=== PATIENT | female | born 1940 | race Caucasian/White ===

== ENCOUNTER 2020-01-08 11:26 | Inpatient (IN) ==
[2020-01-08] MEDS ORDERED: 0.9 % SODIUM CHLORIDE 1,000 ML IV ONE (11:45)
--- NOTE | 2020-01-08 11:49 | Emergency Department Note ---
Weakness HPI - General Chief complaint: Weakness Stated complaint: Run over by horse yesterday, weak and lethargic Time Seen by Provider: 01/08/20 11:30 Source: patient, family Mode of arrival: wheelchair Limitations: no limitations - History of Present Illness HPI Narrative: 79-year-old female was trampled by a horse yesterday. She did not hit her head or lose consciousness. Yesterday she was evaluated here in the ER by Dr. ramon and x-rays of bilateral knees left femur and CT scan of the cervical spine were all negative. No labs were done. Anyways today she comes back for some memory issues and confusion. Altered mental state. No fever she is on Coumadin for atrial fibrillation. I am having trouble getting history from her and review of systems-she is not reporting any new pain except for the pain in her legs. No fever. Her oxygen level was 87% here but she is not dyspneic nor does she have a history of oxygen usage I got additional history from her daughter. Apparently she has baseline cognitive impairment but today is worse. Today she cannot even write her name. Concern for ongoing sleep apnea and the need for oxygen at home but she is not on oxygen and refuses to wear. - Related Data Home Medications Medication Instructions Recorded Confirmed Aspirin [Adult Low Dose Aspirin EC] 81 mg PO DAILY 03/12/17 01/08/20 Previous Rx's Medication Instructions Recorded metoprolol suc 100 100 tab PO BID #180 tab 05/27/19 mg-hydrochlorothiazide 12.5 mg tablet,ext.rel 24 hr valsartan 160 mg tablet 160 mg PO QDAY #90 tab 08/04/19 carvedilol 12.5 mg tablet 12.5 mg PO BID #180 tab 08/05/19 rivaroxaban 20 mg tablet 20 mg PO DAILY #90 tab 08/11/19 ezetimibe 10 mg tablet 10 mg PO QDAY #90 tab 08/27/19 furosemide 40 mg tablet 40 mg PO QDAY #90 tab 09/17/19 Allergies Allergy/AdvReac Type Severity Reaction Status Date / Time bacitracin AdvReac Severe Rash Verified 01/08/20 11:27 [From Neosporin ([id number])] Neomycin AdvReac Severe Rash Verified 01/08/20 11:27 [From Neosporin ([id number])] polymyxin B AdvReac Severe Rash Verified 01/08/20 11:27 [From Neosporin ([id number])] codeine AdvReac Intermediate Vomiting Verified 01/08/20 11:27 Review of Systems All systems ED: reviewed and negative except as stated. Past Medical History - Past Medical History Attestation: Yes: The following information was validated with the patient. [facility] Narrative: Family History (Last Reviewed 04/29/19 @ 09:20 by Max Johnson DO) Sister Cancer Family/Other Cancer Stroke Father Diabetes Mother Hypertension, essential Medical History (Last Reviewed 04/29/19 @ 09:20 by Max Johnson DO) Mild chronic anemia (Chronic) CHF (congestive heart failure) (Chronic) CAD (coronary artery disease) (Chronic) Lumbar radicular pain (Chronic) Rheumatic fever (Chronic ~1947) Hypertension, essential (Chronic ~1999) Hyperlipidemia (Chronic ~1999) Heart murmur (Chronic) Congestive heart failure (Resolved) Past Surgical History (Last Reviewed 04/29/19 @ 09:20 by Max Johnson DO) H/O colonoscopy (Chronic ~1999) H/O eye surgery (Chronic ~1947) H/O reduction mammoplasty (Chronic ~1999) H/O: hysterectomy (Chronic ~1982) Medical history: Reports: atrial fibrillation, CAD (coronary artery disease), CHF, hypertension. Denies: CVA, DVT, myocardial infarction, pulmonary embolus, renal disease [employer] history: Reports: non-contributory Surgical history ED: Reports: hysterectomy, tonsillectomy, other (Eye surgery) - Social History smoking status: Never smoker Alcohol use: Reports: None Drug use: Reports: none. Denies: marijuana Physical Exam No acute distress resting. Normocephalic atraumatic except for she small bruised area underneath the nose pad on her eyeglasses on the left side-this is quite small-I do not see any other evidence of trauma. I palpated her entire head and neck and I did not evidence any tenderness. Conjunctive are clear sclerae white nonicteric. Pupils are equal and reactive. Extraocular movements are intact. [place] is intact bilaterally as well. No nasal discharge or congestion. Oropharynx is pink and moist. Face is symmetrical tongue is midline. There is no dysarthria. Anterior neck appears normal without lymphadenopathy or thyromegaly. Heart is regular rate and rhythm no murmur appreciated. Lungs are clear to auscultation bilaterally without wheezes rales rhonchi or respiratory distress. Abdomen is soft nontender nondistended. Looking at her legs see that she is got multiple bruises around the calf area on the right, is quite mottled. On the left bruising and swelling are noted at the femur, again quite mottled and dark purple. Small quarter sized ulcer at left lateral thigh. Appears to be healing well. Bilateral supervisor engraving are normal. She is alert and able answer some questions but her short-term memory is noted-at first he does not remember what happened yesterday. She does not remember what medicine she is on or why she is on them. However at other times she is remembering just fine-it will come to her after little while. She is certainly confused but does not appear delirious Limitations: no limitations Course Vital Signs Temperature 97.0 F 01/08/20 11:28 Pulse Rate 93 H 01/08/20 11:28 Respiratory Rate 18 01/08/20 11:28 Blood Pressure 113/82 01/08/20 11:28 Pulse Oximetry (%) 86 L 01/08/20 11:28 Temperature 97.0 F 01/08/20 11:28 Pulse Rate 111 H 01/08/20 17:07 Respiratory Rate 18 01/08/20 17:07 Blood Pressure 115/65 01/08/20 17:07 Pulse Oximetry (%) 100 01/08/20 17:07 Weakness - Lab Data Lab results reviewed: Yes I reviewed the patient's lab results. Result diagrams: 01/08/20 11:50 01/08/20 11:50 Lab Results 01/08/20 01/08/20 01/08/20 Range/Units 11:50 11:50 11:50 WBC 18.5 H (4.50-11.00) K/mcL RBC 3.50 L (3.59-5.38) M/mcL Hgb 9.9 L (11.2-15.7) g/dL Hct 30.4 L (34.1-44.9) % POC Hct 29.0 L (36.0-48.0) % MCV 86.9 (80.0-100.0) fL MCH 28.3 (26.0-34.0) pg MCHC 32.6 (31.0-36.0) g/dL RDW 14.8 H (11.5-14.5) % Plt Count 288 (140-440) K/mcL MPV 10.2 (7.4-10.4) fL Gran % 81.6 H (38.0-78.0) % Lymph % (Auto) 8.7 L (15.5-49.0) % [place] % (Auto) 9.1 (1.0-12.0) % Eos % (Auto) 0.2 (0.0-7.0) % Baso % (Auto) 0.4 (0.0-2.0) % Gran # 15.08 H (1.80-8.00) K/mcL Lymph # (Auto) 1.60 (1.50-4.80) K/mcL [place] # (Auto) 1.69 H (0.10-0.90) K/mcL Eos # (Auto) 0.04 (0.00-0.70) K/mcL Baso # (Auto) 0.07 (0.00-0.30) K/mcL PT 34.0 H (11.9-14.5) sec INR 3.3 H (0.9-1.1) VBG Lactic Acid (0.5-2.0) mmol/L POC Sodium 136 (133-145) mmol/L Sodium 136 (133-145) mmol/L POC Potassium 4.4 (3.3-5.1) mmol/L Potassium 4.7 (3.3-5.1) mmol/L POC Chloride 104 (96-108) mmol/L Chloride 98 (96-108) mmol/L Carbon Dioxide 17 L (22-30) mmol/L POC Total CO2 22 (22-30) mmol/L Anion Gap 21.0 H (8-16) POC BUN 44 H (8-23) mg/dl BUN 47 H (8-23) mg/dl Creatinine 2.2 H (0.6-1.1) mg/dl POC Creatinine 2.6 H (0.6-1.1) mg/dl GFR Calculation 20 Glucose 168 H (70-105) mg/dL POC Glucose 166 H (70-105) mg/dL Calcium 9.2 (8.6-10.4) mg/dl POC WB Ioniz Calcium 1.14 L (1.16-1.32) mmol/L Magnesium 2.1 (1.6-2.5) mg/dL Total Bilirubin 0.8 (0.0-1.0) mg/dL AST 24 (0-37) U/l ALT 18 (0-40) U/l Alkaline Phosphatase 92 (39-117) U/L Total Creatine Kinase (24-170) IU/L Troponin T (0-0.03) ng/ml NT-Pro-B Natriuret Pep 4485.0 H (0-450) pg/ml Total Protein 7.0 (5.9-8.4) gm/dL Albumin 3.7 (3.2-5.2) gm/dL Globulin 3.3 (2.2-3.7) gm/dL Albumin/Globulin Ratio 1.1 (1.0-2.3) Urine Color Urine Appearance Urine pH (5.0-9.0) Ur Specific [place] (1.000-1.035) Urine Protein (NEG) mg/dL Urine Glucose (UA) (NEG) mg/dL Urine Ketones (NEG) mg/dL Urine Occult Blood (<0.03) mg/dL Urine Nitrate (NEG) Urine Bilirubin (NEG) mg/dL Urine Urobilinogen (NEG) mg/dL Ur Leukocyte Esterase (NEG) /uL Urine RBC (0-1) /hpf Urine WBC (0-4) /hpf Ur Squamous Epith Cells (0-4) /hpf Urine Bacteria (0) /hpf Hyaline Casts (0-2) /lpf Urine Mucus (0) /hpf Ur Culture Indicated? 01/08/20 01/08/20 01/08/20 Range/Units 11:50 11:50 12:24 WBC (4.50-11.00) K/mcL RBC (3.59-5.38) M/mcL Hgb (11.2-15.7) g/dL Hct (34.1-44.9) % POC Hct (36.0-48.0) % MCV (80.0-100.0) fL MCH (26.0-34.0) pg MCHC (31.0-36.0) g/dL RDW (11.5-14.5) % Plt Count (140-440) K/mcL MPV (7.4-10.4) fL Gran % (38.0-78.0) % Lymph % (Auto) (15.5-49.0) % [place] % (Auto) (1.0-12.0) % Eos % (Auto) (0.0-7.0) % Baso % (Auto) (0.0-2.0) % Gran # (1.80-8.00) K/mcL Lymph # (Auto) (1.50-4.80) K/mcL [place] # (Auto) (0.10-0.90) K/mcL Eos # (Auto) (0.00-0.70) K/mcL Baso # (Auto) (0.00-0.30) K/mcL PT (11.9-14.5) sec INR (0.9-1.1) VBG Lactic Acid 2.7 H (0.5-2.0) mmol/L POC Sodium (133-145) mmol/L Sodium (133-145) mmol/L POC Potassium (3.3-5.1) mmol/L Potassium (3.3-5.1) mmol/L POC Chloride (96-108) mmol/L Chloride (96-108) mmol/L Carbon Dioxide (22-30) mmol/L POC Total CO2 (22-30) mmol/L Anion Gap (8-16) POC BUN (8-23) mg/dl BUN (8-23) mg/dl Creatinine (0.6-1.1) mg/dl POC Creatinine (0.6-1.1) mg/dl GFR Calculation Glucose (70-105) mg/dL POC Glucose (70-105) mg/dL Calcium (8.6-10.4) mg/dl POC WB Ioniz Calcium (1.16-1.32) mmol/L Magnesium (1.6-2.5) mg/dL Total Bilirubin (0.0-1.0) mg/dL AST (0-37) U/l ALT (0-40) U/l Alkaline Phosphatase (39-117) U/L Total Creatine Kinase 208 H (24-170) IU/L Troponin T < 0.01 (0-0.03) ng/ml NT-Pro-B Natriuret Pep (0-450) pg/ml Total Protein (5.9-8.4) gm/dL Albumin (3.2-5.2) gm/dL Globulin (2.2-3.7) gm/dL Albumin/Globulin Ratio (1.0-2.3) Urine Color Urine Appearance Urine pH (5.0-9.0) Ur Specific [place] (1.000-1.035) Urine Protein (NEG) mg/dL Urine Glucose (UA) (NEG) mg/dL Urine Ketones (NEG) mg/dL Urine Occult Blood (<0.03) mg/dL Urine Nitrate (NEG) Urine Bilirubin (NEG) mg/dL Urine Urobilinogen (NEG) mg/dL Ur Leukocyte Esterase (NEG) /uL Urine RBC (0-1) /hpf Urine WBC (0-4) /hpf Ur Squamous Epith Cells (0-4) /hpf Urine Bacteria (0) /hpf Hyaline Casts (0-2) /lpf Urine Mucus (0) /hpf Ur Culture Indicated? 01/08/20 Range/Units 15:15 WBC (4.50-11.00) K/mcL RBC (3.59-5.38) M/mcL Hgb (11.2-15.7) g/dL Hct (34.1-44.9) % POC Hct (36.0-48.0) % MCV (80.0-100.0) fL MCH (26.0-34.0) pg MCHC (31.0-36.0) g/dL RDW (11.5-14.5) % Plt Count (140-440) K/mcL MPV (7.4-10.4) fL Gran % (38.0-78.0) % Lymph % (Auto) (15.5-49.0) % [place] % (Auto) (1.0-12.0) % Eos % (Auto) (0.0-7.0) % Baso % (Auto) (0.0-2.0) % Gran # (1.80-8.00) K/mcL Lymph # (Auto) (1.50-4.80) K/mcL [place] # (Auto) (0.10-0.90) K/mcL Eos # (Auto) (0.00-0.70) K/mcL Baso # (Auto) (0.00-0.30) K/mcL PT (11.9-14.5) sec INR (0.9-1.1) VBG Lactic Acid (0.5-2.0) mmol/L POC Sodium (133-145) mmol/L Sodium (133-145) mmol/L POC Potassium (3.3-5.1) mmol/L Potassium (3.3-5.1) mmol/L POC Chloride (96-108) mmol/L Chloride (96-108) mmol/L Carbon Dioxide (22-30) mmol/L POC Total CO2 (22-30) mmol/L Anion Gap (8-16) POC BUN (8-23) mg/dl BUN (8-23) mg/dl Creatinine (0.6-1.1) mg/dl POC Creatinine (0.6-1.1) mg/dl GFR Calculation Glucose (70-105) mg/dL POC Glucose (70-105) mg/dL Calcium (8.6-10.4) mg/dl POC WB Ioniz Calcium (1.16-1.32) mmol/L Magnesium (1.6-2.5) mg/dL Total Bilirubin (0.0-1.0) mg/dL AST (0-37) U/l ALT (0-40) U/l Alkaline Phosphatase (39-117) U/L Total Creatine Kinase (24-170) IU/L Troponin T (0-0.03) ng/ml NT-Pro-B Natriuret Pep (0-450) pg/ml Total Protein (5.9-8.4) gm/dL Albumin (3.2-5.2) gm/dL Globulin (2.2-3.7) gm/dL Albumin/Globulin Ratio (1.0-2.3) Urine Color Yellow Urine Appearance Turbid Urine pH 5.0 (5.0-9.0) Ur Specific [place] 1.015 (1.000-1.035) Urine Protein 30 A (NEG) mg/dL Urine Glucose (UA) Negative (NEG) mg/dL Urine Ketones Neg (NEG) mg/dL Urine Occult Blood 0.2 A (<0.03) mg/dL Urine Nitrate Neg (NEG) Urine Bilirubin Neg (NEG) mg/dL Urine Urobilinogen Neg (NEG) mg/dL Ur Leukocyte Esterase 250 A (NEG) /uL Urine RBC 93 H (0-1) /hpf Urine WBC > 182 H (0-4) /hpf Ur Squamous Epith Cells 0 (0-4) /hpf Urine Bacteria Many A (0) /hpf Hyaline Casts 47 H (0-2) /lpf Urine Mucus Many A (0) /hpf Ur Culture Indicated? Yes - Radiology Data Radiology results reviewed: Yes I reviewed the patient's radiology results. CT scan of the head without contrast shows no acute finding Chest x-ray shows some mild incisional inflammation but nothing acute CT scan of the abdomen pelvis without contrast shows bilateral nonobstructing kidney stones. Small inguinal hernia noted. Right subcapital femoral fracture - EKG Data EKG attestation: Yes I reviewed and interpreted this EKG., Yes There are no EKG findings of acute coronary syndrome EKG results narrative: EKG was compared to previous and there are no new findings. She continues to have atrial fibrillation with mild rapid ventricular response and a rate of 102 Disposition Pt seen by PROCESS HELPER/PA only: No Clinical Impression: Hematoma, Mild cognitive impairment, Hypoxia Rhabdomyolysis Qualifiers: Rhabdomyolysis type: traumatic Encounter type: initial encounter Qualified Code(s): T79.6XXA - Traumatic ischemia of muscle, initial encounter Acute renal failure Qualifiers: Acute renal failure type: unspecified Qualified Code(s): N17.9 - Acute kidney failure, unspecified Struck by horse Qualifiers: Encounter type: subsequent encounter Qualified Code(s): W55.12XD - Struck by horse, subsequent encounter Altered mental status Qualifiers: Altered mental status type: disorientation Qualified Code(s): R41.0 - Disorientation, unspecified Sepsis Qualifiers: Sepsis type: sepsis due to unspecified organism Sepsis acute organ dysfunction status: with acute organ dysfunction Severe sepsis acute organ dysfunction type: acute renal failure Acute renal failure type: unspecified Severe sepsis shock status: unspecified Qualified Code(s): A41.9 - Sepsis, unspecified organism Subcapital fracture of right femur Qualifiers: Encounter type: initial encounter Fracture type: closed Qualified Code(s): S72.011A - Unspecified intracapsular fracture of right femur, initial encounter for closed fracture UTI (urinary tract infection) Qualifiers: Urinary tract infection type: acute cystitis Hematuria presence: with hematuria Qualified Code(s): N30.01 - Acute cystitis with hematuria Summary: Yesterday it sounds like she was trampled by a young horse. She has some bruising to both the right and left legs and a tiny small bruise underneath her eyeglass area but is otherwise good in regards to that. However overnight she has developed new confusion and altered mental status. It is documented she did not hit her head or lose consciousness but other things remain in the differential including CVA versus acute infection such as UTI or pneumonia versus metabolic. Ordered laboratory as well as chest x-ray CT scan of the head and EKG. she is requiring oxygen but it is not clear if this is new from a lung issue or if this is ongoing-she does not wear oxygen at home She asked for a glass of water-however the nurse was helping her drink and she choked both time she tried to drink. We did not allow her to have any further water EKG was unrevealing and did not show any changes compared to previous. She continues to have atrial fibrillation with moderate ventricular response Laboratory shows leukocytosis with acute renal failure-this combined with her altered mental status argue for septic picture. Will start blood cultures and antibiotics with Zosyn and vancomycin. Discussed with hospitalist Dr. Peoples, he would like us to order CT scan of the belly make sure were not missing anything as well as make sure that we get urine on her. Urinalysis was ordered earlier but she has not urinated for us so we will get a bladder scan to see if we need to put in a Jerome. We will be careful with hydration given her heart failure history Bladder scan showed over 300 mL of Jerome was inserted. Urinary tract infection identified-this is likely the cause of her sepsis. CT scan of the abdomen pelvis shows a right subcapital femoral fracture. Unfortunately this was not seen yesterday because her left femur was the one that was imaged because it had large hematoma. Briefly discussed the case with orthopedist Dr. Hughes who saw the patient and discussed things with her. It is noted that she is chronically anticoagulated as well as septic at this time which preclude immediate repair. See his note for full details Dr. Peoples is admitting the patient Disposition: Xfer As Inpt ([facility]) Condition: Fair Referrals: Max Johnson DO [Primary Care Provider] -
[2020-01-08 12:06] LABS: POC Blood Urea Nitrogen 44 mg/dl (8-23); POC CO2 22 mmol/L (22-30); POC Calcium, Ionized 1.14 mmol/L (1.16-1.32); POC Chloride 104 mmol/L (96-108); POC Creatinine 2.6 mg/dl (0.6-1.1); POC Glucose, Random 166 mg/dL (70-105); POC Potassium 4.4 mmol/L (3.3-5.1); POC Sodium 136 mmol/L (133-145)
[2020-01-08 12:27] LABS: Basophils # (Auto) 0.07 K/mcL (0.00-0.30); Basophils % (Auto) 0.4 % (0.0-2.0); Eosinophils # (Auto) 0.04 K/mcL (0.00-0.70); Eosinophils % (Auto) 0.2 % (0.0-7.0); Granulocytes % (Auto) 81.6 % (38.0-78.0); Hematocrit 30.4 % (34.1-44.9); Hemoglobin 9.9 g/dL (11.2-15.7); Lymphocytes % (Auto) 8.7 % (15.5-49.0); Mean Cell Volume 86.9 fL (80.0-100.0); Mean Corpuscular HGB Conc 32.6 g/dL (31.0-36.0); Mean Platelet Volume 10.2 fL (7.4-10.4); Monocytes # (Auto) 1.69 K/mcL (0.10-0.90); Monocytes % (Auto) 9.1 % (1.0-12.0); Platelet Count 288 K/mcL (140-440); Red Cell Distribution Width 14.8 % (11.5-14.5); WBC 18.5 K/mcL (4.50-11.00)
[2020-01-08 12:45] LABS: INR 3.3 (0.9-1.1)
[2020-01-08 12:53] LABS: ALT/SGPT 18 U/l (0-40); AST/SGOT 24 U/l (0-37); Albumin 3.7 gm/dL (3.2-5.2); Albumin/Globulin Ratio 1.1 (1.0-2.3); Alkaline Phosphatase 92 U/L (39-117); Bilirubin,Total 0.8 mg/dL (0.0-1.0); Blood Urea Nitrogen 47 mg/dl (8-23); Calcium 9.2 mg/dl (8.6-10.4); Carbon Dioxide 17 mmol/L (22-30); Chloride 98 mmol/L (96-108); Globulin 3.3 gm/dL (2.2-3.7); Glomerular Filtration Rate 20; Glucose 168 mg/dL (70-105)
--- NOTE | 2020-01-08 13:15 | Cat Scan Report ---
History: Run over by horse yesterday with increased confusion and lethargy and weakness, patient is anticoagulated TECHNIQUE: The brain was imaged without contrast at 2.5 mm intervals. The radiation exposure was limited using dose reduction technology. FINDINGS: No intracranial hemorrhage is present. There is no skull fracture or cerebral edema. There is a stable 1.1 cm densely calcified meningioma along the inferior surface of the right tentorium. This indents the top of the cerebellum but there is no edema and very little mass effect associated with it. There has been no growth since prior CT done on 04/02/14. Patient has mild generalized atrophy. There are extensive white matter changes with confluent areas of decreased attenuation in the centrum semiovale throughout the frontal and parietal lobes bilaterally as well as the external capsules. There is a small old lacunar infarct with encephalomalacia in the head of the right caudate nucleus. Frontal horns of both lateral ventricles are dilated due to loss of brain parenchyma. These findings have all remain stable since 2014. There is no abnormal extra-axial fluid collection. Densely calcified plaques are present in the cavernous portions of both internal carotids and the vertebral arteries. IMPRESSION: No evidence of acute head injury Severe white matter ischemia or degeneration predominantly involving the frontal and parietal lobes Stable 11 mm meningioma located along the undersurface of the right side of the tentorium Dr. Brewer was called with the results Interpreted and Authenticated by: Nacho Bassett 01/08/20
--- NOTE | 2020-01-08 14:05 | XRay Report ---
HISTORY: Hypoxia, cough and run over by a horse yesterday FINDINGS: Mild interstitial lung disease is present bilaterally, most apparent in the right upper lobe. There is a thin linear band of scar tissue lateral to the left upper heart border. The interstitial lung disease has improved since 05/09/19. There is no pulmonary contusion, pneumonia, pneumothorax or pleural effusion. There is no widening of the mediastinum. Heart is borderline enlarged but is smaller today than it was previously. 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 No fracture is identified. IMPRESSION: Mild interstitial fibrosis/inflammation and no acute abnormality Interpreted and Authenticated by: Nacho Bassett 01/08/20
[2020-01-08] MEDS ORDERED: PIPERACILLIN SODIUM/TAZOBACTAM 2.25 GM in DEXTROSE 5% IN WATER 50 ML IV ONE (14:13)
[2020-01-08] MEDS ORDERED: VANCOMYCIN 1,000 MG in 0.9 % SODIUM CHLORIDE 250 ML IV ONE (14:13)
[2020-01-08 15:59] LABS: Appearance,Urine TURBID; Bacteria,Urine MANY /hpf (0); Bilirubin,Urine NEG (NEG); Color,Urine YELLOW; Culture Indicated,Urine YES; Glucose,Urine (UA) NEGATIVE (NEG); Ketones,Urine NEG (NEG); Leukocyte Esterase,Urine 250 /uL (NEG); Mucus,Urine MANY /hpf (0); Nitrate,Urine NEG (NEG); Protein,Urine 30 mg/dL (NEG); Specific Gravity,Urine 1.015 (1.000-1.035); Urine Blood 0.2 mg/dL (<0.03); Urine Hyaline Cast 47 /lpf (0-2); Urine RBC 93 /hpf (0-1); Urine Squamous Epithelial Cell 0 /hpf (0-4); Urine WBC > 182 /hpf (0-4); Urobilinogen,Urine NEG (NEG)
--- NOTE | 2020-01-08 16:10 | Cat Scan Report ---
History: Trampled by a horse yesterday TECHNIQUE: The patient was imaged without contrast scanning from the diaphragm through the pubic bones. Sagittal and coronal reformats are created. The radiation exposure was limited using dose reduction technology. FINDINGS: The heart is mildly enlarged. There are a few bands of scar or discoid atelectasis in the lingula and posterior basal segment left lower lobe. No pleural effusion or pericardial effusion are present. Evaluation the abdominal organs without contrast is somewhat limited. The liver and spleen are normal in size and homogeneous. Gallbladder and bile ducts are normal. There is mild atrophy of the pancreas. The adrenals are normal. In an upper pole calyx of the right kidney there is a 2 x 4 mm nonobstructing calculus. In an upper pole calyx of left kidney there is a 2 x 3 mm nonobstructing stone. The kidneys are otherwise normal with no laceration or surrounding hematoma. The aorta is normal in caliber. There is a moderate amount calcified plaque throughout the aorta, iliac arteries and visceral arteries throughout the abdomen and pelvis. No intra-abdominal hemorrhage or free air present. There are several noninflamed diverticula in the descending colon. The uterus and ovaries have been removed. Urinary bladder is decompressed by Jerome catheter. There is air in the bladder, probably related to the catheter insertion. Patient has a subcapital fracture of the right femoral neck. There is impaction along the lateral side. Left hip is normal. No other fracture is present. There is a moderate levoscoliotic curvature in the lumbar spine with associated disc degeneration and arthritis throughout the lumbar spine as well as lower thoracic spine. The greatest degeneration is at L5-S1. A small fat-containing left inguinal hernia is seen. IMPRESSION: Acute subcapital fracture of the right femoral neck. No lacerated abdominal organ or intra-abdominal hemorrhage. Tiny bilateral nonobstructing kidney stones Cardiomegaly Dr. Brewer was called with the results Interpreted and Authenticated by: Nacho Bassett 01/08/20
--- NOTE | 2020-01-08 16:27 | Internal Med History&Physical ---
Medical - H&P: [facility] Patient information: Note initiated : 01/08/20 at 4:21 pm Service Date, if different from initiated Date: [] Patient: Izzy Everett a 79 y/o F admitted on for Run Over By Horse Yesterday, Weak And Lethargic. Chief Complaint: [] Chief complaint: Mental status change/pain History of present illness: Ms. Everett is a 79 year old F fairly independently living alone and carries history of HTN/CHF and CAD who presents to the ER following injury sustained while she was attempting to braid her horse standing on a stool. She got thrown off the stool and landed on her hip and subsequently was trampled by the horse multiple times sustaining injuries across face chest and lower extremity. She was evaluated in the ER and after initial work-up was discharged in stable s contreras. Following discharge within a few hours she became progressively weak confused and was unable to function. Sustained injuries after getting trampled by horse. She was evaluated and was discharged in stable state the day prior to admission. She however continued to deteriorate with increasing mental status change and worsening weakness fatigue and dizziness. During the second visit at [facility] ER work-up was consistent with severe sepsis with a white count 18.5 secondary to complicated UTI and right femoral neck fracture was discovered on imaging. Hospitalist/orthopedics service was consulte in light of above Blood cultures were drawn and antibiotics initiated. At the time of evaluation patient is alert but in significant pain. She is able to endorse history as above. Extensive bruising throughout the body noted. She is accompanied with her daughter. She denies chest pain, vision changes, unilateral weakness, incontinence Review of systems 10 point review system was performed and is negative except was cussed above Medical - H&P: PMH Medical history: Mild chronic anemia (Chronic) CHF (congestive heart failure) (Chronic) CAD (coronary artery disease) (Chronic) s/p 2 vessel stenting in [place], [place] by Dr. Burnham Lumbar radicular pain (Chronic) Rheumatic fever (Chronic ~1947) Hypertension, essential (Chronic ~1999) Hyperlipidemia (Chronic ~1999) Heart murmur (Chronic) Congestive heart failure (Resolved) Surgical History H/O colonoscopy (Chronic ~1999) [facility] in [place], [place] H/O eye surgery (Chronic ~1947) at 8 years old H/O reduction mammoplasty (Chronic ~1999) H/O: hysterectomy (Chronic ~1982) Family History Sister Cancer Family/Other Cancer Aunt Stroke Aunt Father Diabetes Mother Hypertension, essential Social History marital status: other: Children-4 smoking status: Never smoker alcohol intake frequency: does not drink substance use type: does not use Medical - H&P: Meds Home Medications Medication Instructions Recorded Confirmed Type Aspirin [Adult Low Dose Aspirin EC] 81 mg PO DAILY 03/12/17 01/08/20 History metoprolol suc 100 100 tab PO BID #180 tab 05/27/19 01/08/20 Rx mg-hydrochlorothiazide 12.5 mg tablet,ext.rel 24 hr valsartan 160 mg tablet 160 mg PO QDAY #90 tab 08/04/19 01/08/20 Rx carvedilol 12.5 mg tablet 12.5 mg PO BID #180 tab 08/05/19 01/08/20 Rx rivaroxaban 20 mg tablet 20 mg PO DAILY #90 tab 08/11/19 01/08/20 Rx ezetimibe 10 mg tablet 10 mg PO QDAY #90 tab 08/27/19 01/08/20 Rx furosemide 40 mg tablet 40 mg PO QDAY #90 tab 09/17/19 01/08/20 Rx Allergies Allergy/AdvReac Type Severity Reaction Status Date / Time bacitracin AdvReac Severe Rash Verified 01/08/20 11:27 [From Neosporin ([id number])] Neomycin AdvReac Severe Rash Verified 01/08/20 11:27 [From Neosporin ([id number])] polymyxin B AdvReac Severe Rash Verified 01/08/20 11:27 [From Neosporin ([id number])] codeine AdvReac Intermediate Vomiting Verified 01/08/20 11:27 Medical - H&P: Exam - Constitutional Vitals: Temp Pulse Resp BP Pulse Ox 97.0 F 108 H 17 118/72 98 01/08/20 11:28 01/08/20 15:06 01/08/20 15:06 01/08/20 15:06 01/08/20 15:06 General appearance: moderate distress (Generalized pain/fracture site) Exam: Head normocephalic, bruising around forehead Neck lymphadenopathy oral cavity dry no ear nose discharg Eye movement symmetrical S1-S2 regular rhythm and monitor Nonlabored breathing abdomen soft Diminished range of motion at right hip joint secondary to pain Skin generalized bruising lower extremity/torso Psych alert cooperative but anxious Neuro nonfocal Medical - H&P: Reslt - Labs CBC & Chem 7: 01/09/20 04:54 01/08/20 11:50 Labs: Short CBC 01/08/20 Range/Units 11:50 WBC 18.5 H (4.50-11.00) K/mcL Hgb 9.9 L (11.2-15.7) g/dL Hct 30.4 L (34.1-44.9) % Plt Count 288 (140-440) K/mcL BMP 01/08/20 11:50 Sodium 136 Potassium 4.7 Chloride 98 Carbon Dioxide 17 L BUN 47 H Creatinine 2.2 H Glucose 168 H Calcium 9.2 Cardiac Enzymes 01/08/20 01/08/20 Range/Units 11:50 11:50 Total Creatine Kinase 208 H (24-170) IU/L Troponin T < 0.01 (0-0.03) ng/ml Liver Function 01/08/20 Range/Units 11:50 Total Bilirubin 0.8 (0.0-1.0) mg/dL AST 24 (0-37) U/l ALT 18 (0-40) U/l Alkaline Phosphatase 92 (39-117) U/L Albumin 3.7 (3.2-5.2) gm/dL Urine 01/08/20 Range/Units 15:15 Urine Color Yellow Urine Appearance Turbid Urine pH 5.0 (5.0-9.0) Ur Specific [place] 1.015 (1.000-1.035) Urine Protein 30 A (NEG) mg/dL Urine Glucose (UA) Negative (NEG) mg/dL Medical - H&P: A/P (1) Displaced fracture of right femoral neck Current visit: Yes Status: Acute * Right femoral neck fracture-orthopedic consulted. Inpatient admission * Preop risk evaluation-based on RCRI [place] [employer] restarted again patient would fall under high risk category for intraoperative and immediate postoperative. Risk of ACS/CVA. I would recommend maintaining intraoperative mean artery pressure over 65. However at this time due to active sepsis I would recommend delaying surgery until sepsis resolves and patient more stable to undergo anesthesia. Additionally surgery and anesthesia specific risks will be addressed by individual care providers. * Complicated UTI-continue antibiotic coverage and de-escalate based on sensitivities * Severe sepsis second above with endorgan dysfunction including AMS/ARF. White count 18.5. Lactate 2.7. Trend venous lactate/blood antibiotic coverage. * Acute kidney injury secondary to severe sepsis with endorgan dysfunction. Baseline 0.9. Continue crystalloids and sepsis management per guidelines. * Acute change mental status secondary to sepsis endorgan dysfunction. Continue close monitoring * Extensive contusion secondary injury. Continue pain management * Atrial fibrillation currently rate controlled. Anticoagulation rivaroxaban for CVA prophylaxis * History of CAD continue aspirin/beta-ginny * History of hypertension hold antihypertensives until systolics improve and over 140 Plan * Inpatient PCU admit light of hip fracture/severe sepsis/AMS * Orthopedic consult for hip fracture * Broad antibiotic coverage * Sepsis management per guidelines * Nephrology consultation for RACHEL * Pre-existing medical condition management home meds except for antihypertensives will be held until sepsis resolves
[2020-01-08] MEDS ORDERED: hydrALAZINE 20 MG/ML VIAL IV PRN (18:27)
[2020-01-08] MEDS ORDERED: BISACODYL 10 MG SUPP.RECT PR PRN (18:27)
[2020-01-08] MEDS ORDERED: METOPROLOL TARTRATE 5 MG/5 ML VIAL IV PRN (18:27)
[2020-01-08] MEDS ORDERED: POLYETHYLENE GLYCOL 3350 17 GM PACKET PO PRN (18:27)
[2020-01-08] MEDS ORDERED: ONDANSETRON 4 MG ODT TABLET SL PRN (18:27)
[2020-01-08] MEDS ORDERED: ACETAMINOPHEN 325 MG TABLET PO PRN (18:27)
[2020-01-08] MEDS ORDERED: ONDANSETRON 4 MG/2 ML VIAL IV PRN (18:27)
[2020-01-08] MEDS ORDERED: MAGNESIUM SULFATE 2 GM/50 ML BAG IV PRN (18:27)
[2020-01-08] MEDS ORDERED: POTASSIUM CHLORIDE 20 MEQ PACKET PO PRN (18:27)
[2020-01-08] MEDS ORDERED: POTASSIUM CHLORIDE 40 MEQ in DEXTROSE 5% IN WATER 500 ML IV PRN (18:27)
[2020-01-08] MEDS ORDERED: ACETAMINOPHEN IV PRN (18:47)
[2020-01-08] MEDS: HYDROcodone/APAP 5/325MG TABLET PO PRN (19:02)
[2020-01-08] MEDS ORDERED: cefTRIAXone 2 GM VIAL ONE (19:06)
[2020-01-08] MEDS: cefTRIAXone 2 GM in DEXTROSE 5% IN WATER 50 ML IV SCH (19:08)
--- NOTE | 2020-01-08 19:59 | Consultation ---
DATE OF CONSULTATION: 01/08/2020 REASON FOR CONSULTATION: Right femoral neck fracture. CONSULTING PROVIDER: Dr. Álvaro Brewer, ER provider, [facility]. HISTORY OF PRESENT ILLNESS: The patient is an 79-year-old female who is independent normally, who was trampled by her horse, a yearling, yesterday. She was apparently braiding her horse's frederick standing on a stool when this occurred. She was brought to the emergency department at that time with imaging of bilateral knees as well as left femur and hip, which did not demonstrate any fractures. She was subsequently discharged with a diagnosis of a blunt trauma with hematomas throughout the lower extremities as well as her right arm and face. She then followed up with her primary care today and she was found to have altered mental status, hypotensive and was concerned with referral her back to the emergency department. In the emergency department, she was found to be septic with UTI as well as acute renal failure, elevated white count and lactic acid, and a right displaced femoral neck fracture. For this latter, orthopedics was consulted. The hospitalist also consulted for the septic picture of the patient. On presentation, she does complain about the pain in multiple areas with bruising and right hip pain. She did ambulate with a walker for the first time yesterday after the injury; however, only very short distances. Some of this information brought to light by her daughter who accompanies her today. PAST MEDICAL HISTORY: Significant for chronic anemia, history of chronic congestive heart failure, coronary artery disease, status post 2-vessel stenting, lumbar radicular pain, hypertension, hyperlipidemia, heart murmur, as well as peripheral vascular disease. PAST SURGICAL HISTORY: Significant for a colonoscopy, eye surgery, breast reduction, and hysterectomy. ALLERGIES: BACITRACIN, NEOMYCIN, POLYMYXIN B, AND CODEINE. MEDICATIONS: Aspirin 81 mg, metoprolol, losartan, carvedilol, furosemide, rivaroxaban, and ezetimibe. REVIEW OF SYSTEMS: As mentioned in HPI, altered mental status, fevers, chills in addition to the pain that she is currently having. Otherwise, prior to this 10-point review of systems was negative per her daughter. SOCIAL HISTORY: She resides by herself in [place] with her daughter living just on the [address] approximately half mile. She is a nontobacco user, smoker. FAMILY HISTORY: Significant for stroke as well as malignancy, hypertension, and diabetes. PHYSICAL EXAMINATION: VITAL SIGNS: Heart rate is 122, respiratory rate is 18, blood pressure 115/65. She is on supplemental oxygen, satting up to 100%. GENERAL: She does converse; however, slightly altered mental status, as she states things that, according to daughter, are not true; however, no slurred speech and does communicate in a logical manner. HEAD: She has several abrasions; however, no active bleeding and overall appears intact. EXTREMITIES: Her bilateral shoulders are atraumatic in nature. On her left upper extremity, she has skin intact. She can fully flex and extend the elbow as well as the wrist, make composite fist with flat hand. She can supinate and pronate the forearm. Sensation intact. Her hand is warm and well perfused. The right upper extremity, she has a dressing on her right elbow; appears dry. She can flex and extend the elbow fully without difficulty or pain. She has full supination and pronation as well as ability of making a composite fist with flat hand. Her hand is warm and well perfused and sensation is intact. Her pelvis is stable to compression. Examination of the left lower extremity, her skin is intact; however, she has significant bruising and ecchymosis through her thigh and swelling. She does not have a knee joint effusion that is appreciated. Her leg is atraumatic. No tenderness to palpation about the knee, the leg, the foot, or at the ankle. She can bend her knee without difficulty as well as move all her digits. No pain with log roll of her hip. Her sensation is intact in her foot as well as the foot is warm and well perfused. Right lower extremity, it is slightly shortened. Range of motion deferred about the hip given known fracture. She does have significant ecchymosis and bruising. There is swelling over the medial aspect of her knee, however, no tenderness about laterally. No tenderness to palpation about the leg itself, ankle or foot. Her sensation is intact throughout her leg as well as her foot is warm and well perfused. LABORATORY DATA: She has a CBC with a white count of 18.5, hemoglobin 9.9, hematocrit is 30.4, platelets 288. Her coags, she has an INR of 3.3 and a PT of 34. She has a CMP with a creatinine of 2.2 and a BUN of 47. Her lactic acid was 2.7. Her urine is positive for UTI and cultures are pending. IMAGING DATA: She has plain films of her bilateral knees as well as her left thigh from yesterday, which did not demonstrate any fractures or any joint effusions of the knee. She has a CT of the chest, abdomen, and pelvis, which demonstrated a complete displaced femoral neck fracture on the right side, also has some irregularity along the anterior acetabular rim; however, it is nondisplaced. No intraabdominal pathology. ASSESSMENT AND PLAN: This 79-year-old female with a displaced right femoral neck fracture who is septic with end-organ failure to include acute kidney failure. I discussed this diagnosis with the patient as well as her daughter. I do not think the correct way to move forward would be a pinning type of surgery and I think this will displace and she will develop AVN given the displaced nature of the fracture. I would recommend hip hemiarthroplasty. However, in light of her septis, I think this has to be delayed until medically stable with normalization of her white count and hemodynamically stable. This may be in a couple of days. Also, her coagulopathy has to be corrected as her INR is 3.3. I reviewed all this with them at length along with the risks and benefits of other surgery and postop expectations to include the morbidity and mortality associated with hip fractures in this age group. They do understand and they are okay to proceed in this fashion. The patient will be admitted by hospitalist for ongoing treatment of her medical issues including sepsis. We will also correct her coagulopathy as sepsis resolves. We will continue to monitor and potentially proceed with surgery in the next several days. Until then, she is nonweightbearing on the right lower extremity. DLW:adolfo Job ID: [id number] Doc ID: [id number] Raghav RUSSELL
[2020-01-08] MEDS ORDERED: MELATONIN 3 MG TABLET PO PRN (21:00)
[2020-01-08] MEDS: DOCUSATE SODIUM 100 MG CAPSULE PO SCH (22:07)
[2020-01-08] MEDS: SENNOSIDES/DOCUSATE SODIUM 1 TAB TABLET PO SCH (22:07)
[2020-01-08] MEDS: 0.9 % SODIUM CHLORIDE 10 ML SYRINGE IV SCH (22:08)
[2020-01-08] MEDS: CYANOCOBALAMIN (VITAMIN B-12) 500 MCG TABLET PO SCH (22:08)
[2020-01-09] MEDS: HYDROmorphone 2 MG/ML VIAL IV PRN ×4 (00:46→21:59)
[2020-01-09 06:35] LABS: Hematocrit 21.7 % (34.1-44.9); Hemoglobin 6.8 g/dL (11.2-15.7); Mean Cell Volume 88.9 fL (80.0-100.0); Mean Corpuscular HGB Conc 31.3 g/dL (31.0-36.0); Mean Platelet Volume 10.3 fL (7.4-10.4); Platelet Count 202 K/mcL (140-440); RBC 2.44 M/mcL (3.59-5.38); Red Cell Distribution Width 14.8 % (11.5-14.5); WBC 13.4 K/mcL (4.50-11.00)
[2020-01-09] MEDS ORDERED: 0.9 % SODIUM CHLORIDE 250 ML IV SCH (06:45)
[2020-01-09 06:46] LABS: ALT/SGPT 14 U/l (0-40); AST/SGOT 23 U/l (0-37); Albumin/Globulin Ratio 1.1 (1.0-2.3); Alkaline Phosphatase 68 U/L (39-117); Bilirubin,Direct < 0.2 mg/dL (0.0-0.3); Bilirubin,Total 0.4 mg/dL (0.0-1.0); Blood Urea Nitrogen 44 mg/dl (8-23); Calcium 8.2 mg/dl (8.6-10.4); Carbon Dioxide 21 mmol/L (22-30); Chloride 106 mmol/L (96-108); Globulin 2.7 gm/dL (2.2-3.7); Glomerular Filtration Rate 28; Glucose 113 mg/dL (70-105); Lactate Dehydrogenase 240 U/L (94-250); Phosphorous 4.4 mg/dL (2.7-4.5); Triglycerides 197 mg/dl (<150); Uric Acid 9.3 mg/dL (2.5-8.0)
--- NOTE | 2020-01-09 07:14 | Internal Med Progress Note ---
Medical - PN: Subj Patient information: Note initiated : 01/09/20 at 6:42 am Service Date, if different from initiated Date: [] Patient: Izzy Everett a 79 y/o F admitted on 01/08/20 for Run Over By Horse Yesterday, Weak And Lethargic. Chief Complaint: [] Interval history: Ms. Everett is a 79 year old F fairly independently living alone and carries history of HTN/CHF and CAD who presents to the ER following injury sustained while she was attempting to braid her horse standing on a stool. She got thrown off the stool and landed on her hip and subsequently was trampled by the horse multiple times sustaining injuries across face chest and lower extremity. She was evaluated in the ER and after initial work-up was discharged in stable state. Following discharge within a few hours she became progressively weak confused and was unable to function. Sustained injuries after getting trampled by horse. She was evaluated and was discharged in stable state the day prior to admission. She however continued to deteriorate with increasing mental status change and worsening weakness fatigue and dizziness. During the second visit at [facility] ER work-up was consistent with severe sepsis with a white count 18.5 secondary to complicated UTI and right femoral neck fracture was discovered on imaging. Hospitalist/orthopedics service was consulte in light of above Blood cultures were drawn and antibiotics initiated. At the time of evaluation patient is alert but in significant pain. She is able to endorse history as above. Extensive bruising throughout the body noted. She is accompanied with her daughter. She denies chest pain, vision changes, unilateral weakness, incontinence 01/08-hemoglobin dropped from 9.9-6.8. Off anticoagulation. Increasing hematoma thighs around the fracture site. Likely extravasation. Surgery on board. However orthopedics of the opinion that they would want to wait for additional 24 hours until INR normalized. Patient off apixaban. White count down from 18. 5-13.4. On Rocephin. Creatinine improved to 1.7 from 2.6. Continue pain management. Generalized bruising - Constitutional Vitals: Vital Signs Temp Pulse Resp BP Pulse Ox 98.5 F 99 H 18 126/63 99 01/09/20 06:00 01/09/20 06:00 01/09/20 06:00 01/09/20 06:00 01/09/20 06:00 Period Temp Pulse Resp BP Sys/Flood Pulse Ox Last 24 Hr 97.0 F-99.5 F 57-127 14-33 96-147/43-89 85-100 Intake and Output 01/08/20 01/09/20 01/09/20 21:59 05:59 13:59 Intake Total 300 240 Output Total 800 Balance 300 -560 Weight 140 lb Intake & Output: Intake & Output 01/08/20 01/09/20 01/09/20 21:59 05:59 13:59 Intake Total 300 240 Output Total 800 Balance 300 -560 Weight 140 lb Intake: IV 300 Zosyn 2.25 gm In Dextrose 5% in 50 Water 50 ml @ 100 mls/hr IV ONCE ONE Rx#:[id number] Vancomycin 1,000 mg In Sodium 250 Chloride 0.9% 250 ml @ 250 mls/ hr IV ONCE ONE Rx#:[id number] Oral 240 Output: Urine Catheter Amount 800 Other: Urine Appearance Cloudy Cloudy Sediment Uretheral (Jerome) Clear Urine Color Bright Yellow Dark Yellow Uretheral (Jerome) Bright Yellow Urine Odor Normal General appearance: moderate distress Exam: Generalized bruising involving extremities Fatigue Pallor noted Jerome draining clear urine Medical - PN: Obj Da - Labs CBC & Chem 7: 01/09/20 04:54 01/09/20 04:54 Labs: Abnormal Lab Results 01/09/20 01/08/20 01/08/20 04:54 15:15 12:24 WBC 13.4 H RBC 2.44 L Hgb 6.8 L* Hct 21.7 L POC Hct RDW 14.8 H Gran % Lymph % (Auto) Gran # Harnett # (Auto) PT INR VBG Lactic Acid 2.7 H Carbon Dioxide Anion Gap POC BUN BUN Creatinine POC Creatinine Glucose POC Glucose POC WB Ioniz Calcium Total Creatine Kinase NT-Pro-B Natriuret Pep Urine Protein 30 A Urine Occult Blood 0.2 A Ur Leukocyte Esterase 250 A Urine RBC 93 H Urine WBC > 182 H Urine Bacteria Many A Hyaline Casts 47 H Urine Mucus Many A 01/08/20 01/08/20 01/08/20 11:50 11:50 11:50 WBC RBC Hgb Hct POC Hct 29.0 L RDW Gran % Lymph % (Auto) Gran # Harnett # (Auto) PT 34.0 H INR 3.3 H VBG Lactic Acid Carbon Dioxide 17 L Anion Gap 21.0 H POC BUN 44 H BUN 47 H Creatinine 2.2 H POC Creatinine 2.6 H Glucose 168 H POC Glucose 166 H POC WB Ioniz Calcium 1.14 L Total Creatine Kinase 208 H NT-Pro-B Natriuret Pep 4485.0 H Urine Protein Urine Occult Blood Ur Leukocyte Esterase Urine RBC Urine WBC Urine Bacteria Hyaline Casts Urine Mucus 01/08/20 11:50 WBC 18.5 H RBC 3.50 L Hgb 9.9 L Hct 30.4 L POC Hct RDW 14.8 H Gran % 81.6 H Lymph % (Auto) 8.7 L Gran # 15.08 H Harnett # (Auto) 1.69 H PT INR VBG Lactic Acid Carbon Dioxide Anion Gap POC BUN BUN Creatinine POC Creatinine Glucose POC Glucose POC WB Ioniz Calcium Total Creatine Kinase NT-Pro-B Natriuret Pep Urine Protein Urine Occult Blood Ur Leukocyte Esterase Urine RBC Urine WBC Urine Bacteria Hyaline Casts Urine Mucus Meds: Medications Acetaminophen (Tylenol) 650 mg PO Q4-6HP PRN; Protocol PRN Reason: Per Pain Protocol/Fever > 101 Hydrocodone Bitart/Acetaminophen ([place]athrop 5/325mg) 1 tab PO Q4HP PRN; Protocol PRN Reason: Per Pain Protocol Last Admin: 01/08/20 19:02 Dose: 1 tab Documented by: Bisacodyl (Dulcolax) 10 mg AR Q2-3DAYS PRN PRN Reason: Constipation Cyanocobalamin (Vitamin B-12) 1,000 mcg PO BID [facility] Stop: 01/13/20 09:01 Last Admin: 01/08/20 22:08 Dose: 1,000 mcg Documented by: Docusate Sodium (Colace) 100 mg PO BID [facility] Last Admin: 01/08/20 22:07 Dose: 100 mg Documented by: Folic Acid (Folic Acid) 1 mg PO DAILY [facility] Hydralazine HCl (Apresoline) 10 mg IV Q4-6HP PRN PRN Reason: Hypertension Hydromorphone HCl (Dilaudid) 0.5 mg IV Q4HP PRN; Protocol PRN Reason: Per Pain Protocol Last Admin: 01/09/20 04:54 Dose: 0.5 mg Documented by: Potassium Chloride 40 meq/ (Dextrose) 520 mls @ 130 mls/hr IV UD PRN PRN Reason: K+ = or < 3.5 Magnesium Sulfate (Magnesium Sulfate) 2 gm in 50 mls @ 50 mls/hr IV UD PRN PRN Reason: MG = or < 1.7 Ceftriaxone Sodium 2 gm/ (Dextrose) 50 mls @ 100 mls/hr IV DAILY [facility]; Protocol Last Admin: 01/08/20 19:08 Dose: Not Given Documented by: Acetaminophen (Ofirmev) 950 mg in 95 mls @ 190 mls/hr IV Q6HP PRN; Protocol PRN Reason: PAIN/FEVER > 101 Sodium Chloride (Sodium Chloride 0.9%) 250 mls @ 20 mls/hr IV .[id number] [facility] Stop: 01/09/20 19:14 Iron Carb/Multivit/Incident Response Engineer/Folic Acid (Multivitamin W/Minerals) 1 tab PO DAILY [facility] Melatonin (Melatonin 3mg Tablet) 3 mg PO HSP PRN PRN Reason: Insomnia Metoprolol Tartrate (Lopressor) 5 mg IV Q5M PRN PRN Reason: Heart Rate > 140 bpm Ondansetron HCl (Zofran Odt) 4 mg SL Q4-6HP PRN; Protocol PRN Reason: Nausea And Vomiting Ondansetron HCl (Zofran) 4 mg IV Q4-6HP PRN; Protocol PRN Reason: Nausea And Vomiting Polyethylene Glycol (Miralax) 17 gm PO DAILYP PRN PRN Reason: Constipation Potassium Chloride (Klor-Con) 40 meq PO DAILYP PRN PRN Reason: K+ < 3.5 Senna/Docusate Sodium (Senna Plus Tablet) 1 tab PO HS [facility] Last Admin: 01/08/20 22:07 Dose: 1 tab Documented by: Sodium Chloride (Saline Flush) 10 ml IV Q8 [facility] Last Admin: 01/08/20 22:08 Dose: 10 ml Documented by: Thiamine HCl (Vitamin B1) 100 mg PO DAILY [facility] Medical - PN: A/P - Time Spent With Patient Total time spent is greater than 50% in coordination of care (as documented) at patient's floor/unit and/or counseling patient: 25 - 35 minutes (1) Displaced fracture of right femoral neck Status: Acute Assessment and plan: * Right femoral neck fracture-orthopedic on board. Will undergo surgery in 24 hours. On pain management * Preop risk evaluation-based on RCRI [place] [employer] restarted again patient would fall under high risk category for intraoperative and immediate postoperative. Risk of ACS/CVA. I would recommend maintaining intraoperative mean artery pressure over 65. However at this time due to active sepsis I would recommend delaying surgery until sepsis resolves and patient more stable to undergo anesthesia. Additionally surgery and anesthesia specific risks will be addressed by individual care providers. * Acute blood loss anemia secondary extravasation at fracture site. Off anticoagulation. Doing his blood transfusion today. Serial hemoglobin check. * Complicated UTI-continue antibiotics * Severe sepsis second above with endorgan dysfunction including AMS/ARF. Clinically improving. White count downtrending to 13.5 from 18 * RACHEL -clinically improving. Creatinine down from 2.6-1.6 * Acute change mental status secondary to sepsis endorgan dysfunction. Continue close monitoring * Extensive contusion secondary injury. Continue pain management * Atrial fibrillation currently rate controlled. Anticoagulation rivaroxaban for CVA prophylaxis * History of CAD continue aspirin/beta-ginny * History of hypertension hold antihypertensives until systolics improve and over 140 Plan * Serial hemoglobin * 2 units ts PRBC transfusion * N.p.o. after midnight * De-escalate antibiotics based on sensitivities * Pre-existing medical condition management home meds except for antihypertensives will be held until sepsis resolves Current Visit: Yes Medical - PN: Qual - VTE Deep Vein Thrombosis/Pulmonary Embolism Present on Admission: No
[2020-01-09 08:17] LABS: Anisocytosis 1+ (NONE SEEN); Band Neutrophils % 4 % (0-10); Eosinophils % (Manual) 3 % (0-7); Lymphocytes % 9 % (15-49); Monocytes % (Manual) 9 % (1-12); Platelet Estimate NORMAL (NORMAL); Polychromasia FEW (NONE SEEN); RBC Morphology ABNORM (NORMAL); Segmented Neutrophils % 75 % (38-78)
[2020-01-09] MEDS: DOCUSATE SODIUM 100 MG CAPSULE PO SCH ×2 (08:20→20:36)
[2020-01-09] MEDS: 0.9 % SODIUM CHLORIDE 10 ML SYRINGE IV SCH ×3 (08:20→20:36)
[2020-01-09] MEDS: FOLIC ACID 1 MG TABLET PO SCH ×2 (08:20→08:24)
[2020-01-09] MEDS: MULTIVIT,THER IRON,CA,FA & MIN 1 TABLET PO SCH ×2 (08:21→08:24)
[2020-01-09] MEDS: THIAMINE 100 MG TABLET PO SCH ×2 (08:21→08:28)
[2020-01-09] MEDS: CYANOCOBALAMIN (VITAMIN B-12) 500 MCG TABLET PO SCH ×3 (08:21→20:36)
--- NOTE | 2020-01-09 08:22 | Orthopedic Progress Note ---
Subjective Patient information: Note initiated : 01/09/20 at 8:20 am Service Date, if different from initiated Date: [] Patient: Izzy Everett 79 y/o F admitted on 01/08/20 for Run Over By Horse Yesterday, Weak And Lethargic. Chief Complaint: [] Objective Vital signs: Vital Signs Temp Pulse Pulse Resp BP BP Pulse Ox 01/09/20 07:04 98.8 F 20 127/61 99 01/09/20 06:00 98.5 F 99 H 18 126/63 99 01/09/20 04:00 97.9 F 104 H 16 126/61 98 01/09/20 02:00 98.3 F 113 H 14 118/61 98 01/08/20 23:25 97.4 F 110 H 16 121/59 88 L 01/08/20 19:41 99 F 110 H 16 120/67 92 01/08/20 18:00 99.5 F H 120 H 14 143/61 93 01/08/20 17:07 111 H 18 115/65 100 01/08/20 15:31 123 H 20 115/65 97 01/08/20 15:16 102 H 21 135/89 98 01/08/20 15:06 108 H 17 118/72 98 01/08/20 15:01 89 23 H 118/72 98 01/08/20 14:46 104 H 20 125/76 98 01/08/20 14:31 127 H 33 H 96/78 88 L 01/08/20 14:16 99 H 25 H 97/43 97 01/08/20 14:09 102 H 20 120/68 97 01/08/20 14:01 120 H 25 H 120/68 96 01/08/20 13:46 114 H 25 H 127/75 97 01/08/20 13:31 125 H 24 H 124/74 100 01/08/20 13:18 102 H 16 96/69 95 01/08/20 13:10 113 H 21 147/72 98 01/08/20 13:09 119 H 26 H 111/73 94 01/08/20 12:01 111 H 29 H 111/73 100 01/08/20 11:46 20 113/62 01/08/20 11:36 57 L 15 113/82 86 L 01/08/20 11:34 106 H 113/82 85 L 01/08/20 11:28 97.0 F 93 H 18 113/82 86 L Intake and Output 01/08/20 01/09/20 01/09/20 21:59 05:59 13:59 Intake Total 300 240 Output Total 800 175 Balance 300 -560 -175 Intake: IV 300 Zosyn 2.25 gm In Dextrose 5% in 50 Water 50 ml @ 100 mls/hr IV ONCE ONE Rx#:[id number] Vancomycin 1,000 mg In Sodium 250 Chloride 0.9% 250 ml @ 250 mls/ hr IV ONCE ONE Rx#:[id number] Oral 240 Output: Urine Catheter Amount 800 175 Other: Urine Appearance Cloudy Cloudy Cloudy Sediment Uretheral (Jerome) Clear Urine Color Bright Yellow Dark Yellow Bright Yellow Uretheral (Jerome) Bright Yellow Urine Odor Normal Strong Weight 140 lb Intake & Output: Intake & Output 01/08/20 01/09/20 01/09/20 21:59 05:59 13:59 Intake Total 300 240 Output Total 800 175 Balance 300 -560 -175 Weight 140 lb Intake: IV 300 Zosyn 2.25 gm In Dextrose 5% in 50 Water 50 ml @ 100 mls/hr IV ONCE ONE Rx#:[id number] Vancomycin 1,000 mg In Sodium 250 Chloride 0.9% 250 ml @ 250 mls/ hr IV ONCE ONE Rx#:[id number] Oral 240 Output: Urine Catheter Amount 800 175 Other: Urine Appearance Cloudy Cloudy Cloudy Sediment Uretheral (Jerome) Clear Urine Color Bright Yellow Dark Yellow Bright Yellow Uretheral (Jerome) Bright Yellow Urine Odor Normal Strong - Labs CBC & BMP: 01/09/20 04:54 01/09/20 04:54 Labs: Orthopedic Labs 01/08/20 11:50 PT 34.0 H INR 3.3 H 01/09/20 01/08/20 04:54 11:50 Hgb 6.8 L* 9.9 L Hct 21.7 L 30.4 L Assessment and Plan (1) Displaced fracture of right femoral neck Status: Acute - Narrative A/P Narrative: HD 2 with sepsis and displaced right femoral neck fracture --- reviewed chart today. h/h is significantly low with white count improving. will likely need transfused pre operatively and will discuss with hospitalist as well --- repeat coags as well with goal of 1.7 or lower prior to surgery --- potential surgery tomorrow vs Sunday.
[2020-01-09 11:26] LABS: INR 1.7 (0.9-1.1); Prothrombin Time 20.6 sec (11.9-14.5)
[2020-01-09] MEDS: cefTRIAXone 2 GM in DEXTROSE 5% IN WATER 50 ML IV SCH (12:43)
[2020-01-09] MEDS: HYDROcodone/APAP 5/325MG TABLET PO PRN ×2 (17:37→23:10)
[2020-01-09] MEDS: SENNOSIDES/DOCUSATE SODIUM 1 TAB TABLET PO SCH (20:36)
[2020-01-10] MEDS: HYDROmorphone 2 MG/ML VIAL IV PRN (03:40)
[2020-01-10] MEDS: 0.9 % SODIUM CHLORIDE 10 ML SYRINGE IV SCH ×3 (06:11→20:57)
[2020-01-10 06:47] LABS: Hematocrit 25.8 % (34.1-44.9); Hemoglobin 8.4 g/dL (11.2-15.7); Mean Cell Volume 87.8 fL (80.0-100.0); Mean Corpuscular HGB Conc 32.6 g/dL (31.0-36.0); Mean Platelet Volume 10.3 fL (7.4-10.4); Platelet Count 174 K/mcL (140-440); RBC 2.94 M/mcL (3.59-5.38); Red Cell Distribution Width 14.6 % (11.5-14.5); WBC 13.6 K/mcL (4.50-11.00)
[2020-01-10 07:00] LABS: INR 1.4 (0.9-1.1); Prothrombin Time 17.5 sec (11.9-14.5)
[2020-01-10 07:18] LABS: ALT/SGPT 13 U/l (0-40); AST/SGOT 23 U/l (0-37); Albumin 3.1 gm/dL (3.2-5.2); Albumin/Globulin Ratio 1.1 (1.0-2.3); Alkaline Phosphatase 68 U/L (39-117); Bilirubin,Direct < 0.2 mg/dL (0.0-0.3); Bilirubin,Total 0.8 mg/dL (0.0-1.0); Blood Urea Nitrogen 30 mg/dl (8-23); Calcium 8.5 mg/dl (8.6-10.4); Carbon Dioxide 21 mmol/L (22-30); Chloride 106 mmol/L (96-108); Globulin 2.8 gm/dL (2.2-3.7); Glomerular Filtration Rate 47; Glucose 110 mg/dL (70-105); Lactate Dehydrogenase 252 U/L (94-250); Phosphorous 2.6 mg/dL (2.7-4.5); Triglycerides 175 mg/dl (<150); Uric Acid 8.8 mg/dL (2.5-8.0)
[2020-01-10] MEDS: HYDROcodone/APAP 5/325MG TABLET PO PRN ×3 (07:46→21:32)
[2020-01-10 07:48] LABS: Lymphocytes % 4 % (15-49); Platelet Estimate NORMAL (NORMAL); Polychromasia FEW (NONE SEEN); RBC Morphology ABNORM (NORMAL)
--- NOTE | 2020-01-10 08:19 | Orthopedic Progress Note ---
Subjective Patient information: Note initiated : 01/10/20 at 8:12 am Service Date, if different from initiated Date: [] Patient: Izzy Everett 79 y/o F admitted on 01/08/20 for Run Over By Horse Yesterday, Weak And Lethargic. Chief Complaint: [] Principal diagnosis: right displaced femoral neck fracture, sepsis Interval history: nurses noted rash today over torso this AM, no acute events Objective Vital signs: Vital Signs Temp Pulse Resp BP Pulse Ox 01/10/20 05:49 98.8 F 108 H 20 147/79 95 01/10/20 02:00 98.5 F 105 H 16 135/71 94 01/09/20 23:24 98.1 F 113 H 20 136/58 91 01/09/20 22:00 98.6 F 102 H 20 136/56 93 01/09/20 17:00 98.6 F 24 H 156/67 99 01/09/20 15:54 99.3 F H 99 H 127/70 99 01/09/20 14:00 24 H 107/55 99 01/09/20 11:43 99.5 F H 20 130/64 97 01/09/20 10:00 99.4 F H 20 138/52 99 Intake and Output 01/09/20 01/10/20 01/10/20 21:59 05:59 13:59 Intake Total 400 Output Total 125 600 Balance 275 -600 Intake: Oral 400 Output: Urine Catheter Amount 125 600 Other: Urine Appearance Sediment Clear Uretheral (Jerome) Sediment Urine Color Bright Yellow Bright Yellow Uretheral (Jerome) Bright Yellow Urine Odor Normal Strong Weight 141 lb 141 lb Intake & Output: Intake & Output 01/09/20 01/10/20 01/10/20 21:59 05:59 13:59 Intake Total 400 Output Total 125 600 Balance 275 -600 Weight 141 lb 141 lb Intake: Oral 400 Output: Urine Catheter Amount 125 600 Other: Urine Appearance Sediment Clear Uretheral (Jerome) Sediment Urine Color Bright Yellow Bright Yellow Uretheral ([place]ome) Bright Yellow Urine Odor Normal Strong Weight bearing status: non Additional Comments: pt sleeping this AM. Did not wake. bruising/swelling throughout bilateral thigh/knee with legs less affected. feet warm well perfused. - Labs CBC & BMP: 01/10/20 05:06 03/28/20 05:06 Labs: Orthopedic Labs 01/10/20 01/09/20 01/08/20 05:06 09:00 11:50 PT 17.5 H 20.6 H 34.0 H INR 1.4 H 1.7 H 3.3 H 01/10/20 01/10/20 01/09/20 05:06 00:34 18:13 Hgb 8.4 L 8.5 L 9.3 L Hct 25.8 L 01/09/20 01/08/20 04:54 11:50 Hgb 6.8 L* 9.9 L Hct 21.7 L 30.4 L Assessment and Plan (1) Displaced fracture of right femoral neck Status: Acute - Narrative A/P Narrative: HD 3 for complicated UTI with sepsis, resolving acute renal failure with displaced right femoral neck fracture -- transfused 2 units PRBC's but h/h is down trending with normalizing INR -- Continued elevated WBC with no significant difference from yesterday -- continue tachycardia with afib --- currently off of anticoagulant -- Mentation is not at baseline per daughter and nurses -- Do not plan for operative fixation of right hip fracture which will be a hip alesha arthroplasty as I do not think she is medically optimized/stable. Discussed this with her daughter this AM. Will further discuss with Hospitalist as well. Feel the risk for intra operative complications along with ongoing infection is a too high of a risk to proceed. Did discuss with daughter also that the longer we wait to proceed with surgery there is increase morbidity/mor tality. However, I do not think it is best to proceed with surgery this AM. She agrees completely as well. Will futher discuss
[2020-01-10 08:30] LABS: Anisocytosis 1+ (NONE SEEN); Eosinophils % (Manual) 1 % (0-7); Monocytes % (Manual) 6 % (1-12); Segmented Neutrophils % 89 % (38-78)
--- NOTE | 2020-01-10 09:11 | XRay Report ---
HISTORY: Right hip fracture FINDINGS: There is a subcapital fracture in the right femoral neck. There is impaction along the lateral border. The hip joint space is normal in width and alignment. Spurs are present along the top of both greater trochanters. There is minor arthritis at the symphysis pubis. Moderate atherosclerotic disease is present in the pelvis and both thighs. There has been no significant change from the prior CT done on 01/08/20. IMPRESSION: Subcapital fracture of the right femoral neck Interpreted and Authenticated by: Nacho Bassett 01/10/20
[2020-01-10] MEDS: DOCUSATE SODIUM 100 MG CAPSULE PO SCH ×2 (09:23→20:57)
[2020-01-10] MEDS: MULTIVIT,THER IRON,CA,FA & MIN 1 TABLET PO SCH (09:23)
[2020-01-10] MEDS: CYANOCOBALAMIN (VITAMIN B-12) 500 MCG TABLET PO SCH ×2 (09:24→20:57)
[2020-01-10] MEDS: FOLIC ACID 1 MG TABLET PO SCH (09:24)
[2020-01-10] MEDS: cefTRIAXone 2 GM in DEXTROSE 5% IN WATER 50 ML IV SCH (09:24)
[2020-01-10] MEDS: THIAMINE 100 MG TABLET PO SCH (09:24)
[2020-01-10] MEDS ORDERED: 0.9 % SODIUM CHLORIDE 250 ML IV SCH ×2 (10:15→11:00)
[2020-01-10] MEDS: PIPERACILLIN SODIUM/TAZOBACTAM 3.375 GM in DEXTROSE 5% IN WATER 50 ML IV SCH ×4 (11:58→23:36)
--- NOTE | 2020-01-10 12:56 | Internal Med Progress Note ---
Medical - PN: Subj Patient information: Note initiated : 01/10/20 at 12:46 pm Service Date, if different from initiated Date: [] Patient: Izzy Everett a 79 y/o F admitted on 01/08/20 for Run Over By Horse Yesterday, Weak And Lethargic. Chief Complaint: [] Interval history: Ms. Everett is a 79 year old F fairly independently living alone and carries history of HTN/CHF and CAD who presents to the ER following injury sustained while she was attempting to braid her horse standing on a stool. She got thrown off the stool and landed on her hip and subsequently was trampled by the horse multiple times sustaining injuries across face chest and lower extremity. She was evaluated in the ER and after initial work-up was discharged in stable state. Following discharge within a few hours she became progressively weak confused and was unable to function. Sustained injuries after getting trampled by horse. She was evaluated and was discharged in stable state the day prior to admission. She however continued to deteriorate with increasing mental status change and worsening weakness fatigue and dizziness. During the second visit at [facility] ER work-up was consistent with severe sepsis with a white count 18.5 secondary to complicated UTI and right femoral neck fracture was discovered on imaging. Hospitalist/orthopedics service was consulte in light of above Blood cultures were drawn and antibiotics initiated. At the time of evaluation patient is alert but in significant pain. She is able to endorse history as above. Extensive bruising throughout the body noted. She is accompanied with her daughter. She denies chest pain, vision changes, unilateral weakness, incontinence 01/08-hemoglobin dropped from 9.9-6.8. Off anticoagulation. Increasing hematoma thighs around the fracture site. Likely extravasation. Surgery on board. However orthopedics of the opinion that they would want to wait for additional 24 hours until INR normalized. Patient off apixaban. White count down from 18 .5-13.4. On Rocephin. Creatinine improved to 1.7 from 2.6. Continue pain management. Generalized bruising 12/20 Pt does not have new complaints. She is mildly confused. WBC 13.6 today and 13.4 yesterday. Orth hold off surgery today due to leukocytosis. Urine culture showed positive for citrobacter, pending sensitivity Discussed with ID Dr. Whitmore, discontinued rocephin and started zosyn. not a candidate for levaquin due to QTC > 500 Repeat WBC in am ROS: Pertinent positives as noted in HPI. All other systems were reviewed and are negative. - Constitutional Vitals: Vital Signs Temp Pulse Resp BP Pulse Ox 97.7 F 100 H 22 143/77 92 01/10/20 12:00 01/10/20 12:00 01/10/20 10:00 01/10/20 12:00 01/10/20 12:00 Period Temp Pulse Resp BP Sys/Flood Pulse Ox Last 24 Hr 97.7 F-99.3 F 93-113 16-99 107-158/55-79 90-99 Intake and Output 01/09/20 01/10/20 01/10/20 21:59 05:59 13:59 Intake Total 400 Output Total 125 600 Balance 275 -600 Weight 63.957 kg 63.957 kg Intake & Output: Intake & Output 01/09/20 01/10/20 01/10/20 21:59 05:59 13:59 Intake Total 400 Output Total 125 600 Balance 275 -600 Weight 63.957 kg 63.957 kg Intake: Oral 400 Output: Urine Catheter Amount 125 600 Other: Urine Appearance Sediment Clear Uretheral (Jerome) Sediment Urine Color Bright Yellow Bright Yellow Uretheral (Jerome) Bright Yellow Urine Odor Normal Strong - Additional findings Additional findings: General - sleepy, mild confusion, NAD, lying in bed, well groomed Eyes - PERRLA, EOM intact ENT no rhinorrhea, no noticeable or palpable swelling, no redness or rash around throat or on face Neck supple, no JVD, no thyromegaly Respiratory: Lungs - no use of accessory muscles, clear to auscultation, no crackles or wheezes. Cardiovascular - RRR no r/g, GI - Normal bowel sounds, no distended, soft and no tenderness Extremeties - tenderness over the injured site. hematoma Hemo/lymphatic/immune no lymphadenopathy Neurological sleepy, confusion. Psychiatry flat affect Medical - PN: Obj Da - Labs CBC & Chem 7: 01/10/20 05:06 01/10/20 05:06 Labs: Abnormal Lab Results 01/10/20 01/10/20 01/10/20 05:06 05:06 05:06 WBC 13.6 H RBC 2.94 L Hgb 8.4 L Hct 25.8 L POC Hct RDW 14.6 H Gran % Lymph % (Auto) Gran # [place] # (Auto) Seg Neutrophils % 89 H Lymphocytes % 4 L RBC Morphology Abnorm A Polychromasia Few A Anisocytosis 1+ A PT 17.5 H INR 1.4 H VBG Lactic Acid Carbon Dioxide 21 L Anion Gap POC BUN BUN 30 H Creatinine POC Creatinine Glucose 110 H POC Glucose Uric Acid 8.8 H Calcium 8.5 L POC WB Ioniz Calcium Phosphorus 2.6 L Lactate Dehydrogenase 252 H Total Creatine Kinase NT-Pro-B Natriuret Pep Total Protein Albumin 3.1 L Triglycerides 175 H Urine Protein Urine Occult Blood Ur Leukocyte Esterase Urine RBC Urine WBC Urine Bacteria Hyaline Casts Urine Mucus 01/10/20 01/09/20 01/09/20 00:34 18:13 09:00 WBC RBC Hgb 8.5 L 9.3 L Hct POC Hct RDW Gran % Lymph % (Auto) Gran # [place] # (Auto) Seg Neutrophils % Lymphocytes % RBC Morphology Polychromasia Anisocytosis PT 20.6 H INR 1.7 H VBG Lactic Acid Carbon Dioxide Anion Gap POC BUN BUN Creatinine POC Creatinine Glucose POC Glucose Uric Acid Calcium POC WB Ioniz Calcium Phosphorus Lactate Dehydrogenase Total Creatine Kinase NT-Pro-B Natriuret Pep Total Protein Albumin Triglycerides Urine Protein Urine Occult Blood Ur Leukocyte Esterase Urine RBC Urine WBC Urine Bacteria Hyaline Casts Urine Mucus 01/09/20 01/09/20 01/08/20 04:54 04:54 15:15 WBC 13.4 H RBC 2.44 L Hgb 6.8 L* Hct 21.7 L POC Hct RDW 14.8 H Gran % Lymph % (Auto) Gran # [place] # (Auto) Seg Neutrophils % Lymphocytes % 9 L RBC Morphology Abnorm A Polychromasia Few A Anisocytosis 1+ A PT INR VBG Lactic Acid Carbon Dioxide 21 L Anion Gap POC BUN BUN 44 H Creatinine 1.7 H POC Creatinine Glucose 113 H POC Glucose Uric Acid 9.3 H Calcium 8.2 L POC WB Ioniz Calcium Phosphorus Lactate Dehydrogenase Total Creatine Kinase NT-Pro-B Natriuret Pep Total Protein 5.7 L Albumin 3.0 L Triglycerides 197 H Urine Protein 30 A Urine Occult Blood 0.2 A Ur Leukocyte Esterase 250 A Urine RBC 93 H Urine WBC > 182 H Urine Bacteria Many A Hyaline Casts 47 H Urine Mucus Many A 01/08/20 01/08/20 01/08/20 12:24 11:50 11:50 WBC RBC Hgb Hct POC Hct 29.0 L RDW Gran % Lymph % (Auto) Gran # [place] # (Auto) Seg Neutrophils % Lymphocytes % RBC Morphology Polychromasia Anisocytosis PT INR VBG Lactic Acid 2.7 H Carbon Dioxide 17 L Anion Gap 21.0 H POC BUN 44 H BUN 47 H Creatinine 2.2 H POC Creatinine 2.6 H Glucose 168 H POC Glucose 166 H Uric Acid Calcium POC WB Ioniz Calcium 1.14 L Phosphorus Lactate Dehydrogenase Total Creatine Kinase 208 H NT-Pro-B Natriuret Pep 4485.0 H Total Protein Albumin Triglycerides Urine Protein Urine Occult Blood Ur Leukocyte Esterase Urine RBC Urine WBC Urine Bacteria Hyaline Casts Urine Mucus 01/08/20 01/08/20 11:50 11:50 WBC 18.5 H RBC 3.50 L Hgb 9.9 L Hct 30.4 L POC Hct RDW 14.8 H Gran % 81.6 H Lymph % (Auto) 8.7 L Gran # 15.08 H [place] # (Auto) 1.69 H Seg Neutrophils % Lymphocytes % RBC Morphology Polychromasia Anisocytosis PT 34.0 H INR 3.3 H VBG Lactic Acid Carbon Dioxide Anion Gap POC BUN BUN Creatinine POC Creatinine Glucose POC Glucose Uric Acid Calcium POC WB Ioniz Calcium Phosphorus Lactate Dehydrogenase Total Creatine Kinase NT-Pro-B Natriuret Pep Total Protein Albumin Triglycerides Urine Protein Urine Occult Blood Ur Leukocyte Esterase Urine RBC Urine WBC Urine Bacteria Hyaline Casts Urine Mucus Meds: Medications Acetaminophen (Tylenol) 650 mg PO Q4-6HP PRN; Protocol PRN Reason: Per Pain Protocol/Fever > 101 Hydrocodone Bitart/Acetaminophen ([place] 5/325mg) 1 tab PO Q4HP PRN; Protocol PRN Reason: Per Pain Protocol Last Admin: 01/10/20 07:46 Dose: 1 tab Documented by: Bisacodyl (Dulcolax) 10 mg UT Q2-3DAYS PRN PRN Reason: Constipation Cyanocobalamin (Vitamin B-12) 1,000 mcg PO BID [facility] Stop: 01/13/20 09:01 Last Admin: 01/10/20 09:24 Dose: Not Given Documented by: Docusate Sodium (Colace) 100 mg PO BID [facility] Last Admin: 01/10/20 09:23 Dose: 100 mg Documented by: Folic Acid (Folic Acid) 1 mg PO DAILY [facility] Last Admin: 01/10/20 09:24 Dose: Not Given Documented by: Hydralazine HCl (Apresoline) 10 mg IV Q4-6HP PRN PRN Reason: Hypertension Hydromorphone HCl (Dilaudid) 0.5 mg IV Q4HP PRN; Protocol PRN Reason: Per Pain Protocol Last Admin: 01/10/20 03:40 Dose: 0.5 mg Documented by: Potassium Chloride 40 meq/ (Dextrose) 520 mls @ 130 mls/hr IV UD PRN PRN Reason: K+ = or < 3.5 Magnesium Sulfate (Magnesium Sulfate) 2 gm in 50 mls @ 50 mls/hr IV UD PRN PRN Reason: MG = or < 1.7 Acetaminophen (Ofirmev) 950 mg in 95 mls @ 190 mls/hr IV Q6HP PRN; Protocol PRN Reason: PAIN/FEVER > 101 Piperacillin Sod/Tazobactam (Sod 3.375 gm/ Dextrose) 50 mls @ 100 mls/hr IV Q6H [facility]; Protocol Last Admin: 01/10/20 11:58 Dose: 100 mls/hr Documented by: Sodium Chloride (Sodium Chloride 0.9%) 250 mls @ 20 mls/hr IV .[id number] [facility] Stop: 01/10/20 22:44 Last Admin: 01/10/20 11:58 Dose: 20 mls/hr Documented by: Sodium Chloride (Sodium Chloride 0.9%) 250 mls @ 20 mls/hr IV .[id number] [facility] Stop: 01/10/20 23:29 Last Admin: 01/10/20 11:58 Dose: Not Given Documented by: Iron Carb/Multivit/[place]/Folic Acid (Multivitamin W/Minerals) 1 tab PO DAILY [facility] Last Admin: 01/10/20 09:23 Dose: 1 tab Documented by: Melatonin (Melatonin 3mg Tablet) 3 mg PO HSP PRN PRN Reason: Insomnia Last Admin: 01/10/20 01:28 Dose: 3 mg Documented by: Metoprolol Tartrate (Lopressor) 5 mg IV Q5M PRN PRN Reason: Heart Rate > 140 bpm Metoprolol Tartrate (Lopressor) 12.5 mg PO BID [facility] Ondansetron HCl (Zofran Odt) 4 mg SL Q4-6HP PRN; Protocol PRN Reason: Nausea And Vomiting Ondansetron HCl (Zofran) 4 mg IV Q4-6HP PRN; Protocol PRN Reason: Nausea And Vomiting Polyethylene Glycol (Miralax) 17 gm PO DAILYP PRN PRN Reason: Constipation Potassium Chloride (Klor-Con) 40 meq PO DAILYP PRN PRN Reason: K+ < 3.5 Senna/Docusate Sodium (Senna Plus Tablet) 1 tab PO HS [facility] Last Admin: 01/09/20 20:36 Dose: 1 tab Documented by: Sodium Chloride (Saline Flush) 10 ml IV Q8 [facility] Last Admin: 01/10/20 06:11 Dose: 10 ml Documented by: Thiamine HCl (Vitamin B1) 100 mg PO DAILY [facility] Last Admin: 01/10/20 09:24 Dose: Not Given Documented by: Medical - PN: A/P - Time Spent With Patient Total time spent is greater than 50% in coordination of care (as documented) at patient's floor/unit and/or counseling patient: - Narrative A/P Narrative: Assessment and plan: * Right femoral neck fracture-orthopedic on board. * Preop risk evaluation-based on RCRI [place] [employer] restarted again patient would fall under high risk category for intraoperative and immediate postoperative. Risk of ACS/CVA. I would recommend maintaining intraoperative mean artery pressure over 65. However at this time due to active sepsis I would recommend delaying surgery until sepsis resolves and patient more stable to undergo anesthesia. Additionally surgery and anesthesia specific risks will be addressed by individual care providers. * Acute blood loss anemia secondary extravasation at fracture site. Off anticoagulation. s/p 2 units of pRBCs. Serial hemoglobin check. * Complicated UTI-Citrobacter positive. * Severe sepsis second above with endorgan dysfunction including AMS/ARF. Clinically improving. * RACHEL -clinically improving. Creatinine down to WNL * Acute change mental status secondary to sepsis endorgan dysfunction. Continue close monitoring * Extensive contusion secondary injury. Continue pain management * Atrial fibrillation currently rate controlled. Anticoagulation rivaroxaban for CVA prophylaxis is on hold due to imminent surg * History of CAD continue aspirin/beta-ginny * History of hypertension hold antihypertensives until systolics improve and over 140 Plan * Serial hemoglobin. Pain management including iv dilaudid * WBC 13.6 today and 13.4 yesterday. Orth hold off surgery today due to leukocytosis. * Urine culture showed positive for citrobacter, pending sensitivity Discussed with ID Dr. Whitmore, discontinued rocephin and started zosyn. not a candidate for levaquin due to QTC > 500 Repeat WBC in am * N.p.o. after midnight * De-escalate antibiotics based on sensitivities * Pre-existing medical condition management home meds except for antihypertensives will be held until sepsis resolves Medical - PN: Qual - VTE Deep Vein Thrombosis/Pulmonary Embolism Present on Admission: No
--- NOTE | 2020-01-10 15:02 | Event Note ---
Parties in Attendance: Daughter Rut (POA) Decisional Capacity: no POLST form completed: not RN and I explained the process regarding CPR, defibrillation, shock, and intubation and medication treatment to the Rut by phone. After Rut discussed with brother, Rut called back and told RN and I that she does not want CRP/resuscition and intubation.
--- NOTE | 2020-01-10 16:54 | Event Note ---
She was found to have dark red blood on tissue. The source of bleeding can not be definitely determined. But most likely it came from GI. Discussed with GS Dr. Marrero who suggested pantoprazole 40mg iv bid, sucrafate 1g q6hrs, and H/H Q8hrs. Right now her hemadynamically stable. Dr. Marrero will see pt If she has another episode of bleeding.
[2020-01-10] MEDS: PANTOPRAZOLE 40 MG VIAL IV SCH (19:24)
[2020-01-10] MEDS: SUCRALFATE 1 GM/10 ML ORAL.SUSP PO SCH ×2 (19:24→23:39)
[2020-01-10] MEDS: SENNOSIDES/DOCUSATE SODIUM 1 TAB TABLET PO SCH (20:57)
[2020-01-10] MEDS: PHOSPHORUS 250 MG TABLET PO SCH (20:57)
[2020-01-10] MEDS ORDERED: METOPROLOL TARTRATE 25 MG TABLET PO SCH (21:00)
[2020-01-11] MEDS: HYDROcodone/APAP 5/325MG TABLET PO PRN (02:50)
[2020-01-11] MEDS: 0.9 % SODIUM CHLORIDE 10 ML SYRINGE IV SCH ×3 (05:08→21:17)
[2020-01-11] MEDS: PIPERACILLIN SODIUM/TAZOBACTAM 3.375 GM in DEXTROSE 5% IN WATER 50 ML IV SCH ×3 (05:08→19:40)
[2020-01-11] MEDS: SUCRALFATE 1 GM/10 ML ORAL.SUSP PO SCH ×3 (05:08→18:37)
[2020-01-11 06:32] LABS: Hematocrit 27.5 % (34.1-44.9); Hemoglobin 9.4 g/dL (11.2-15.7); Mean Cell Volume 87.9 fL (80.0-100.0); Mean Corpuscular HGB Conc 34.2 g/dL (31.0-36.0); Mean Platelet Volume 10.3 fL (7.4-10.4); Platelet Count 172 K/mcL (140-440); RBC 3.13 M/mcL (3.59-5.38); Red Cell Distribution Width 14.2 % (11.5-14.5)
[2020-01-11 07:02] LABS: ALT/SGPT 13 U/l (0-40); AST/SGOT 22 U/l (0-37); Albumin/Globulin Ratio 1.1 (1.0-2.3); Alkaline Phosphatase 66 U/L (39-117); Bilirubin,Direct 0.5 mg/dL (0.0-0.3); Bilirubin,Total 1.5 mg/dL (0.0-1.0); Blood Urea Nitrogen 22 mg/dl (8-23); Calcium 8.6 mg/dl (8.6-10.4); Carbon Dioxide 22 mmol/L (22-30); Chloride 106 mmol/L (96-108); Globulin 2.8 gm/dL (2.2-3.7); Glomerular Filtration Rate 52; Glucose 108 mg/dL (70-105); Lactate Dehydrogenase 255 U/L (94-250); Phosphorous 2.1 mg/dL (2.7-4.5); Triglycerides 152 mg/dl (<150); Uric Acid 5.3 mg/dL (2.5-8.0)
[2020-01-11 07:40] LABS: Anisocytosis 1+ (NONE SEEN); Band Neutrophils % 2 % (0-10); Eosinophils % (Manual) 5 % (0-7); Lymphocytes % 10 % (15-49); Monocytes % (Manual) 6 % (1-12); Platelet Estimate NORMAL (NORMAL); RBC Morphology ABNORM (NORMAL); Segmented Neutrophils % 77 % (38-78)
--- NOTE | 2020-01-11 07:59 | Orthopedic Progress Note ---
Subjective Patient information: Note initiated : 01/11/20 at 7:50 am Service Date, if different from initiated Date: [] Patient: Izzy Everett 80 y/o F admitted on 01/08/20 for Run Over By Horse Yesterday, Weak And Lethargic. Chief Complaint: [] Principal diagnosis: right displaced femoral neck fracture, sepsis Interval history: No acute interval changes noted. Objective Vital signs: Vital Signs Temp Pulse Pulse Resp BP BP Pulse Ox 01/11/20 07:04 98.6 F 98 H 18 153/79 92 01/11/20 05:15 98.1 F 98 H 16 161/97 96 01/11/20 04:00 16 01/11/20 02:34 97.4 F 101 H 20 157/76 90 01/10/20 23:20 99.3 F H 100 H 18 136/64 94 01/10/20 21:36 99.2 F H 91 H 20 162/68 92 01/10/20 20:00 98.9 F 102 H 18 148/66 97 01/10/20 18:00 99.3 F H 97 H 16 123/66 91 01/10/20 16:00 98 F 102 H 22 155/72 92 01/10/20 14:00 98.2 F 100 H 20 153/66 96 01/10/20 12:00 97.7 F 100 H 143/77 92 01/10/20 10:00 98.3 F 93 H 22 145/59 94 01/10/20 08:00 97.8 F 113 H 100 H 22 158/73 92 Intake and Output 01/10/20 01/11/20 01/11/20 21:59 05:59 13:59 Intake Total 650 50 50 Output Total 300 600 Balance 350 -550 50 Intake: IV 50 50 50 Zosyn 3.375 gm In Dextrose 5% 50 50 50 in Water 50 ml @ 100 mls/hr IV Q6H [facility] Rx#:[id number] Oral 600 0 Output: Urine Catheter Amount 300 600 Other: Meal Dinner Percent of Meal Consumed 25% Feeding Ability Assist with Tray Set Up Urine Appearance Clear Clear Sediment Uretheral ([place]) Clear Clear Sediment Sediment Urine Color Bright Yellow Dark Yellow Uretheral ([place]) Bright Yellow Dark Yellow Urine Odor Strong Weight 142 lb 8 oz Intake & Output: Intake & Output 01/10/20 01/11/20 01/11/20 21:59 05:59 13:59 Intake Total 650 50 50 Output Total 300 600 Balance 350 -550 50 Weight 142 lb 8 oz Intake: IV 50 50 50 Zosyn 3.375 gm In Dextrose 5% 50 50 50 in Water 50 ml @ 100 mls/hr IV Q6H [facility] Rx#:[id number] Oral 600 0 Output: Urine Catheter Amount 300 600 Other: Meal Dinner Percent of Meal Consumed 25% Feeding Ability Assist with Tray Set Up Urine Appearance Clear Clear Sediment Uretheral ([place]) Clear Clear Sediment Sediment Urine Color Bright Yellow Dark Yellow Uretheral ([place]) Bright Yellow Dark Yellow Urine Odor Strong Additional Comments: skin intact throughout with stable echymosis throughout bilateral lower extremities. Does have small serous blister medial right knee from swelling. compartments remain soft throughout. b/l feet are warm well perfused. - Labs CBC & BMP: 01/11/20 05:11 01/11/20 05:11 Labs: Orthopedic Labs 01/10/20 01/09/20 01/08/20 05:06 09:00 11:50 PT 17.5 H 20.6 H 34.0 H INR 1.4 H 1.7 H 3.3 H 01/11/20 01/10/20 01/10/20 05:11 05:06 00:34 Hgb 9.4 L 8.4 L 8.5 L Hct 27.5 L 25.8 L 01/09/20 01/09/20 01/08/20 18:13 04:54 11:50 Hgb 9.3 L 6.8 L* 9.9 L Hct 21.7 L 30.4 L Assessment and Plan (1) Displaced fracture of right femoral neck Status: Acute - Narrative A/P Narrative: HD 34 for complicated UTI with sepsis, resolvedacute renal failure with displaced right femoral neck fracture -- transfused 1 units PRBC's with improved H/H 0.7 -- Urine cx and sensitivities completed with change to abx -- restarted beta ginny yesterday with some improvement in tachycardia- this AM in 90's -- Mentation slightly better this AM in discussion with daughter but not at baseline- better in the evening. -- Today is day 5 after the index injury and HD 4. She is afebrile with improved H/H after transfusions. She is not on supplemental O2 with good saturations and slight improvement of her HR. Lengthy discussion with her daughter this AM, concern is for to continue to decompensate as she is unable to mobilize given the fracture. I am not sure that there is going to be any more significant improvement in her health status if she is not able to mobilize which would mean proceeding with surgery. It would be at a higher risk for intra op and post op complications. However, there would be a benefit of mobilization, improved pain control post operatively and regaining her function. Her daughter agrees and is ok with proceeding. Will discuss with Dr. Elder as well, if there is nothing else to improve her condition will plan for right hip alesha arthroplasty today.
[2020-01-11] MEDS: PANTOPRAZOLE 40 MG VIAL IV SCH ×2 (08:03→19:18)
--- NOTE | 2020-01-11 08:59 | Cat Scan Report ---
History: Altered level of consciousness TECHNIQUE: The brain was imaged without contrast at 2.5 mm intervals. Radiation exposure was limited using dose reduction technology. FINDINGS: There is severe white matter disease with confluent areas of decreased attenuation throughout the frontal and parietal lobes as well as the external capsules. There is a small old lacunar infarct in the head of the right caudate nucleus. No new infarct is detected. There is no hemorrhage, new mass or cerebral edema. No abnormal extra-axial fluid collection is present. There is a stable densely calcified meningioma arising from the right tentorium. Comparison with the prior study done on 01/08/20 shows no change. IMPRESSION: Stable chronic degenerative changes throughout the brain, without evidence of a new infarct or hemorrhage Stable small meningioma in the right posterior fossa Interpreted and Authenticated by: Nacho Bassett 01/11/20
[2020-01-11] MEDS ORDERED: METOPROLOL TARTRATE 25 MG TABLET PO SCH (09:00)
--- NOTE | 2020-01-11 09:01 | XRay Report ---
HISTORY: Recent trauma, blood in sputum, weakness and lethargy FINDINGS: Heart is borderline enlarged. There is stable mild diffuse interstitial lung disease which may be fibrosis. No consolidating infiltrate has developed and there is no congestive heart failure or pleural effusion. The band of discoid atelectasis above the left heart border has diminished in size since 01/08/20. There has been no other change. Severe chronic deformity is again seen in the left shoulder IMPRESSION: Stable mild interstitial lung disease and no acute abnormality Interpreted and Authenticated by: Nacho Bassett 01/11/20
[2020-01-11] MEDS: METOPROLOL SUCCINATE 50 MG TAB.XL.24H PO SCH ×2 (09:11→21:21)
[2020-01-11] MEDS: LOSARTAN 50 MG TABLET PO SCH (09:12)
[2020-01-11] MEDS: DOCUSATE SODIUM 100 MG CAPSULE PO SCH ×2 (09:13→21:07)
[2020-01-11] MEDS: THIAMINE 100 MG TABLET PO SCH (09:14)
[2020-01-11] MEDS: FOLIC ACID 1 MG TABLET PO SCH (09:14)
[2020-01-11] MEDS: CYANOCOBALAMIN (VITAMIN B-12) 500 MCG TABLET PO SCH ×2 (09:14→21:07)
[2020-01-11] MEDS: MULTIVIT,THER IRON,CA,FA & MIN 1 TABLET PO SCH (09:14)
[2020-01-11] MEDS ORDERED: ceFAZolin 2 GM in DEXTROSE 5% IN WATER 50 ML IV SCH ×2 (10:15→12:30)
[2020-01-11] MEDS ORDERED: EPINEPHrine 1 MG/10 ML (1:10,000) SYRINGE IV ONE (10:18)
[2020-01-11] MEDS ORDERED: HETASTARCH 6% 500 ML BAG IV ONE (10:18)
[2020-01-11] MEDS ORDERED: PROPOFOL 200 MG/20 ML VIAL IV ONE (10:18)
[2020-01-11] MEDS ORDERED: ONDANSETRON 4 MG/2 ML VIAL IV ONE (10:18)
[2020-01-11] MEDS ORDERED: KETAMINE 100 MG/ML ML IV ONE (10:18)
[2020-01-11] MEDS ORDERED: LIDOCAINE HCL/PF 100 MG/5 ML SYRINGE IV ONE (10:18)
[2020-01-11] MEDS ORDERED: fentaNYL 100 MCG/2 ML VIAL IV ONE (10:18)
[2020-01-11] MEDS ORDERED: PHENYLEPHRINE 10 MG/ML VIAL IV ONE (10:18)
[2020-01-11] MEDS ORDERED: DEXAMETHASONE 10 MG/ML VIAL IV ONE (10:18)
[2020-01-11] MEDS ORDERED: GLYCOPYRROLATE 0.2 MG/ML VIAL IV ONE (10:18)
[2020-01-11] MEDS ORDERED: FUROSEMIDE 100 MG/10 ML VIAL IV ONE (10:18)
[2020-01-11] MEDS ORDERED: MIDAZOLAM 2 MG/2 ML VIAL IV ONE (10:18)
--- NOTE | 2020-01-11 12:03 | Brief Operative Note ---
Date of procedure: 01/11/20 Pre-op diagnosis: right displaced femoral neck fracture Post-op diagnosis: same Procedure: right hip hemiarthroplasty Grafts/Implants: Yes (size 2 stem cemented summit basic, 42mm head -3) Anesthesia: GETA Findings: displaced femoral neck fracture Complications: none Surgeon: Raghav Hughes Pyrotechnic Assembler: Xander Jain Estimated blood loss (cc): 200 Tourniquet Time (Minutes): 0 Specimens Removed/Pathology: none sent Condition: stable Disposition: PACU
[2020-01-11] MEDS ORDERED: METHOCARBAMOL 750 MG TABLET PO PRN (12:18)
[2020-01-11] MEDS ORDERED: oxyCODONE HCL 5 MG TABLET PO PRN (12:18)
[2020-01-11] MEDS ORDERED: BENZOCAINE/MENTHOL 1 LOZENGE PO PRN (12:18)
--- NOTE | 2020-01-11 12:30 | Internal Med Progress Note ---
Medical - PN: Subj Patient information: Note initiated : 01/11/20 at 12:18 pm Service Date, if different from initiated Date: [] Patient: Izzy Everett a 80 y/o F admitted on 01/08/20 for Run Over By Horse Yesterday, Weak And Lethargic. Chief Complaint: [] Interval history: Ms. Everett is a 79 year old F fairly independently living alone and carries history of HTN/CHF and CAD who presents to the ER following injury sustained while she was attempting to braid her horse standing on a stool. She got thrown off the stool and landed on her hip and subsequently was trampled by the horse multiple times sustaining injuries across face chest and lower extremity. She was evaluated in the ER and after initial work-up was discharged in stable state. Following discharge within a few hours she became progressively weak confused and was unable to function. Sustained injuries after getting trampled by horse. She was evaluated and was discharged in stable state the day prior to admission. She however continued to deteriorate with increasing mental status change and worsening weakness fatigue and dizziness. During the second visit at [facility] ER work-up was consistent with severe sepsis with a white count 18.5 secondary to complicated UTI and right femoral neck fracture was discovered on imaging. Hospitalist/orthopedics service was consulte in light of above Blood cultures were drawn and antibiotics initiated. At the time of evaluation patient is alert but in significant pain. She is able to endorse history as above. Extensive bruising throughout the body noted. She is accompanied with her daughter. She denies chest pain, vision changes, unilateral weakness, incontinence 01/08-hemoglobin dropped from 9.9-6.8. Off anticoagulation. Increasing hematoma thighs around the fracture site. Likely extravasation. Surgery on board. However orthopedics of the opinion that they would want to wait for additional 24 hours until INR normalized. Patient off apixaban. White count down from 18 .5-13.4. On Rocephin. Creatinine improved to 1.7 from 2.6. Continue pain management. Generalized bruising 12/20 Pt does not have new complaints. She is mildly confused. WBC 13.6 today and 13.4 yesterday. Orth hold off surgery today due to leukocytosis. Urine culture showed positive for citrobacter, pending sensitivity Discussed with ID Dr. Whitmore, discontinued rocephin and started zosyn. not a candidate for levaquin due to QTC > 500 Repeat WBC in am 12/21 Pt does not have new complaints. She is more alert and awake. But she is still disorientated. Not more hematemesis. Hb 9.4 today. She received one unit of pRBC Urine culture sensitivity available. Discussed with ID Dr. Whitmore, continue zosyn today. We may change to oral nitrofurantoin in 2-3 days. WBC 14 today. Do not know why she still has leukocytosis. According to sensitivity, anabiotics is good for her citrobacter. Instructed RN to change coburn today. Repeat CT of head today - negative for acute change Orth Dr. Hughes will probably do a procedure for her today. Aspirin and anticoagulant are on hold. ROS: Pertinent positives as noted in HPI. All other systems were reviewed and are negative. - Constitutional Vitals: Vital Signs Temp Pulse Resp BP Pulse Ox 98.6 F 98 H 18 153/79 92 01/11/20 07:04 01/11/20 07:04 01/11/20 07:04 01/11/20 07:04 01/11/20 07:04 Period Temp Pulse Resp BP Sys/Flood Pulse Ox Last 24 Hr 97.4 F-99.3 F 91-102 16-22 123-162/64-97 90-97 Intake and Output 01/10/20 01/11/20 01/11/20 21:59 05:59 13:59 Intake Total 650 50 50 Output Total 300 600 Balance 350 -550 50 Weight 64.637 kg Intake & Output: Intake & Output 01/10/20 01/11/20 01/11/20 21:59 05:59 13:59 Intake Total 650 50 50 Output Total 300 600 Balance 350 -550 50 Weight 64.637 kg Intake: IV 50 50 50 Zosyn 3.375 gm In Dextrose 5% 50 50 50 in Water 50 ml @ 100 mls/hr IV Q6H [facility] Rx#:[id number] Oral 600 0 Output: Urine Catheter Amount 300 600 Other: Meal Dinner Percent of Meal Consumed 25% Feeding Ability Assist with Tray Set Up Urine Appearance Clear Clear Sediment Uretheral ([place]) Clear Clear Sediment Sediment Urine Color Bright Yellow Dark Yellow Uretheral ([place]) Bright Yellow Dark Yellow Urine Odor Strong - Additional findings Additional findings: General - more alert but still disorientated, NAD, lying in bed, well groomed Eyes - PERRLA, EOM intact ENT no rhinorrhea, no noticeable or palpable swelling, no redness or rash around throat or on face Neck supple, no JVD, no thyromegaly Respiratory: Lungs - no use of accessory muscles, clear to auscultation, no crackles or wheezes. Cardiovascular - RRR no r/g, GI - Normal bowel sounds, no distended, soft and no tenderness Extremeties - tenderness over the injured site. hematoma : coburn in place Hemo/lymphatic/immune no lymphadenopathy Neurological more alert but still disorientated Psychiatry flat affect Medical - PN: Obj Da - Labs CBC & Chem 7: 01/11/20 05:11 01/11/20 05:11 Labs: Abnormal Lab Results 01/11/20 01/11/20 01/10/20 05:11 05:11 05:06 WBC 14.0 H RBC 3.13 L Hgb 9.4 L Hct 27.5 L RDW Gran % Lymph % (Auto) Gran # [place] # (Auto) Seg Neutrophils % Lymphocytes % 10 L RBC Morphology Abnorm A Polychromasia Anisocytosis 1+ A PT 17.5 H INR 1.4 H VBG Lactic Acid Carbon Dioxide Anion Gap BUN Creatinine Glucose 108 H Uric Acid Calcium Phosphorus 2.1 L Total Bilirubin 1.5 H Direct Bilirubin 0.5 H Lactate Dehydrogenase 255 H Total Creatine Kinase NT-Pro-B Natriuret Pep Total Protein 5.8 L Albumin 3.0 L Triglycerides 152 H Urine Protein Urine Occult Blood Ur Leukocyte Esterase Urine RBC Urine WBC Urine Bacteria Hyaline Casts Urine Mucus 01/10/20 01/10/20 01/10/20 05:06 05:06 00:34 WBC 13.6 H RBC 2.94 L Hgb 8.4 L 8.5 L Hct 25.8 L RDW 14.6 H Gran % Lymph % (Auto) Gran # [place] # (Auto) Seg Neutrophils % 89 H Lymphocytes % 4 L RBC Morphology Abnorm A Polychromasia Few A Anisocytosis 1+ A PT INR VBG Lactic Acid Carbon Dioxide 21 L Anion Gap BUN 30 H Creatinine Glucose 110 H Uric Acid 8.8 H Calcium 8.5 L Phosphorus 2.6 L Total Bilirubin Direct Bilirubin Lactate Dehydrogenase 252 H Total Creatine Kinase NT-Pro-B Natriuret Pep Total Protein Albumin 3.1 L Triglycerides 175 H Urine Protein Urine Occult Blood Ur Leukocyte Esterase Urine RBC Urine WBC Urine Bacteria Hyaline Casts Urine Mucus 01/09/20 01/09/20 01/09/20 18:13 09:00 04:54 WBC RBC Hgb 9.3 L Hct RDW Gran % Lymph % (Auto) Gran # [place] # (Auto) Seg Neutrophils % Lymphocytes % RBC Morphology Polychromasia Anisocytosis PT 20.6 H INR 1.7 H VBG Lactic Acid Carbon Dioxide 21 L Anion Gap BUN 44 H Creatinine 1.7 H Glucose 113 H Uric Acid 9.3 H Calcium 8.2 L Phosphorus Total Bilirubin Direct Bilirubin Lactate Dehydrogenase Total Creatine Kinase NT-Pro-B Natriuret Pep Total Protein 5.7 L Albumin 3.0 L Triglycerides 197 H Urine Protein Urine Occult Blood Ur Leukocyte Esterase Urine RBC Urine WBC Urine Bacteria Hyaline Casts Urine Mucus 01/09/20 01/08/20 01/08/20 04:54 15:15 12:24 WBC 13.4 H RBC 2.44 L Hgb 6.8 L* Hct 21.7 L RDW 14.8 H Gran % Lymph % (Auto) Gran # [place] # (Auto) Seg Neutrophils % Lymphocytes % 9 L RBC Morphology Abnorm A Polychromasia Few A Anisocytosis 1+ A PT INR VBG Lactic Acid 2.7 H Carbon Dioxide Anion Gap BUN Creatinine Glucose Uric Acid Calcium Phosphorus Total Bilirubin Direct Bilirubin Lactate Dehydrogenase Total Creatine Kinase NT-Pro-B Natriuret Pep Total Protein Albumin Triglycerides Urine Protein 30 A Urine Occult Blood 0.2 A Ur Leukocyte Esterase 250 A Urine RBC 93 H Urine WBC > 182 H Urine Bacteria Many A Hyaline Casts 47 H Urine Mucus Many A 01/08/20 01/08/20 01/08/20 11:50 11:50 11:50 WBC RBC Hgb Hct RDW Gran % Lymph % (Auto) Gran # [place] # (Auto) Seg Neutrophils % Lymphocytes % RBC Morphology Polychromasia Anisocytosis PT 34.0 H INR 3.3 H VBG Lactic Acid Carbon Dioxide 17 L Anion Gap 21.0 H BUN 47 H Creatinine 2.2 H Glucose 168 H Uric Acid Calcium Phosphorus Total Bilirubin Direct Bilirubin Lactate Dehydrogenase Total Creatine Kinase 208 H NT-Pro-B Natriuret Pep 4485.0 H Total Protein Albumin Triglycerides Urine Protein Urine Occult Blood Ur Leukocyte Esterase Urine RBC Urine WBC Urine Bacteria Hyaline Casts Urine Mucus 01/08/20 11:50 WBC 18.5 H RBC 3.50 L Hgb 9.9 L Hct 30.4 L RDW 14.8 H Gran % 81.6 H Lymph % (Auto) 8.7 L Gran # 15.08 H [place] # (Auto) 1.69 H Seg Neutrophils % Lymphocytes % RBC Morphology Polychromasia Anisocytosis PT INR VBG Lactic Acid Carbon Dioxide Anion Gap BUN Creatinine Glucose Uric Acid Calcium Phosphorus Total Bilirubin Direct Bilirubin Lactate Dehydrogenase Total Creatine Kinase NT-Pro-B Natriuret Pep Total Protein Albumin Triglycerides Urine Protein Urine Occult Blood Ur Leukocyte Esterase Urine RBC Urine WBC Urine Bacteria Hyaline Casts Urine Mucus Meds: Medications Acetaminophen (Tylenol) 650 mg PO Q4-6HP PRN; Protocol PRN Reason: Per Pain Protocol/Fever > 101 Hydrocodone Bitart/Acetaminophen ([place] 5/325mg) 1 tab PO Q4HP PRN; Protocol PRN Reason: Per Pain Protocol Last Admin: 01/11/20 02:50 Dose: 1 tab Documented by: Bisacodyl (Dulcolax) 10 mg AK Q2-3DAYS PRN PRN Reason: Constipation Cyanocobalamin (Vitamin B-12) 1,000 mcg PO BID [facility] Stop: 01/13/20 09:01 Last Admin: 01/11/20 09:14 Dose: Not Given Documented by: Docusate Sodium (Colace) 100 mg PO BID [facility] Last Admin: 01/11/20 09:13 Dose: Not Given Documented by: Ezetimibe (Zetia) 10 mg PO QDAY [facility] Folic Acid (Folic Acid) 1 mg PO DAILY [facility] Last Admin: 01/11/20 09:14 Dose: Not Given Documented by: Hydralazine HCl (Apresoline) 10 mg IV Q4-6HP PRN PRN Reason: Hypertension Last Admin: 01/11/20 08:03 Dose: 10 mg Documented by: Hydromorphone HCl (Dilaudid) 0.5 mg IV Q4HP PRN; Protocol PRN Reason: Per Pain Protocol Last Admin: 01/10/20 03:40 Dose: 0.5 mg Documented by: Potassium Chloride 40 meq/ (Dextrose) 520 mls @ 130 mls/hr IV UD PRN PRN Reason: K+ = or < 3.5 Magnesium Sulfate (Magnesium Sulfate) 2 gm in 50 mls @ 50 mls/hr IV UD PRN PRN Reason: MG = or < 1.7 Acetaminophen (Ofirmev) 950 mg in 95 mls @ 190 mls/hr IV Q6HP PRN; Protocol PRN Reason: PAIN/FEVER > 101 Piperacillin Sod/Tazobactam (Sod 3.375 gm/ Dextrose) 50 mls @ 100 mls/hr IV Q6H [facility]; Protocol Last Infusion: 01/11/20 07:14 Dose: Infused Documented by: Iron Carb/Multivit/Bindery Machine Operator/Folic Acid (Multivitamin W/Minerals) 1 tab PO DAILY [facility] Last Admin: 01/11/20 09:14 Dose: Not Given Documented by: Losartan Potassium (Cozaar) 100 mg PO QDAY [facility] Last Admin: 01/11/20 09:12 Dose: 100 mg Documented by: Melatonin (Melatonin 3mg Tablet) 3 mg PO HSP PRN PRN Reason: Insomnia Last Admin: 01/10/20 01:28 Dose: 3 mg Documented by: Metoprolol Succinate (Toprol Xl) 100 mg PO BID [facility] Last Admin: 01/11/20 09:11 Dose: 100 mg Documented by: Ondansetron HCl (Zofran Odt) 4 mg SL Q4-6HP PRN; Protocol PRN Reason: Nausea And Vomiting Pantoprazole Sodium (Protonix) 40 mg IV BIDAC [facility] Last Admin: 01/11/20 08:03 Dose: 40 mg Documented by: Polyethylene Glycol (Miralax) 17 gm PO DAILYP PRN PRN Reason: Constipation Potassium Chloride (Klor-Con) 40 meq PO DAILYP PRN PRN Reason: K+ < 3.5 Senna/Docusate Sodium (Senna Plus Tablet) 1 tab PO HS [facility] Last Admin: 01/10/20 20:57 Dose: 1 tab Documented by: Sodium Chloride (Saline Flush) 10 ml IV Q8 [facility] Last Admin: 01/11/20 05:08 Dose: 10 ml Documented by: Sucralfate (Carafate) 1 gm PO Q6 [facility] Last Admin: 01/11/20 05:08 Dose: Not Given Documented by: Thiamine HCl (Vitamin B1) 100 mg PO DAILY [facility] Last Admin: 01/11/20 09:14 Dose: Not Given Documented by: Medical - PN: A/P - Time Spent With Patient Total time spent is greater than 50% in coordination of care (as documented) at patient's floor/unit and/or counseling patient: - Narrative A/P Narrative: Assessment and plan: * Right femoral neck fracture-orthopedic on board. * Preop risk evaluation-based on RCRI [employer] restarted again patient would fall under high risk category for intraoperative and immediate postoperative. Risk of ACS/CVA. I would recommend maintaining intraoperative mean artery pressure over 65. However at this time due to active sepsis I would recommend delaying surgery until sepsis resolves and patient more stable to undergo anesthesia. Additionally surgery and anesthesia specific risks will be addressed by individual care providers. * Acute blood loss anemia secondary extravasation at fracture site. Off anticoagulation. s/p 3 units of pRBCs. Serial hemoglobin check. * Complicated UTI-Citrobacter positive. Sensitive to rocephin, zosyn and nitrofurantoin * Severe sepsis second above with endorgan dysfunction including AMS/ARF. Clinically improving. * RACHEL -clinically improving. Creatinine down to WNL * Acute change mental status secondary to sepsis endorgan dysfunction. Continue close monitoring * Extensive contusion secondary injury. Continue pain management * Atrial fibrillation currently rate controlled. Anticoagulation rivaroxaban for CVA prophylaxis is on hold due to imminent surg * History of CAD continue aspirin/beta-ginny * History of hypertension hold antihypertensives until systolics improve and over 140 Plan * Serial hemoglobin. Pain management including iv dilaudid * Not more hematemesis. Hb 9.4 today. She received one unit of pRBC * Urine culture sensitivity available. Discussed with ID Dr. Whitmore, continue zosyn today. We may change to oral nitrofurantoin in 2-3 days. * WBC 14 today. Do not know why she still has leukocytosis. According to sensitivity, anabiotics is good for her citrobacter. Instructed RN to change coburn today. * Repeat CT of head today - negative for acute change * Orth Dr. Hughes will probably do a procedure for her today. Aspirin and anticoagulant are on hold. * Pre-existing medical condition management home meds except for antihypertensives will be held until sepsis resolves Medical - PN: Qual - VTE Deep Vein Thrombosis/Pulmonary Embolism Present on Admission: No
[2020-01-11] MEDS ORDERED: MEPERIDINE 25 MG/ML SYRINGE IV PRN (12:34)
[2020-01-11] MEDS ORDERED: METHOCARBAMOL 1,000 MG/10 ML VIAL IV PRN (12:34)
[2020-01-11] MEDS ORDERED: ACETAMINOPHEN 1,000 MG/100 ML BOTTLE IV ONE (12:34)
[2020-01-11] MEDS ORDERED: IPRATROPIUM/ALBUTEROL 3 ML AMPUL.NEB NEB PRN (12:34)
[2020-01-11] MEDS ORDERED: fentaNYL 100 MCG/2 ML VIAL IV PRN (12:34)
[2020-01-11] MEDS ORDERED: ONDANSETRON 4 MG/2 ML VIAL IV PRN (12:34)
[2020-01-11] MEDS ORDERED: LACTATED RINGERS 1,000 ML IV SCH (12:45)
--- NOTE | 2020-01-11 13:09 | General Surgery Progress Note ---
<Kvng Norris - Last Filed: 01/11/20 12:55> Surgical - Auxillary Note - Subjective Patient Information: Note initiated : 01/11/20 at 12:55 pm Service Date, if different from initiated Date: [] Patient: Izzy Everett 80 y/o F admitted on 01/08/20 for Run Over By Horse Yesterday, Weak And Lethargic. Chief Complaint: [Intraoperative course Gentle induction, move to L lat immediately followed by profound hypotension and persistent hypoxia. Mult doses of phenylephrine, poorly responsive/inadequate response, change to epi 25 mcg doses to which pt responded and slowly improved sats (70% brain). Overall, pt required pressors throughout case with a couple more episodes of hypotension/hypoxic trending. no/min UO. IVFs 1700 PACU pt arousable and follows simple commands vitals normalized once pt back into supine positioning. Rec: follow renal function consider cardiac workup for persistent postop hypotension or failure keep NC O2 for underlying pulmonary disease expect post operative cognitive impairment due to underlying dementia and surgical/anesthetic stressors. This may persist for days to months, possible that patient may never return to baseline cognition. expect post op frailty and failure to thrive due to mult trauma, multisystem involvement, sepsis, deconditioning, dementia and advanced age and well as critical system comorbidities. ADRIANA] <Claire Richey - Last Filed: 01/13/20 12:08> Surgical - Auxillary Note - Subjective Patient Information: Note initiated : 01/13/20 at 12:07 pm Service Date, if different from initiated Date: [] Patient: Izzy Everett 80 y/o F admitted on 01/08/20 for Run Over By Horse Yesterday, Weak And Lethargic. Chief Complaint: [] To completion of documentation, I signed the note.
[2020-01-11] MEDS: LACTATED RINGERS 1,000 ML IV SCH (13:57)
--- NOTE | 2020-01-11 14:26 | XRay Report ---
HISTORY: Postop right hip replacement for fracture FINDINGS: Patient has a well positioned unipolar right hip prosthesis. There is no fracture or abnormal soft tissue calcification. Bones are osteopenic. IMPRESSION: Well-positioned right hip prosthesis Interpreted and Authenticated by: Nacho Bassett 01/11/20
[2020-01-11 14:34] LABS: Hematocrit 24.6 % (34.1-44.9); Hemoglobin 8.1 g/dL (11.2-15.7)
[2020-01-11] MEDS: EZETIMIBE 10 MG TABLET PO SCH (16:27)
[2020-01-11] MEDS: PHOSPHORUS 250 MG TABLET PO SCH (16:27)
[2020-01-11] MEDS: ceFAZolin 1 GM VIAL IV SCH (19:18)
[2020-01-11] MEDS: HYDROmorphone 2 MG/ML VIAL IV PRN (20:12)
[2020-01-11] MEDS ORDERED: GABAPENTIN 300 MG CAPSULE PO SCH (21:00)
[2020-01-11] MEDS: SENNOSIDES/DOCUSATE SODIUM 1 TAB TABLET PO SCH (21:07)
[2020-01-11] MEDS: SENNOSIDES 1 TABLET PO SCH ×2 (21:07→21:14)
[2020-01-11 21:27] LABS: Hematocrit 21.1 % (34.1-44.9)
[2020-01-11] MEDS ORDERED: 0.9 % SODIUM CHLORIDE 250 ML IV SCH (22:15)
[2020-01-12] MEDS: SUCRALFATE 1 GM/10 ML ORAL.SUSP PO SCH ×4 (00:41→17:35)
[2020-01-12] MEDS: ACETAMINOPHEN IV SCH ×4 (00:41→21:20)
[2020-01-12] MEDS: PIPERACILLIN SODIUM/TAZOBACTAM 3.375 GM in DEXTROSE 5% IN WATER 50 ML IV SCH ×3 (00:46→12:31)
[2020-01-12] MEDS: LACTATED RINGERS 1,000 ML IV SCH (01:20)
[2020-01-12] MEDS: ceFAZolin 1 GM VIAL IV SCH (03:45)
[2020-01-12 05:47] LABS: Hematocrit 25.3 % (34.1-44.9); Hemoglobin 8.3 g/dL (11.2-15.7); Mean Cell Volume 88.5 fL (80.0-100.0); Mean Corpuscular HGB Conc 32.8 g/dL (31.0-36.0); Mean Platelet Volume 10.3 fL (7.4-10.4); Platelet Count 155 K/mcL (140-440); RBC 2.86 M/mcL (3.59-5.38); Red Cell Distribution Width 14.9 % (11.5-14.5); WBC 9.2 K/mcL (4.50-11.00)
[2020-01-12] MEDS: 0.9 % SODIUM CHLORIDE 10 ML SYRINGE IV SCH ×3 (06:03→21:22)
[2020-01-12 06:14] LABS: ALT/SGPT 27 U/l (0-40); AST/SGOT 47 U/l (0-37); Albumin 2.2 gm/dL (3.2-5.2); Alkaline Phosphatase 49 U/L (39-117); Bilirubin,Total 2.6 mg/dL (0.0-1.0); Blood Urea Nitrogen 25 mg/dl (8-23); Calcium 7.5 mg/dl (8.6-10.4); Carbon Dioxide 20 mmol/L (22-30); Chloride 104 mmol/L (96-108); Glucose 142 mg/dL (70-105); Lactate Dehydrogenase 240 U/L (94-250); Triglycerides 106 mg/dl (<150); Uric Acid 4.5 mg/dL (2.5-8.0)
[2020-01-12 06:16] LABS: Bilirubin,Direct 2.1 mg/dL (0.0-0.3); Globulin 2.2 gm/dL (2.2-3.7); Glomerular Filtration Rate 35; Phosphorous 3.8 mg/dL (2.7-4.5)
--- NOTE | 2020-01-12 07:41 | Orthopedic Progress Note ---
Subjective Patient information: Note initiated : 01/12/20 at 7:37 am Service Date, if different from initiated Date: [] Patient: Izzy Everett 80 y/o F admitted on 01/08/20 for Run Over By Horse Yesterday, Weak And Lethargic. Chief Complaint: [] Principal diagnosis: right displaced femoral neck fracture, sepsis Interval history: received 1 unit PRBC's overnight given decreased H/H. Otherwise no events. Objective Vital signs: Vital Signs Temp Pulse Pulse Resp BP BP BP 01/12/20 06:00 98.8 F 82 18 146/75 01/12/20 04:09 98.1 F 90 20 150/73 01/12/20 02:01 98.9 F 84 20 114/59 01/12/20 01:06 01/12/20 00:30 98.8 F 93 H 20 145/80 01/12/20 00:00 98.2 F 92 H 16 129/71 01/11/20 23:33 97.6 F 82 20 114/56 01/11/20 23:05 98.0 F 79 18 99/62 01/11/20 22:45 98.5 F 86 20 104/64 01/11/20 22:35 98.6 F 98 H 20 112/52 01/11/20 22:00 98.6 F 88 20 106/59 01/11/20 20:00 91 H 16 126/90 01/11/20 19:25 01/11/20 18:00 92 H 20 116/77 01/11/20 16:28 98.0 F 88 16 126/91 01/11/20 15:55 108 H 01/11/20 15:46 78 126/58 01/11/20 15:31 99 H 124/84 01/11/20 15:20 101 H 116/64 01/11/20 15:16 26 L 116/64 01/11/20 15:01 88 116/59 01/11/20 14:52 100 H 95/56 01/11/20 14:46 98 H 95/56 01/11/20 14:41 113 H 100/59 01/11/20 14:38 101 H 152/128 01/11/20 14:10 99 H 98/60 01/11/20 13:50 112 H 95/62 01/11/20 13:20 123 H 102/57 01/11/20 13:02 97.1 F 106 H 20 103/60 01/11/20 12:52 108 H 22 100/56 01/11/20 12:42 117 H 22 102/62 01/11/20 12:34 115 H 97/63 01/11/20 12:32 112 H 23 H 93/65 01/11/20 12:27 114 H 22 96/57 01/11/20 12:22 117 H 22 99/63 01/11/20 12:17 97.1 F 107 H 26 H 96/56 Pulse Ox 01/12/20 06:00 99 01/12/20 04:09 97 01/12/20 02:01 97 01/12/20 01:06 97 01/12/20 00:30 95 01/12/20 00:00 97 01/11/20 23:33 95 01/11/20 23:05 95 01/11/20 22:45 95 01/11/20 22:35 95 01/11/20 22:00 96 01/11/20 20:00 95 01/11/20 19:25 95 01/11/20 18:00 95 01/11/20 16:28 99 01/11/20 15:55 99 01/11/20 15:46 99 01/11/20 15:31 99 01/11/20 15:20 98 01/11/20 15:16 97 01/11/20 15:01 98 01/11/20 14:52 96 01/11/20 14:46 97 01/11/20 14:41 98 01/11/20 14:38 95 01/11/20 14:10 96 01/11/20 13:50 94 01/11/20 13:20 01/11/20 13:02 96 01/11/20 12:52 95 01/11/20 12:42 96 01/11/20 12:34 93 01/11/20 12:32 96 01/11/20 12:27 95 01/11/20 12:22 95 01/11/20 12:17 97 Intake and Output 01/11/20 01/12/20 01/12/20 21:59 05:59 13:59 Intake Total 700 1659 Output Total 150 350 Balance 550 1309 Intake: IV 100 1034 Sodium Chloride 0.9% 250 ml @ 38 20 mls/hr IV .[id number] DEVORAH Rx#: [id number] Lactated Ringers 1,000 ml @ 75 851 mls/hr IV .[id number] DEVORAH Rx#: [id number] Zosyn 3.375 gm In Dextrose 5% 100 50 in Water 50 ml @ 100 mls/hr IV Q6H DEVORAH Rx#:[id number] Oral 600 300 Blood Product 325 Output: Urine Catheter Amount 150 350 Uretheral (Jerome) 150 Other: Meal Dinner Percent of Meal Consumed 75% Feeding Ability Independent Urine Appearance Sediment Sediment Uretheral (Jerome) Sediment Urine Color Dark Yellow Dark Yellow Uretheral (Jerome) Dark Yellow Urine Odor Strong Stool Size Large Stool Color Brown Stool Consistency Liquid Loose Weight 152 lb Intake & Output: Intake & Output 01/11/20 01/12/20 01/12/20 21:59 05:59 13:59 Intake Total 700 1659 Output Total 150 350 Balance 550 1309 Weight 152 lb Intake: IV 100 1034 Sodium Chloride 0.9% 250 ml @ 38 20 mls/hr IV .[id number] DEVORAH Rx#: [id number] Lactated Ringers 1,000 ml @ 75 851 mls/hr IV .[id number] DEVORAH Rx#: [id number] Zosyn 3.375 gm In Dextrose 5% 100 50 in Water 50 ml @ 100 mls/hr IV Q6H DEVORAH Rx#:[id number] Oral 600 300 Blood Product 325 Output: Urine Catheter Amount 150 350 Uretheral (Jerome) 150 Other: Meal Dinner Percent of Meal Consumed 75% Feeding Ability Independent Urine Appearance Sediment Sediment Uretheral (Jerome) Sediment Urine Color Dark Yellow Dark Yellow Uretheral (Jerome) Dark Yellow Urine Odor Strong Stool Size Large Stool Color Brown Stool Consistency Liquid Loose Dressing: Yes clean, Yes dry, Yes intact Weight bearing status: as tolerated Additional Comments: foot is warm well perfused. - Labs CBC & BMP: 01/12/20 04:20 01/12/20 04:20 Labs: Orthopedic Labs 01/10/20 01/09/20 01/08/20 05:06 09:00 11:50 PT 17.5 H 20.6 H 34.0 H INR 1.4 H 1.7 H 3.3 H 03/01/11/20 01/11/20 04:20 20:44 13:56 Hgb 8.3 L 7.0 L* 8.1 L Hct 25.3 L 21.1 L 24.6 L 01/11/20 01/10/20 01/10/20 05:11 05:06 00:34 Hgb 9.4 L 8.4 L 8.5 L Hct 27.5 L 25.8 L 01/09/20 01/09/20 01/08/20 18:13 04:54 11:50 Hgb 9.3 L 6.8 L* 9.9 L Hct 21.7 L 30.4 L Assessment and Plan (1) Displaced fracture of right femoral neck Status: Acute - Narrative A/P Narrative: POD 1 s/p right hip alesha arthroplasty for femoral neck fracture --PT/OT today, weight bearing as tolerated with posterior hip precautions. --H/H is ok this AM now total of 4 units transfused. dressing is dry --hemodynamically better this AM as well with improved tachycardia --Hospitalist managing ongoing medical comorbidities --IS: will restart dvt prophylaxis today, IS, foot pumps, mobilization --Dispo: will need rehab when stable to discharge.
[2020-01-12] MEDS: PANTOPRAZOLE 40 MG VIAL IV SCH ×2 (07:55→17:35)
[2020-01-12 08:08] LABS: Anisocytosis 1+ (NONE SEEN); Band Neutrophils % 1 % (0-10); Lymphocytes % 4 % (15-49); Monocytes % (Manual) 8 % (1-12); Platelet Estimate NORMAL (NORMAL); Polychromasia 1+ (NONE SEEN); RBC Morphology ABNORM (NORMAL); Segmented Neutrophils % 87 % (38-78)
[2020-01-12] MEDS ORDERED: RIVAROXABAN 15 MG TABLET PO SCH (09:00)
[2020-01-12] MEDS ORDERED: amLODIPine 5 MG TABLET PO SCH (09:00)
--- NOTE | 2020-01-12 09:09 | Operative Note ---
DATE OF OPERATION: 01/11/2020 PREOPERATIVE DIAGNOSES: 1. Right displaced femoral neck fracture. 2. Right complicated UTI with sepsis and end organ failure. POSTOPERATIVE DIAGNOSES: 1. Right displaced femoral neck fracture. 2. Right complicated UTI with sepsis and end organ failure. PROCEDURE PERFORMED: Right hip hemiarthroplasty. SURGEON: Raghav Hughes M.D. SENIOR QUANTITY SURVEYOR: Xander Jain PA-C. This provider's expertise and technical skill were required throughout the case. The PA assisted with preoperative coordination, intraoperative retraction, wound closure, dressing and splint application, as well as postoperative documentation and care coordination. ANESTHESIA: General endotracheal anesthesia. IV FLUIDS: 1700 mL lactated ringer. ESTIMATED BLOOD LOSS: 200 mL. ANTIBIOTICS: 2 grams Ancef. IMPLANTS: Chuckey basic cemented femoral stem size 2, 42 mm head ball with -3 spacer. PATHOLOGY: None. The femoral head was without any pathology as noted. INDICATIONS: The patient is an 80-year-old female who was trampled by a horse on Sunday, which now is 5 days ago. She was initially seen in the emergency department and found to have multiple blunt trauma to her bilateral lower extremities; however, was discharged home with followup with her primary care the following day and with concern regarding her hemodynamic stability and altered mental status, was referred back to the emergency department. She was found to have sepsis from a presumed complicated UTI as well as a displaced femoral neck fracture. She subsequently was admitted to the Hospitalist Service, and she was transfused a total of 3 units along with correcting her sepsis picture and stabilized for operative treatment of her right hip fracture. I had a lengthy discussion with her daughter with regards to treatment options and timing, as there is increased morbidity and mortality with delaying surgery; however, also wanted to optimize the patient to lower the risk associated with surgery. She does understand and wished to proceed with that this morning as she had no further ways to medically optimize her per the hospitalist. DESCRIPTION OF PROCEDURE: The patient was met in the preoperative holding area where site was verified and marked with daughter's input prior to leaving. She was subsequently taken back to the operating room where she underwent successful endotracheal anesthesia. She was placed in the lateral decubitus position with the right side up with a cutout for her arm negating the need for an axillary roll. The extremity was cleaned with soap and water as well as chlorhexidine wipes, prepped and draped in the usual sterile fashion with ChloraPrep. A surgical timeout was performed to verify patient identity, correct procedure being performed and correct extremity being operated on. Of note, when we finished draping she did have a period of hypotension requiring Epi. She was stabilized and Anesthesia considered it okay to proceed with surgery. At this point, I created a curvilinear incision approximately 10 cm above the middle of the greater trochanter extending posteriorly in line with the femur distally. Skin was sharply incised. Hemostasis was obtained with electrocautery device down to the tensor fascia estrella as well as IT band. This was sharply incised with a clean #15 blade creating anterior and posterior flaps in line with the muscle itself. A self-retaining retractor was placed. The trochanteric bursa was excised. Then, the posterior border of the femoral neck was exposed by elevating off the external rotators to the piriformis which was then tagged. This exposed the fracture easily. I did dissect down to the level of the lesser trochanter. The femoral neck cut was made approximately at 15 mm, which was at the inferior portion of the fracture itself. The bony fragment was then removed and the femoral head was removed after creating capsulotomy and tagging and the anterior and posterior flaps of the capsulotomy. All bony fragments were then removed. I did use IrriSept throughout the case to irrigate as well as normal irrigation with pulse lavage. At this point, the femoral head was sized to be 42 mm on the back table. The femoral neck was exposed with a femoral neck elevator. Utilizing a hot box operator, a canal finder and lateralizer we gained access into the canal. The initial broaches were broached up to a size 2, which was a very tight fit and thought that this was adequate in size, matching the version of the posterior cortex. Once this was placed, I placed a standard neck and trialed a 0 offset. However, this was not able to reduce, so I placed -3, which was reducible and restored the length and she was stable with this implant construct with hip flexion of 90 degrees and internal rotation approximately 60 degrees. She was stable in sideline 30/30 position as well as full extension. She did have a bit of increased tension with offset. Once this was complete, I removed all trial components, placed a cement restrictor in the canal approximately 14 cm. The canal was then brushed, pulse lavaged and a sponge sucker tip was placed in the canal for prepping. I did place IrriSept within the acetabulum as well and let it soak while cement was being mixed on the back table. The sponge was then placed in the acetabulum and the canal was cemented and the stem was fixated. Once the cement had hardened, the construct was then placed into place with the 42 mm head impacted and reduced, and again trialed as noted above to be stable. The wound was again irrigated with IrriSept and pulse lavage and the posterior capsule closed with #2 Ethibond for a total of 4 sutures. The tensor fascia estrella and IT band were then closed with interrupted #1 Vicryl and run up over the muscle itself to close down the fascia over the muscle proximally. Distally I utilized Stratafix to close this in a running fashion as well. The deep layer was closed with 2-0 Vicryl, subcutaneous with 3-0 Vicryl and skin with prabha. Xeroform along with fluffs and Webril were placed, an abduction pillow was placed. The patient awoke from anesthesia and transferred PACU in stable condition. PLAN: The patient will admitted back to the floor for postoperative recovery. DLW:julito Job ID: [id number] Doc ID: [id number] Raghav RUSSELL
[2020-01-12] MEDS: LOSARTAN 50 MG TABLET PO SCH (09:17)
[2020-01-12] MEDS: DOCUSATE SODIUM 100 MG CAPSULE PO SCH ×2 (09:17→21:21)
[2020-01-12] MEDS: EZETIMIBE 10 MG TABLET PO SCH (09:18)
[2020-01-12] MEDS: METOPROLOL SUCCINATE 50 MG TAB.XL.24H PO SCH ×2 (09:18→21:21)
[2020-01-12] MEDS: FOLIC ACID 1 MG TABLET PO SCH (09:20)
[2020-01-12] MEDS: CYANOCOBALAMIN (VITAMIN B-12) 500 MCG TABLET PO SCH ×2 (09:20→21:21)
[2020-01-12] MEDS: THIAMINE 100 MG TABLET PO SCH (09:20)
[2020-01-12] MEDS: MULTIVIT,THER IRON,CA,FA & MIN 1 TABLET PO SCH (09:20)
--- NOTE | 2020-01-12 12:49 | Internal Med Progress Note ---
Medical - PN: Subj Patient information: Note initiated : 01/12/20 at 12:39 pm Service Date, if different from initiated Date: [] Patient: Izzy Everett a 80 y/o F admitted on 01/08/20 for Run Over By Horse Yesterday, Weak And Lethargic. Chief Complaint: [] Interval history: Ms. Everett is a 79 year old F fairly independently living alone and carries history of HTN/CHF and CAD who presents to the ER following injury sustained while she was attempting to braid her horse standing on a stool. She got thrown off the stool and landed on her hip and subsequently was trampled by the horse multiple times sustaining injuries across face chest and lower extremity. She was evaluated in the ER and after initial work-up was discharged in stable state. Following discharge within a few hours she became progressively weak confused and was unable to function. Sustained injuries after getting trampled by horse. She was evaluated and was discharged in stable state the day prior to admission. She however continued to deteriorate with increasing mental status change and worsening weakness fatigue and dizziness. During the second visit at [facility] ER work-up was consistent with severe sepsis with a white count 18.5 secondary to complicated UTI and right femoral neck fracture was discovered on imaging. Hospitalist/orthopedics service was consulte in light of above Blood cultures were drawn and antibiotics initiated. At the time of evaluation patient is alert but in significant pain. She is able to endorse history as above. Extensive bruising throughout the body noted. She is accompanied with her daughter. She denies chest pain, vision changes, unilateral weakness, incontinence 01/08-hemoglobin dropped from 9.9-6.8. Off anticoagulation. Increasing hematoma thighs around the fracture site. Likely extravasation. Surgery on board. However orthopedics of the opinion that they would want to wait for additional 24 hours until INR normalized. Patient off apixaban. White count down from 18 .5-13.4. On Rocephin. Creatinine improved to 1.7 from 2.6. Continue pain management. Generalized bruising 01/09 Pt does not have new complaints. She is mildly confused. WBC 13.6 today and 13.4 yesterday. Orth hold off surgery today due to leukocytosis. Urine culture showed positive for citrobacter, pending sensitivity Discussed with ID Dr. Whitmore, discontinued rocephin and started zosyn. not a candidate for levaquin due to QTC > 500 Repeat WBC in am 01/10 Pt does not have new complaints. She is more alert and awake. But she is still disorientated. Not more hematemesis. Hb 9.4 today. She received one unit of pRBC Urine culture sensitivity available. Discussed with ID Dr. Whitmore, continue zosyn today. We may change to oral nitrofurantoin in 2-3 days. WBC 14 today. Do not know why she still has leukocytosis. According to sensitivity, anabiotics is good for her citrobacter. Instructed RN to change coburn today. Repeat CT of head today - negative for acute change Orth Dr. Hughes will probably do a procedure for her today. Aspirin and anticoagulant are on hold. 01/11 The patient feels better. When I saw this patient, she was sitting on a chair. She underwent right hip hemiarthroplasty on 01/11/[address] Hughes. Pain is controlled. Hb 8.3 today. She received one unit of pRBC before surgery. So far she has received 4 units of pRBCs. WBC went down to 9.2. Creatinine 1.4. Repeat renal function in the morning ROS: Pertinent positives as noted in HPI. All other systems were reviewed and are negative. - Constitutional Vitals: Vital Signs Temp Pulse Resp BP Pulse Ox 99.1 F H 77 18 117/51 97 01/12/20 12:00 01/12/20 12:00 01/12/20 12:00 01/12/20 12:00 01/12/20 12:00 Period Temp Pulse Resp BP Sys/Flood Pulse Ox Last 24 Hr 97.1 F-99.1 F 26-123 16-22 95-152/51-128 94-99 Intake and Output 01/11/20 01/12/20 01/12/20 21:59 05:59 13:59 Intake Total 700 1659 290 Output Total 150 350 Balance 550 1309 290 Weight 68.946 kg Intake & Output: Intake & Output 01/11/20 01/12/20 01/12/20 21:59 05:59 13:59 Intake Total 700 1659 290 Output Total 150 350 Balance 550 1309 290 Weight 68.946 kg Intake: IV 100 1034 50 Sodium Chloride 0.9% 250 ml @ 38 20 mls/hr IV .[id number] [facility] Rx#: [id number] Lactated Ringers 1,000 ml @ 75 851 mls/hr IV .[id number] [facility] Rx#: [id number] Zosyn 3.375 gm In Dextrose 5% 100 50 50 in Water 50 ml @ 100 mls/hr IV Q6H [facility] Rx#:[id number] Oral 600 300 240 Blood Product 325 Output: Urine Catheter Amount 150 350 Uretheral (Coburn) 150 Other: Meal Dinner Breakfast Percent of Meal Consumed 75% 100% Feeding Ability Independent Assist with Tray Set Up Urine Appearance Sediment Sediment Sediment Uretheral ([place]) Sediment Sediment Urine Color Dark Yellow Dark Yellow Dark Yellow Uretheral ([place]) Dark Yellow Dark Yellow Urine Odor Strong Stool Size Large Stool Color Brown Stool Consistency Liquid Loose - Additional findings Additional findings: General - more alert, NAD, sitting on a chair Eyes - PERRLA, EOM intact ENT no rhinorrhea, no noticeable or palpable swelling, no redness or rash around throat or on face Neck supple, no JVD, no thyromegaly Respiratory: Lungs - no use of accessory muscles, clear to auscultation, no crackles or wheezes. Cardiovascular - RRR no r/g, GI - Normal bowel sounds, no distended, soft and no tenderness Extremeties - tenderness over the injured site. hematoma/ecchymoses : coburn in place Hemo/lymphatic/immune no lymphadenopathy Neurological more alert Psychiatry flat affect Medical - PN: Obj Da - Labs CBC & Chem 7: 01/12/20 04:20 01/12/20 04:20 Labs: Abnormal Lab Results 01/12/20 01/12/20 01/11/20 04:20 04:20 20:44 WBC RBC 2.86 L Hgb 8.3 L 7.0 L* Hct 25.3 L 21.1 L RDW 14.9 H Seg Neutrophils % 87 H Lymphocytes % 4 L RBC Morphology Abnorm A Polychromasia 1+ A Anisocytosis 1+ A PT INR Carbon Dioxide 20 L BUN 25 H Creatinine 1.4 H Glucose 142 H Uric Acid Calcium 7.5 L Phosphorus Total Bilirubin 2.6 H Direct Bilirubin 2.1 H AST 47 H Lactate Dehydrogenase Total Protein 4.4 L Albumin 2.2 L Triglycerides 03/29/20 03/29/20 03/29/20 13:56 05:11 05:11 WBC 14.0 H RBC 3.13 L Hgb 8.1 L 9.4 L Hct 24.6 L 27.5 L RDW Seg Neutrophils % Lymphocytes % 10 L RBC Morphology Abnorm A Polychromasia Anisocytosis 1+ A PT INR Carbon Dioxide BUN Creatinine Glucose 108 H Uric Acid Calcium Phosphorus 2.1 L Total Bilirubin 1.5 H Direct Bilirubin 0.5 H AST Lactate Dehydrogenase 255 H Total Protein 5.8 L Albumin 3.0 L Triglycerides 152 H 01/10/20 01/10/20 01/10/20 05:06 05:06 05:06 WBC 13.6 H RBC 2.94 L Hgb 8.4 L Hct 25.8 L RDW 14.6 H Seg Neutrophils % 89 H Lymphocytes % 4 L RBC Morphology Abnorm A Polychromasia Few A Anisocytosis 1+ A PT 17.5 H INR 1.4 H Carbon Dioxide 21 L BUN 30 H Creatinine Glucose 110 H Uric Acid 8.8 H Calcium 8.5 L Phosphorus 2.6 L Total Bilirubin Direct Bilirubin AST Lactate Dehydrogenase 252 H Total Protein Albumin 3.1 L Triglycerides 175 H 01/10/20 01/09/20 00:34 18:13 WBC RBC Hgb 8.5 L 9.3 L Hct RDW Seg Neutrophils % Lymphocytes % RBC Morphology Polychromasia Anisocytosis PT INR Carbon Dioxide BUN Creatinine Glucose Uric Acid Calcium Phosphorus Total Bilirubin Direct Bilirubin AST Lactate Dehydrogenase Total Protein Albumin Triglycerides Meds: Medications Amlodipine Besylate (Norvasc) 2.5 mg PO DAILY [facility] Last Admin: 01/12/20 09:19 Dose: 2.5 mg Documented by: Bisacodyl (Dulcolax) 10 mg MD Q2-3DAYS PRN PRN Reason: Constipation Last Admin: 01/11/20 19:55 Dose: 10 mg Documented by: Cyanocobalamin (Vitamin B-12) 1,000 mcg PO BID [facility] Stop: 01/13/20 09:01 Last Admin: 01/12/20 09:20 Dose: 1,000 mcg Documented by: Docusate Sodium (Colace) 100 mg PO BID [facility] Last Admin: 01/12/20 09:17 Dose: 100 mg Documented by: Ezetimibe (Zetia) 10 mg PO QDAY [facility] Last Admin: 01/12/20 09:18 Dose: 10 mg Documented by: Folic Acid (Folic Acid) 1 mg PO DAILY [facility] Last Admin: 01/12/20 09:20 Dose: 1 mg Documented by: Gabapentin (Neurontin) 300 mg PO HS [facility] Last Admin: 01/11/20 21:06 Dose: 300 mg Documented by: Hydralazine HCl (Apresoline) 10 mg IV Q4-6HP PRN PRN Reason: Hypertension Last Admin: 01/11/20 08:03 Dose: 10 mg Documented by: Hydromorphone HCl (Dilaudid) 0.5 mg IV Q4HP PRN; Protocol PRN Reason: Per Pain Protocol Last Admin: 01/11/20 20:12 Dose: 0.5 mg Documented by: Potassium Chloride 40 meq/ (Dextrose) 520 mls @ 130 mls/hr IV UD PRN PRN Reason: K+ = or < 3.5 Magnesium Sulfate (Magnesium Sulfate) 2 gm in 50 mls @ 50 mls/hr IV UD PRN PRN Reason: MG = or < 1.7 Piperacillin Sod/Tazobactam (Sod 3.375 gm/ Dextrose) 50 mls @ 100 mls/hr IV Q6H [facility]; Protocol Last Admin: 01/12/20 12:31 Dose: 100 mls/hr Documented by: Lactated Ringer's (Lactated Ringers) 1,000 mls @ 75 mls/hr IV .[id number] [facility] Last Admin: 01/12/20 01:20 Dose: 75 mls/hr Documented by: Acetaminophen (Ofirmev) 950 mg in 95 mls @ 190 mls/hr IV Q8 [facility]; Protocol Last Admin: 01/12/20 06:02 Dose: 190 mls/hr Documented by: Iron Carb/Multivit/Nash/Folic Acid (Multivitamin W/Minerals) 1 tab PO DAILY [facility] Last Admin: 01/12/20 09:20 Dose: 1 tab Documented by: Losartan Potassium (Cozaar) 100 mg PO QDAY [facility] Last Admin: 01/12/20 09:17 Dose: 100 mg Documented by: Melatonin (Melatonin 3mg Tablet) 3 mg PO HSP PRN PRN Reason: Insomnia Last Admin: 01/10/20 01:28 Dose: 3 mg Documented by: Methocarbamol (Robaxin) 750 mg PO Q6HP PRN PRN Reason: Muscle Spasm Metoprolol Succinate (Toprol Xl) 100 mg PO BID [facility] Last Admin: 01/12/20 09:18 Dose: 100 mg Documented by: Non-Formulary Medication (Aspirin [Adult Low Dose Aspirin Ec]) 81 mg PO DAILY [facility] Ondansetron HCl (Zofran Odt) 4 mg SL Q4-6HP PRN; Protocol PRN Reason: Nausea And Vomiting Oxycodone HCl (Roxicodone) 0 mg PO Q4HP PRN; Protocol PRN Reason: Per Pain Protocol Last Admin: 01/12/20 12:08 Dose: 5 mg Documented by: Pantoprazole Sodium (Protonix) 40 mg IV BIDAC [facility] Last Admin: 01/12/20 07:55 Dose: 40 mg Documented by: Polyethylene Glycol (Miralax) 17 gm PO DAILYP PRN PRN Reason: Constipation Potassium Chloride (Klor-Con) 40 meq PO DAILYP PRN PRN Reason: K+ < 3.5 Rivaroxaban (Xarelto) 15 mg PO QAM [facility] Last Admin: 01/12/20 09:18 Dose: 15 mg Documented by: Senna (Senokot) 1 tab PO HS [facility] Last Admin: 01/11/20 21:14 Dose: 1 tab Documented by: Senna/Docusate Sodium (Senna Plus Tablet) 1 tab PO [facility] Last Admin: 01/11/20 21:07 Dose: 1 tab Documented by: Sodium Chloride (Saline Flush) 10 ml IV Q8 [facility] Last Admin: 01/12/20 06:03 Dose: 10 ml Documented by: Sucralfate (Carafate) 1 gm PO Q6 [facility] Last Admin: 01/12/20 12:08 Dose: 1 gm Documented by: Thiamine HCl (Vitamin B1) 100 mg PO DAILY [facility] Last Admin: 01/12/20 09:20 Dose: 100 mg Documented by: Throat Lozenges (Cepacol) 1 lozenge PO PRN PRN PRN Reason: Sore Throat Medical - PN: A/P - Time Spent With Patient Total time spent is greater than 50% in coordination of care (as documented) at patient's floor/unit and/or counseling patient: - Narrative A/P Narrative: Assessment and plan: * Right femoral neck fracture-orthopedic on board. * Preop risk evaluation-based on RCRI [place] [employer] restarted again patient would fall under high risk category for intraoperative and immediate postoperative. Risk of ACS/CVA. I would recommend maintaining intraoperative mean artery pressure over 65. However at this time due to active sepsis I would recommend delaying surgery until sepsis resolves and patient more stable to undergo anesthesia. Additionally surgery and anesthesia specific risks will be addressed by individual care providers. * Acute blood loss anemia secondary extravasation at fracture site. Off anticoagulation. s/p 3 units of pRBCs. Serial hemoglobin check. * Complicated UTI-Citrobacter positive. Sensitive to rocephin, zosyn and nitrofurantoin * Severe sepsis second above with endorgan dysfunction including AMS/ARF. Clinically improving. * RACHEL -clinically improving. Creatinine went up to 1.4. * Acute change mental status secondary to sepsis endorgan dysfunction. Continue close monitoring * Extensive contusion secondary injury. Continue pain management * Atrial fibrillation currently rate controlled. Anticoagulation rivaroxaban for CVA prophylaxis is on hold due to imminent surg * History of CAD continue aspirin/beta-ginny * History of hypertension hold antihypertensives until systolics improve and over 140 Plan * She underwent right hip hemiarthroplasty on 01/11/[address] Hughes. Pain is controlled. Postop management including pain control DVT prophylaxis by Orth team * Hb 8.3 today. She received one unit of pRBC before surgery. So far she has received 4 units of pRBCs. * WBC went down to 9.2. * Creatinine 1.4. Repeat renal function in the morning * Urine culture sensitivity available. Discussed with ID Dr. Whitmore, continue zosyn today. We may change to oral nitrofurantoin in 2-3 days. * Repeat CT of head - negative for acute change * Orth Dr. Hughes will probably do a procedure for her today. Aspirin and anticoagulant are on hold. * Pre-existing medical condition management home meds except for antihypertensives will be held until sepsis resolves Medical - PN: Qual - VTE Deep Vein Thrombosis/Pulmonary Embolism Present on Admission: No
[2020-01-12] MEDS ORDERED: hydrALAZINE 20 MG/ML VIAL IV PRN (16:52)
[2020-01-12] MEDS ORDERED: POTASSIUM CHLORIDE 20 MEQ PACKET PO PRN (16:52)
[2020-01-12] MEDS ORDERED: POLYETHYLENE GLYCOL 3350 17 GM PACKET PO PRN (16:52)
[2020-01-12] MEDS ORDERED: MELATONIN 3 MG TABLET PO PRN (16:52)
[2020-01-12] MEDS ORDERED: BENZOCAINE/MENTHOL 1 LOZENGE PO PRN (16:52)
[2020-01-12] MEDS ORDERED: POTASSIUM CHLORIDE 40 MEQ in DEXTROSE 5% IN WATER 500 ML IV PRN (16:52)
[2020-01-12] MEDS ORDERED: MAGNESIUM SULFATE 2 GM/50 ML BAG IV PRN (16:52)
[2020-01-12] MEDS ORDERED: ONDANSETRON 4 MG ODT TABLET SL PRN (16:52)
[2020-01-12] MEDS: PIPERACILLIN SODIUM/TAZOBACTAM 2.25 GM in DEXTROSE 5% IN WATER 50 ML IV SCH (17:41)
[2020-01-12] MEDS: GABAPENTIN 300 MG CAPSULE PO SCH (21:21)
[2020-01-12] MEDS: SENNOSIDES 1 TABLET PO SCH (21:22)
[2020-01-13] MEDS: SUCRALFATE 1 GM/10 ML ORAL.SUSP PO SCH ×4 (00:51→17:13)
[2020-01-13] MEDS: PIPERACILLIN SODIUM/TAZOBACTAM 2.25 GM in DEXTROSE 5% IN WATER 50 ML IV SCH ×5 (00:51→23:56)
[2020-01-13] MEDS: oxyCODONE HCL 5 MG TABLET PO PRN ×3 (03:13→22:06)
[2020-01-13] MEDS: ACETAMINOPHEN IV SCH ×3 (05:40→21:32)
--- NOTE | 2020-01-13 06:46 | Orthopedic Progress Note ---
Subjective Patient information: Note initiated : 01/13/20 at 6:44 am Service Date, if different from initiated Date: [] Patient: Izzy Everett 80 y/o F admitted on 01/08/20 for Run Over By Horse Yesterday, Weak And Lethargic. She is POD 2 s/p right alesha hip arthroplasty for femoral neck fracture. Pt states she has not yet been out of bed, contradictory to other reports. Her pain is controlled this AM and she denies fevers/chills, SOB, CP, abd pain, N/V. Chief Complaint: right hip pain. Principal diagnosis: right displaced femoral neck fracture, sepsis Pertinent ROS: see hpi. Objective Vital signs: Vital Signs Temp Pulse Resp BP BP Pulse Ox 01/13/20 02:30 97.3 F 73 22 133/75 97 01/12/20 23:54 75 01/12/20 22:51 97.4 F 75 20 107/67 96 01/12/20 20:00 83 20 96 01/12/20 19:09 97.6 F 83 20 108/63 96 01/12/20 16:00 98.3 F 71 18 130/60 100 01/12/20 14:00 98.1 F 82 18 129/67 96 01/12/20 12:00 99.1 F H 77 18 117/51 97 01/12/20 10:00 98.2 F 88 18 108/69 96 01/12/20 08:00 97.2 F 81 18 139/61 97 Intake and Output 01/12/20 01/13/20 01/13/20 21:59 05:59 13:59 Intake Total 1420 540 Output Total 550 450 Balance 870 90 Intake: IV 240 50 Zosyn 2.25 gm In Dextrose 5% in 50 50 Water 50 ml @ 100 mls/hr IV Q6H [facility] Rx#:[id number] Oral 1180 490 Output: Urine Catheter Amount 550 Void Amount 450 Other: Percent of Meal Consumed 75% Urine Appearance Clear Clear Uretheral (Jer[place]) Clear Urine Color Light Alyssa Dark Yellow Uretheral ([place]) Bright Yellow Urine Odor Strong Strong Stool Size Moderate Small Stool Color Brown Brown Stool Consistency Liquid Liquid # of times incontinent of 1 2 Bowels Weight 158 lb Intake & Output: Intake & Output 01/12/20 01/13/20 01/13/20 21:59 05:59 13:59 Intake Total 1420 540 Output Total 550 450 Balance 870 90 Weight 158 lb Intake: IV 240 50 Zosyn 2.25 gm In Dextrose 5% in 50 50 Water 50 ml @ 100 mls/hr IV Q6H [facility] Rx#:[id number] Oral 1180 490 Output: Urine Catheter Amount 550 Void Amount 450 Other: Percent of Meal Consumed 75% Urine Appearance Clear Clear Uretheral ([place]) Clear Urine Color Light Alyssa Dark Yellow Uretheral ([place]) Bright Yellow Urine Odor Strong Strong Stool Size Moderate Small Stool Color Brown Brown Stool Consistency Liquid Liquid # of times incontinent of 1 2 Bowels Incision: Yes healing Dressing: Yes intact (with mild shadow drainage.) Weight bearing status: as tolerated (posterior hip precautions) Neurological exam IM: Yes alert, Yes oriented X3, Yes neurovascular intact Extremities exam IM: No calf tenderness, Yes normal capillary refill, Yes normal inspection, Yes Foot pink and warm, Yes neurovascular intact - Labs CBC & BMP: 01/13/20 05:10 01/12/20 04:20 Labs: Orthopedic Labs 01/10/20 01/09/20 01/08/20 05:06 09:00 11:50 PT 17.5 H 20.6 H 34.0 H INR 1.4 H 1.7 H 3.3 H 01/13/20 01/13/20 01/12/20 05:10 05:10 04:20 Hgb Cancelled Pending 8.3 L Hct Cancelled Pending 25.3 L 01/11/20 01/11/20 01/11/20 20:44 13:56 05:11 Hgb 7.0 L* 8.1 L 9.4 L Hct 21.1 L 24.6 L 27.5 L 01/10/20 01/10/20 01/09/20 05:06 00:34 18:13 Hgb 8.4 L 8.5 L 9.3 L Hct 25.8 L 01/09/20 01/08/20 04:54 11:50 Hgb 6.8 L* 9.9 L Hct 21.7 L 30.4 L Assessment and Plan - Narrative A/P Narrative: POD 1 s/p right hip alesha arthroplasty for femoral neck fracture. Vitals stable this AM. --PT/OT: weight bearing as tolerated with posterior hip precautions. --Hospitalist managing ongoing medical comorbidities --IS: aspirin, Xarelto, IS, foot pumps, mobilization --Dispo: will need rehab when stable to discharge.
[2020-01-13 06:55] LABS: Hematocrit 23.2 % (34.1-44.9); Hemoglobin 7.6 g/dL (11.2-15.7); Mean Cell Volume 90.3 fL (80.0-100.0); Mean Corpuscular HGB Conc 32.8 g/dL (31.0-36.0); Mean Platelet Volume 10.3 fL (7.4-10.4); Platelet Count 180 K/mcL (140-440); RBC 2.57 M/mcL (3.59-5.38); Red Cell Distribution Width 15.9 % (11.5-14.5); WBC 14.2 K/mcL (4.50-11.00)
[2020-01-13 07:13] LABS: ALT/SGPT 12 U/l (0-40); AST/SGOT 31 U/l (0-37); Albumin 2.3 gm/dL (3.2-5.2); Alkaline Phosphatase 54 U/L (39-117); Bilirubin,Total 1.1 mg/dL (0.0-1.0); Calcium 7.8 mg/dl (8.6-10.4); Carbon Dioxide 22 mmol/L (22-30); Chloride 99 mmol/L (96-108); Globulin 2.3 gm/dL (2.2-3.7); Glomerular Filtration Rate 32; Glucose 109 mg/dL (70-105); Lactate Dehydrogenase 239 U/L (94-250); Triglycerides 147 mg/dl (<150)
[2020-01-13] MEDS: 0.9 % SODIUM CHLORIDE 10 ML SYRINGE IV SCH ×3 (07:17→21:26)
[2020-01-13] MEDS: PANTOPRAZOLE 40 MG VIAL IV SCH ×2 (07:17→17:12)
[2020-01-13 07:24] LABS: Bilirubin,Direct 0.5 mg/dL (0.0-0.3); Blood Urea Nitrogen 32 mg/dl (8-23); Phosphorous 2.4 mg/dL (2.7-4.5)
[2020-01-13 08:14] LABS: Anisocytosis 1+ (NONE SEEN); Band Neutrophils % 3 % (0-10); Eosinophils % (Manual) 5 % (0-7); Hypochromasia 1+ (NONE SEEN); Lymphocytes % 13 % (15-49); Metamyelocytes % 1 % (0-0); Monocytes % (Manual) 9 % (1-12); Myelocytes % 1 % (0-0); Nucleated Red Blood Cells 1 % (0-0); Ovalocytes FEW (NONE SEEN); Platelet Estimate NORMAL (NORMAL); Polychromasia 1+ (NONE SEEN); RBC Morphology ABNORM (NORMAL); Segmented Neutrophils % 68 % (38-78)
[2020-01-13] MEDS: DOCUSATE SODIUM 100 MG CAPSULE PO SCH ×2 (08:58→19:53)
[2020-01-13] MEDS: LOSARTAN 50 MG TABLET PO SCH (08:58)
[2020-01-13] MEDS: amLODIPine 5 MG TABLET PO SCH (09:00)
[2020-01-13] MEDS ORDERED: RIVAROXABAN 15 MG TABLET PO SCH (09:00)
[2020-01-13] MEDS ORDERED: ASPIRIN 81 MG TAB.CHEW PO SCH ×2 (09:00)
[2020-01-13] MEDS: METOPROLOL SUCCINATE 50 MG TAB.XL.24H PO SCH ×2 (09:02→19:43)
[2020-01-13] MEDS: EZETIMIBE 10 MG TABLET PO SCH (09:03)
[2020-01-13] MEDS: MULTIVIT,THER IRON,CA,FA & MIN 1 TABLET PO SCH (09:04)
[2020-01-13] MEDS: THIAMINE 100 MG TABLET PO SCH (09:05)
[2020-01-13] MEDS: FOLIC ACID 1 MG TABLET PO SCH (09:06)
[2020-01-13] MEDS: CYANOCOBALAMIN (VITAMIN B-12) 500 MCG TABLET PO SCH (09:06)
[2020-01-13 09:07] LABS: Basophils # (Auto) 0.04 K/mcL (0.00-0.30); Basophils % (Auto) 0.3 % (0.0-2.0); Eosinophils % (Auto) 4.4 % (0.0-7.0); Granulocytes % (Auto) 74.6 % (38.0-78.0); Hematocrit 26.2 % (34.1-44.9); Hemoglobin 8.6 g/dL (11.2-15.7); Lymphocytes # (Auto) 1.82 K/mcL (1.50-4.80); Lymphocytes % (Auto) 11.5 % (15.5-49.0); Mean Corpuscular HGB Conc 32.8 g/dL (31.0-36.0); Mean Platelet Volume 10.1 fL (7.4-10.4); Monocytes # (Auto) 1.45 K/mcL (0.10-0.90); Monocytes % (Auto) 9.2 % (1.0-12.0); Platelet Count 201 K/mcL (140-440); RBC 2.88 M/mcL (3.59-5.38); WBC 15.8 K/mcL (4.50-11.00)
--- NOTE | 2020-01-13 12:00 | XRay Report ---
CLINICAL INFORMATION: leukocytosis COMPARISON: 01/02/2020 FINDINGS: Moderate cardiomegaly is unchanged. Mediastinum and pulmonary vessels are normal. There is only minor bibasilar atelectasis on today's study. No clarisa infiltrates or effusions IMPRESSION: Moderate stable cardiomegaly, but no evidence for CHF. Mild bibasilar atelectasis has no definite infiltrates Interpreted and Authenticated by: Max Rg 01/13/20
[2020-01-13] MEDS: METHOCARBAMOL 750 MG TABLET PO PRN (14:00)
--- NOTE | 2020-01-13 19:05 | Internal Med Progress Note ---
Medical - PN: Subj Patient information: Note initiated : 01/13/20 at 7:01 pm Service Date, if different from initiated Date: [] Patient: Izzy Everett a 80 y/o F admitted on 01/08/20 for Run Over By Horse Yesterday, Weak And Lethargic. Chief Complaint: [] Interval history: Ms. Everett is a 79 year old F fairly independently living alone and carries history of HTN/CHF and CAD who presents to the ER following injury sustained while she was attempting to braid her horse standing on a stool. She got thrown off the stool and landed on her hip and subsequently was trampled by the horse multiple times sustaining injuries across face chest and lower extremity. She was evaluated in the ER and after initial work-up was discharged in stable state. Following discharge within a few hours she became progressively weak confused and was unable to function. Sustained injuries after getting trampled by horse. She was evaluated and was discharged in stable state the day prior to admission. She however continued to deteriorate with increasing mental status change and worsening weakness fatigue and dizziness. During the second visit at [facility] ER work-up was consistent with severe sepsis with a white count 18.5 secondary to complicated UTI and right femoral neck fracture was discovered on imaging. Hospitalist/orthopedics service was consulte in light of above Blood cultures were drawn and antibiotics initiated. At the time of evaluation patient is alert but in significant pain. She is able to endorse history as above. Extensive bruising throughout the body noted. She is accompanied with her daughter. She denies chest pain, vision changes, unilateral weakness, incontinence 01/08-hemoglobin dropped from 9.9-6.8. Off anticoagulation. Increasing hematoma thighs around the fracture site. Likely extravasation. Surgery on board. However orthopedics of the opinion that they would want to wait for additional 24 hours until INR normalized. Patient off apixaban. White count down from 18 .5-13.4. On Rocephin. Creatinine improved to 1.7 from 2.6. Continue pain management. Generalized bruising 01/09 Pt does not have new complaints. She is mildly confused. WBC 13.6 today and 13.4 yesterday. Orth hold off surgery today due to leukocytosis. Urine culture showed positive for citrobacter, pending sensitivity Discussed with ID Dr. Whitmore, discontinued rocephin and started zosyn. not a candidate for levaquin due to QTC > 500 Repeat WBC in am 01/10 Pt does not have new complaints. She is more alert and awake. But she is still disorientated. Not more hematemesis. Hb 9.4 today. She received one unit of pRBC Urine culture sensitivity available. Discussed with ID Dr. Whitmore, continue zosyn today. We may change to oral nitrofurantoin in 2-3 days. WBC 14 today. Do not know why she still has leukocytosis. According to sensitivity, anabiotics is good for her citrobacter. Instructed RN to change coburn today. Repeat CT of head today - negative for acute change Orth Dr. Hughes will probably do a procedure for her today. Aspirin and anticoagulant are on hold. 01/11 The patient feels better. When I saw this patient, she was sitting on a chair. She underwent right hip hemiarthroplasty on 01/11/[address] Hughes. Pain is controlled. Hb 8.3 today. She received one unit of pRBC before surgery. So far she has received 4 units of pRBCs. WBC went down to 9.2. Creatinine 1.4. Repeat renal function in the morning 01/12 Pt does not have medical complaints. Denies fever/chills. Pain is controlled But WBC went up to 14.2 today, repeat wbc 15.8. Creatinine 1.5 Repeat HB 8.6 today. Repeat CXR - no new infiltrate. LA 3.8 today She is on zosyn for UTI. No evidence of new infection. Closely monitor. No discharge today. ROS: Pertinent positives as noted in HPI. All other systems were reviewed and are negative. - Constitutional Vitals: Vital Signs Temp Pulse Resp BP Pulse Ox 97.3 F 76 18 121/57 94 01/13/20 16:00 01/13/20 16:00 01/13/20 16:00 01/13/20 16:00 01/13/20 16:00 Period Temp Pulse Resp BP Sys/Flood Pulse Ox Last 24 Hr 97.3 F-98.7 F 73-83 16-22 107-133/57-75 94-98 Intake and Output 01/13/20 01/13/20 01/13/20 05:59 13:59 21:59 Intake Total 540 555 295 Output Total 450 1050 Balance 90 555 -755 Intake & Output: Intake & Output 01/13/20 01/13/20 01/13/20 05:59 13:59 21:59 Intake Total 540 555 295 Output Total 450 1050 Balance 90 555 -755 Intake: IV 50 195 95 Zosyn 2.25 gm In Dextrose 5% in 50 100 Water 50 ml @ 100 mls/hr IV Q6H [facility] Rx#:[id number] Oral 490 360 200 Output: Urine Catheter Amount 1050 Uretheral (Coburn) 1050 Void Amount 450 Other: Meal Lunch Dinner Percent of Meal Consumed 50% 50% Feeding Ability Assist with Tray Set Up Urine Appearance Clear Sediment Uretheral (Coburn) Sediment Sediment Urine Color Dark Yellow Straw Uretheral ([place]) Straw Straw Urine Odor Strong Stool Size Small Moderate Moderate Stool Color Brown Brown Brown Stool Consistency Liquid Soft Soft Liquid # Bowel Movements 1 # of times incontinent of 2 1 1 Bowels - Additional findings Additional findings: General - more alert, NAD, sitting on a chair Eyes - PERRLA, EOM intact ENT no rhinorrhea, no noticeable or palpable swelling, no redness or rash around throat or on face Neck supple, no JVD, no thyromegaly Respiratory: Lungs - no use of accessory muscles, clear to auscultation, no crackles or wheezes. Cardiovascular - RRR no r/g, GI - Normal bowel sounds, no distended, soft and no tenderness Extremeties - tenderness over the injured site. hematoma/ecchymoses : coburn in place Hemo/lymphatic/immune no lymphadenopathy Neurological more alert Psychiatry flat affect Medical - PN: Obj Da - Labs CBC & Chem 7: 01/13/20 08:38 01/13/20 05:10 Labs: Abnormal Lab Results 01/13/20 01/13/20 01/13/20 11:14 08:38 05:10 WBC 15.8 H RBC 2.88 L Hgb 8.6 L Hct 26.2 L RDW 16.0 H Lymph % (Auto) 11.5 L Gran # 11.75 H [place] # (Auto) 1.45 H Seg Neutrophils % Lymphocytes % Metamyelocytes % Myelocytes % Nucleated RBCs RBC Morphology Polychromasia Hypochromasia Anisocytosis Ovalocytes VBG Lactic Acid 3.8 H Carbon Dioxide BUN 32 H Creatinine 1.5 H Glucose 109 H Calcium 7.8 L Phosphorus 2.4 L Total Bilirubin 1.1 H Direct Bilirubin 0.5 H AST Lactate Dehydrogenase Total Protein 4.6 L Albumin 2.3 L Triglycerides 01/13/20 01/12/20 01/12/20 05:10 04:20 04:20 WBC 14.2 H RBC 2.57 L 2.86 L Hgb 7.6 L 8.3 L Hct 23.2 L 25.3 L RDW 15.9 H 14.9 H Lymph % (Auto) Gran # [place] # (Auto) Seg Neutrophils % 87 H Lymphocytes % 13 L 4 L Metamyelocytes % 1 H Myelocytes % 1 H Nucleated RBCs 1 H RBC Morphology Abnorm A Abnorm A Polychromasia 1+ A 1+ A Hypochromasia 1+ A Anisocytosis 1+ A 1+ A Ovalocytes Few A VBG Lactic Acid Carbon Dioxide 20 L BUN 25 H Creatinine 1.4 H Glucose 142 H Calcium 7.5 L Phosphorus Total Bilirubin 2.6 H Direct Bilirubin 2.1 H AST 47 H Lactate Dehydrogenase Total Protein 4.4 L Albumin 2.2 L Triglycerides 01/11/20 01/11/20 01/11/20 20:44 13:56 05:11 WBC RBC Hgb 7.0 L* 8.1 L Hct 21.1 L 24.6 L RDW Lymph % (Auto) Gran # [place] # (Auto) Seg Neutrophils % Lymphocytes % Metamyelocytes % Myelocytes % Nucleated RBCs RBC Morphology Polychromasia Hypochromasia Anisocytosis Ovalocytes VBG Lactic Acid Carbon Dioxide BUN Creatinine Glucose 108 H Calcium Phosphorus 2.1 L Total Bilirubin 1.5 H Direct Bilirubin 0.5 H AST Lactate Dehydrogenase 255 H Total Protein 5.8 L Albumin 3.0 L Triglycerides 152 H 01/11/20 05:11 WBC 14.0 H RBC 3.13 L Hgb 9.4 L Hct 27.5 L RDW Lymph % (Auto) Gran # [place] # (Auto) Seg Neutrophils % Lymphocytes % 10 L Metamyelocytes % Myelocytes % Nucleated RBCs RBC Morphology Abnorm A Polychromasia Hypochromasia Anisocytosis 1+ A Ovalocytes VBG Lactic Acid Carbon Dioxide BUN Creatinine Glucose Calcium Phosphorus Total Bilirubin Direct Bilirubin AST Lactate Dehydrogenase Total Protein Albumin Triglycerides Meds: Medications Amlodipine Besylate (Norvasc) 2.5 mg PO DAILY DEVORAH Last Admin: 01/13/20 09:00 Dose: 2.5 mg Documented by: Aspirin (Aspirin) 81 mg PO DAILY [facility] Last Admin: 01/13/20 09:09 Dose: Not Given Documented by: Docusate Sodium (Colace) 100 mg PO BID [facility] Last Admin: 01/13/20 08:58 Dose: Not Given Documented by: Ezetimibe (Zetia) 10 mg PO QDAY [facility] Last Admin: 01/13/20 09:03 Dose: 10 mg Documented by: Folic Acid (Folic Acid) 1 mg PO DAILY [facility] Last Admin: 01/13/20 09:06 Dose: 1 mg Documented by: Gabapentin (Neurontin) 300 mg PO HS [facility] Last Admin: 01/12/20 21:21 Dose: 300 mg Documented by: Hydralazine HCl (Apresoline) 10 mg IV Q4-6HP PRN PRN Reason: Hypertension Hydromorphone HCl (Dilaudid) 0.5 mg IV Q4HP PRN; Protocol PRN Reason: Per Pain Protocol Potassium Chloride 40 meq/ (Dextrose) 520 mls @ 130 mls/hr IV UD PRN PRN Reason: K+ = or < 3.5 Magnesium Sulfate (Magnesium Sulfate) 2 gm in 50 mls @ 50 mls/hr IV UD PRN PRN Reason: MG = or < 1.7 Acetaminophen (Ofirmev) 950 mg in 95 mls @ 190 mls/hr IV Q8 [facility]; Protocol Last Infusion: 01/13/20 15:00 Dose: Infused Documented by: Piperacillin Sod/Tazobactam (Sod 2.25 gm/ Dextrose) 50 mls @ 100 mls/hr IV Q6H [facility]; Protocol Last Admin: 01/13/20 17:13 Dose: 100 mls/hr Documented by: Iron Carb/Multivit/Cedar/Folic Acid (Multivitamin W/Minerals) 1 tab PO DAILY [facility] Last Admin: 01/13/20 09:04 Dose: 1 tab Documented by: Losartan Potassium (Cozaar) 100 mg PO QDAY [facility] Last Admin: 01/13/20 08:58 Dose: 100 mg Documented by: Melatonin (Melatonin 3mg Tablet) 3 mg PO HSP PRN PRN Reason: Insomnia Methocarbamol (Robaxin) 750 mg PO Q6HP PRN PRN Reason: Muscle Spasm Last Admin: 01/13/20 14:00 Dose: 750 mg Documented by: Metoprolol Succinate (Toprol Xl) 100 mg PO BID [facility] Last Admin: 01/13/20 09:02 Dose: 100 mg Documented by: Ondansetron HCl (Zofran Odt) 4 mg SL Q4-6HP PRN; Protocol PRN Reason: Nausea And Vomiting Oxycodone HCl (Roxicodone) 0 mg PO Q4HP PRN; Protocol PRN Reason: Per Pain Protocol Last Admin: 01/13/20 12:57 Dose: 10 mg Documented by: Pantoprazole Sodium (Protonix) 40 mg IV BIDAC [facility] Last Admin: 01/13/20 17:12 Dose: 40 mg Documented by: Polyethylene Glycol (Miralax) 17 gm PO DAILYP PRN PRN Reason: Constipation Potassium Chloride (Klor-Con) 40 meq PO DAILYP PRN PRN Reason: K+ < 3.5 Rivaroxaban (Xarelto) 15 mg PO QAM [facility] Last Admin: 01/13/20 09:03 Dose: 15 mg Documented by: Senna (Senokot) 1 tab PO HS [facility] Last Admin: 01/12/20 21:22 Dose: Not Given Documented by: Sodium Chloride (Saline Flush) 10 ml IV Q8 [facility] Last Admin: 01/13/20 13:51 Dose: 10 ml Documented by: Sucralfate (Carafate) 1 gm PO Q6 [facility] Last Admin: 01/13/20 17:13 Dose: 1 gm Documented by: Thiamine HCl (Vitamin B1) 100 mg PO DAILY [facility] Last Admin: 01/13/20 09:05 Dose: 100 mg Documented by: Throat Lozenges (Cepacol) 1 lozenge PO PRN PRN PRN Reason: Sore Throat Medical - PN: A/P - Time Spent With Patient Total time spent is greater than 50% in coordination of care (as documented) at patient's floor/unit and/or counseling patient: - Narrative A/P Narrative: Assessment and plan: * Right femoral neck fracture-orthopedic on board. * Acute blood loss anemia secondary extravasation at fracture site. * Complicated UTI-Citrobacter positive. Sensitive to rocephin, zosyn and nitrofurantoin * Severe sepsis second above with endorgan dysfunction including AMS/ARF. Clinically improving. * RACHEL -clinically improving. Creatinine went up to 1.5. * Acute change mental status secondary to sepsis endorgan dysfunction. improving * Extensive contusion secondary injury. Continue pain management * Atrial fibrillation currently rate controlled. Anticoagulation rivaroxaban for CVA prophylaxis * History of CAD continue aspirin/beta-ginny * History of hypertension hold antihypertensives until systolics improve and over 140 Plan * She underwent right hip hemiarthroplasty on 01/11/[address] Hughes. Pain is controlled. Postop management including pain control DVT prophylaxis by Orth team * Hb 8.6 today. So far she has received 4 units of pRBCs. * WBC went up. No evidence of new infection. Closely monitor * Creatinine 1.5. Repeat renal function in the morning * Urine culture sensitivity available. Discussed with ID Dr. Whitmore, continue zosyn today. We may change to oral nitrofurantoin in 1-2 days. * Repeat CT of head - negative for acute change * Orth Dr. Hughes will probably do a procedure for her today. Aspirin and anticoagulant are on hold. * Pre-existing medical condition management home meds except for antihypertensives will be held until sepsis resolves Medical - PN: Qual - VTE Deep Vein Thrombosis/Pulmonary Embolism Present on Admission: No
--- NOTE | 2020-01-13 19:28 | Internal Med Progress Note ---
Medical - PN: Subj Patient information: Note initiated : 01/13/20 at 7:20 pm Service Date, if different from initiated Date: [] Patient: Izzy Everett a 80 y/o F admitted on 01/08/20 for Run Over By Horse Yesterday, Weak And Lethargic. Chief Complaint: [] Interval history: Ms. Everett is a 79 year old F fairly independently living alone and carries history of HTN/CHF and CAD who presents to the ER following injury sustained while she was attempting to braid her horse standing on a stool. She got thrown off the stool and landed on her hip and subsequently was trampled by the horse multiple times sustaining injuries across face chest and lower extremity. She was evaluated in the ER and after initial work-up was discharged in stable state. Following discharge within a few hours she became progressively weak confused and was unable to function. Sustained injuries after getting trampled by horse. She was evaluated and was discharged in stable state the day prior to admission. She however continued to deteriorate with increasing mental status change and worsening weakness fatigue and dizziness. During the second visit at [facility] ER work-up was consistent with severe sepsis with a white count 18.5 secondary to complicated UTI and right femoral neck fracture was discovered on imaging. Hospitalist/orthopedics service was consulte in light of above Blood cultures were drawn and antibiotics initiated. At the time of evaluation patient is alert but in significant pain. She is able to endorse history as above. Extensive bruising throughout the body noted. She is accompanied with her daughter. She denies chest pain, vision changes, unilateral weakness, incontinence 01/08-hemoglobin dropped from 9.9-6.8. Off anticoagulation. Increasing hematoma thighs around the fracture site. Likely extravasation. Surgery on board. However orthopedics of the opinion that they would want to wait for additional 24 hours until INR normalized. Patient off apixaban. White count down from 18. 5-13.4. On Rocephin. Creatinine improved to 1.7 from 2.6. Continue pain management. Generalized bruising 01/09 Pt does not have new complaints. She is mildly confused. WBC 13.6 today and 13.4 yesterday. Orth hold off surgery today due to leukocytosis. Urine culture showed positive for citrobacter, pending sensitivity Discussed with ID Dr. Whitmore, discontinued rocephin and started zosyn. not a candidate for levaquin due to QTC > 500 Repeat WBC in am 01/10 Pt does not have new complaints. She is more alert and awake. But she is still disorientated. Not more hematemesis. Hb 9.4 today. She received one unit of pRBC Urine culture sensitivity available. Discussed with ID Dr. Whitmore, continue zosyn today. We may change to oral nitrofurantoin in 2-3 days. WBC 14 today. Do not know why she still has leukocytosis. According to sensitivity, anabiotics is good for her citrobacter. Instructed RN to change [place] today. Repeat CT of head today - negative for acute change Orth Dr. Hughes will probably do a procedure for her today. Aspirin and anticoagulant are on hold. 01/11 The patient feels better. When I saw this patient, she was sitting on a chair. She underwent right hip hemiarthroplasty on 01/11/[address] Hughes. Pain is controlled. Hb 8.3 today. She received one unit of pRBC before surgery. So far she has received 4 units of pRBCs. WBC went down to 9.2. Creatinine 1.4. Repeat renal function in the morning 01/12 Pt does not have medical complaints. Denies fever/chills. Pain is controlled But WBC went up to 14.2 today, repeat wbc 15.8. Creatinine 1.5 Repeat HB 8.6 today. Repeat CXR - no new infiltrate. LA 3.8 today She is on zosyn for UTI. No evidence of new infection. Closely monitor. No discharge today. 01/13 - Constitutional Vitals: Vital Signs Temp Pulse Resp BP Pulse Ox 97.3 F 76 18 121/57 94 01/13/20 16:00 01/13/20 16:00 01/13/20 16:00 01/13/20 16:00 01/13/20 16:00 Period Temp Pulse Resp BP Sys/Flood Pulse Ox Last 24 Hr 97.3 F-98.7 F 73-83 16-22 107-133/57-75 94-98 Intake and Output 01/13/20 01/13/20 01/13/20 05:59 13:59 21:59 Intake Total 540 555 295 Output Total 450 1050 Balance 90 555 -755 Intake & Output: Intake & Output 01/13/20 01/13/20 01/13/20 05:59 13:59 21:59 Intake Total 540 555 295 Output Total 450 1050 Balance 90 555 -755 Intake: IV 50 195 95 Zosyn 2.25 gm In Dextrose 5% in 50 100 Water 50 ml @ 100 mls/hr IV Q6H [facility] Rx#:[id number] Oral 490 360 200 Output: Urine Catheter Amount 1050 Uretheral ([place]) 1050 Void Amount 450 Other: Meal Lunch Dinner Percent of Meal Consumed 50% 50% Feeding Ability Assist with Tray Set Up Urine Appearance Clear Sediment Uretheral ([place]) Sediment Sediment Urine Color Dark Yellow Straw Uretheral ([place]) Straw Straw Urine Odor Strong Stool Size Small Moderate Moderate Stool Color Brown Brown Brown Stool Consistency Liquid Soft Soft Liquid # Bowel Movements 1 # of times incontinent of 2 1 1 Bowels Exam: General: Alert, Awake, No acute Distress Eyes/N/T: EOMI, Head/Neck: neck supple, CV: RRR, No murmurs, Pulm: Clear b/l, no wheezing/rhonchi/rales Abd: soft, nontender, +BS x4 Ext: no clubbing/cyanosis/edema Neuro: Alert, no focal deficits, moves all extremities, Skin: warm/dry Medical - PN: Obj Da - Labs CBC & Chem 7: 01/13/20 08:38 01/13/20 05:10 Labs: Abnormal Lab Results 01/13/20 01/13/20 01/13/20 11:14 08:38 05:10 WBC 15.8 H RBC 2.88 L Hgb 8.6 L Hct 26.2 L RDW 16.0 H Lymph % (Auto) 11.5 L Gran # 11.75 H [place] # (Auto) 1.45 H Seg Neutrophils % Lymphocytes % Metamyelocytes % Myelocytes % Nucleated RBCs RBC Morphology Polychromasia Hypochromasia Anisocytosis Ovalocytes VBG Lactic Acid 3.8 H Carbon Dioxide BUN 32 H Creatinine 1.5 H Glucose 109 H Calcium 7.8 L Phosphorus 2.4 L Total Bilirubin 1.1 H Direct Bilirubin 0.5 H AST Lactate Dehydrogenase Total Protein 4.6 L Albumin 2.3 L Triglycerides 01/13/20 01/12/20 01/12/20 05:10 04:20 04:20 WBC 14.2 H RBC 2.57 L 2.86 L Hgb 7.6 L 8.3 L Hct 23.2 L 25.3 L RDW 15.9 H 14.9 H Lymph % (Auto) Gran # [place] # (Auto) Seg Neutrophils % 87 H Lymphocytes % 13 L 4 L Metamyelocytes % 1 H Myelocytes % 1 H Nucleated RBCs 1 H RBC Morphology Abnorm A Abnorm A Polychromasia 1+ A 1+ A Hypochromasia 1+ A Anisocytosis 1+ A 1+ A Ovalocytes Few A VBG Lactic Acid Carbon Dioxide 20 L BUN 25 H Creatinine 1.4 H Glucose 142 H Calcium 7.5 L Phosphorus Total Bilirubin 2.6 H Direct Bilirubin 2.1 H AST 47 H Lactate Dehydrogenase Total Protein 4.4 L Albumin 2.2 L Triglycerides 01/11/20 01/11/20 01/11/20 20:44 13:56 05:11 WBC RBC Hgb 7.0 L* 8.1 L Hct 21.1 L 24.6 L RDW Lymph % (Auto) Gran # [place] # (Auto) Seg Neutrophils % Lymphocytes % Metamyelocytes % Myelocytes % Nucleated RBCs RBC Morphology Polychromasia Hypochromasia Anisocytosis Ovalocytes VBG Lactic Acid Carbon Dioxide BUN Creatinine Glucose 108 H Calcium Phosphorus 2.1 L Total Bilirubin 1.5 H Direct Bilirubin 0.5 H AST Lactate Dehydrogenase 255 H Total Protein 5.8 L Albumin 3.0 L Triglycerides 152 H 01/11/20 05:11 WBC 14.0 H RBC 3.13 L Hgb 9.4 L Hct 27.5 L RDW Lymph % (Auto) Gran # [place] # (Auto) Seg Neutrophils % Lymphocytes % 10 L Metamyelocytes % Myelocytes % Nucleated RBCs RBC Morphology Abnorm A Polychromasia Hypochromasia Anisocytosis 1+ A Ovalocytes VBG Lactic Acid Carbon Dioxide BUN Creatinine Glucose Calcium Phosphorus Total Bilirubin Direct Bilirubin AST Lactate Dehydrogenase Total Protein Albumin Triglycerides Meds: Medications Amlodipine Besylate (Norvasc) 2.5 mg PO DAILY [facility] Last Admin: 01/13/20 09:00 Dose: 2.5 mg Documented by: Aspirin (Aspirin) 81 mg PO DAILY [facility] Last Admin: 01/13/20 09:09 Dose: Not Given Documented by: Docusate Sodium (Colace) 100 mg PO BID [facility] Last Admin: 01/13/20 08:58 Dose: Not Given Documented by: Ezetimibe (Zetia) 10 mg PO QDAY [facility] Last Admin: 01/13/20 09:03 Dose: 10 mg Documented by: Folic Acid (Folic Acid) 1 mg PO DAILY [facility] Last Admin: 01/13/20 09:06 Dose: 1 mg Documented by: Gabapentin (Neurontin) 300 mg PO HS [facility] Last Admin: 01/12/20 21:21 Dose: 300 mg Documented by: Hydralazine HCl (Apresoline) 10 mg IV Q4-6HP PRN PRN Reason: Hypertension Hydromorphone HCl (Dilaudid) 0.5 mg IV Q4HP PRN; Protocol PRN Reason: Per Pain Protocol Potassium Chloride 40 meq/ (Dextrose) 520 mls @ 130 mls/hr IV UD PRN PRN Reason: K+ = or < 3.5 Magnesium Sulfate (Magnesium Sulfate) 2 gm in 50 mls @ 50 mls/hr IV UD PRN PRN Reason: MG = or < 1.7 Acetaminophen (Ofirmev) 950 mg in 95 mls @ 190 mls/hr IV Q8 [facility]; Protocol Last Infusion: 01/13/20 15:00 Dose: Infused Documented by: Piperacillin Sod/Tazobactam (Sod 2.25 gm/ Dextrose) 50 mls @ 100 mls/hr IV Q6H [facility]; Protocol Last Admin: 01/13/20 17:13 Dose: 100 mls/hr Documented by: Iron Carb/Multivit/[place]/Folic Acid (Multivitamin W/Minerals) 1 tab PO DAILY [facility] Last Admin: 01/13/20 09:04 Dose: 1 tab Documented by: Losartan Potassium (Cozaar) 100 mg PO QDAY [facility] Last Admin: 01/13/20 08:58 Dose: 100 mg Documented by: Melatonin (Melatonin 3mg Tablet) 3 mg PO HSP PRN PRN Reason: Insomnia Methocarbamol (Robaxin) 750 mg PO Q6HP PRN PRN Reason: Muscle Spasm Last Admin: 01/13/20 14:00 Dose: 750 mg Documented by: Metoprolol Succinate (Toprol Xl) 100 mg PO BID [facility] Last Admin: 01/13/20 09:02 Dose: 100 mg Documented by: Ondansetron HCl (Zofran Odt) 4 mg SL Q4-6HP PRN; Protocol PRN Reason: Nausea And Vomiting Oxycodone HCl (Roxicodone) 0 mg PO Q4HP PRN; Protocol PRN Reason: Per Pain Protocol Last Admin: 01/13/20 12:57 Dose: 10 mg Documented by: Pantoprazole Sodium (Protonix) 40 mg IV BIDAC [facility] Last Admin: 01/13/20 17:12 Dose: 40 mg Documented by: Polyethylene Glycol (Miralax) 17 gm PO DAILYP PRN PRN Reason: Constipation Potassium Chloride (Klor-Con) 40 meq PO DAILYP PRN PRN Reason: K+ < 3.5 Rivaroxaban (Xarelto) 15 mg PO QAM [facility] Last Admin: 01/13/20 09:03 Dose: 15 mg Documented by: Senna (Senokot) 1 tab PO HS [facility] Last Admin: 01/12/20 21:22 Dose: Not Given Documented by: Sodium Chloride (Saline Flush) 10 ml IV Q8 [facility] Last Admin: 01/13/20 13:51 Dose: 10 ml Documented by: Sucralfate (Carafate) 1 gm PO Q6 [facility] Last Admin: 01/13/20 17:13 Dose: 1 gm Documented by: Thiamine HCl (Vitamin B1) 100 mg PO DAILY [facility] Last Admin: 01/13/20 09:05 Dose: 100 mg Documented by: Throat Lozenges (Cepacol) 1 lozenge PO PRN PRN PRN Reason: Sore Throat Medical - PN: A/P - Time Spent With Patient Total time spent is greater than 50% in coordination of care (as documented) at patient's floor/unit and/or counseling patient: - Narrative A/P Narrative: Assessment: *Right femoral neck fracture: s/p 01/10 *Acute blood loss anemia secondary extravasation at fracture site -s/p 4PRBC *Complicated UTI: Citrobacter positive -Sensitive to rocephin, zosyn and nitrofurantoin *Severe sepsis: 2/2 above with endorgan dysfunction including AMS/ARF. Clinically improving. *Leukocytosis: worsened -CXR unremarkable *RACHEL: -1.5<1.4<1.1<1.7<2.2 *Acute change mental status: 2/2 sepsis endorgan dysfunction. improving -CT brain no acute *Extensive contusion secondary injury. Continue pain management *Atrial fibrillation: currently rate controlled. -Anticoagulation rivaroxaban for CVA prophylaxis *History of CAD: aspirin/beta-ginny *History of hypertension: hold antihypertensives until systolics improve and over 140 Plan: -Dr. Hughes for ortho. Pain is controlled. Postop management including pain control DVT prophylaxis by Orth team -WBC went up. No evidence of new infection. Closely monitor -Urine culture sensitivity available. Discussed with ID Dr. Whitmore, continue zosyn. We may change to oral nitrofurantoin in 1-2 days. -Creatinine 1.5. Repeat renal function in the morning -cont ASA -cont home BB -home lasix held -ppx: Xarelto Medical - PN: Qual - VTE Deep Vein Thrombosis/Pulmonary Embolism Present on Admission: No
[2020-01-13] MEDS: GABAPENTIN 300 MG CAPSULE PO SCH (19:43)
[2020-01-13] MEDS: SENNOSIDES 1 TABLET PO SCH (19:53)
[2020-01-14] MEDS: HYDROmorphone 2 MG/ML VIAL IV PRN ×2 (01:09→03:14)
[2020-01-14] MEDS: SUCRALFATE 1 GM/10 ML ORAL.SUSP PO SCH ×4 (04:25→21:40)
[2020-01-14] MEDS: ACETAMINOPHEN IV SCH (05:12)
[2020-01-14] MEDS: PIPERACILLIN SODIUM/TAZOBACTAM 2.25 GM in DEXTROSE 5% IN WATER 50 ML IV SCH ×3 (05:18→21:39)
[2020-01-14 07:04] LABS: Hemoglobin 7.6 g/dL (11.2-15.7); Mean Corpuscular HGB Conc 31.7 g/dL (31.0-36.0); Mean Platelet Volume 10.3 fL (7.4-10.4); Platelet Count 207 K/mcL (140-440); RBC 2.61 M/mcL (3.59-5.38); Red Cell Distribution Width 16.2 % (11.5-14.5); WBC 16.2 K/mcL (4.50-11.00)
--- NOTE | 2020-01-14 07:14 | Internal Med Progress Note ---
Medical - PN: Subj Patient information: Note initiated : 01/14/20 at 7:07 am Service Date, if different from initiated Date: [] Patient: Izzy Everett a 80 y/o F admitted on 01/08/20 for Run Over By Horse Yesterday, Weak And Lethargic. Chief Complaint: [] Interval history: Ms. Everett is a 79 year old F fairly independently living alone and carries history of HTN/CHF and CAD who presents to the ER following injury sustained while she was attempting to braid her horse standing on a stool. She got thrown off the stool and landed on her hip and subsequently was trampled by the horse multiple times sustaining injuries across face chest and lower extremity. She was evaluated in the ER and after initial work-up was discharged in stable state. Following discharge within a few hours she became progressively weak confused and was unable to function. Sustained injuries after getting trampled by horse. She was evaluated and was discharged in stable state the day prior to admission. She however continued to deteriorate with increasing mental status change and worsening weakness fatigue and dizziness. During the second visit at [facility] ER work-up was consistent with severe sepsis with a white count 18.5 secondary to complicated UTI and right femoral neck fracture was discovered on imaging. Hospitalist/orthopedics service was consulte in light of above Blood cultures were drawn and antibiotics initiated. At the time of evaluation patient is alert but in significant pain. She is able to endorse history as above. Extensive bruising throughout the body noted. She is accompanied with her daughter. She denies chest pain, vision changes, unilateral weakness, incontinence 01/08-hemoglobin dropped from 9.9-6.8. Off anticoagulation. Increasing hematoma thighs around the fracture site. Likely extravasation. Surgery on board. However orthopedics of the opinion that they would want to wait for additional 24 hours until INR normalized. Patient off apixaban. White count down from 18. 5-13.4. On Rocephin. Creatinine improved to 1.7 from 2.6. Continue pain management. Generalized bruising 01/09 Pt does not have new complaints. She is mildly confused. WBC 13.6 today and 13.4 yesterday. Orth hold off surgery today due to leukocytosis. Urine culture showed positive for citrobacter, pending sensitivity Discussed with ID Dr. Whitmore, discontinued rocephin and started zosyn. not a candidate for levaquin due to QTC > 500 Repeat WBC in am 01/10 Pt does not have new complaints. She is more alert and awake. But she is still disorientated. Not more hematemesis. Hb 9.4 today. She received one unit of pRBC Urine culture sensitivity available. Discussed with ID Dr. Whitmore, continue zosyn today. We may change to oral nitrofurantoin in 2-3 days. WBC 14 today. Do not know why she still has leukocytosis. According to sensitivity, anabiotics is good for her citrobacter. Instructed RN to change [place] today. Repeat CT of head today - negative for acute change Orth Dr. Hughes will probably do a procedure for her today. Aspirin and anticoagulant are on hold. 01/11 The patient feels better. When I saw this patient, she was sitting on a chair. She underwent right hip hemiarthroplasty on 01/11/[address] Hughes. Pain is controlled. Hb 8.3 today. She received one unit of pRBC before surgery. So far she has received 4 units of pRBCs. WBC went down to 9.2. Creatinine 1.4. Repeat renal function in the morning 01/12 Pt does not have medical complaints. Denies fever/chills. Pain is controlled But WBC went up to 14.2 today, repeat wbc 15.8. Creatinine 1.5 Repeat HB 8.6 today. Repeat CXR - no new infiltrate. LA 3.8 today She is on zosyn for UTI. No evidence of new infection. Closely monitor. No discharge today. 01/13 Sitting up eating breakfast. Feeling better every day. Denies fever chills chest or abdominal pain. No coughing. Leukocytosis and increased today, no bandemia. Lactate noted to be elevated yesterday. pEnding follow-up. Review of Systems: denies headache/fever/chills/nausea/vomiting/chest or abdominal pain/cough/dyspnea/diarrhea. Otherwise see above. - Constitutional Vitals: Vital Signs Temp Pulse Resp BP Pulse Ox 98.0 F 80 22 133/61 95 01/14/20 03:11 01/14/20 03:11 01/14/20 03:11 01/14/20 03:11 01/14/20 03:11 Period Temp Pulse Resp BP Sys/Flood Pulse Ox Last 24 Hr 97.2 F-98.0 F 76-83 18-22 110-133/57-64 92-96 Intake and Output 01/13/20 01/14/20 01/14/20 21:59 05:59 13:59 Intake Total 585 645 Output Total 1050 900 Balance -465 -255 Weight 72.575 kg Intake & Output: Intake & Output 01/13/20 01/14/20 01/14/20 21:59 05:59 13:59 Intake Total 585 645 Output Total 1050 900 Balance -465 -255 Weight 72.575 kg Intake: IV 145 145 Zosyn 2.25 gm In Dextrose 5% in 50 50 Water 50 ml @ 100 mls/hr IV Q6H [facility] Rx#:[id number] Oral 440 500 Output: Urine Catheter Amount 1050 900 Uretheral ([place]) 1050 Other: Meal Dinner Percent of Meal Consumed 50% Urine Appearance Clear Uretheral ([place]) Sediment Urine Color Dark Yellow Uretheral ([place]) Straw Urine Odor Normal Stool Size Moderate Small Stool Color Brown Brown Stool Consistency Soft Soft Liquid # Bowel Movements 1 1 # of times incontinent of 1 Bowels Exam: General: Alert, Awake, No acute Distress Eyes/N/T: EOMI, Head/Neck: neck supple, CV: irreg irreg, No murmurs, Pulm: left base rales, no wheezing Abd: soft, nontender, +BS x4 Ext: no clubbing/cyanosis, 2+b/l LE edema Neuro: Alert, no focal deficits, moves all extremities, Skin: warm/dry Medical - PN: Obj Da - Labs CBC & Chem 7: 01/14/20 05:10 01/14/20 05:20 Labs: Abnormal Lab Results 01/14/20 01/13/20 01/13/20 05:10 11:14 08:38 WBC 16.2 H 15.8 H RBC 2.61 L 2.88 L Hgb 7.6 L 8.6 L Hct 24.0 L 26.2 L RDW 16.2 H 16.0 H Lymph % (Auto) 11.5 L Gran # 11.75 H [place] # (Auto) 1.45 H Seg Neutrophils % Lymphocytes % Metamyelocytes % Myelocytes % Nucleated RBCs RBC Morphology Polychromasia Hypochromasia Anisocytosis Ovalocytes VBG Lactic Acid 3.8 H Carbon Dioxide BUN Creatinine Glucose Calcium Phosphorus Total Bilirubin Direct Bilirubin AST Total Protein Albumin 01/13/20 01/13/20 01/12/20 05:10 05:10 04:20 WBC 14.2 H RBC 2.57 L Hgb 7.6 L Hct 23.2 L RDW 15.9 H Lymph % (Auto) Gran # [place] # (Auto) Seg Neutrophils % Lymphocytes % 13 L Metamyelocytes % 1 H Myelocytes % 1 H Nucleated RBCs 1 H RBC Morphology Abnorm A Polychromasia 1+ A Hypochromasia 1+ A Anisocytosis 1+ A Ovalocytes Few A VBG Lactic Acid Carbon Dioxide 20 L BUN 32 H 25 H Creatinine 1.5 H 1.4 H Glucose 109 H 142 H Calcium 7.8 L 7.5 L Phosphorus 2.4 L Total Bilirubin 1.1 H 2.6 H Direct Bilirubin 0.5 H 2.1 H AST 47 H Total Protein 4.6 L 4.4 L Albumin 2.3 L 2.2 L 01/12/20 01/11/20 01/11/20 04:20 20:44 13:56 WBC RBC 2.86 L Hgb 8.3 L 7.0 L* 8.1 L Hct 25.3 L 21.1 L 24.6 L RDW 14.9 H Lymph % (Auto) Gran # [place] # (Auto) Seg Neutrophils % 87 H Lymphocytes % 4 L Metamyelocytes % Myelocytes % Nucleated RBCs RBC Morphology Abnorm A Polychromasia 1+ A Hypochromasia Anisocytosis 1+ A Ovalocytes VBG Lactic Acid Carbon Dioxide BUN Creatinine Glucose Calcium Phosphorus Total Bilirubin Direct Bilirubin AST Total Protein Albumin 01/11/20 05:11 WBC RBC Hgb Hct RDW Lymph % (Auto) Gran # [place] # (Auto) Seg Neutrophils % Lymphocytes % 10 L Metamyelocytes % Myelocytes % Nucleated RBCs RBC Morphology Abnorm A Polychromasia Hypochromasia Anisocytosis 1+ A Ovalocytes VBG Lactic Acid Carbon Dioxide BUN Creatinine Glucose Calcium Phosphorus Total Bilirubin Direct Bilirubin AST Total Protein Albumin Meds: Medications Acetaminophen (Tylenol) 1,000 mg PO Q8 [facility]; Protocol Amlodipine Besylate (Norvasc) 2.5 mg PO DAILY [facility] Last Admin: 01/13/20 09:00 Dose: 2.5 mg Documented by: Aspirin (Aspirin) 81 mg PO DAILY [facility] Last Admin: 01/13/20 09:09 Dose: Not Given Documented by: Docusate Sodium (Colace) 100 mg PO BID [facility] Last Admin: 01/13/20 19:53 Dose: Not Given Documented by: Ezetimibe (Zetia) 10 mg PO QDAY [facility] Last Admin: 01/13/20 09:03 Dose: 10 mg Documented by: Folic Acid (Folic Acid) 1 mg PO DAILY [facility] Last Admin: 01/13/20 09:06 Dose: 1 mg Documented by: Gabapentin (Neurontin) 300 mg PO HS [facility] Last Admin: 01/13/20 19:43 Dose: 300 mg Documented by: Hydralazine HCl (Apresoline) 10 mg IV Q4-6HP PRN PRN Reason: Hypertension Hydromorphone HCl (Dilaudid) 0.5 mg IV Q4HP PRN; Protocol PRN Reason: Per Pain Protocol Last Admin: 01/14/20 03:14 Dose: 0.5 mg Documented by: Potassium Chloride 40 meq/ (Dextrose) 520 mls @ 130 mls/hr IV UD PRN PRN Reason: K+ = or < 3.5 Magnesium Sulfate (Magnesium Sulfate) 2 gm in 50 mls @ 50 mls/hr IV UD PRN PRN Reason: MG = or < 1.7 Piperacillin Sod/Tazobactam (Sod 2.25 gm/ Dextrose) 50 mls @ 100 mls/hr IV Q6H [facility]; Protocol Last Admin: 01/14/20 05:18 Dose: 100 mls/hr Documented by: Iron Carb/Multivit/Shrimp Peeling Machine Operator/Folic Acid (Multivitamin W/Minerals) 1 tab PO DAILY [facility] Last Admin: 01/13/20 09:04 Dose: 1 tab Documented by: Losartan Potassium (Cozaar) 100 mg PO QDAY [facility] Last Admin: 01/13/20 08:58 Dose: 100 mg Documented by: Melatonin (Melatonin 3mg Tablet) 3 mg PO HSP PRN PRN Reason: Insomnia Last Admin: 01/13/20 19:43 Dose: 3 mg Documented by: Methocarbamol (Robaxin) 750 mg PO Q6HP PRN PRN Reason: Muscle Spasm Last Admin: 01/13/20 14:00 Dose: 750 mg Documented by: Metoprolol Succinate (Toprol Xl) 100 mg PO BID [facility] Last Admin: 01/13/20 19:43 Dose: 100 mg Documented by: Ondansetron HCl (Zofran Odt) 4 mg SL Q4-6HP PRN; Protocol PRN Reason: Nausea And Vomiting Oxycodone HCl (Roxicodone) 0 mg PO Q4HP PRN; Protocol PRN Reason: Per Pain Protocol Last Admin: 01/13/20 22:06 Dose: 5 mg Documented by: Pantoprazole Sodium (Protonix) 40 mg IV BIDAC [facility] Last Admin: 01/13/20 17:12 Dose: 40 mg Documented by: Polyethylene Glycol (Miralax) 17 gm PO DAILYP PRN PRN Reason: Constipation Potassium Chloride (Klor-Con) 40 meq PO DAILYP PRN PRN Reason: K+ < 3.5 Rivaroxaban (Xarelto) 15 mg PO QAM [facility] Last Admin: 01/13/20 09:03 Dose: 15 mg Documented by: Senna (Senokot) 1 tab PO HS [facility] Last Admin: 01/13/20 19:53 Dose: Not Given Documented by: Sodium Chloride (Saline Flush) 10 ml IV Q8 [facility] Last Admin: 01/13/20 21:26 Dose: Not Given Documented by: Sucralfate (Carafate) 1 gm PO Q6 [facility] Last Admin: 01/14/20 05:12 Dose: 1 gm Documented by: Thiamine HCl (Vitamin B1) 100 mg PO DAILY [facility] Last Admin: 01/13/20 09:05 Dose: 100 mg Documented by: Throat Lozenges (Cepacol) 1 lozenge PO PRN PRN PRN Reason: Sore Throat Medical - PN: A/P - Time Spent With Patient Total time spent is greater than 50% in coordination of care (as documented) at patient's floor/unit and/or counseling patient: - Narrative A/P Narrative: Assessment: *Right femoral neck fracture: s/p 01/10 *Acute blood loss anemia secondary extravasation at fracture site -s/p 4PRBC *Complicated UTI: Citrobacter positive -Sensitive to rocephin, zosyn and nitrofurantoin *Severe sepsis: 2/2 above with endorgan dysfunction including AMS/ARF. Clinically improved *Leukocytosis: worsening, no bandemia -CXR unremarkable, treating UTI *RACHEL on CKD III: -1.5<1.4<1.1<1.7<2.2 *Acute change mental status: 2/2 sepsis endorgan dysfunction. Much improved -CT brain no acute *Extensive contusion secondary injury. Continue pain management *Atrial fibrillation: currently rate controlled. -Anticoagulation rivaroxaban for CVA prophylaxis *History of CAD: aspirin/beta-ginny *History of hypertension: hold antihypertensives until systolics improve and over 140 *UR: *Hyponatermia: Plan: -Dr. Hughes for ortho. Pain is controlled. Postop management including pain control DVT prophylaxis by Orth team -peripheral smear. pct. lacate. pending repeat BC -Urine culture sensitivity available. Discussed with ID Dr. Whitmore, continue zosyn. We may change to oral nitrofurantoin in 1-2 days if renal fxn appropriate - -cont ASA/BB -cont home lasix, -IV lasix today for peripheral edema -prn straight cath, -ppx: Xarelto Medical - PN: Qual - VTE Deep Vein Thrombosis/Pulmonary Embolism Present on Admission: No
--- NOTE | 2020-01-14 07:16 | Orthopedic Progress Note ---
Subjective Patient information: Note initiated : 01/14/20 at 7:14 am Service Date, if different from initiated Date: [] Patient: zIzy Everett 80 y/o F admitted on 01/08/20 for Run Over By Horse Yesterday, Weak And Lethargic. Chief Complaint: [] Principal diagnosis: right displaced femoral neck fracture, sepsis Interval history: No acute events overnight. Patient denies shortness of breath/chest pain. Pain is controlled. WBC are trending up again. Objective Vital signs: Vital Signs Temp Pulse Resp BP BP Pulse Ox 01/14/20 03:11 98.0 F 80 22 133/61 95 01/13/20 23:39 97.5 F 80 20 110/59 92 01/13/20 18:48 97.2 F 83 20 112/57 95 01/13/20 16:00 97.3 F 76 18 121/57 94 01/13/20 12:00 97.8 F 76 18 110/64 96 Intake and Output 01/13/20 01/14/20 01/14/20 21:59 05:59 13:59 Intake Total 585 645 Output Total 1050 900 Balance -465 -255 Intake: IV 145 145 Zosyn 2.25 gm In Dextrose 5% in 50 50 Water 50 ml @ 100 mls/hr IV Q6H [facility] Rx#:[id number] Oral 440 500 Output: Urine Catheter Amount 1050 900 Uretheral ([place]) 1050 Other: Meal Dinner Percent of Meal Consumed 50% Urine Appearance Clear Uretheral ([place]) Sediment Urine Color Dark Yellow Uretheral ([place]) Straw Urine Odor Normal Stool Size Moderate Small Stool Color Brown Brown Stool Consistency Soft Soft Liquid # Bowel Movements 1 1 # of times incontinent of 1 Bowels Weight 160 lb Intake & Output: Intake & Output 01/13/20 01/14/20 01/14/20 21:59 05:59 13:59 Intake Total 585 645 Output Total 1050 900 Balance -465 -255 Weight 160 lb Intake: IV 145 145 Zosyn 2.25 gm In Dextrose 5% in 50 50 Water 50 ml @ 100 mls/hr IV Q6H [facility] Rx#:[id number] Oral 440 500 Output: Urine Catheter Amount 1050 900 Uretheral ([place]) 1050 Other: Meal Dinner Percent of Meal Consumed 50% Urine Appearance Clear Uretheral ([place]) Sediment Urine Color Dark Yellow Uretheral ([place]) Straw Urine Odor Normal Stool Size Moderate Small Stool Color Brown Brown Stool Consistency Soft Soft Liquid # Bowel Movements 1 1 # of times incontinent of 1 Bowels Dressing: Yes intact Weight bearing status: as tolerated Neurological exam IM: Yes neurovascular intact Additional Comments: there is some strikethrough on the dressing but mostly dry. She does have echymosis throughout the bilateral extremities mostly thigh/knee area which is stable. - Labs CBC & BMP: 01/14/20 05:10 01/13/20 05:10 Labs: Orthopedic Labs 01/10/20 01/09/20 01/08/20 05:06 09:00 11:50 PT 17.5 H 20.6 H 34.0 H INR 1.4 H 1.7 H 3.3 H 01/14/20 01/13/20 01/13/20 05:10 08:38 05:10 Hgb 7.6 L 8.6 L Cancelled Hct 24.0 L 26.2 L Cancelled 01/13/20 01/12/20 01/11/20 05:10 04:20 20:44 Hgb 7.6 L 8.3 L 7.0 L* Hct 23.2 L 25.3 L 21.1 L 01/11/20 01/11/20 01/10/20 13:56 05:11 05:06 Hgb 8.1 L 9.4 L 8.4 L Hct 24.6 L 27.5 L 25.8 L 01/10/20 01/09/20 01/09/20 00:34 18:13 04:54 Hgb 8.5 L 9.3 L 6.8 L* Hct 21.7 L 01/08/20 11:50 Hgb 9.9 L Hct 30.4 L Assessment and Plan (1) Displaced fracture of right femoral neck Status: Acute - Narrative A/P Narrative: POD 3 s/p right hip alesha arthroplasty for femoral neck fracture --PT/OT today, weight bearing as tolerated with posterior hip precautions. --WBC continue to increase and H/H is trending down again --------afebrile and hemodynamically stable. --will discuss with hospitalist regarding chemical dvt prophy as currently on 2 --Hospitalist managing ongoing medical comorbidities --IS: PT/OT, IS, foot pumps, mobilization --Dispo: pending as WBC trending up but will need rehab.
[2020-01-14 07:35] LABS: ALT/SGPT 14 U/l (0-40); AST/SGOT 31 U/l (0-37); Albumin 2.3 gm/dL (3.2-5.2); Albumin/Globulin Ratio 0.9 (1.0-2.3); Alkaline Phosphatase 68 U/L (39-117); Bilirubin,Direct 0.6 mg/dL (0.0-0.3); Bilirubin,Total 1.3 mg/dL (0.0-1.0); Blood Urea Nitrogen 30 mg/dl (8-23); Calcium 7.9 mg/dl (8.6-10.4); Carbon Dioxide 21 mmol/L (22-30); Chloride 96 mmol/L (96-108); Globulin 2.5 gm/dL (2.2-3.7); Glomerular Filtration Rate 35; Glucose 105 mg/dL (70-105); Lactate Dehydrogenase 263 U/L (94-250); Phosphorous 2.6 mg/dL (2.7-4.5); Triglycerides 183 mg/dl (<150); Uric Acid 3.8 mg/dL (2.5-8.0)
[2020-01-14 07:52] LABS: Anisocytosis 1+ (NONE SEEN); Band Neutrophils % 7 % (0-10); Eosinophils % (Manual) 6 % (0-7); Lymphocytes % 8 % (15-49); Metamyelocytes % 3 % (0-0); Monocytes % (Manual) 7 % (1-12); Myelocytes % 1 % (0-0); Platelet Estimate NORMAL (NORMAL); Polychromasia 2+ (NONE SEEN); RBC Morphology ABNORM (NORMAL); Segmented Neutrophils % 68 % (38-78)
[2020-01-14] MEDS ORDERED: FUROSEMIDE 40 MG/4 ML VIAL IV ONE (08:06)
[2020-01-14] MEDS ORDERED: ALBUMIN HUMAN 12.5 GM/50 ML BAG IV ONE (08:06)
[2020-01-14] MEDS: 0.9 % SODIUM CHLORIDE 10 ML SYRINGE IV SCH ×3 (08:18→21:57)
[2020-01-14] MEDS: PANTOPRAZOLE 40 MG VIAL IV SCH ×2 (08:18→21:39)
[2020-01-14] MEDS: EZETIMIBE 10 MG TABLET PO SCH (09:17)
[2020-01-14] MEDS: METOPROLOL SUCCINATE 50 MG TAB.XL.24H PO SCH ×2 (09:17→21:40)
[2020-01-14] MEDS: MULTIVIT,THER IRON,CA,FA & MIN 1 TABLET PO SCH (09:17)
[2020-01-14] MEDS: FOLIC ACID 1 MG TABLET PO SCH (09:18)
[2020-01-14] MEDS: DOCUSATE SODIUM 100 MG CAPSULE PO SCH ×2 (09:18→21:41)
[2020-01-14] MEDS: THIAMINE 100 MG TABLET PO SCH (09:18)
[2020-01-14] MEDS: LOSARTAN 50 MG TABLET PO SCH (09:18)
[2020-01-14] MEDS: amLODIPine 5 MG TABLET PO SCH (09:18)
--- NOTE | 2020-01-14 10:07 | Discharge Summary ---
Medical - DS: Prov Patient information: Note initiated : 01/14/20 at 10:00 am Service Date, if different from initiated Date: [] Patient: Izzy Everett 80 y/o F admitted on 01/08/20 for Run Over By Horse Yesterday, Weak And Lethargic. Chief Complaint: [] Date of admission: 01/08/20 17:46 Discharge date: 01/19/20 Primary care physician: Max Johnson Consults: 01/08/20 Consult to Physician [CONS] Stat Comment: Consulting Provider: Tian Bravo Reason For Exam: Physician to Consult Consult to Physician [CONS] Stat Comment: Consulting Provider: Raghav Hughes Reason For Exam: Physician to Consult 01/12/20 15:21 Consult to Physician [CONS] Routine Comment: Consulting Provider: Max Johnson Reason For Exam: Physician to Consult Medical - DS: Meds - Discharge Medications Prescriptions: oxyCODONE HCL [Roxicodone] 5 - 10 mg PO Q4HP PRN #60 tab PRN Reason: pain Prescription Printed Active and Home Medications: Home Medications Aspirin [Adult Low Dose Aspirin EC] 81 mg PO DAILY 03/12/17 [History Confirmed 01/11/20 Last Taken 03/23/19] valsartan 160 mg tablet 160 mg PO QDAY #90 tab 08/04/19 [Rx Confirmed 01/11/20 Last Taken Unknown] carvedilol 12.5 mg tablet 12.5 mg PO BID #180 tab 08/05/19 [Rx Confirmed 01/11/20 Last Taken Unknown] rivaroxaban 20 mg tablet 20 mg PO DAILY #90 tab 08/11/19 [Rx Confirmed 01/11/20 Last Taken Unknown] ezetimibe 10 mg tablet 10 mg PO QDAY #90 tab 08/27/19 [Rx Confirmed 01/11/20 Last Taken Unknown] furosemide 40 mg tablet 40 mg PO QDAY #90 tab 09/17/19 [Rx Confirmed 01/11/20 Last Taken Unknown] Metoprolol Succinate [Toprol Xl] 100 mg PO BID 01/11/20 [History Confirmed 01/11/20 Last Taken Unknown] Rivaroxaban [Xarelto] 15 mg PO DAILY #34 tab 01/13/20 [Rx Last Taken Unknown] oxyCODONE HCL [Roxicodone] 5 - 10 mg PO Q4HP PRN #60 tab 01/13/20 [Rx Last Taken Unknown] Home Medications Aspirin [Adult Low Dose Aspirin EC] 81 mg PO DAILY 03/12/17 [History Confirmed 01/11/20 Last Taken 03/23/19] valsartan 160 mg tablet 160 mg PO QDAY #90 tab 08/04/19 [Rx Confirmed 01/11/20 Last Taken Unknown] carvedilol 12.5 mg tablet 12.5 mg PO BID #180 tab 08/05/19 [Rx Confirmed 01/11/20 Last Taken Unknown] rivaroxaban 20 mg tablet 20 mg PO DAILY #90 tab 08/11/19 [Rx Confirmed 01/11/20 Last Taken Unknown] ezetimibe 10 mg tablet 10 mg PO QDAY #90 tab 08/27/19 [Rx Confirmed 01/11/20 Last Taken Unknown] furosemide 40 mg tablet 40 mg PO QDAY #90 tab 09/17/19 [Rx Confirmed 01/11/20 Last Taken Unknown] oxyCODONE HCL [Roxicodone] 5 - 10 mg PO Q4HP PRN #60 tab 01/13/20 [Rx Last Taken Unknown] Medical - DS: Hosp Hospital Course: Ms. Everett is a 79 year old F fairly independently living alone and carries history of HTN/CHF and CAD who presents to the ER following injury sustained while she was attempting to braid her horse standing on a stool. She got thrown off the stool and landed on her hip and subsequently was trampled by the horse multiple times sustaining injuries across face chest and lower extremity. She was evaluated in the ER and after initial work-up was discharged in stable state. Following discharge within a few hours she became progressively weak confused and was unable to function. Sustained injuries after getting trampled by horse. She was evaluated and was discharged in stable state the day prior to admission. She however continued to deteriorate with increasing mental status change and worsening weakness fatigue and dizziness. During the second visit at [facility] ER work-up was consistent with severe sepsis with a white count 18.5 secondary to complicated UTI and right femoral neck fracture was discovered on imaging. Hospitalist/orthopedics service was consulte in light of above Blood cultures were drawn and antibiotics initiated. At the time of evaluation patient is alert but in significant pain. She is able to endorse history as above. Extensive bruising throughout the body noted. She is accompanied with her daughter. She denies chest pain, vision changes, unilateral weakness, incontinence 01/08-hemoglobin dropped from 9.9-6.8. Off anticoagulation. Increasing hematoma thighs around the fracture site. Likely extravasation. Surgery on board. However orthopedics of the opinion that they would want to wait for additional 24 hours until INR normalized. Patient off apixaban. White count down from 18.5-13.4. On Rocephin. Creatinine improved to 1.7 from 2.6. Continue pain management. Generalized bruising 01/09 Pt does not have new complaints. She is mildly confused. WBC 13.6 today and 13.4 yesterday. Orth hold off surgery today due to leukocytosis. Urine culture showed positive for citrobacter, pending sensitivity Discussed with ID Dr. Whitmore, discontinued rocephin and started zosyn. not a candidate for levaquin due to QTC > 500 Repeat WBC in am 01/10 Pt does not have new complaints. She is more alert and awake. But she is still disorientated. Not more hematemesis. Hb 9.4 today. She received one unit of pRBC Urine culture sensitivity available. Discussed with ID Dr. Whitmore, continue zosyn today. We may change to oral nitrofurantoin in 2-3 days. WBC 14 today. Do not know why she still has leukocytosis. According to sensitivity, anabiotics is good for her citrobacter. Instructed RN to change coburn today. Repeat CT of head today - negative for acute change Orth Dr. Hughes will probably do a procedure for her today. Aspirin and anticoagulant are on hold. 01/11 The patient feels better. When I saw this patient, she was sitting on a chair. She underwent right hip hemiarthroplasty on 01/11/[address] Hughes. Pain is controlled. Hb 8.3 today. She received one unit of pRBC before surgery. So far she has received 4 units of pRBCs. WBC went down to 9.2. Creatinine 1.4. Repeat renal function in the morning 01/12 Pt does not have medical complaints. Denies fever/chills. Pain is controlled But WBC went up to 14.2 today, repeat wbc 15.8. Creatinine 1.5 Repeat HB 8.6 today. Repeat CXR - no new infiltrate. LA 3.8 today She is on zosyn for UTI. No evidence of new infection. Closely monitor. No discharge today. 4/ Sitting up eating breakfast. Feeling better every day. Denies fever chills chest or abdominal pain. No coughing. Leukocytosis and increased today, no bandemia. Lactate noted to be elevated yesterday. pEnding follow-up. QTc 420 on ekg today. discussed with ID regarding leukocytosis. will get ct a/p w/o contrast. if unremarkable she could be treated with single dose of fosfomycin abx and f/u with PCP. afebrile, no bandemia, lactic acidosis resolved, PCT improved. does not appear toxic and feeling better overall. right LE warm/swollen/more tender especially posterior and lateral knee. doppler u/s negative for DVT. CT right leg no acute findings. called by nurse over concerns for stroke like symptoms of right side. The time I examined her she has symmetrical strength symmetrical face. She was slow to answer questions and follow commands sometimes I did ask her twice but she did answer appropriately and follow command appropriately. She had also recently had 10 mg of oxycodone. And was given a small dose 0.[address] brain stroke protocol was done which was unremarkable. I followed up with her after the stroke she was more alert no focal deficits. Labs done last night for the stroke showed an elevated white blood cell count. Added vancomycin given concerns for uncontrolled infection. Blood cultures are still pending from previous day. Other labs in improved, specifically renal function. 01/14 Patient states she slept well last night. States she is feeling better today. No complaints. No coughing shortness of breath. 01/15 Slept well last night. Feeling little better every day. Denies fever chills coughing, she is a little shortness of breath, denies abdominal pain. H&H dropping slowly. Will repeat H&H this afternoon may need 1 more unit of blood. White blood cell count improved. Medication clarification: Unable to verify her home list which currently list carvedilol and metoprolol. It is confirmed that her metoprolol was discontinued almost a year ago and she is only supposed to be on carvedilol 12.5 mg twice daily. 01/16 Slept all right. She continues to feel better each day now. White blood cell count was normal. Afebrile. Did get 1 unit of blood yesterday with appropriate response. Denies diarrhea. Placed to [place] stocking on her right leg finally as she would not tolerate and is helping with her edema. / Patient improving. Walked in [place] today. Labs stable. Hopefully plan for discharge to rehab tomorrow if continues to be stable. 01/18 Coburn out and patient voiding on her own. Feeling well. Hemoglobin stable. Stable for discharge. Assessment: *Right femoral neck fracture s/p Trauma from Horse trampling w/significant b/l LE ecchymosis from thighs down : s/p ORIF (01/10) *Extensive contusion secondary injury. Continue pain management *Acute blood loss anemia secondary extravasation at fracture site & b/l LE contusions from hips down -s/p 5PRBC over hospitalization, last unit 01/15; appropriate response to last unit *Complicated UTI: Citrobacter positive *Severe sepsis: 2/2 above with endorgan dysfunction including AMS/ARF. Clinically improved *Leukocytosis: continues to improve, no bandemia. PCT low, BC neg, lactate improved -CXR unremarkable, treating UTI -resolved. suspect reactive component as well *RACHEL on CKD III: *AMS superimposed on underlying cerebral dz likely subclinical vascular dementia: 2/2 sepsis endorgan dysfunction. 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 *HTN: *UR: coburn out *Hyponatremia: resolved *Generalized weakness/deconditioning/debility: *Unconjugated hyperbilirubinemia: 2/2 blood product breakdown from significant bruising Discharge diagnosis: Right femoral neck fracture anemia complicated UTI sepsis RACHEL AMS Secondary discharge diagnosis: A. fib CAD hypertension urinary retention - Time Spent with Patient Total time spent providing and/or coordinating discharge services: Greater than 30 minutes Medical - DS: Exam - Constitutional Vitals: Vital Signs Temp Pulse Resp BP BP Pulse Ox 01/14/20 07:41 97.3 F 74 18 104/55 93 01/14/20 03:11 98.0 F 80 22 133/61 95 01/13/20 23:39 97.5 F 80 20 110/59 92 01/13/20 18:48 97.2 F 83 20 112/57 95 01/13/20 16:00 97.3 F 76 18 121/57 94 01/13/20 12:00 97.8 F 76 18 110/64 96 Intake and Output 01/13/20 01/14/20 01/14/20 21:59 05:59 13:59 Intake Total 585 645 Output Total 1050 900 Balance -465 -255 Intake: IV 145 145 Zosyn 2.25 gm In Dextrose 5% in 50 50 Water 50 ml @ 100 mls/hr IV Q6H [facility] Rx#:[id number] Oral 440 500 Output: Urine Catheter Amount 1050 900 Uretheral ([place]) 1050 Other: Meal Dinner Breakfast Percent of Meal Consumed 50% 25% Urine Appearance Clear Uretheral ([place]) Sediment Urine Color Dark Yellow Uretheral ([place]) Straw Urine Odor Normal Stool Size Moderate Small Stool Color Brown Brown Stool Consistency Soft Soft Liquid # Bowel Movements 1 1 # of times incontinent of 1 Bowels Weight 72.575 kg Medical - DS: Data Labs on day of discharge: Labs from last 24 hours 01/14/20 01/14/20 01/14/20 07:41 07:41 05:20 WBC RBC Hgb Hct MCV MCH MCHC RDW Plt Count MPV Total Counted Seg Neutrophils % Band Neutrophils % Lymphocytes % Monocytes % (Manual) Eosinophils % (Manual) Metamyelocytes % Myelocytes % Platelet Estimate RBC Morphology Polychromasia Anisocytosis Smear Path Review Pending VBG Lactic Acid 2.0 Sodium Potassium Chloride Carbon Dioxide Anion Gap BUN Creatinine GFR Calculation Glucose Uric Acid Calcium Phosphorus Magnesium Total Bilirubin Direct Bilirubin GGT AST ALT Alkaline Phosphatase Lactate Dehydrogenase Total Protein Albumin Globulin Albumin/Globulin Ratio Triglycerides Procalcitonin 0.22 01/14/20 01/14/20 01/13/20 05:20 05:10 11:14 WBC 16.2 H RBC 2.61 L Hgb 7.6 L Hct 24.0 L MCV 92.0 MCH 29.1 MCHC 31.7 RDW 16.2 H Plt Count 207 MPV 10.3 Total Counted 100 Seg Neutrophils % 68 Band Neutrophils % 7 Lymphocytes % 8 L Monocytes % (Manual) 7 Eosinophils % (Manual) 6 Metamyelocytes % 3 H Myelocytes % 1 H Platelet Estimate Normal RBC Morphology Abnorm A Polychromasia 2+ A Anisocytosis 1+ A Smear Path Review VBG Lactic Acid 3.8 H Sodium 127 L Potassium 3.5 Chloride 96 Carbon Dioxide 21 L Anion Gap 10.0 BUN 30 H Creatinine 1.4 H GFR Calculation 35 Glucose 105 Uric Acid 3.8 Calcium 7.9 L Phosphorus 2.6 L Magnesium 2.1 Total Bilirubin 1.3 H Direct Bilirubin 0.6 H GGT 39 H AST 31 ALT 14 Alkaline Phosphatase 68 Lactate Dehydrogenase 263 H Total Protein 4.8 L Albumin 2.3 L Globulin 2.5 Albumin/Globulin Ratio 0.9 L Triglycerides 183 H Procalcitonin Medical - DS: A/P - Patient/Caregiver Discharge Instructions Activity: as per physical therapy, increase activity as tolerated Diet: Cardiac Prescriptions: oxyCODONE HCL [Roxicodone] 5 - 10 mg PO Q4HP PRN #60 tab PRN Reason: pain Prescription Printed Other Amb Orders: Physical Therapy at Discharge - General Location: None Selected - Follow up Plan Follow up with: Max Johnson DO [Primary Care Provider] - Raghav Hughes MD [Physician] - Disposition: Xfer SNF Prognosis: Fair Rehab Potential: Fair I certify that the patient requires SNF services: Yes Overall status at discharge: patient is progressing back to baseline Medical - DS: Qual - VTE Deep Vein Thrombosis/Pulmonary Embolism Present on Admission: No
[2020-01-14] MEDS: oxyCODONE HCL 5 MG TABLET PO PRN ×2 (12:45→18:39)
--- NOTE | 2020-01-14 14:27 | Ultrasound Report ---
CLINICAL INFORMATION: pyeloneprhitis, r/o abscess COMPARISON: Noncontrast abdomen pelvic CT 01/08/2020 FINDINGS: Both kidneys are normal and symmetric in size, position, configuration and echotexture: The right is 9.6 x 5 cm left is 9 x 6 cm. Arterial blood flow is grossly normal in both kidneys on color Doppler. Few tiny nonobstructing stones in calyces of both kidneys are unchanged from the CT less than one week ago. No hydronephrosis or evidence of abscess. Urinary bladder volume is 436 cc no focal bladder lesions. The patient unable to void. Small moderate free fluid noted adjacent to the khai hepatis. IMPRESSION: Few tiny nonobstructing stones calyces of both kidneys. Kidneys and bladder are otherwise normal. Interpreted and Authenticated by: Max Rg 01/14/20
[2020-01-14] MEDS: ACETAMINOPHEN 500 MG TABLET PO SCH ×2 (15:46→22:10)
--- NOTE | 2020-01-14 18:28 | Ultrasound Report ---
CLINICAL INFORMATION: Right leg swelling COMPARISON: None. FINDINGS: The entire deep venous system including the common femoral, superficial femoral, popliteal and paired trifurcation calf veins are easily compressible and show normal venous blood flow on color and spectral Doppler. No evidence of thrombus IMPRESSION: Negative exam - no evidence of deep vein thrombosis. Interpreted and Authenticated by: Max Rg 01/14/20
[2020-01-14] MEDS ORDERED: NALOXONE HCL 0.4 MG/ML VIAL ONE (19:50)
[2020-01-14 20:49] LABS: Basophils # (Auto) 0.04 K/mcL (0.00-0.30); Basophils % (Auto) 0.2 % (0.0-2.0); Eosinophils # (Auto) 0.79 K/mcL (0.00-0.70); Eosinophils % (Auto) 4.2 % (0.0-7.0); Granulocytes % (Auto) 76.9 % (38.0-78.0); Hematocrit 23.6 % (34.1-44.9); Hemoglobin 7.8 g/dL (11.2-15.7); Lymphocytes # (Auto) 1.54 K/mcL (1.50-4.80); Lymphocytes % (Auto) 8.3 % (15.5-49.0); Mean Cell Volume 90.4 fL (80.0-100.0); Mean Corpuscular HGB Conc 33.1 g/dL (31.0-36.0); Mean Platelet Volume 9.9 fL (7.4-10.4); Monocytes # (Auto) 1.94 K/mcL (0.10-0.90); Monocytes % (Auto) 10.4 % (1.0-12.0); Platelet Count 236 K/mcL (140-440); RBC 2.61 M/mcL (3.59-5.38); Red Cell Distribution Width 16.2 % (11.5-14.5); WBC 18.6 K/mcL (4.50-11.00)
[2020-01-14 20:53] LABS: Blood Urea Nitrogen 27 mg/dl (8-23); Calcium 8.4 mg/dl (8.6-10.4); Carbon Dioxide 21 mmol/L (22-30); Chloride 98 mmol/L (96-108); Glucose 113 mg/dL (70-105)
[2020-01-14 20:55] LABS: INR 1.4 (0.9-1.1); Prothrombin Time 17.3 sec (11.9-14.5)
[2020-01-14 21:11] LABS: Glomerular Filtration Rate 47
[2020-01-14] MEDS ORDERED: VANCOMYCIN PER PHARMACY IV SCH (21:17)
[2020-01-14] MEDS: MELATONIN 3 MG TABLET PO SCH (21:40)
[2020-01-14] MEDS: GABAPENTIN 300 MG CAPSULE PO SCH (21:40)
[2020-01-14] MEDS: SENNOSIDES 1 TABLET PO SCH (21:41)
[2020-01-14] MEDS ORDERED: VANCOMYCIN 1,000 MG in 0.9 % SODIUM CHLORIDE 250 ML IV ONE (22:00)
[2020-01-15] MEDS: SUCRALFATE 1 GM/10 ML ORAL.SUSP PO SCH ×5 (00:32→23:28)
[2020-01-15] MEDS: PIPERACILLIN SODIUM/TAZOBACTAM 2.25 GM in DEXTROSE 5% IN WATER 50 ML IV SCH ×5 (01:38→23:28)
[2020-01-15] MEDS: HYDROmorphone 2 MG/ML VIAL IV PRN ×2 (01:38→10:04)
[2020-01-15] MEDS: 0.9 % SODIUM CHLORIDE 10 ML SYRINGE IV SCH ×4 (05:55→23:28)
[2020-01-15] MEDS: ACETAMINOPHEN 500 MG TABLET PO SCH ×3 (05:55→21:48)
[2020-01-15 06:18] LABS: Hemoglobin 7.4 g/dL (11.2-15.7); Mean Corpuscular HGB Conc 32.2 g/dL (31.0-36.0); Platelet Count 217 K/mcL (140-440); Red Cell Distribution Width 16.1 % (11.5-14.5); WBC 13.6 K/mcL (4.50-11.00)
[2020-01-15 06:42] LABS: INR 1.3 (0.9-1.1); Prothrombin Time 16.6 sec (11.9-14.5)
[2020-01-15 06:58] LABS: ALT/SGPT 13 U/l (0-40); AST/SGOT 26 U/l (0-37); Albumin 2.6 gm/dL (3.2-5.2); Alkaline Phosphatase 57 U/L (39-117); Bilirubin,Total 2.2 mg/dL (0.0-1.0); Blood Urea Nitrogen 25 mg/dl (8-23); Calcium 8.3 mg/dl (8.6-10.4); Carbon Dioxide 22 mmol/L (22-30); Chloride 99 mmol/L (96-108); Globulin 2.6 gm/dL (2.2-3.7); Glomerular Filtration Rate 47; Glucose 106 mg/dL (70-105); Lactate Dehydrogenase 244 U/L (94-250); Triglycerides 179 mg/dl (<150); Uric Acid 3.3 mg/dL (2.5-8.0)
[2020-01-15 07:01] LABS: Bilirubin,Direct 1.1 mg/dL (0.0-0.3); Phosphorous 2.2 mg/dL (2.7-4.5)
--- NOTE | 2020-01-15 07:24 | Orthopedic Progress Note ---
Subjective Patient information: Note initiated : 01/15/20 at 7:21 am Service Date, if different from initiated Date: [] Patient: Izzy Everett 80 y/o F admitted on 01/08/20 for Run Over By Horse Yesterday, Weak And Lethargic. Chief Complaint: [] Principal diagnosis: right displaced femoral neck fracture, sepsis Interval history: US of lower extremity negative for dvt, CT of right lower extremity essentially negative- these were complete due to concern for increased swelling/pain right lower extremity. Also concern for CVA- CT head repeated. WBC increased yesterday and vancomycin added. This AM, feels she is improving overall. Objective Vital signs: Vital Signs Temp Pulse Resp BP Pulse Ox 01/15/20 03:39 98.6 F 72 20 123/55 98 01/14/20 23:44 98.8 F 75 22 124/59 96 01/14/20 19:45 99.0 F 90 128/59 98 01/14/20 18:49 98.6 F 88 20 128/61 94 01/14/20 16:00 97.8 F 85 18 123/53 95 01/14/20 12:00 97.9 F 79 18 113/53 94 01/14/20 07:41 97.3 F 74 18 104/55 93 Intake and Output 01/14/20 01/15/20 01/15/20 21:59 05:59 13:59 Intake Total 600 220 50 Output Total 750 550 Balance -150 -330 50 Intake: IV 100 50 Zosyn 2.25 gm In Dextrose 5% in 100 50 Water 50 ml @ 100 mls/hr IV Q6H [facility] Rx#:[id number] Oral 600 120 Output: Urine Catheter Amount 650 550 Void Amount 100 Other: Meal Lunch Percent of Meal Consumed 30% Feeding Ability Assist with Tray Set Up Urine Appearance Clear Clear Uretheral ([place]) Clear Urine Color Dark Yellow Dark Yellow Uretheral ([place]) Dark Yellow Urine Odor Normal Normal Uretheral ([place]) Normal Stool Size Small Stool Color Brown Stool Consistency Soft # Bowel Movements 1 Weight 158 lb Intake & Output: Intake & Output 01/14/20 01/15/20 01/15/20 21:59 05:59 13:59 Intake Total 600 220 50 Output Total 750 550 Balance -150 -330 50 Weight 158 lb Intake: IV 100 50 Zosyn 2.25 gm In Dextrose 5% in 100 50 Water 50 ml @ 100 mls/hr IV Q6H [facility] Rx#:[id number] Oral 600 120 Output: Urine Catheter Amount 650 550 Void Amount 100 Other: Meal Lunch Percent of Meal Consumed 30% Feeding Ability Assist with Tray Set Up Urine Appearance Clear Clear Uretheral ([place]) Clear Urine Color Dark Yellow Dark Yellow Uretheral ([place]) Dark Yellow Urine Odor Normal Normal Uretheral ([place]) Normal Stool Size Small Stool Color Brown Stool Consistency Soft # Bowel Movements 1 Dressing: Yes intact Weight bearing status: as tolerated Neurological exam IM: Yes neurovascular intact Additional Comments: -right hip dressing has stable strikethrough- no change from yesterday. -echymosis throughout the thigh and swelling as expected, swelling extended distally into leg as well as the echymosis -left lower extremity has swelling and echymosis as well. Some of this is extending distally into the leg as well. - Labs CBC & BMP: 01/15/20 05:20 01/15/20 05:55 Labs: Orthopedic Labs 01/15/20 01/14/20 01/10/20 05:55 20:08 05:06 PT 16.6 H 17.3 H 17.5 H INR 1.3 H 1.4 H 1.4 H APTT 39 H 01/09/20 01/08/20 09:00 11:50 PT 20.6 H 34.0 H INR 1.7 H 3.3 H APTT 01/15/20 01/14/20 01/14/20 05:20 20:08 05:10 Hgb 7.4 L 7.8 L 7.6 L Hct 23.0 L 23.6 L 24.0 L 01/13/20 01/13/20 01/13/20 08:38 05:10 05:10 Hgb 8.6 L Cancelled 7.6 L Hct 26.2 L Cancelled 23.2 L 01/12/20 01/11/20 01/11/20 04:20 20:44 13:56 Hgb 8.3 L 7.0 L* 8.1 L Hct 25.3 L 21.1 L 24.6 L 01/11/20 01/10/20 01/10/20 05:11 05:06 00:34 Hgb 9.4 L 8.4 L 8.5 L Hct 27.5 L 25.8 L 01/09/20 01/09/20 01/08/20 18:13 04:54 11:50 Hgb 9.3 L 6.8 L* 9.9 L Hct 21.7 L 30.4 L Assessment and Plan (1) Displaced fracture of right femoral neck Status: Acute - Narrative A/P Narrative: POD 4 s/p right hip alesha arthroplasty for femoral neck fracture --PT/OT today, weight bearing as tolerated with posterior hip precautions. -Nursing concern for increased right lower extremity swelling/pain --------CT negative as is the US for concern. Most likely is the swelling moving distally as she becomes more mobile with short episodes of mobilization and sitting in a chair with legs in a dependent position. This will take quite a bit of time to improve. --H/H more stable in last 24 hours --WBC downtrending but vancomycin added yesterday. I have not concerned for s urgical site infection or right lower extremity. --------afebrile and hemodynamically stable. --Does not appear that patient had CVA but per nursing, possibly related to meds. --Hospitalist managing ongoing medical comorbidities --IS: PT/OT, IS, foot pumps, mobilization --Dispo: pending but will need rehab.
[2020-01-15 07:27] LABS: Anisocytosis 2+ (NONE SEEN); Basophils % (Manual) 1 % (0-2); Eosinophils % (Manual) 1 % (0-7); Lymphocytes % 4 % (15-49); Monocytes % (Manual) 6 % (1-12); Ovalocytes FEW (NONE SEEN); Platelet Estimate NORMAL (NORMAL); Polychromasia 1+ (NONE SEEN); RBC Morphology ABNORM (NORMAL); Segmented Neutrophils % 88 % (38-78)
[2020-01-15] MEDS: oxyCODONE HCL 5 MG TABLET PO PRN (07:27)
--- NOTE | 2020-01-15 07:28 | Internal Med Progress Note ---
Medical - PN: Subj Patient information: Note initiated : 01/15/20 at 7:24 am Service Date, if different from initiated Date: [] Patient: Izzy Everett a 80 y/o F admitted on 01/08/20 for Run Over By Horse Yesterday, Weak And Lethargic. Chief Complaint: [] Interval history: Ms. Everett is a 79 year old F fairly independently living alone and carries history of HTN/CHF and CAD who presents to the ER following injury sustained while she was attempting to braid her horse standing on a stool. She got thrown off the stool and landed on her hip and subsequently was trampled by the horse multiple times sustaining injuries across face chest and lower extremity. She was evaluated in the ER and after initial work-up was discharged in stable state. Following discharge within a few hours she became progressively weak confused and was unable to function. Sustained injuries after getting trampled by horse. She was evaluated and was discharged in stable state the day prior to admission. She however continued to deteriorate with increasing mental status change and worsening weakness fatigue and dizziness. During the second visit at [facility] ER work-up was consistent with severe sepsis with a white count 18.5 secondary to complicated UTI and right femoral neck fracture was discovered on imaging. Hospitalist/orthopedics service was consulte in light of above Blood cultures were drawn and antibiotics initiated. At the time of evaluation patient is alert but in significant pain. She is able to endorse history as above. Extensive bruising throughout the body noted. She is accompanied with her daughter. She denies chest pain, vision changes, unilateral weakness, incontinence 01/08-hemoglobin dropped from 9.9-6.8. Off anticoagulation. Increasing hematoma thighs around the fracture site. Likely extravasation. Surgery on board. However orthopedics of the opinion that they would want to wait for additional 24 hours until INR normalized. Patient off apixaban. White count down from 18. 5-13.4. On Rocephin. Creatinine improved to 1.7 from 2.6. Continue pain management. Generalized bruising 01/09 Pt does not have new complaints. She is mildly confused. WBC 13.6 today and 13.4 yesterday. Orth hold off surgery today due to leukocytosis. Urine culture showed positive for citrobacter, pending sensitivity Discussed with ID Dr. Whitmore, discontinued rocephin and started zosyn. not a candidate for levaquin due to QTC > 500 Repeat WBC in am 01/10 Pt does not have new complaints. She is more alert and awake. But she is still disorientated. Not more hematemesis. Hb 9.4 today. She received one unit of pRBC Urine culture sensitivity available. Discussed with ID Dr. Whitmore, continue zosyn today. We may change to oral nitrofurantoin in 2-3 days. WBC 14 today. Do not know why she still has leukocytosis. According to sensitivity, anabiotics is good for her citrobacter. Instructed RN to change coburn today. Repeat CT of head today - negative for acute change Orth Dr. Hughes will probably do a procedure for her today. Aspirin and anticoagulant are on hold. 01/11 The patient feels better. When I saw this patient, she was sitting on a chair. She underwent right hip hemiarthroplasty on 01/11/[address] Hughes. Pain is controlled. Hb 8.3 today. She received one unit of pRBC before surgery. So far she has received 4 units of pRBCs. WBC went down to 9.2. Creatinine 1.4. Repeat renal function in the morning 01/12 Pt does not have medical complaints. Denies fever/chills. Pain is controlled But WBC went up to 14.2 today, repeat wbc 15.8. Creatinine 1.5 Repeat HB 8.6 today. Repeat CXR - no new infiltrate. LA 3.8 today She is on zosyn for UTI. No evidence of new infection. Closely monitor. No discharge today. 01/13 Sitting up eating breakfast. Feeling better every day. Denies fever chills chest or abdominal pain. No coughing. Leukocytosis and increased today, no bandemia. Lactate noted to be elevated yesterday. pEnding follow-up. QTc 420 on ekg today. discussed with ID regarding leukocytosis. will get ct a/p w/o contrast. if unremarkable she could be treated with single dose of fosfomycin abx and f/u with PCP. afebrile, no bandemia, lactic acidosis resolved, PCT improved. does not appear toxic and feeling better overall. right LE warm/swollen/more tender especially posterior and lateral knee. doppler u/s negative for DVT. CT right leg no acute findings. called by nurse over concerns for stroke like symptoms of right side. The time I examined her she has symmetrical strength symmetrical face. She was slow to answer questions and follow commands sometimes I did ask her twice but she did answer appropriately and follow command appropriately. She had also recently had 10 mg of oxycodone. And was given a small dose 0.[address] brain stroke protocol was done which was unremarkable. I followed up with her after the stroke she was more alert no focal deficits. Labs done last night for the stroke showed an elevated white blood cell count. Added vancomycin given concerns for uncontrolled infection. Blood cultures are still pending from previous day. Other labs in improved, specifically renal function. 01/14 Patient states she slept well last night. States she is feeling better today. No complaints. No coughing shortness of breath. Review of Systems: denies headache/fever/chills/nausea/vomiting/chest or abdominal pain/cough/dyspnea/diarrhea. Otherwise see above. - Constitutional Vitals: Vital Signs Temp Pulse Resp BP Pulse Ox 98.6 F 72 20 123/55 98 01/15/20 03:39 01/15/20 03:39 01/15/20 03:39 01/15/20 03:39 01/15/20 03:39 Period Temp Pulse Resp BP Sys/Flood Pulse Ox Last 24 Hr 97.3 F-99.0 F 72-90 18-22 104-128/53-61 93-98 Intake and Output 01/14/20 01/15/20 01/15/20 21:59 05:59 13:59 Intake Total 600 220 50 Output Total 750 550 Balance -150 -330 50 Weight 71.668 kg Intake & Output: Intake & Output 01/14/20 01/15/20 01/15/20 21:59 05:59 13:59 Intake Total 600 220 50 Output Total 750 550 Balance -150 -330 50 Weight 71.668 kg Intake: IV 100 50 Zosyn 2.25 gm In Dextrose 5% in 100 50 Water 50 ml @ 100 mls/hr IV Q6H [facility] Rx#:[id number] Oral 600 120 Output: Urine Catheter Amount 650 550 Void Amount 100 Other: Meal Lunch Percent of Meal Consumed 30% Feeding Ability Assist with Tray Set Up Urine Appearance Clear Clear Uretheral (Coburn) Clear Urine Color Dark Yellow Dark Yellow Uretheral (Coburn) Dark Yellow Urine Odor Normal Normal Uretheral ([place]) Normal Stool Size Small Stool Color Brown Stool Consistency Soft # Bowel Movements 1 Exam: General: Alert, Awake, No acute Distress Eyes/N/T: EOMI, Head/Neck: neck supple, CV: irreg irreg, No murmurs, Pulm: clear anteriorly no rhonchi/wheezing Abd: soft, nontender, +BS x4 Ext: no clubbing/cyanosis, 2+ b/l LE edema, ecchymosis b/l LE's Neuro: Alert, no focal deficits, moves all extremities, Skin: warm/dry Medical - PN: Obj Da - Labs CBC & Chem 7: 01/15/20 05:20 01/15/20 05:55 Labs: Abnormal Lab Results 01/15/20 01/15/20 01/15/20 05:55 05:55 05:20 WBC 13.6 H RBC 2.50 L Hgb 7.4 L Hct 23.0 L RDW 16.1 H Lymph % (Auto) Gran # [place] # (Auto) Eos # (Auto) Seg Neutrophils % Lymphocytes % Metamyelocytes % Myelocytes % Nucleated RBCs RBC Morphology Polychromasia Hypochromasia Anisocytosis Ovalocytes PT 16.6 H INR 1.3 H APTT VBG Lactic Acid Sodium Carbon Dioxide BUN 25 H Creatinine Glucose 106 H Calcium 8.3 L Phosphorus 2.2 L Total Bilirubin 2.2 H Direct Bilirubin 1.1 H GGT Lactate Dehydrogenase Total Protein 5.2 L Albumin 2.6 L Albumin/Globulin Ratio Triglycerides 179 H 01/14/20 01/14/20 01/14/20 20:08 20:08 20:08 WBC 18.6 H RBC 2.61 L Hgb 7.8 L Hct 23.6 L RDW 16.2 H Lymph % (Auto) 8.3 L Gran # 14.32 H [place] # (Auto) 1.94 H Eos # (Auto) 0.79 H Seg Neutrophils % Lymphocytes % Metamyelocytes % Myelocytes % Nucleated RBCs RBC Morphology Polychromasia Hypochromasia Anisocytosis Ovalocytes PT 17.3 H INR 1.4 H APTT 39 H VBG Lactic Acid Sodium 131 L Carbon Dioxide 21 L BUN 27 H Creatinine Glucose 113 H Calcium 8.4 L Phosphorus Total Bilirubin Direct Bilirubin GGT Lactate Dehydrogenase Total Protein Albumin Albumin/Globulin Ratio Triglycerides 01/14/20 01/14/20 01/13/20 05:20 05:10 11:14 WBC 16.2 H RBC 2.61 L Hgb 7.6 L Hct 24.0 L RDW 16.2 H Lymph % (Auto) Gran # [place] # (Auto) Eos # (Auto) Seg Neutrophils % Lymphocytes % 8 L Metamyelocytes % 3 H Myelocytes % 1 H Nucleated RBCs RBC Morphology Abnorm A Polychromasia 2+ A Hypochromasia Anisocytosis 1+ A Ovalocytes PT INR APTT VBG Lactic Acid 3.8 H Sodium 127 L Carbon Dioxide 21 L BUN 30 H Creatinine 1.4 H Glucose Calcium 7.9 L Phosphorus 2.6 L Total Bilirubin 1.3 H Direct Bilirubin 0.6 H GGT 39 H Lactate Dehydrogenase 263 H Total Protein 4.8 L Albumin 2.3 L Albumin/Globulin Ratio 0.9 L Triglycerides 183 H 01/13/20 01/13/20 01/13/20 08:38 05:10 05:10 WBC 15.8 H 14.2 H RBC 2.88 L 2.57 L Hgb 8.6 L 7.6 L Hct 26.2 L 23.2 L RDW 16.0 H 15.9 H Lymph % (Auto) 11.5 L Gran # 11.75 H [place] # (Auto) 1.45 H Eos # (Auto) Seg Neutrophils % Lymphocytes % 13 L Metamyelocytes % 1 H Myelocytes % 1 H Nucleated RBCs 1 H RBC Morphology Abnorm A Polychromasia 1+ A Hypochromasia 1+ A Anisocytosis 1+ A Ovalocytes Few A PT INR APTT VBG Lactic Acid Sodium Carbon Dioxide BUN 32 H Creatinine 1.5 H Glucose 109 H Calcium 7.8 L Phosphorus 2.4 L Total Bilirubin 1.1 H Direct Bilirubin 0.5 H GGT Lactate Dehydrogenase Total Protein 4.6 L Albumin 2.3 L Albumin/Globulin Ratio Triglycerides 01/12/20 04:20 WBC RBC Hgb Hct RDW Lymph % (Auto) Gran # [place] # (Auto) Eos # (Auto) Seg Neutrophils % 87 H Lymphocytes % 4 L Metamyelocytes % Myelocytes % Nucleated RBCs RBC Morphology Abnorm A Polychromasia 1+ A Hypochromasia Anisocytosis 1+ A Ovalocytes PT INR APTT VBG Lactic Acid Sodium Carbon Dioxide BUN Creatinine Glucose Calcium Phosphorus Total Bilirubin Direct Bilirubin GGT Lactate Dehydrogenase Total Protein Albumin Albumin/Globulin Ratio Triglycerides Meds: Medications Acetaminophen (Tylenol) 1,000 mg PO Q8H [facility]; Protocol Last Admin: 01/15/20 05:55 Dose: Not Given Documented by: Amlodipine Besylate (Norvasc) 2.5 mg PO DAILY [facility] Last Admin: 01/14/20 09:18 Dose: 2.5 mg Documented by: Aspirin (Aspirin) 81 mg PO DAILY [facility] Docusate Sodium (Colace) 100 mg PO BID [facility] Last Admin: 01/14/20 21:41 Dose: Not Given Documented by: Ezetimibe (Zetia) 10 mg PO QDAY [facility] Last Admin: 01/14/20 09:17 Dose: 10 mg Documented by: Folic Acid (Folic Acid) 1 mg PO DAILY [facility] Last Admin: 01/14/20 09:18 Dose: 1 mg Documented by: Gabapentin (Neurontin) 300 mg PO [facility] Last Admin: 01/14/20 21:40 Dose: 300 mg Documented by: Hydralazine HCl (Apresoline) 10 mg IV Q4-6HP PRN PRN Reason: Hypertension Hydromorphone HCl (Dilaudid) 0.5 mg IV Q4HP PRN; Protocol PRN Reason: Per Pain Protocol Last Admin: 01/15/20 01:38 Dose: 0.5 mg Documented by: Potassium Chloride 40 meq/ (Dextrose) 520 mls @ 130 mls/hr IV UD PRN PRN Reason: K+ = or < 3.5 Magnesium Sulfate (Magnesium Sulfate) 2 gm in 50 mls @ 50 mls/hr IV UD PRN PRN Reason: MG = or < 1.7 Piperacillin Sod/Tazobactam (Sod 2.25 gm/ Dextrose) 50 mls @ 100 mls/hr IV Q6H [facility]; Protocol Last Infusion: 01/15/20 06:38 Dose: Infused Documented by: Vancomycin HCl 1,000 mg/ (Sodium Chloride) 250 mls @ 250 mls/hr IV Q24H [facility] Iron Carb/Multivit/Netting Weaver/Folic Acid (Multivitamin W/Minerals) 1 tab PO DAILY [facility] Last Admin: 01/14/20 09:17 Dose: 1 tab Documented by: Losartan Potassium (Cozaar) 100 mg PO QDAY [facility] Last Admin: 01/14/20 09:18 Dose: 100 mg Documented by: Melatonin (Melatonin 3mg Tablet) 3 mg PO HSP PRN PRN Reason: Insomnia Last Admin: 01/13/20 19:43 Dose: 3 mg Documented by: Melatonin (Melatonin 3mg Tablet) 3 mg PO QHS [facility] Last Admin: 01/14/20 21:40 Dose: 3 mg Documented by: Methocarbamol (Robaxin) 750 mg PO Q6HP PRN PRN Reason: Muscle Spasm Last Admin: 01/13/20 14:00 Dose: 750 mg Documented by: Metoprolol Succinate (Toprol Xl) 100 mg PO BID [facility] Last Admin: 01/14/20 21:40 Dose: 100 mg Documented by: Ondansetron HCl (Zofran Odt) 4 mg SL Q4-6HP PRN; Protocol PRN Reason: Nausea And Vomiting Oxycodone HCl (Roxicodone) 5 mg PO Q4HP PRN; Protocol PRN Reason: Per Pain Protocol Pantoprazole Sodium (Protonix) 40 mg IV BIDAC [facility] Last Admin: 01/14/20 21:39 Dose: 40 mg Documented by: Polyethylene Glycol (Miralax) 17 gm PO DAILYP PRN PRN Reason: Constipation Potassium Chloride (Klor-Con) 40 meq PO DAILYP PRN PRN Reason: K+ < 3.5 Rivaroxaban (Xarelto) 15 mg PO [facility] Senna (Senokot) 1 tab PO HS [facility] Last Admin: 01/14/20 21:41 Dose: Not Given Documented by: Sodium Chloride (Saline Flush) 10 ml IV Q8 [facility] Last Admin: 01/15/20 05:55 Dose: 10 ml Documented by: Sucralfate (Carafate) 1 gm PO Q6 [facility] Last Admin: 01/15/20 05:58 Dose: 1 gm Documented by: Thiamine HCl (Vitamin B1) 100 mg PO DAILY [facility] Last Admin: 01/14/20 09:18 Dose: 100 mg Documented by: Throat Lozenges (Cepacol) 1 lozenge PO PRN PRN PRN Reason: Sore Throat Vancomycin HCl (Vancomycin Per Pharmacy) 1 order IV [facility] [place]; Protocol Medical - PN: A/P - Time Spent With Patient Total time spent is greater than 50% in coordination of care (as documented) at patient's floor/unit and/or counseling patient: - Narrative A/P Narrative: Assessment: *Right femoral neck fracture s/p Trauma from Horse trampling w/significant b/l LE ecchymosis from thighs down : s/p ORIF (01/10) *Extensive contusion secondary injury. Continue pain management *Acute blood loss anemia secondary extravasation at fracture site & b/l LE contusions from hips down -s/p 4PRBC *Complicated UTI: Citrobacter positive -Sensitive to rocephin, zosyn and nitrofurantoin *Severe sepsis: 2/2 above with endorgan dysfunction including AMS/ARF. Clinically improved *Leukocytosis: better today, no bandemia. 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 Hughes for ortho. Pain is controlled. Postop management including pain control DVT prophylaxis by Orth team -cont zosyn, vanco added yesterday d/t increasing wbc. d/w with Dr. Whitmore - -cont home lasix, -IV lasix today for peripheral edema -cont ASA (held for bleeding) -cont toprol, clarify if taking coreg at home as well, Valsartan held for RACHEL -coburn, trial off coburn tomorrow and if fails then f/u with urology outpt -pt/ot -CM for SNF placement -ppx: Xarelto (held yesterday for for downtrending H&H/bleeding, restart today) Medical - PN: Qual - VTE Deep Vein Thrombosis/Pulmonary Embolism Present on Admission: No
[2020-01-15] MEDS ORDERED: FUROSEMIDE 40 MG/4 ML VIAL IV ONE (07:42)
[2020-01-15] MEDS ORDERED: ALBUMIN HUMAN 12.5 GM/50 ML BAG IV ONE (07:42)
--- NOTE | 2020-01-15 08:40 | Cat Scan Report ---
CLINICAL INFORMATION: Altered mental status. Recent closed head injury COMPARISON: Prior head CTs: 04/02/2014 and 01/11/2020 TECHNIQUE: 2.5 mm helical slices were obtained in the skull base to vertex. Following reconstruction, axial reformatted images were reviewed at bone and parenchymal windows. The exam was performed using radiation dose optimization techniques including, but not limited to, automated exposure control, adjustment of the mA and/or kV according to patient size and use of iterative reconstruction technique. FINDINGS: Enlargement of the ventricles, sulci, fissures, and cisterns, compatible with moderate age-related atrophy, is unchanged. Mild asymmetric ex vacuo enlargement of the frontal horn right lateral ventricle also demonstrates long-term stability. Patchy chronic ischemic changes in the deep cerebral white matter, expected for age, are stable. Moderate linear the entire left external capsule, smaller remote infarct of the right external capsule with a few remote lacunar infarcts throughout the remaining basal ganglia and deep white matter are again seen.. A 10 mm densely calcified meningioma, along the right tentorium, has been stable since 2013. There is no intracerebral hemorrhage, mass effect, edema or other posttraumatic change. Bone windows show no evidence of fracture. 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 10 mm densely calcified benign meningioma in the right tentorium - stable since 2013. No intracerebral hemorrhage or other acute posttraumatic change Interpreted and Authenticated by: Max Rg 01/15/20
[2020-01-15] MEDS: METOPROLOL SUCCINATE 50 MG TAB.XL.24H PO SCH ×2 (09:14→20:51)
[2020-01-15] MEDS: THIAMINE 100 MG TABLET PO SCH (09:14)
[2020-01-15] MEDS: LOSARTAN 50 MG TABLET PO SCH (09:14)
[2020-01-15] MEDS: MULTIVIT,THER IRON,CA,FA & MIN 1 TABLET PO SCH (09:15)
[2020-01-15] MEDS: amLODIPine 5 MG TABLET PO SCH (09:15)
[2020-01-15] MEDS: FOLIC ACID 1 MG TABLET PO SCH (09:15)
[2020-01-15] MEDS: EZETIMIBE 10 MG TABLET PO SCH (09:15)
[2020-01-15] MEDS: ASPIRIN 81 MG TAB.CHEW PO SCH (09:16)
[2020-01-15] MEDS: DOCUSATE SODIUM 100 MG CAPSULE PO SCH ×2 (09:16→20:51)
[2020-01-15] MEDS: RIVAROXABAN 15 MG TABLET PO SCH (09:23)
[2020-01-15] MEDS: PANTOPRAZOLE 40 MG VIAL IV SCH ×2 (09:25→16:09)
--- NOTE | 2020-01-15 09:57 | Cat Scan Report ---
CLINICAL INFORMATION: , Trauma COMPARISON: None. TECHNIQUE: 0.625 mm helical slices were obtained from the supra-acetabular region through the right hindfoot. Following reconstruction, 2.5 mm axial, sagittal and coronal reformatted images were processed and reviewed in bone and soft tissue windows. FINDINGS: A mildly comminuted, minimally displaced fracture through the right greater trochanter tip is appreciated. No other fractures of the right leg. The hip prostheses remains near-anatomic alignment without loosening or infection. No other osseous abnormality seen throughout the femur, tibia, fibula or hindfoot. 6 mm of medial femoral condyle anterior subluxation with respect to the medial tibial plateau may indicate ligament instability. There is moderate degenerative change in patellofemoral and tibiofemoral joints. The ankle mortise and talocalcaneal joints are unremarkable. There is a 5.6 cm hematoma in the subcutaneous fat overlying the medial tibiofemoral joint. Moderate edema is also noted in the right gluteal muscle and overlying subcutaneous fat which may were reflect recent postsurgical changes from hip replacement. Very small amount of gas is noted in the anterior compartment also likely postsurgical. IMPRESSION: 1. Comminuted, minimally displaced fracture right greater trochanter tip. This should be nonsurgical and likely insignificant, however, it does explain pain in this region 2. 5 cm hematoma in the subcutaneous fat overlying the medial tibiofemoral joint. There is mild edema seen throughout the subcutaneous soft tissues of the entire right leg. 3. Moderate patellofemoral and tibiofemoral degenerative change. 6 mm of anterior subluxation of the medial femoral condyle just the possibility of ligament instability. Please correlate with physical exam findings of tibiofemoral instability. Interpreted and Authenticated by: Max Rg 01/15/20
[2020-01-15] MEDS: VANCOMYCIN 1,000 MG in 0.9 % SODIUM CHLORIDE 250 ML IV SCH (14:25)
[2020-01-15] MEDS: GABAPENTIN 300 MG CAPSULE PO SCH (20:51)
[2020-01-15] MEDS: SENNOSIDES 1 TABLET PO SCH (20:51)
[2020-01-15] MEDS: MELATONIN 3 MG TABLET PO SCH (20:51)
[2020-01-16] MEDS: oxyCODONE HCL 5 MG TABLET PO PRN ×2 (01:44→21:27)
[2020-01-16] MEDS: PIPERACILLIN SODIUM/TAZOBACTAM 2.25 GM in DEXTROSE 5% IN WATER 50 ML IV SCH ×3 (05:57→17:35)
[2020-01-16] MEDS: 0.9 % SODIUM CHLORIDE 10 ML SYRINGE IV SCH ×3 (05:57→21:28)
[2020-01-16] MEDS: ACETAMINOPHEN 500 MG TABLET PO SCH ×3 (06:01→21:27)
[2020-01-16] MEDS: SUCRALFATE 1 GM/10 ML ORAL.SUSP PO SCH (06:01)
[2020-01-16 06:23] LABS: Hematocrit 22.5 % (34.1-44.9); Hemoglobin 7.1 g/dL (11.2-15.7); Mean Cell Volume 91.8 fL (80.0-100.0); Mean Corpuscular HGB Conc 31.6 g/dL (31.0-36.0); Mean Platelet Volume 9.8 fL (7.4-10.4); Platelet Count 242 K/mcL (140-440); RBC 2.45 M/mcL (3.59-5.38); Red Cell Distribution Width 16.5 % (11.5-14.5)
[2020-01-16 07:04] LABS: ALT/SGPT 14 U/l (0-40); AST/SGOT 30 U/l (0-37); Albumin 2.7 gm/dL (3.2-5.2); Albumin/Globulin Ratio 1.1 (1.0-2.3); Alkaline Phosphatase 63 U/L (39-117); Bilirubin,Direct 1.2 mg/dL (0.0-0.3); Bilirubin,Total 2.6 mg/dL (0.0-1.0); Blood Urea Nitrogen 23 mg/dl (8-23); Calcium 8.4 mg/dl (8.6-10.4); Carbon Dioxide 23 mmol/L (22-30); Chloride 99 mmol/L (96-108); Globulin 2.5 gm/dL (2.2-3.7); Glomerular Filtration Rate 47; Glucose 107 mg/dL (70-105); Lactate Dehydrogenase 255 U/L (94-250); Triglycerides 151 mg/dl (<150); Uric Acid 3.7 mg/dL (2.5-8.0)
[2020-01-16 07:16] LABS: Phosphorous 2.7 mg/dL (2.7-4.5)
--- NOTE | 2020-01-16 07:28 | Internal Med Progress Note ---
Medical - PN: Subj Patient information: Note initiated : 01/16/20 at 7:24 am Service Date, if different from initiated Date: [] Patient: Izzy Everett a 80 y/o F admitted on 01/08/20 for Run Over By Horse Yesterday, Weak And Lethargic. Chief Complaint: [] Interval history: Ms. Everett is a 79 year old F fairly independently living alone and carries history of HTN/CHF and CAD who presents to the ER following injury sustained while she was attempting to braid her horse standing on a stool. She got thrown off the stool and landed on her hip and subsequently was trampled by the horse multiple times sustaining injuries across face chest and lower extremity. She was evaluated in the ER and after initial work-up was discharged in stable state. Following discharge within a few hours she became progressively weak confused and was unable to function. Sustained injuries after getting trampled by horse. She was evaluated and was discharged in stable state the day prior to admission. She however continued to deteriorate with increasing mental status change and worsening weakness fatigue and dizziness. During the second visit at [facility] ER work-up was consistent with severe sepsis with a white count 18.5 secondary to complicated UTI and right femoral neck fracture was discovered on imaging. Hospitalist/orthopedics service was consulte in light of above Blood cultures were drawn and antibiotics initiated. At the time of evaluation patient is alert but in significant pain. She is able to endorse history as above. Extensive bruising throughout the body noted. She is accompanied with her daughter. She denies chest pain, vision changes, unilateral weakness, incontinence 01/08-hemoglobin dropped from 9.9-6.8. Off anticoagulation. Increasing hematoma thighs around the fracture site. Likely extravasation. Surgery on board. However orthopedics of the opinion that they would want to wait for additional 24 hours until INR normalized. Patient off apixaban. White count down from 18. 5-13.4. On Rocephin. Creatinine improved to 1.7 from 2.6. Continue pain management. Generalized bruising 01/09 Pt does not have new complaints. She is mildly confused. WBC 13.6 today and 13.4 yesterday. Orth hold off surgery today due to leukocytosis. Urine culture showed positive for citrobacter, pending sensitivity Discussed with ID Dr. Whitmore, discontinued rocephin and started zosyn. not a candidate for levaquin due to QTC > 500 Repeat WBC in am 01/10 Pt does not have new complaints. She is more alert and awake. But she is still disorientated. Not more hematemesis. Hb 9.4 today. She received one unit of pRBC Urine culture sensitivity available. Discussed with ID Dr. Whitmore, continue zosyn today. We may change to oral nitrofurantoin in 2-3 days. WBC 14 today. Do not know why she still has leukocytosis. According to sensitivity, anabiotics is good for her citrobacter. Instructed RN to change coburn today. Repeat CT of head today - negative for acute change Orth Dr. Hughes will probably do a procedure for her today. Aspirin and anticoagulant are on hold. 01/11 The patient feels better. When I saw this patient, she was sitting on a chair. She underwent right hip hemiarthroplasty on 01/11/[address] Hughes. Pain is controlled. Hb 8.3 today. She received one unit of pRBC before surgery. So far she has received 4 units of pRBCs. WBC went down to 9.2. Creatinine 1.4. Repeat renal function in the morning 01/12 Pt does not have medical complaints. Denies fever/chills. Pain is controlled But WBC went up to 14.2 today, repeat wbc 15.8. Creatinine 1.5 Repeat HB 8.6 today. Repeat CXR - no new infiltrate. LA 3.8 today She is on zosyn for UTI. No evidence of new infection. Closely monitor. No discharge today. 01/13 Sitting up eating breakfast. Feeling better every day. Denies fever chills chest or abdominal pain. No coughing. Leukocytosis and increased today, no bandemia. Lactate noted to be elevated yesterday. pEnding follow-up. QTc 420 on ekg today. discussed with ID regarding leukocytosis. will get ct a/p w/o contrast. if unremarkable she could be treated with single dose of fosfomycin abx and f/u with PCP. afebrile, no bandemia, lactic acidosis resolved, PCT improved. does not appear toxic and feeling better overall. right LE warm/swollen/more tender especially posterior and lateral knee. doppler u/s negative for DVT. CT right leg no acute findings. called by nurse over concerns for stroke like symptoms of right side. The time I examined her she has symmetrical strength symmetrical face. She was slow to answer questions and follow commands sometimes I did ask her twice but she did answer appropriately and follow command appropriately. She had also recently had 10 mg of oxycodone. And was given a small dose 0.[address] brain stroke protocol was done which was unremarkable. I followed up with her after the stroke she was more alert no focal deficits. Labs done last night for the stroke showed an elevated white blood cell count. Added vancomycin given concerns for uncontrolled infection. Blood cultures are still pending from previous day. Other labs in improved, specifically renal function. 01/14 Patient states she slept well last night. States she is feeling better today. No complaints. No coughing shortness of breath. 01/15 Slept well last night. Feeling little better every day. Denies fever chills coughing, she is a little shortness of breath, denies abdominal pain. H&H dropping slowly. Will repeat H&H this afternoon may need 1 more unit of blood. White blood cell count improved. Review of Systems: denies headache/fever/chills/nausea/vomiting/chest or abdominal pain/cough/dyspnea/diarrhea. Otherwise see above. - Constitutional Vitals: Vital Signs Temp Pulse Resp BP Pulse Ox 97.8 F 72 18 134/68 95 01/16/20 06:34 01/16/20 06:34 01/16/20 06:34 01/16/20 06:34 01/16/20 06:34 Period Temp Pulse Resp BP Sys/Flood Pulse Ox Last 24 Hr 97.5 F-98.5 F 67-85 18-20 111-144/53-68 93-96 Intake and Output 01/15/20 01/16/20 01/16/20 21:59 05:59 13:59 Intake Total 770 450 Output Total 2100 650 Balance -1330 -200 Weight 72.121 kg Intake & Output: Intake & Output 01/15/20 01/16/20 01/16/20 21:59 05:59 13:59 Intake Total 770 450 Output Total 2100 650 Balance -1330 -200 Weight 72.121 kg Intake: IV 350 50 Zosyn 2.25 gm In Dextrose 5% in 100 50 Water 50 ml @ 100 mls/hr IV Q6H [facility] Rx#:[id number] Vancomycin 1,000 mg In Sodium 250 Chloride 0.9% 250 ml @ 250 mls/ hr IV Q24H [facility] Rx#:[id number] Oral 420 400 Output: Urine Catheter Amount 2100 650 Other: Meal Dinner Percent of Meal Consumed 25% Feeding Ability Assist with Tray Set Up Urine Appearance Clear Clear Uretheral ([place]) Clear Urine Color Dark Yellow Dark Yellow Uretheral ([place]) Dark Yellow Urine Odor Normal Normal Exam: General: Alert, Awake, No acute Distress Eyes/N/T: EOMI, Head/Neck: neck supple, CV: irreg irreg, No murmurs, Pulm: clear anteriorly no rhonchi/wheezing Abd: soft, minimal TTP epigastrum, +BS x4 Ext: no clubbing/cyanosis, 2+ b/l LE edema, ecchymosis b/l LE's Neuro: Alert, no focal deficits, moves all extremities, Skin: warm/dry Medical - PN: Obj Da - Labs CBC & Chem 7: 01/16/20 05:25 01/16/20 05:25 Labs: Abnormal Lab Results 01/16/20 01/16/20 01/15/20 05:25 05:25 05:55 WBC 12.0 H RBC 2.45 L Hgb 7.1 L Hct 22.5 L RDW 16.5 H Lymph % (Auto) Gran # [place] # (Auto) Eos # (Auto) Seg Neutrophils % Lymphocytes % Metamyelocytes % Myelocytes % Nucleated RBCs RBC Morphology Polychromasia Hypochromasia Anisocytosis Ovalocytes PT 16.6 H INR 1.3 H APTT VBG Lactic Acid Sodium Carbon Dioxide BUN Creatinine Glucose 107 H Calcium 8.4 L Phosphorus Total Bilirubin 2.6 H Direct Bilirubin 1.2 H GGT 46 H Lactate Dehydrogenase 255 H Total Protein 5.2 L Albumin 2.7 L Albumin/Globulin Ratio Triglycerides 151 H 01/15/20 01/15/20 01/14/20 05:55 05:20 20:08 WBC 13.6 H RBC 2.50 L Hgb 7.4 L Hct 23.0 L RDW 16.1 H Lymph % (Auto) Gran # [place] # (Auto) Eos # (Auto) Seg Neutrophils % 88 H Lymphocytes % 4 L Metamyelocytes % Myelocytes % Nucleated RBCs RBC Morphology Abnorm A Polychromasia 1+ A Hypochromasia Anisocytosis 2+ A Ovalocytes Few A PT INR APTT VBG Lactic Acid Sodium 131 L Carbon Dioxide 21 L BUN 25 H 27 H Creatinine Glucose 106 H 113 H Calcium 8.3 L 8.4 L Phosphorus 2.2 L Total Bilirubin 2.2 H Direct Bilirubin 1.1 H GGT Lactate Dehydrogenase Total Protein 5.2 L Albumin 2.6 L Albumin/Globulin Ratio Triglycerides 179 H 01/14/20 01/14/20 01/14/20 20:08 20:08 05:20 WBC 18.6 H RBC 2.61 L Hgb 7.8 L Hct 23.6 L RDW 16.2 H Lymph % (Auto) 8.3 L Gran # 14.32 H [place] # (Auto) 1.94 H Eos # (Auto) 0.79 H Seg Neutrophils % Lymphocytes % Metamyelocytes % Myelocytes % Nucleated RBCs RBC Morphology Polychromasia Hypochromasia Anisocytosis Ovalocytes PT 17.3 H INR 1.4 H APTT 39 H VBG Lactic Acid Sodium 127 L Carbon Dioxide 21 L BUN 30 H Creatinine 1.4 H Glucose Calcium 7.9 L Phosphorus 2.6 L Total Bilirubin 1.3 H Direct Bilirubin 0.6 H GGT 39 H Lactate Dehydrogenase 263 H Total Protein 4.8 L Albumin 2.3 L Albumin/Globulin Ratio 0.9 L Triglycerides 183 H 01/14/20 01/13/20 01/13/20 05:10 11:14 08:38 WBC 16.2 H 15.8 H RBC 2.61 L 2.88 L Hgb 7.6 L 8.6 L Hct 24.0 L 26.2 L RDW 16.2 H 16.0 H Lymph % (Auto) 11.5 L Gran # 11.75 H [place] # (Auto) 1.45 H Eos # (Auto) Seg Neutrophils % Lymphocytes % 8 L Metamyelocytes % 3 H Myelocytes % 1 H Nucleated RBCs RBC Morphology Abnorm A Polychromasia 2+ A Hypochromasia Anisocytosis 1+ A Ovalocytes PT INR APTT VBG Lactic Acid 3.8 H Sodium Carbon Dioxide BUN Creatinine Glucose Calcium Phosphorus Total Bilirubin Direct Bilirubin GGT Lactate Dehydrogenase Total Protein Albumin Albumin/Globulin Ratio Triglycerides 01/13/20 01/13/20 05:10 05:10 WBC RBC Hgb Hct RDW Lymph % (Auto) Gran # [place] # (Auto) Eos # (Auto) Seg Neutrophils % Lymphocytes % 13 L Metamyelocytes % 1 H Myelocytes % 1 H Nucleated RBCs 1 H RBC Morphology Abnorm A Polychromasia 1+ A Hypochromasia 1+ A Anisocytosis 1+ A Ovalocytes Few A PT INR APTT VBG Lactic Acid Sodium Carbon Dioxide BUN 32 H Creatinine Glucose Calcium Phosphorus 2.4 L Total Bilirubin Direct Bilirubin 0.5 H GGT Lactate Dehydrogenase Total Protein Albumin Albumin/Globulin Ratio Triglycerides Meds: Medications Acetaminophen (Tylenol) 1,000 mg PO Q8H [facility]; Protocol Last Admin: 01/16/20 06:01 Dose: 1,000 mg Documented by: Amlodipine Besylate (Norvasc) 2.5 mg PO DAILY [facility] Last Admin: 01/15/20 09:15 Dose: 2.5 mg Documented by: Aspirin (Aspirin) 81 mg PO DAILY [facility] Last Admin: 01/15/20 09:16 Dose: 81 mg Documented by: Docusate Sodium (Colace) 100 mg PO BID [facility] Last Admin: 01/15/20 20:51 Dose: Not Given Documented by: Ezetimibe (Zetia) 10 mg PO QDAY [facility] Last Admin: 01/15/20 09:15 Dose: 10 mg Documented by: Folic Acid (Folic Acid) 1 mg PO DAILY [facility] Last Admin: 01/15/20 09:15 Dose: 1 mg Documented by: Gabapentin (Neurontin) [address] [facility] Last Admin: 01/15/20 20:51 Dose: 300 mg Documented by: Hydralazine HCl (Apresoline) 10 mg IV Q4-6HP PRN PRN Reason: Hypertension Hydromorphone HCl (Dilaudid) 0.5 mg IV Q4HP PRN; Protocol PRN Reason: Per Pain Protocol Last Admin: 01/15/20 10:04 Dose: 0.5 mg Documented by: Potassium Chloride 40 meq/ (Dextrose) 520 mls @ 130 mls/hr IV UD PRN PRN Reason: K+ = or < 3.5 Magnesium Sulfate (Magnesium Sulfate) 2 gm in 50 mls @ 50 mls/hr IV UD PRN PRN Reason: MG = or < 1.7 Piperacillin Sod/Tazobactam (Sod 2.25 gm/ Dextrose) 50 mls @ 100 mls/hr IV Q6H [facility]; Protocol Last Admin: 04/03/20 05:57 Dose: 100 mls/hr Documented by: Vancomycin HCl 1,000 mg/ (Sodium Chloride) 250 mls @ 250 mls/hr IV Q24H [facility] Last Infusion: 01/15/20 16:08 Dose: Infused Documented by: Iron Carb/Multivit/Cross Anchor/Folic Acid (Multivitamin W/Minerals) 1 tab PO DAILY [facility] Last Admin: 01/15/20 09:15 Dose: 1 tab Documented by: Losartan Potassium (Cozaar) 100 mg PO QDAY [facility] Last Admin: 01/15/20 09:14 Dose: 100 mg Documented by: Melatonin (Melatonin 3mg Tablet) 3 mg PO HSP PRN PRN Reason: Insomnia Last Admin: 01/13/20 19:43 Dose: 3 mg Documented by: Melatonin (Melatonin 3mg Tablet) 3 mg PO QHS [facility] Last Admin: 01/15/20 20:51 Dose: 3 mg Documented by: Methocarbamol (Robaxin) 750 mg PO Q6HP PRN PRN Reason: Muscle Spasm Last Admin: 01/13/20 14:00 Dose: 750 mg Documented by: Metoprolol Succinate (Toprol Xl) 100 mg PO BID [facility] Last Admin: 01/15/20 20:51 Dose: 100 mg Documented by: Ondansetron HCl (Zofran Odt) 4 mg SL Q4-6HP PRN; Protocol PRN Reason: Nausea And Vomiting Oxycodone HCl (Roxicodone) 5 mg PO Q4HP PRN; Protocol PRN Reason: Per Pain Protocol Last Admin: 01/16/20 01:44 Dose: 5 mg Documented by: Pantoprazole Sodium (Protonix) 40 mg IV BIDAC [facility] Last Admin: 01/15/20 16:09 Dose: 40 mg Documented by: Polyethylene Glycol (Miralax) 17 gm PO DAILYP PRN PRN Reason: Constipation Potassium Chloride (Klor-Con) 40 meq PO DAILYP PRN PRN Reason: K+ < 3.5 Rivaroxaban (Xarelto) 15 mg PO QAMCC [facility] Last Admin: 01/15/20 09:23 Dose: 15 mg Documented by: Senna (Senokot) 1 tab PO HS [facility] Last Admin: 01/15/20 20:51 Dose: Not Given Documented by: Sodium Chloride (Saline Flush) 10 ml IV Q8 [facility] Last Admin: 01/16/20 05:57 Dose: 10 ml Documented by: Sucralfate (Carafate) 1 gm PO Q6 [facility] Last Admin: 01/16/20 06:01 Dose: 1 gm Documented by: Thiamine HCl (Vitamin B1) 100 mg PO DAILY [facility] Last Admin: 01/15/20 09:14 Dose: 100 mg Documented by: Throat Lozenges (Cepacol) 1 lozenge PO PRN PRN PRN Reason: Sore Throat Vancomycin HCl (Vancomycin Per Pharmacy) 1 order IV UD [facility]; Protocol Medical - PN: A/P - Time Spent With Patient Total time spent is greater than 50% in coordination of care (as documented) at patient's floor/unit and/or counseling patient: - Narrative A/P Narrative: Assessment: *Right femoral neck fracture s/p Trauma from Horse trampling w/significant b/l L E ecchymosis from thighs down : s/p ORIF (01/10) *Extensive contusion secondary injury. Continue pain management *Acute blood loss anemia secondary extravasation at fracture site & b/l LE contusions from hips down -s/p 4PRBC *Complicated UTI: Citrobacter positive -Sensitive to rocephin, zosyn and nitrofurantoin *Severe sepsis: 2/2 above with endorgan dysfunction including AMS/ARF. Clinically improved *Leukocytosis: continues to improve, no bandemia. 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 Hughes for ortho. -co zosyn, vanco added 4/2 d/t increasing wbc. Deescalate -monitor H&H, may need 1 more unit -cont home lasix, -IV lasix again today for peripheral edema -cont ASA (held for bleeding/bruising) -cont toprol/Losartan; clarify if taking coreg at home as well, -coburn, trial off ocburn prior to d/c and if fails then f/u with urology outpt -pt/ot -CM for SNF placement -ppx: Xarelto Medical - PN: Qual - VTE Deep Vein Thrombosis/Pulmonary Embolism Present on Admission: No
[2020-01-16] MEDS: PANTOPRAZOLE 40 MG VIAL IV SCH (07:31)
[2020-01-16 07:36] LABS: Anisocytosis 1+ (NONE SEEN); Band Neutrophils % 1 % (0-10); Eosinophils % (Manual) 5 % (0-7); Lymphocytes % 8 % (15-49); Monocytes % (Manual) 11 % (1-12); Myelocytes % 2 % (0-0); Platelet Estimate NORMAL (NORMAL); Polychromasia FEW (NONE SEEN); RBC Morphology ABNORM (NORMAL); Segmented Neutrophils % 73 % (38-78)
[2020-01-16] MEDS: MULTIVIT,THER IRON,CA,FA & MIN 1 TABLET PO SCH (09:17)
[2020-01-16] MEDS: RIVAROXABAN 15 MG TABLET PO SCH (09:18)
[2020-01-16] MEDS: METOPROLOL SUCCINATE 50 MG TAB.XL.24H PO SCH (09:18)
[2020-01-16] MEDS: EZETIMIBE 10 MG TABLET PO SCH (09:23)
[2020-01-16] MEDS: LOSARTAN 50 MG TABLET PO SCH (09:23)
[2020-01-16] MEDS: amLODIPine 5 MG TABLET PO SCH (09:25)
[2020-01-16] MEDS: FOLIC ACID 1 MG TABLET PO SCH (09:27)
[2020-01-16] MEDS: THIAMINE 100 MG TABLET PO SCH (09:27)
[2020-01-16] MEDS: ASPIRIN 81 MG TAB.CHEW PO SCH (09:27)
[2020-01-16] MEDS: DOCUSATE SODIUM 100 MG CAPSULE PO SCH (09:29)
[2020-01-16] MEDS ORDERED: FUROSEMIDE 40 MG/4 ML VIAL IV ONE (11:05)
[2020-01-16] MEDS ORDERED: ALBUMIN HUMAN 12.5 GM/50 ML BAG IV ONE (11:05)
[2020-01-16] MEDS: VANCOMYCIN 1,000 MG in 0.9 % SODIUM CHLORIDE 250 ML IV SCH (14:32)
[2020-01-16 16:23] LABS: Hematocrit 21.1 % (34.1-44.9); Hemoglobin 6.9 g/dL (11.2-15.7)
[2020-01-16] MEDS ORDERED: FUROSEMIDE 20 MG/2 ML VIAL IV ONE (16:27)
[2020-01-16] MEDS ORDERED: 0.9 % SODIUM CHLORIDE 250 ML IV SCH (16:30)
[2020-01-16] MEDS: CARVEDILOL 12.5 MG TABLET PO SCH (17:35)
[2020-01-16] MEDS: MELATONIN 3 MG TABLET PO SCH (21:27)
[2020-01-16] MEDS: GABAPENTIN 300 MG CAPSULE PO SCH (21:27)
[2020-01-16] MEDS: SENNOSIDES 1 TABLET PO SCH (21:28)
[2020-01-16] MEDS: METHOCARBAMOL 750 MG TABLET PO PRN (21:28)
[2020-01-17] MEDS: PIPERACILLIN SODIUM/TAZOBACTAM 2.25 GM in DEXTROSE 5% IN WATER 50 ML IV SCH ×2 (00:02→06:01)
[2020-01-17] MEDS: METHOCARBAMOL 750 MG TABLET PO PRN (05:07)
[2020-01-17] MEDS: oxyCODONE HCL 5 MG TABLET PO PRN ×3 (05:07→17:35)
[2020-01-17] MEDS: 0.9 % SODIUM CHLORIDE 10 ML SYRINGE IV SCH ×3 (06:01→21:52)
[2020-01-17] MEDS: ACETAMINOPHEN 500 MG TABLET PO SCH ×3 (06:02→21:52)
[2020-01-17 06:53] LABS: Basophils # (Auto) 0.03 K/mcL (0.00-0.30); Basophils % (Auto) 0.3 % (0.0-2.0); Eosinophils # (Auto) 0.51 K/mcL (0.00-0.70); Eosinophils % (Auto) 5.3 % (0.0-7.0); Granulocytes % (Auto) 72.3 % (38.0-78.0); Hematocrit 25.1 % (34.1-44.9); Lymphocytes # (Auto) 1.09 K/mcL (1.50-4.80); Lymphocytes % (Auto) 11.3 % (15.5-49.0); Mean Cell Volume 91.6 fL (80.0-100.0); Mean Corpuscular HGB Conc 31.9 g/dL (31.0-36.0); Mean Platelet Volume 9.7 fL (7.4-10.4); Monocytes # (Auto) 1.04 K/mcL (0.10-0.90); Monocytes % (Auto) 10.8 % (1.0-12.0); Platelet Count 255 K/mcL (140-440); RBC 2.74 M/mcL (3.59-5.38); Red Cell Distribution Width 16.4 % (11.5-14.5); WBC 9.6 K/mcL (4.50-11.00)
[2020-01-17 07:10] LABS: ALT/SGPT 14 U/l (0-40); AST/SGOT 24 U/l (0-37); Albumin 2.8 gm/dL (3.2-5.2); Albumin/Globulin Ratio 1.2 (1.0-2.3); Alkaline Phosphatase 61 U/L (39-117); Bilirubin,Direct 1.1 mg/dL (0.0-0.3); Bilirubin,Total 2.9 mg/dL (0.0-1.0); Blood Urea Nitrogen 24 mg/dl (8-23); Calcium 8.2 mg/dl (8.6-10.4); Carbon Dioxide 23 mmol/L (22-30); Chloride 99 mmol/L (96-108); Globulin 2.4 gm/dL (2.2-3.7); Glomerular Filtration Rate 42; Glucose 94 mg/dL (70-105); Lactate Dehydrogenase 259 U/L (94-250); Phosphorous 2.8 mg/dL (2.7-4.5); Triglycerides 120 mg/dl (<150); Uric Acid 3.5 mg/dL (2.5-8.0)
--- NOTE | 2020-01-17 07:53 | Internal Med Progress Note ---
Medical - PN: Subj Patient information: Note initiated : 01/17/20 at 7:47 am Service Date, if different from initiated Date: [] Patient: Izzy Everett a 80 y/o F admitted on 01/08/20 for Run Over By Horse Yesterday, Weak And Lethargic. Chief Complaint: [] Interval history: Ms. Everett is a 79 year old F fairly independently living alone and carries history of HTN/CHF and CAD who presents to the ER following injury sustained while she was attempting to braid her horse standing on a stool. She got thrown off the stool and landed on her hip and subsequently was trampled by the horse multiple times sustaining injuries across face chest and lower extremity. She was evaluated in the ER and after initial work-up was discharged in stable state. Following discharge within a few hours she became progressively weak confused and was unable to function. Sustained injuries after getting trampled by horse. She was evaluated and was discharged in stable state the day prior to admission. She however continued to deteriorate with increasing mental status change and worsening weakness fatigue and dizziness. During the second visit at [facility] ER work-up was consistent with severe sepsis with a white count 18.5 secondary to complicated UTI and right femoral neck fracture was discovered on imaging. Hospitalist/orthopedics service was consulte in light of above Blood cultures were drawn and antibiotics initiated. At the time of evaluation patient is alert but in significant pain. She is able to endorse history as above. Extensive bruising throughout the body noted. She is accompanied with her daughter. She denies chest pain, vision changes, unilateral weakness, incontinence 01/08-hemoglobin dropped from 9.9-6.8. Off anticoagulation. Increasing hematoma thighs around the fracture site. Likely extravasation. Surgery on board. However orthopedics of the opinion that they would want to wait for additional 24 hours until INR normalized. Patient off apixaban. White count down from 18. 5-13.4. On Rocephin. Creatinine improved to 1.7 from 2.6. Continue pain management. Generalized bruising 01/09 Pt does not have new complaints. She is mildly confused. WBC 13.6 today and 13.4 yesterday. Orth hold off surgery today due to leukocytosis. Urine culture showed positive for citrobacter, pending sensitivity Discussed with ID Dr. Whitmore, discontinued rocephin and started zosyn. not a candidate for levaquin due to QTC > 500 Repeat WBC in am 01/10 Pt does not have new complaints. She is more alert and awake. But she is still disorientated. Not more hematemesis. Hb 9.4 today. She received one unit of pRBC Urine culture sensitivity available. Discussed with ID Dr. Whitmore, continue zosyn today. We may change to oral nitrofurantoin in 2-3 days. WBC 14 today. Do not know why she still has leukocytosis. According to sensitivity, anabiotics is good for her citrobacter. Instructed RN to change coburn today. Repeat CT of head today - negative for acute change Orth Dr. Hughes will probably do a procedure for her today. Aspirin and anticoagulant are on hold. 01/11 The patient feels better. When I saw this patient, she was sitting on a chair. She underwent right hip hemiarthroplasty on 01/11/[address] Hughes. Pain is controlled. Hb 8.3 today. She received one unit of pRBC before surgery. So far she has received 4 units of pRBCs. WBC went down to 9.2. Creatinine 1.4. Repeat renal function in the morning 01/12 Pt does not have medical complaints. Denies fever/chills. Pain is controlled But WBC went up to 14.2 today, repeat wbc 15.8. Creatinine 1.5 Repeat HB 8.6 today. Repeat CXR - no new infiltrate. LA 3.8 today She is on zosyn for UTI. No evidence of new infection. Closely monitor. No discharge today. 01/13 Sitting up eating breakfast. Feeling better every day. Denies fever chills chest or abdominal pain. No coughing. Leukocytosis and increased today, no bandemia. Lactate noted to be elevated yesterday. pEnding follow-up. QTc 420 on ekg today. discussed with ID regarding leukocytosis. will get ct a/p w/o contrast. if unremarkable she could be treated with single dose of fosfomycin abx and f/u with PCP. afebrile, no bandemia, lactic acidosis resolved, PCT improved. does not appear toxic and feeling better overall. right LE warm/swollen/more tender especially posterior and lateral knee. doppler u/s negative for DVT. CT right leg no acute findings. called by nurse over concerns for stroke like symptoms of right side. The time I examined her she has symmetrical strength symmetrical face. She was slow to answer questions and follow commands sometimes I did ask her twice but she did answer appropriately and follow command appropriately. She had also recently had 10 mg of oxycodone. And was given a small dose 0.[address] brain stroke protocol was done which was unremarkable. I followed up with her after the stroke she was more alert no focal deficits. Labs done last night for the stroke showed an elevated white blood cell count. Added vancomycin given concerns for uncontrolled infection. Blood cultures are still pending from previous day. Other labs in improved, specifically renal function. 01/14 Patient states she slept well last night. States she is feeling better today. No complaints. No coughing shortness of breath. 01/15 Slept well last night. Feeling little better every day. Denies fever chills coughing, she is a little shortness of breath, denies abdominal pain. H&H dropping slowly. Will repeat H&H this afternoon may need 1 more unit of blood. White blood cell count improved. Medication clarification: Unable to verify her home list which currently list carvedilol and metoprolol. It is confirmed that her metoprolol was discontinued almost a year ago and she is only supposed to be on carvedilol 12.5 mg twice daily. 01/16 Slept all right. She continues to feel better each day now. White blood cell count was normal. Afebrile. Did get 1 unit of blood yesterday with appropriate response. Denies diarrhea. Placed to [employer] stocking on her right leg finally as she would not tolerate and is helping with her edema. Review of Systems: denies headache/fever/chills/nausea/vomiting/chest or abdominal pain/cough/dyspnea. Otherwise see above. - Constitutional Vitals: Vital Signs Temp Pulse Resp BP Pulse Ox 98.1 F 70 20 115/63 94 01/17/20 07:24 01/17/20 04:00 01/17/20 07:24 01/17/20 07:24 01/17/20 07:24 Period Temp Pulse Resp BP Sys/Flood Pulse Ox Last 24 Hr 97.2 F-99.1 F 63-76 16-20 105-136/54-63 94-99 Intake and Output 01/16/20 01/17/20 01/17/20 21:59 05:59 13:59 Intake Total 625 350 50 Output Total 1375 650 Balance -750 -300 50 Weight 71.668 kg Intake & Output: Intake & Output 01/16/20 01/17/20 01/17/20 21:59 05:59 13:59 Intake Total 625 350 50 Output Total 1375 650 Balance -750 -300 50 Weight 71.668 kg Intake: IV 300 50 50 Zosyn 2.25 gm In Dextrose 5% in 50 50 50 Water 50 ml @ 100 mls/hr IV Q6H DEVORAH Rx#:[id number] Vancomycin 1,000 mg In Sodium 250 Chloride 0.9% 250 ml @ 250 mls/ hr IV Q24H DEVORAH Rx#:[id number] Oral 300 Blood Product 325 Output: Urine Catheter Amount 1375 650 Other: Urine Appearance Clear Clear Uretheral ([place]) Clear Urine Color Bright Yellow Bright Yellow Uretheral ([place]) Bright Yellow Urine Odor Normal Normal Uretheral ([place]) Normal Stool Size Small Small Stool Color Brown Brown Stool Consistency Soft Loose # of times incontinent of 1 1 Bowels Exam: General: Alert, Awake, No acute Distress Eyes/N/T: EOMI, Head/Neck: neck supple, CV: irreg irreg, No murmurs, Pulm: subtle rales left base, otherwise clear, no wheezing Abd: soft, minimal TTP epigastrum, +BS x4 Ext: no clubbing/cyanosis, 2+ b/l LE edema, ecchymosis b/l LE's Neuro: Alert, no focal deficits, moves all extremities, Skin: warm/dry Medical - PN: Obj Da - Labs CBC & Chem 7: 01/17/20 05:05 01/17/20 05:05 Labs: Abnormal Lab Results 01/17/20 01/17/20 01/16/20 05:05 05:05 15:23 WBC RBC 2.74 L Hgb 8.0 L 6.9 L* Hct 25.1 L 21.1 L RDW 16.4 H Lymph % (Auto) 11.3 L Gran # Lymph # (Auto) 1.09 L Valencia # (Auto) 1.04 H Eos # (Auto) Seg Neutrophils % Lymphocytes % Metamyelocytes % Myelocytes % RBC Morphology Polychromasia Anisocytosis Ovalocytes PT INR APTT Sodium Carbon Dioxide BUN 24 H Creatinine 1.2 H Glucose Calcium 8.2 L Phosphorus Total Bilirubin 2.9 H Direct Bilirubin 1.1 H GGT 44 H Lactate Dehydrogenase 259 H Total Protein 5.2 L Albumin 2.8 L Triglycerides 01/16/20 01/16/20 01/15/20 05:25 05:25 05:55 WBC 12.0 H RBC 2.45 L Hgb 7.1 L Hct 22.5 L RDW 16.5 H Lymph % (Auto) Gran # Lymph # (Auto) Valencia # (Auto) Eos # (Auto) Seg Neutrophils % Lymphocytes % 8 L Metamyelocytes % Myelocytes % 2 H RBC Morphology Abnorm A Polychromasia Few A Anisocytosis 1+ A Ovalocytes PT 16.6 H INR 1.3 H APTT Sodium Carbon Dioxide BUN Creatinine Glucose 107 H Calcium 8.4 L Phosphorus Total Bilirubin 2.6 H Direct Bilirubin 1.2 H GGT 46 H Lactate Dehydrogenase 255 H Total Protein 5.2 L Albumin 2.7 L Triglycerides 151 H 01/15/20 01/15/20 01/14/20 05:55 05:20 20:08 WBC 13.6 H RBC 2.50 L Hgb 7.4 L Hct 23.0 L RDW 16.1 H Lymph % (Auto) Gran # Lymph # (Auto) Valencia # (Auto) Eos # (Auto) Seg Neutrophils % 88 H Lymphocytes % 4 L Metamyelocytes % Myelocytes % RBC Morphology Abnorm A Polychromasia 1+ A Anisocytosis 2+ A Ovalocytes Few A PT INR APTT Sodium 131 L Carbon Dioxide 21 L BUN 25 H 27 H Creatinine Glucose 106 H 113 H Calcium 8.3 L 8.4 L Phosphorus 2.2 L Total Bilirubin 2.2 H Direct Bilirubin 1.1 H GGT Lactate Dehydrogenase Total Protein 5.2 L Albumin 2.6 L Triglycerides 179 H 01/14/20 01/14/20 01/14/20 20:08 20:08 05:10 WBC 18.6 H RBC 2.61 L Hgb 7.8 L Hct 23.6 L RDW 16.2 H Lymph % (Auto) 8.3 L Gran # 14.32 H Lymph # (Auto) Valencia # (Auto) 1.94 H Eos # (Auto) 0.79 H Seg Neutrophils % Lymphocytes % 8 L Metamyelocytes % 3 H Myelocytes % 1 H RBC Morphology Abnorm A Polychromasia 2+ A Anisocytosis 1+ A Ovalocytes PT 17.3 H INR 1.4 H APTT 39 H Sodium Carbon Dioxide BUN Creatinine Glucose Calcium Phosphorus Total Bilirubin Direct Bilirubin GGT Lactate Dehydrogenase Total Protein Albumin Triglycerides Meds: Medications Acetaminophen (Tylenol) 1,000 mg PO Q8H [facility]; Protocol Last Admin: 01/17/20 06:02 Dose: 1,000 mg Documented by: Amlodipine Besylate (Norvasc) 2.5 mg PO DAILY [facility] Last Admin: 01/16/20 09:25 Dose: 2.5 mg Documented by: Carvedilol (Coreg) 12.5 mg PO BIDCC [facility] Last Admin: 01/16/20 17:35 Dose: 12.5 mg Documented by: Ezetimibe (Zetia) 10 mg PO QDAY [facility] Last Admin: 01/16/20 09:23 Dose: 10 mg Documented by: Folic Acid (Folic Acid) 1 mg PO DAILY [facility] Last Admin: 01/16/20 09:27 Dose: 1 mg Documented by: Gabapentin (Neurontin) 300 mg PO HS [facility] Last Admin: 01/16/20 21:27 Dose: 300 mg Documented by: Hydralazine HCl (Apresoline) 10 mg IV Q4-6HP PRN PRN Reason: Hypertension Hydromorphone HCl (Dilaudid) 0.5 mg IV Q4HP PRN; Protocol PRN Reason: Per Pain Protocol Last Admin: 01/15/20 10:04 Dose: 0.5 mg Documented by: Potassium Chloride 40 meq/ (Dextrose) 520 mls @ 130 mls/hr IV UD PRN PRN Reason: K+ = or < 3.5 Magnesium Sulfate (Magnesium Sulfate) 2 gm in 50 mls @ 50 mls/hr IV UD PRN PRN Reason: MG = or < 1.7 Piperacillin Sod/Tazobactam (Sod 2.25 gm/ Dextrose) 50 mls @ 100 mls/hr IV Q6H [facility]; Protocol Last Infusion: 01/17/20 06:50 Dose: Infused Documented by: Vancomycin HCl 1,000 mg/ (Sodium Chloride) 250 mls @ 250 mls/hr IV Q24H [facility] Last Infusion: 01/16/20 15:32 Dose: Infused Documented by: Iron Carb/Multivit/[place]/Folic Acid (Multivitamin W/Minerals) 1 tab PO DAILY [facility] Last Admin: 01/16/20 09:17 Dose: 1 tab Documented by: Losartan Potassium (Cozaar) 100 mg PO QDAY [facility] Last Admin: 01/16/20 09:23 Dose: 100 mg Documented by: Melatonin (Melatonin 3mg Tablet) 3 mg PO HSP PRN PRN Reason: Insomnia Last Admin: 01/13/20 19:43 Dose: 3 mg Documented by: Melatonin (Melatonin 3mg Tablet) 3 mg PO QHS [facility] Last Admin: 01/16/20 21:27 Dose: 3 mg Documented by: Methocarbamol (Robaxin) 750 mg PO Q6HP PRN PRN Reason: Muscle Spasm Last Admin: 01/17/20 05:07 Dose: 750 mg Documented by: Ondansetron HCl (Zofran Odt) 4 mg SL Q4-6HP PRN; Protocol PRN Reason: Nausea And Vomiting Oxycodone HCl (Roxicodone) 5 mg PO Q4HP PRN; Protocol PRN Reason: Per Pain Protocol Last Admin: 01/17/20 05:07 Dose: 5 mg Documented by: Pantoprazole Sodium (Protonix) [address] [facility] Potassium Chloride (Klor-Con) 40 meq PO DAILYP PRN PRN Reason: K+ < 3.5 [facility]) [facility] Last Admin: 01/16/20 09:18 Dose: 15 mg Documented by: Senna (Senokot) 1 tab PO HS [facility] Last Admin: 01/16/20 21:28 Dose: 1 tab Documented by: Sodium Chloride (Saline Flush) 10 ml IV Q8 [facility] Last Admin: 01/17/20 06:01 Dose: 10 ml Documented by: Thiamine HCl (Vitamin B1) 100 mg PO DAILY [facility] Last Admin: 01/16/20 09:27 Dose: 100 mg Documented by: Throat Lozenges (Cepacol) 1 lozenge PO PRN PRN PRN Reason: Sore Throat Vancomycin HCl (Vancomycin Per Pharmacy) 1 [place] [facility] [place] Medical - PN: A/P - Time Spent With Patient Total time spent is greater than 50% in coordination of care (as documented) at patient's floor/unit and/or counseling patient: - Narrative A/P Narrative: Assessment: *Right femoral neck fracture s/p Trauma from Horse trampling w/significant b/l LE ecchymosis from thighs down : s/p ORIF (01/10) *Extensive contusion secondary injury. Continue pain management *Acute blood loss anemia secondary extravasation at fracture site & b/l LE contusions from hips down -s/p 5PRBC over hospitalization, last unit 01/15; appropriate response to last unit *Complicated UTI: Citrobacter positive -Sensitive to rocephin, zosyn and nitrofurantoin *Severe sepsis: 2/2 above with endorgan dysfunction including AMS/ARF. Clini mariangel improved *Leukocytosis: continues to improve, no bandemia. PCT low, BC neg, lactate improved -CXR unremarkable, treating UTI -resolved. 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 *HTN: *UR: requiring coburn *Hyponatremia: resolved *Generalized weakness/deconditioning/debility: *Unconjugated hyperbilirubinemia: 2/2 blood product breakdown from significant bruising Plan: -Dr. Hughes for ortho. -zosyn to cefepime to reduce IVF's, vanco added 4/2 d/t increasing- d/c. -monitor H&H -cont home lasix but IV lasix today for peripheral edema -cont ASA (held for bleeding/bruising) -cont home coreg/Losartan -coburn, trial off coburn prior to d/c and if fails then f/u with urology outpt -pt/ot -CM for SNF placement -ppx: Xarel[facility] - PN: Qual - VTE Deep Vein Thrombosis/Pulmonary Embolism Present on Admission: No
[2020-01-17] MEDS: PANTOPRAZOLE 40 MG PACKET PO SCH (07:56)
[2020-01-17] MEDS: LOSARTAN 50 MG TABLET PO SCH (08:02)
[2020-01-17] MEDS: EZETIMIBE 10 MG TABLET PO SCH (08:02)
[2020-01-17] MEDS: RIVAROXABAN 15 MG TABLET PO SCH (08:02)
[2020-01-17] MEDS: MULTIVIT,THER IRON,CA,FA & MIN 1 TABLET PO SCH (08:02)
[2020-01-17] MEDS: amLODIPine 5 MG TABLET PO SCH (08:03)
[2020-01-17] MEDS: FOLIC ACID 1 MG TABLET PO SCH (08:03)
[2020-01-17] MEDS: CARVEDILOL 12.5 MG TABLET PO SCH ×2 (08:03→17:36)
[2020-01-17] MEDS: THIAMINE 100 MG TABLET PO SCH (08:03)
[2020-01-17] MEDS ORDERED: FUROSEMIDE 40 MG/4 ML VIAL IV ONE (08:15)
[2020-01-17] MEDS ORDERED: ALBUMIN HUMAN 12.5 GM/50 ML BAG IV ONE (08:15)
[2020-01-17 11:19] LABS: Appearance,Urine CLEAR; Bacteria,Urine 0 /hpf (0); Bilirubin,Urine NEG (NEG); Color,Urine YELLOW; Culture Indicated,Urine NO; Glucose,Urine (UA) NEGATIVE (NEG); Ketones,Urine NEG (NEG); Leukocyte Esterase,Urine NEG /uL (NEG); Mucus,Urine FEW /hpf (0); Nitrate,Urine NEG (NEG); Protein,Urine NEG (NEG); Specific Gravity,Urine 1.009 (1.000-1.035); Urine Blood 0.03 mg/dL (<0.03); Urine RBC < 1 /hpf (0-1); Urine Squamous Epithelial Cell 1 /hpf (0-4); Urine WBC 0 /hpf (0-4); Urobilinogen,Urine NEG (NEG)
[2020-01-17 11:25] LABS: Sodium, Urine Random 37 mmol/L
[2020-01-17] MEDS: GABAPENTIN 300 MG CAPSULE PO SCH (21:52)
[2020-01-17] MEDS: SENNOSIDES 1 TABLET PO SCH (21:52)
[2020-01-17] MEDS: CEFEPIME 1 GM VIAL IV SCH (21:52)
[2020-01-17] MEDS: MELATONIN 3 MG TABLET PO SCH (21:53)
[2020-01-18] MEDS: oxyCODONE HCL 5 MG TABLET PO PRN ×3 (00:56→14:36)
[2020-01-18] MEDS: ACETAMINOPHEN 500 MG TABLET PO SCH ×3 (05:46→21:47)
[2020-01-18] MEDS: 0.9 % SODIUM CHLORIDE 10 ML SYRINGE IV SCH ×3 (05:47→20:40)
[2020-01-18 06:40] LABS: Hematocrit 24.2 % (34.1-44.9); Hemoglobin 7.7 g/dL (11.2-15.7)
[2020-01-18 07:07] LABS: Blood Urea Nitrogen 24 mg/dl (8-23); Calcium 8.2 mg/dl (8.6-10.4); Carbon Dioxide 23 mmol/L (22-30); Chloride 99 mmol/L (96-108); Glomerular Filtration Rate 47; Glucose 89 mg/dL (70-105)
[2020-01-18] MEDS: PANTOPRAZOLE 40 MG PACKET PO SCH (07:47)
[2020-01-18] MEDS: RIVAROXABAN 15 MG TABLET PO SCH (07:47)
[2020-01-18] MEDS: CARVEDILOL 12.5 MG TABLET PO SCH ×2 (07:48→17:52)
--- NOTE | 2020-01-18 08:15 | Internal Med Progress Note ---
Medical - PN: Subj Patient information: Note initiated : 01/18/20 at 8:11 am Service Date, if different from initiated Date: [] Patient: Izzy Everett a 80 y/o F admitted on 01/08/20 for Run Over By Horse Yesterday, Weak And Lethargic. Chief Complaint: [] Interval history: Ms. Everett is a 79 year old F fairly independently living alone and carries history of HTN/CHF and CAD who presents to the ER following injury sustained while she was attempting to braid her horse standing on a stool. She got thrown off the stool and landed on her hip and subsequently was trampled by the horse multiple times sustaining injuries across face chest and lower extremity. She was evaluated in the ER and after initial work-up was discharged in stable state. Following discharge within a few hours she became progressively weak confused and was unable to function. Sustained injuries after getting trampled by horse. She was evaluated and was discharged in stable state the day prior to admission. She however continued to deteriorate with increasing mental status change and worsening weakness fatigue and dizziness. During the second visit at [facility] ER work-up was consistent with severe sepsis with a white count 18.5 secondary to complicated UTI and right femoral neck fracture was discovered on imaging. Hospitalist/orthopedics service was consulte in light of above Blood cultures were drawn and antibiotics initiated. At the time of evaluation patient is alert but in significant pain. She is able to endorse history as above. Extensive bruising throughout the body noted. She is accompanied with her daughter. She denies chest pain, vision changes, unilateral weakness, incontinence 01/08-hemoglobin dropped from 9.9-6.8. Off anticoagulation. Increasing hematoma thighs around the fracture site. Likely extravasation. Surgery on board. However orthopedics of the opinion that they would want to wait for additional 24 hours until INR normalized. Patient off apixaban. White count down from 18. 5-13.4. On Rocephin. Creatinine improved to 1.7 from 2.6. Continue pain management. Generalized bruising 01/09 Pt does not have new complaints. She is mildly confused. WBC 13.6 today and 13.4 yesterday. Orth hold off surgery today due to leukocytosis. Urine culture showed positive for citrobacter, pending sensitivity Discussed with ID Dr. Whitmore, discontinued rocephin and started zosyn. not a candidate for levaquin due to QTC > 500 Repeat WBC in am 01/10 Pt does not have new complaints. She is more alert and awake. But she is still disorientated. Not more hematemesis. Hb 9.4 today. She received one unit of pRBC Urine culture sensitivity available. Discussed with ID Dr. Whitmore, continue zosyn today. We may change to oral nitrofurantoin in 2-3 days. WBC 14 today. Do not know why she still has leukocytosis. According to sensitivity, anabiotics is good for her citrobacter. Instructed RN to change coburn today. Repeat CT of head today - negative for acute change Orth Dr. Hughes will probably do a procedure for her today. Aspirin and anticoagulant are on hold. 01/11 The patient feels better. When I saw this patient, she was sitting on a chair. She underwent right hip hemiarthroplasty on 01/11/[address] Hughes. Pain is controlled. Hb 8.3 today. She received one unit of pRBC before surgery. So far she has received 4 units of pRBCs. WBC went down to 9.2. Creatinine 1.4. Repeat renal function in the morning 01/12 Pt does not have medical complaints. Denies fever/chills. Pain is controlled But WBC went up to 14.2 today, repeat wbc 15.8. Creatinine 1.5 Repeat HB 8.6 today. Repeat CXR - no new infiltrate. LA 3.8 today She is on zosyn for UTI. No evidence of new infection. Closely monitor. No discharge today. 01/13 Sitting up eating breakfast. Feeling better every day. Denies fever chills chest or abdominal pain. No coughing. Leukocytosis and increased today, no bandemia. Lactate noted to be elevated yesterday. pEnding follow-up. QTc 420 on ekg today. discussed with ID regarding leukocytosis. will get ct a/p w/o contrast. if unremarkable she could be treated with single dose of fosfomycin abx and f/u with PCP. afebrile, no bandemia, lactic acidosis resolved, PCT improved. does not appear toxic and feeling better overall. right LE warm/swollen/more tender especially posterior and lateral knee. doppler u/s negative for DVT. CT right leg no acute findings. called by nurse over concerns for stroke like symptoms of right side. The time I examined her she has symmetrical strength symmetrical face. She was slow to answer questions and follow commands sometimes I did ask her twice but she did answer appropriately and follow command appropriately. She had also recently had 10 mg of oxycodone. And was given a small dose 0.[address] brain stroke protocol was done which was unremarkable. I followed up with her after the stroke she was more alert no focal deficits. Labs done last night for the stroke showed an elevated white blood cell count. Added vancomycin given concerns for uncontrolled infection. Blood cultures are still pending from previous day. Other labs in improved, specifically renal function. 01/14 Patient states she slept well last night. States she is feeling better today. No complaints. No coughing shortness of breath. 01/15 Slept well last night. Feeling little better every day. Denies fever chills coughing, she is a little shortness of breath, denies abdominal pain. H&H dropping slowly. Will repeat H&H this afternoon may need 1 more unit of blood. White blood cell count improved. Medication clarification: Unable to verify her home list which currently list carvedilol and metoprolol. It is confirmed that her metoprolol was discontinued almost a year ago and she is only supposed to be on carvedilol 12.5 mg twice daily. 01/16 Slept all right. She continues to feel better each day now. White blood cell count was normal. Afebrile. Did get 1 unit of blood yesterday with appropriate response. Denies diarrhea. Placed to [facility] stocking on her right leg finally as she would not tolerate and is helping with her edema. 01/17 Patient improving. Walked in [place] today. Labs stable. Hopefully plan for discharge to rehab tomorrow if continues to be stable. Review of Systems: denies headache/fever/chills/nausea/vomiting/chest or abdominal pain/cough/dyspnea. Otherwise see above. - Constitutional Vitals: Vital Signs Temp Pulse Resp BP Pulse Ox 97.6 F 70 16 115/53 91 01/18/20 04:00 01/18/20 04:00 01/18/20 04:00 01/18/20 04:00 01/18/20 04:00 Period Temp Pulse Resp BP Sys/Flood Pulse Ox Last 24 Hr 97.6 F-98.6 F 70-89 16-20 107-126/47-65 91-97 Intake and Output 01/17/20 01/18/20 01/18/20 21:59 05:59 13:59 Intake Total 200 100 Output Total 850 250 Balance -650 -150 Weight 70.352 kg Intake & Output: Intake & Output 01/17/20 01/18/20 01/18/20 21:59 05:59 13:59 Intake Total 200 100 Output Total 850 250 Balance -650 -150 Weight 70.352 kg Intake: Oral 200 100 Output: Urine Catheter Amount 850 250 Other: Meal Lunch Percent of Meal Consumed Refused Urine Appearance Clear Clear Uretheral (Cob[place]) Clear Urine Color Bright Yellow Dark Yellow Uretheral ([place]) Bright Yellow Urine Odor Normal Normal Uretheral ([place]) Normal Exam: General: Alert, Awake, No acute Distress Eyes/N/T: EOMI, Head/Neck: neck supple, CV: irreg irreg, No murmurs, Pulm: clear laterally, no wheezing Abd: soft, +BS x4 Ext: no clubbing/cyanosis, 1-2+ b/l LE edema, ecchymosis b/l LE's Neuro: Alert, no focal deficits, moves all extremities, Skin: warm/dry Medical - PN: Obj Da - Labs CBC & Chem 7: 01/18/20 05:05 01/18/20 05:05 Labs: Abnormal Lab Results 01/18/20 01/18/20 01/17/20 05:05 05:05 10:45 WBC RBC Hgb 7.7 L Hct 24.2 L RDW Lymph % (Auto) Lymph # (Auto) [place] # (Auto) Lymphocytes % Myelocytes % RBC Morphology Polychromasia Anisocytosis BUN 24 H Creatinine Glucose Calcium 8.2 L Total Bilirubin Direct Bilirubin GGT Lactate Dehydrogenase Total Protein Albumin Triglycerides Urine Occult Blood 0.03 A 01/17/20 01/17/20 01/16/20 05:05 05:05 15:23 WBC RBC 2.74 L Hgb 8.0 L 6.9 L* Hct 25.1 L 21.1 L RDW 16.4 H Lymph % (Auto) 11.3 L Lymph # (Auto) 1.09 L [place] # (Auto) 1.04 H Lymphocytes % Myelocytes % RBC Morphology Polychromasia Anisocytosis BUN 24 H Creatinine 1.2 H Glucose Calcium 8.2 L Total Bilirubin 2.9 H Direct Bilirubin 1.1 H GGT 44 H Lactate Dehydrogenase 259 H Total Protein 5.2 L Albumin 2.8 L Triglycerides Urine Occult Blood 01/16/20 01/16/20 05:25 05:25 WBC 12.0 H RBC 2.45 L Hgb 7.1 L Hct 22.5 L RDW 16.5 H Lymph % (Auto) Lymph # (Auto) [place] # (Auto) Lymphocytes % 8 L Myelocytes % 2 H RBC Morphology Abnorm A Polychromasia Few A Anisocytosis 1+ A BUN Creatinine Glucose 107 H Calcium 8.4 L Total Bilirubin 2.6 H Direct Bilirubin 1.2 H GGT 46 H Lactate Dehydrogenase 255 H Total Protein 5.2 L Albumin 2.7 L Triglycerides 151 H Urine Occult Blood Meds: Medications Acetaminophen (Tylenol) 1,000 mg PO Q8H [facility]; Protocol Last Admin: 01/18/20 05:46 Dose: 1,000 mg Documented by: Amlodipine Besylate (Norvasc) 2.5 mg PO DAILY [facility] Last Admin: 01/17/20 08:03 Dose: 2.5 mg Documented by: [facility] ([facility]g) [facility] Last Admin: 01/18/20 07:48 Dose: 12.5 mg Documented by: Cefepime HCl (Maxipime) 1 gm IV Q12H [facility]; Protocol Last Admin: 01/17/20 21:52 Dose: 1 gm Documented by: Ezetimibe (Zetia) 10 mg PO QDAY [facility] Last Admin: 01/17/20 08:02 Dose: 10 mg Documented by: Folic Acid (Folic Acid) 1 mg PO DAILY [facility] Last Admin: 01/17/20 08:03 Dose: 1 mg Documented by: Gabapentin (Neurontin) 300 mg PO [facility] Last Admin: 01/17/20 21:52 Dose: 300 mg Documented by: Hydralazine HCl (Apresoline) 10 mg IV Q4-6HP PRN PRN Reason: Hypertension Hydromorphone HCl (Dilaudid) 0.5 mg IV Q4HP PRN; Protocol PRN Reason: Per Pain Protocol Last Admin: 01/15/20 10:04 Dose: 0.5 mg Documented by: Potassium Chloride 40 meq/ (Dextrose) 520 mls @ 130 mls/hr IV UD PRN PRN Reason: K+ = or < 3.5 Magnesium Sulfate (Magnesium Sulfate) 2 gm in 50 mls @ 50 mls/hr IV UD PRN PRN Reason: MG = or < 1.7 Iron Carb/Multivit/[employer]/Folic Acid (Multivitamin W/Minerals) 1 tab PO DAILY [facility] Last Admin: 01/17/20 08:02 Dose: 1 tab Documented by: Losartan Potassium (Cozaar) 100 mg PO QDAY [facility] Last Admin: 01/17/20 08:02 Dose: 100 mg Documented by: Melatonin (Melatonin 3mg Tablet) 3 mg PO HSP PRN PRN Reason: Insomnia Last Admin: 01/13/20 19:43 Dose: 3 mg Documented by: Melatonin (Melatonin 3mg Tablet) 3 mg PO QHS [facility] Last Admin: 01/17/20 21:53 Dose: 3 mg Documented by: Methocarbamol (Robaxin) 750 mg PO Q6HP PRN PRN Reason: Muscle Spasm Last Admin: 01/17/20 05:07 Dose: 750 mg Documented by: Ondansetron HCl (Zofran Odt) 4 mg SL Q4-6HP PRN; Protocol PRN Reason: Nausea And Vomiting Oxycodone HCl (Roxicodone) 5 mg PO Q4HP PRN; Protocol PRN Reason: Per Pain Protocol Last Admin: 01/18/20 07:48 Dose: 5 mg Documented by: Pantoprazole S[facility] ([facility]tonix) [facility] Last Admin: 01/18/20 07:47 Dose: 40 mg Documented by: Potassium Chloride (Klor-Con) 40 meq PO DAILYP PRN PRN Reason: K+ < 3.5 Rivaroxaban ([facility]to) [facility] Last Admin: 01/18/20 07:47 Dose: 15 mg Documented by: Senna (Senokot) 1 tab PO HS [facility] Last Admin: 01/17/20 21:52 Dose: 1 tab Documented by: Sodium Chloride (Saline Flush) 10 ml IV Q8 [facility] Last Admin: 01/18/20 05:47 Dose: 10 ml Documented by: Thiamine HCl (Vitamin B1) 100 mg PO DAILY [facility] Last Admin: 01/17/20 08:03 Dose: 100 mg Documented by: Throat Lozenges (Cepacol) 1 lozenge PO PRN PRN PRN Reason: Sore Throat Medical - PN: A/P - Time Spent With Patient Total time spent is greater than 50% in coordination of care (as documented) at patient's floor/unit and/or counseling patient: - Narrative A/P Narrative: Assessment: *Right femoral neck fracture s/p Trauma from Horse trampling w/significant b/l LE ecchymosis from thighs down : s/p ORIF (01/10) *Extensive contusion secondary injury. Continue pain management *Acute blood loss anemia secondary extravasation at fracture site & b/l LE contusions from hips down -s/p 5PRBC over hospitalization, last unit 01/15; appropriate response to last unit *Complicated UTI: Citrobacter positive -Sensitive to rocephin, zosyn and nitrofurantoin *Severe sepsis: 2/2 above with endorgan dysfunction including AMS/ARF. Clinically improved *Leukocytosis: continues to improve, no bandemia. PCT low, BC neg, lactate improved -CXR unremarkable, treating UTI -resolved. suspect reactive component as well *RACHEL on CKD III: -1.1<<1.5<<1.1<<2.2 *AMS superimposed on underlying cerebral dz likely subclinical vascular dementia: 2/2 sepsis endorgan dysfunction. 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 *HTN: *UR: requiring coburn *Hyponatremia: resolved *Generalized weakness/deconditioning/debility: *Unconjugated hyperbilirubinemia: 2/2 blood product breakdown from significant bruising Plan: -Dr. Hughes for ortho. -cefepime, d/c -monitor H&H -cont home lasix, prn IV lasix -cont ASA (held for bleeding/bruising) -cont home coreg/Losartan -coburn, trial off coburn; if fails then f/u with urology outpt -pt/ot -CM for SNF placement -ppx: Xarelto Medical - PN: Qual - VTE Deep Vein Thrombosis/Pulmonary Embolism Present on Admission: No
[2020-01-18] MEDS: EZETIMIBE 10 MG TABLET PO SCH (08:55)
[2020-01-18] MEDS: METHOCARBAMOL 750 MG TABLET PO PRN (08:55)
[2020-01-18] MEDS: LOSARTAN 50 MG TABLET PO SCH (08:55)
[2020-01-18] MEDS: FOLIC ACID 1 MG TABLET PO SCH (08:55)
[2020-01-18] MEDS: CEFEPIME 1 GM VIAL IV SCH ×2 (08:55→20:38)
[2020-01-18] MEDS: amLODIPine 5 MG TABLET PO SCH (08:55)
[2020-01-18] MEDS: MULTIVIT,THER IRON,CA,FA & MIN 1 TABLET PO SCH (08:55)
[2020-01-18] MEDS: THIAMINE 100 MG TABLET PO SCH (08:56)
[2020-01-18] MEDS: LACTOBACILLUS 1 CAPSULE PO SCH ×2 (09:53→20:38)
[2020-01-18] MEDS: FUROSEMIDE 40 MG TABLET PO SCH (09:54)
[2020-01-18] MEDS: MELATONIN 3 MG TABLET PO SCH (20:38)
[2020-01-18] MEDS: SENNOSIDES 1 TABLET PO SCH (20:38)
[2020-01-18] MEDS: GABAPENTIN 300 MG CAPSULE PO SCH (20:38)
[2020-01-19 06:02] LABS: Hematocrit 24.8 % (34.1-44.9)
[2020-01-19] MEDS: 0.9 % SODIUM CHLORIDE 10 ML SYRINGE IV SCH ×2 (06:43→10:24)
[2020-01-19] MEDS: ACETAMINOPHEN 500 MG TABLET PO SCH (06:43)
[2020-01-19] MEDS: RIVAROXABAN 15 MG TABLET PO SCH (07:49)
[2020-01-19] MEDS: CARVEDILOL 12.5 MG TABLET PO SCH (07:49)
[2020-01-19] MEDS: PANTOPRAZOLE 40 MG PACKET PO SCH (07:49)
[2020-01-19] MEDS: LOSARTAN 50 MG TABLET PO SCH (08:52)
[2020-01-19] MEDS: amLODIPine 5 MG TABLET PO SCH (08:53)
[2020-01-19] MEDS: EZETIMIBE 10 MG TABLET PO SCH (08:53)
[2020-01-19] MEDS: FUROSEMIDE 40 MG TABLET PO SCH (08:53)
[2020-01-19] MEDS: MULTIVIT,THER IRON,CA,FA & MIN 1 TABLET PO SCH (08:54)
[2020-01-19] MEDS: THIAMINE 100 MG TABLET PO SCH (08:54)
[2020-01-19] MEDS: FOLIC ACID 1 MG TABLET PO SCH (08:54)
[2020-01-19] MEDS: LACTOBACILLUS 1 CAPSULE PO SCH (08:54)
[2020-01-19] MEDS: CEFEPIME 1 GM VIAL IV SCH (10:24)
== END 2020-01-19 11:10 | DRG 956 ==
LOC: ED 11:26 → ICU 17:45 → MEDSUR 01-12 16:32
PROVIDERS: ADMIT Internal Medicine; ATTEND Internal Medicine

== ENCOUNTER 2020-01-21 23:17 | Inpatient (IN) ==
[2020-01-21] MEDS ORDERED: NALOXONE HCL 0.4 MG/ML VIAL IV ONE (23:39)
[2020-01-21] MEDS ORDERED: 0.9 % SODIUM CHLORIDE 1,000 ML IV SCH (23:45)
[2020-01-22] MEDS ORDERED: 0.9 % SODIUM CHLORIDE 1,000 ML IV ONE
--- NOTE | 2020-01-22 00:04 | Emergency Department Note ---
Altered Mental Status HPI - General Chief Complaint: Altered Mental Status Stated Complaint: altered LOC Time Seen by Provider: 01/21/20 23:29 Source: patient, EMS, old records reviewed Mode of arrival: EMS Limitations: no limitations - History of Present Illness HPI Narrative: 80-year-old female at formerly [facility] facility after getting a r ight hip hemiarthroplasty by Dr. Hughes. Initially she was trampled by a horse and broke her hip. After repair of that she was sent back to the nursing facility. Apparently she fell in the last day or so and was seen yesterday in the ER here. She was treated by Dr. Guthrie. I reviewed his note. She was sent back to [facility] but today she is moaning in pain and caregivers report altered mental status. She did not respond to Narcan there-she had slight improvement here. She will answer yes/no questions if you repeat them several times but she is relatively somnolent and therefore I am not able to get a great history or review of system on her. Elevated temperature to 99.2 but no true fever. It is noted that she is on Xarelto for A. fib-recently restarted after getting her hip repaired. It was advised that she hold that today status post yesterday's fall as she bruises easily and has multiple hematomas. She recently COVID virus 2 days ago came back as negative-she was tested 6 days I reviewed records from her recent hospital stay and note concern for possible vascular dementia/MCI-they worked her up for possible stroke here but that was negative. She was treated with antibiotics for a Citrobacter sepsis picture while she was here Initial machine read blood pressure was very inaccurate so nursing staff did manual blood pressure which was 130/50 - Related Data Home Medications Medication Instructions Recorded Confirmed Aspirin [Adult Low Dose Aspirin EC] 81 mg PO DAILY 03/12/17 01/11/20 Previous Rx's Medication Instructions Recorded valsartan 160 mg tablet 160 mg PO QDAY #90 tab 08/04/19 carvedilol 12.5 mg tablet 12.5 mg PO BID #180 tab 08/05/19 rivaroxaban 20 mg tablet 20 mg PO DAILY #90 tab 08/11/19 ezetimibe 10 mg tablet 10 mg PO QDAY #90 tab 08/27/19 furosemide 40 mg tablet 40 mg PO QDAY #90 tab 09/17/19 oxyCODONE HCL [Roxicodone] 5 - 10 mg PO Q4HP PRN #60 tab 01/13/20 Allergies Allergy/AdvReac Type Severity Reaction Status Date / Time bacitracin AdvReac Severe Rash Verified 01/21/20 23:27 [From Neosporin ([id number])] Neomycin AdvReac Severe Rash Verified 01/21/20 23:27 [From Neosporin ([id number])] polymyxin B AdvReac Severe Rash Verified 01/21/20 23:27 [From Neosporin ([id number])] codeine AdvReac Intermediate Vomiting Verified 01/21/20 23:27 Review of Systems Limitations: ROS unobtainable due to patients medical condition Past Medical History - Past Medical History [facility] Narrative: Family History (Last Reviewed 01/08/20 @ 12:46 by Riddhi Kevin PA-C) Sister Cancer Family/Other Cancer Stroke Father Diabetes Mother Hypertension, essential Medical History (Last Reviewed 01/08/20 @ 12:46 by Riddhi Kevin PA-C) Mild chronic anemia (Chronic) CHF (congestive heart failure) (Chronic) CAD (coronary artery disease) (Chronic) Lumbar radicular pain (Chronic) Rheumatic fever (Chronic ~1947) Hypertension, essential (Chronic ~1999) Hyperlipidemia (Chronic ~1999) Heart murmur (Chronic) Congestive heart failure (Resolved) Past Surgical History (Last Reviewed 01/08/20 @ 12:46 by Riddhi Kevin PA-C) H/O colonoscopy (Chronic ~1999) H/O eye surgery (Chronic ~1947) H/O reduction mammoplasty (Chronic ~1999) H/O: hysterectomy (Chronic ~1982) Source: old records reviewed Medical history: Reports: atrial fibrillation, CAD (coronary artery disease), CHF, hypertension. Denies: CVA, DVT, myocardial infarction, pulmonary embolus, renal disease MANAGER GALLERY history: Reports: non-contributory Surgical history ED: Reports: hysterectomy, orthopedic, other (right hip hemiarthroplasty), tonsillectomy, other (Eye surgery) - Social History smoking status: Never smoker Alcohol use: Reports: None Drug use: Reports: none. Denies: marijuana Physical Exam Somnolent but arousable with much effort-Narcan did not make much difference here. She will only answer simple questions. She will follow simple commands like stick out your tongue etc. Normocephalic atraumatic. Conjunctive a are clear sclerae white nonicteric. Her pupils are relatively small about 3 mm but they are equal. No nasal discharge or congestion. Oropharynx is pink and moist. Neck is supple without lymphadenopathy thyromegaly or carotid bruit. Heart is regular rate and rhythm no murmur appreciated. Lungs are clear to auscultation bilaterally without wheezes rales rhonchi or respiratory distress. Abdomen is soft nontender nondistended. Bandage is in place at her right lateral thigh where they replaced part of her hip. Bandages in place on the opposite lateral thigh over the area where she had the hematoma. She does have multiple areas of bruising including bilateral arms and legs. She is mild to moderate edema pitting past her knee on the left. Reviewing the note it does sound like she was not able to tolerate wearing YUSRA hose. Jerome catheter is in place with dark urine in the bag Rectal exam shows normal stool Hemoccult negative. Adequate rectal tone Limitations: no limitations Course Vital Signs Temperature 99.3 F H 01/21/20 23:18 Pulse Rate 78 01/21/20 23:18 Respiratory Rate 18 01/21/20 23:18 Blood Pressure 153/135 01/21/20 23:18 Pulse Oximetry (%) 100 01/21/20 23:18 Temperature 99.3 F H 01/21/20 23:18 Pulse Rate 99 H 01/22/20 02:13 Respiratory Rate 18 01/22/20 02:13 Blood Pressure 106/54 01/22/20 02:13 Pulse Oximetry (%) 100 01/22/20 02:13 Altered Mental Status - Lab Data Lab results reviewed: Yes I reviewed the patient's lab results. Result diagrams: 01/22/20 00:13 01/22/20 00:13 Lab Results 01/22/20 01/22/20 01/22/20 Range/Units 00:09 00:13 00:13 WBC 19.6 H (4.50-11.00) K/mcL RBC 2.14 L (3.59-5.38) M/mcL Hgb 6.6 L* (11.2-15.7) g/dL Hct 20.6 L* (34.1-44.9) % MCV 96.3 (80.0-100.0) fL MCH 30.8 (26.0-34.0) pg MCHC 32.0 (31.0-36.0) g/dL RDW 17.9 H (11.5-14.5) % Plt Count 380 (140-440) K/mcL MPV 9.2 (7.4-10.4) fL Gran % 83.0 H (38.0-78.0) % Lymph % (Auto) 4.6 L (15.5-49.0) % Cross % (Auto) 11.9 (1.0-12.0) % Eos % (Auto) 0.2 (0.0-7.0) % Baso % (Auto) 0.3 (0.0-2.0) % Gran # 16.24 H (1.80-8.00) K/mcL Lymph # (Auto) 0.89 L (1.50-4.80) K/mcL Cross # (Auto) 2.33 H (0.10-0.90) K/mcL Eos # (Auto) 0.04 (0.00-0.70) K/mcL Baso # (Auto) 0.05 (0.00-0.30) K/mcL VBG Lactic Acid (0.5-2.0) mmol/L Sodium 135 (133-145) mmol/L Potassium 4.8 (3.3-5.1) mmol/L Chloride 100 (96-108) mmol/L Carbon Dioxide 23 (22-30) mmol/L Anion Gap 12.0 (8-16) BUN 31 H (8-23) mg/dl Creatinine 1.4 H (0.6-1.1) mg/dl GFR Calculation 35 Glucose 130 H (70-105) mg/dL Calcium 8.7 (8.6-10.4) mg/dl Total Bilirubin 3.0 H (0.0-1.0) mg/dL AST 29 (0-37) U/l ALT 19 (0-40) U/l Alkaline Phosphatase 63 (39-117) U/L Ammonia (11-51) umol/L Total Protein 5.8 L (5.9-8.4) gm/dL Albumin 3.2 (3.2-5.2) gm/dL Globulin 2.6 (2.2-3.7) gm/dL Albumin/Globulin Ratio 1.2 (1.0-2.3) Procalcitonin (<0.10) ng/mL Urine Color Yellow Urine Appearance Hazy Urine pH 5.0 (5.0-9.0) Ur Specific [place] 1.017 (1.000-1.035) Urine Protein 30 A (NEG) mg/dL Urine Glucose (UA) Negative (NEG) mg/dL Urine Ketones Neg (NEG) mg/dL Urine Occult Blood 0.2 A (<0.03) mg/dL Urine Nitrate Neg (NEG) Urine Bilirubin Neg (NEG) mg/dL Urine Urobilinogen Neg (NEG) mg/dL Ur Leukocyte Esterase 250 A (NEG) /uL Urine RBC 3 H (0-1) /hpf Urine WBC 26 H (0-4) /hpf Ur Squamous Epith Cells 3 (0-4) /hpf Urine Bacteria 0 (0) /hpf Hyaline Casts 6 H (0-2) /lpf Urine Mucus Few (0) /hpf Ur Culture Indicated? Yes 01/22/20 01/22/20 01/22/20 Range/Units 00:13 00:13 00:20 WBC (4.50-11.00) K/mcL RBC (3.59-5.38) M/mcL Hgb (11.2-15.7) g/dL Hct (34.1-44.9) % MCV (80.0-100.0) fL MCH (26.0-34.0) pg MCHC (31.0-36.0) g/dL RDW (11.5-14.5) % Plt Count (140-440) K/mcL MPV (7.4-10.4) fL Gran % (38.0-78.0) % Lymph % (Auto) (15.5-49.0) % Cross % (Auto) (1.0-12.0) % Eos % (Auto) (0.0-7.0) % Baso % (Auto) (0.0-2.0) % Gran # (1.80-8.00) K/mcL Lymph # (Auto) (1.50-4.80) K/mcL Cross # (Auto) (0.10-0.90) K/mcL Eos # (Auto) (0.00-0.70) K/mcL Baso # (Auto) (0.00-0.30) K/mcL VBG Lactic Acid 1.3 (0.5-2.0) mmol/L Sodium (133-145) mmol/L Potassium (3.3-5.1) mmol/L Chloride (96-108) mmol/L Carbon Dioxide (22-30) mmol/L Anion Gap (8-16) BUN (8-23) mg/dl Creatinine (0.6-1.1) mg/dl GFR Calculation Glucose (70-105) mg/dL Calcium (8.6-10.4) mg/dl Total Bilirubin (0.0-1.0) mg/dL AST (0-37) U/l ALT (0-40) U/l Alkaline Phosphatase (39-117) U/L Ammonia 12 (11-51) umol/L Total Protein (5.9-8.4) gm/dL Albumin (3.2-5.2) gm/dL Globulin (2.2-3.7) gm/dL Albumin/Globulin Ratio (1.0-2.3) Procalcitonin 0.21 (<0.10) ng/mL Urine Color Urine Appearance Urine pH (5.0-9.0) Ur Specific [place] (1.000-1.035) Urine Protein (NEG) mg/dL Urine Glucose (UA) (NEG) mg/dL Urine Ketones (NEG) mg/dL Urine Occult Blood (<0.03) mg/dL Urine Nitrate (NEG) Urine Bilirubin (NEG) mg/dL Urine Urobilinogen (NEG) mg/dL Ur Leukocyte Esterase (NEG) /uL Urine RBC (0-1) /hpf Urine WBC (0-4) /hpf Ur Squamous Epith Cells (0-4) /hpf Urine Bacteria (0) /hpf Hyaline Casts (0-2) /lpf Urine Mucus (0) /hpf Ur Culture Indicated? - Radiology Data Radiology results reviewed: Yes I reviewed the patient's radiology results. CT scan of the head without contrast shows no new findings. Stable calcified meningioma Chest x-ray shows no acute cardiopulmonary disease Disposition Pt seen by CONSTRUCTION WORKER/PA only: No Clinical Impression: Dehydration Anemia Qualifiers: Anemia type: unspecified type Qualified Code(s): D64.9 - Anemia, unspecified UTI (urinary tract infection) Qualifiers: Urinary tract infection type: acute cystitis Hematuria presence: without hematuria Qualified Code(s): N30.00 - Acute cystitis without hematuria Altered mental status Qualifiers: Altered mental status type: somnolence Qualified Code(s): R40.0 - Somnolence Fall Qualifiers: Encounter type: subsequent encounter Qualified Code(s): W19.XXXD - Unspecified fall, subsequent encounter Summary: Elevated temperature with somnolence/altered mental status. She was recently treated for sepsis from Citrobacter in the hospital when they repaired her hip- we will recheck her urine. Currently she has a Jerome catheter in place and urine in the bag is quite dark. The differential also includes intercranial pathology such as CVA, metabolic abnormalities, and other infections. Ordered laboratory as well as imaging. Start IV fluids for dehydration She had significant leukocytosis consistent with UTI seen on repeat urinalysis. Likely her altered mental status with somnolence is multifactorial from opioids but could also be from the UTI as well. Lactic acid is normal though so there is less likely to be sepsis-vital signs are stable She has significant anemia with hemoglobin of 6.6. Rectal exam shows negative Hemoccult. Transfusion 2 units of packed red blood cells is ordered. Likely anemia is multifactorial as well from postsurgical, loss 2 hematomas, and bone marrow suppression from recent illness. Discussed case with Dr. Peoples, hospitalist. He agreed to accept the patient for further care and evaluation in the hospital-observation status. I will write transition orders. Disposition: Xfer As Outpt/Obs ([facility]) Condition: Fair Referrals: Max Johnson DO [Primary Care Provider] -
[2020-01-22 01:07] LABS: Basophils # (Auto) 0.05 K/mcL (0.00-0.30); Basophils % (Auto) 0.3 % (0.0-2.0); Eosinophils # (Auto) 0.04 K/mcL (0.00-0.70); Eosinophils % (Auto) 0.2 % (0.0-7.0); Hematocrit 20.6 % (34.1-44.9); Hemoglobin 6.6 g/dL (11.2-15.7); Lymphocytes # (Auto) 0.89 K/mcL (1.50-4.80); Lymphocytes % (Auto) 4.6 % (15.5-49.0); Mean Cell Volume 96.3 fL (80.0-100.0); Mean Platelet Volume 9.2 fL (7.4-10.4); Monocytes # (Auto) 2.33 K/mcL (0.10-0.90); Monocytes % (Auto) 11.9 % (1.0-12.0); Platelet Count 380 K/mcL (140-440); RBC 2.14 M/mcL (3.59-5.38); Red Cell Distribution Width 17.9 % (11.5-14.5); WBC 19.6 K/mcL (4.50-11.00)
[2020-01-22 01:12] LABS: Appearance,Urine HAZY; Bacteria,Urine 0 /hpf (0); Bilirubin,Urine NEG (NEG); Color,Urine YELLOW; Culture Indicated,Urine YES; Glucose,Urine (UA) NEGATIVE (NEG); Ketones,Urine NEG (NEG); Leukocyte Esterase,Urine 250 /uL (NEG); Mucus,Urine FEW /hpf (0); Nitrate,Urine NEG (NEG); Protein,Urine 30 mg/dL (NEG); Specific Gravity,Urine 1.017 (1.000-1.035); Urine Blood 0.2 mg/dL (<0.03); Urine Hyaline Cast 6 /lpf (0-2); Urine RBC 3 /hpf (0-1); Urine Squamous Epithelial Cell 3 /hpf (0-4); Urine WBC 26 /hpf (0-4); Urobilinogen,Urine NEG (NEG)
[2020-01-22 01:26] LABS: ALT/SGPT 19 U/l (0-40); AST/SGOT 29 U/l (0-37); Albumin 3.2 gm/dL (3.2-5.2); Albumin/Globulin Ratio 1.2 (1.0-2.3); Alkaline Phosphatase 63 U/L (39-117); Calcium 8.7 mg/dl (8.6-10.4); Carbon Dioxide 23 mmol/L (22-30); Chloride 100 mmol/L (96-108); Globulin 2.6 gm/dL (2.2-3.7); Glucose 130 mg/dL (70-105)
[2020-01-22 01:27] LABS: Blood Urea Nitrogen 31 mg/dl (8-23); Glomerular Filtration Rate 35
[2020-01-22] MEDS ORDERED: cefTRIAXone 1 GM VIAL IV ONE (01:28)
[2020-01-22] MEDS ORDERED: ACETAMINOPHEN 325 MG TABLET PO ONE (01:28)
[2020-01-22] MEDS ORDERED: 0.9 % SODIUM CHLORIDE 250 ML IV SCH (01:30)
[2020-01-22] MEDS ORDERED: ACETAMINOPHEN 1,000 MG/100 ML BOTTLE IV ONE (02:09)
[2020-01-22] MEDS ORDERED: LEVOFLOXACIN 250 MG/50 ML BAG IV ONE (02:11)
[2020-01-22] MEDS ORDERED: ONDANSETRON 4 MG/2 ML VIAL IV PRN ×2 (02:12→07:46)
[2020-01-22] MEDS ORDERED: NALOXONE HCL 0.4 MG/ML VIAL IV PRN (02:12)
[2020-01-22] MEDS: 0.9 % SODIUM CHLORIDE 1,000 ML IV SCH ×3 (03:08→23:52)
[2020-01-22] MEDS ORDERED: POLYETHYLENE GLYCOL 3350 17 GM PACKET PO PRN (07:46)
[2020-01-22] MEDS ORDERED: ONDANSETRON 4 MG ODT TABLET SL PRN (07:46)
[2020-01-22] MEDS ORDERED: MELATONIN 3 MG TABLET PO PRN (07:46)
[2020-01-22] MEDS ORDERED: MAGNESIUM SULFATE 2 GM/50 ML BAG IV PRN (07:46)
[2020-01-22] MEDS ORDERED: POTASSIUM CHLORIDE 20 MEQ PACKET PO PRN (07:46)
[2020-01-22] MEDS ORDERED: BISACODYL 10 MG SUPP.RECT PR PRN (07:46)
--- NOTE | 2020-01-22 07:50 | Internal Med History&Physical ---
Medical - H&P: [facility] Patient information: Note initiated : 01/22/20 at 7:50 am Service Date, if different from initiated Date: [] Patient: Izzy Everett a 80 y/o F admitted on 01/22/20 for Altered LOC. Chief Complaint: [] Chief complaint: MAS, weakness History of present illness: Ms. Everett is a 79 year old F fairly independently living alone until recently with past medical history including HTN/CHF and CAD. [facility] care sustaining multiple injuries after being trampled by her horse. She underwent operative intervention for right hip fracture followed by prolonged hospitalization for blood loss anemia/UTI/sepsis and was eventually discharged on 01/18 to SNF. Patient patient within 48 hours of discharge sustained a fall at the SNF and was noted to be increasing lethargic fatigue and confused. She was subsequently sent to [facility] ER for further evaluation. Initial work-up revealed white count of over 19,000/pyuria. Patient was fairly confused and lethargic. Hemoglobin 6.6. Subsequently hospitalist service was consulted for admission for management of UTI/mental status change and anemia. At the time evaluation patient is minimally responsive and very lethargic. I discussed with her son Raj on phone. He expresses concerns about her deteriorating status and would want to keep her comfortable. Review of systems A 10 point review system was attempted and is negative except for ones cussed above Medical - H&P: PMH Medical history: Mild chronic anemia (Chronic) CHF (congestive heart failure) (Chronic) CAD (coronary artery disease) (Chronic) s/p 2 vessel stenting in [place], [place] by Dr. Burnham Lumbar radicular pain (Chronic) Rheumatic fever (Chronic ~194) Hypertension, essential (Chronic ~1999) Hyperlipidemia (Chronic ~1999) Heart murmur (Chronic) Congestive heart failure (Resolved) Surgical History H/O colonoscopy (Chronic ~1999) [facility] in [place], [place] H/O eye surgery (Chronic ~1947) at 8 years old H/O reduction mammoplasty (Chronic ~1999) H/O: hysterectomy (Chronic ~1982) Family History Sister Cancer Family/Other Cancer Aunt Stroke Aunt Father Diabetes Mother Hypertension, essential Social History marital status: other: Children-4 smoking status: Never smoker alcohol intake frequency: does not drink substance use type: does not use Medical - H&P: Meds Home Medications Medication Instructions Recorded Confirmed Type Aspirin [Adult Low Dose Aspirin EC] 81 mg PO DAILY 03/12/17 01/22/20 History valsartan 160 mg tablet 160 mg PO QDAY #90 tab 08/04/19 01/22/20 Rx carvedilol 12.5 mg tablet 12.5 mg PO BID #180 tab 08/05/19 01/22/20 Rx rivaroxaban 20 mg tablet 20 mg PO DAILY #90 tab 08/11/19 01/22/20 Rx ezetimibe 10 mg tablet 10 mg PO QDAY #90 tab 08/27/19 01/22/20 Rx furosemide 40 mg tablet 40 mg PO QDAY #90 tab 09/17/19 01/22/20 Rx oxyCODONE HCL [Roxicodone] 5 - 10 mg PO Q4HP PRN #60 tab 01/13/20 01/22/20 Rx Allergies Allergy/AdvReac Type Severity Reaction Status Date / Time bacitracin AdvReac Mild Rash Verified 01/22/20 06:33 [From Neosporin ([id number])] codeine AdvReac Mild Vomiting Verified 01/22/20 06:33 Neomycin AdvReac Mild Rash Verified 01/22/20 06:33 [From Neosporin ([id number])] polymyxin B AdvReac Mild Rash Verified 01/22/20 06:33 [From Neosporin ([id number])] Medical - H&P: Exam - Constitutional Vitals: Temp Pulse Resp BP Pulse Ox 97.9 F 113 H 28 H 146/64 90 01/22/20 02:47 01/22/20 02:47 01/22/20 02:47 01/22/20 02:47 01/22/20 02:47 General appearance: no acute distress Exam: Head normocephalic, asymmetric bruising face Lethargic and minimally unresponsive Neck lymphadenopathy oral cavity dry no ear nose discharge Eye movement symmetrical S1-S2 regular rhythm and monitor Nonlabored breathing abdomen nontender, soft Diminished range of motion at right hip joint secondary to pain Skin generalized bruising lower extremity/torso Psych lethargic confused Neuro could not be examined as patient is minimally responsive Medical - H&P: Reslt - Labs CBC & Chem 7: 01/22/20 06:58 01/22/20 06:58 Labs: Short CBC 01/22/20 Range/Units 00:13 WBC 19.6 H (4.50-11.00) K/mcL Hgb 6.6 L* (11.2-15.7) g/dL Hct 20.6 L* (34.1-44.9) % Plt Count 380 (140-440) K/mcL BMP 01/22/20 00:13 Sodium 135 Potassium 4.8 Chloride 100 Carbon Dioxide 23 BUN 31 H Creatinine 1.4 H Glucose 130 H Calcium 8.7 Liver Function 01/22/20 Range/Units 00:13 Total Bilirubin 3.0 H (0.0-1.0) mg/dL AST 29 (0-37) U/l ALT 19 (0-40) U/l Alkaline Phosphatase 63 (39-117) U/L Albumin 3.2 (3.2-5.2) gm/dL Urine 01/22/20 Range/Units 00:09 Urine Color Yellow Urine Appearance Hazy Urine pH 5.0 (5.0-9.0) Ur Specific [place] 1.017 (1.000-1.035) Urine Protein 30 A (NEG) mg/dL Urine Glucose (UA) Negative (NEG) mg/dL Medical - H&P: A/P (1) Complicated UTI (urinary tract infection) Current visit: Yes Status: Acute * Complicated UTI initiate antibiotic coverage. Await cultures. * Acute mental status change -likely secondary to complicated UTI. Underlying dementia/use of narcotics. Fluctuating mental status observed during prior hospitalization with extensive neuroimaging/stroke work-up being unremarkable. * Sepsis with endorgan dysfunction secondary to above continue management per protocol * Acute blood loss anemia-2 units blood transfusion * Recent right femoral neck fracture status post surgery. Continue aggressive PT OT * Mild RACHEL continue monitoring, avoid nephrotoxins * History of CAD continue aspirin blood ginny * History of hypertension hold antihypertensives until systolics improve * Prophylaxis hold rivaroxaban in light of bleed Plan * 2 units blood transfusion * Hold anticoagulation * Broad antibiotic by coverage * Sepsis management per guidelines * PT OT nutrition support Medical - H&P: Qual - VTE Deep Vein Thrombosis/Pulmonary Embolism Present on Admission: No
--- NOTE | 2020-01-22 07:59 | XRay Report ---
CLINICAL INFORMATION: altered mental status COMPARISON: 01/13/2020 FINDINGS: Moderate cardiomegaly is unchanged. Mediastinum and pulmonary vessels are unremarkable. There are small infiltrates developing in both midlungs. No definite effusions. IMPRESSION: Small vague infiltrates developing in both midlungs. Moderate stable cardiomegaly no CHF Interpreted and Authenticated by: Max Rg 01/22/20
[2020-01-22 08:00] LABS: Basophils # (Auto) 0.04 K/mcL (0.00-0.30); Basophils % (Auto) 0.3 % (0.0-2.0); Eosinophils # (Auto) 0.05 K/mcL (0.00-0.70); Eosinophils % (Auto) 0.3 % (0.0-7.0); Granulocytes % (Auto) 80.5 % (38.0-78.0); Hematocrit 20.5 % (34.1-44.9); Hemoglobin 6.5 g/dL (11.2-15.7); Lymphocytes # (Auto) 0.98 K/mcL (1.50-4.80); Lymphocytes % (Auto) 6.3 % (15.5-49.0); Mean Cell Volume 95.8 fL (80.0-100.0); Mean Corpuscular HGB Conc 31.7 g/dL (31.0-36.0); Mean Platelet Volume 9.2 fL (7.4-10.4); Monocytes # (Auto) 1.96 K/mcL (0.10-0.90); Monocytes % (Auto) 12.6 % (1.0-12.0); Platelet Count 304 K/mcL (140-440); RBC 2.14 M/mcL (3.59-5.38); Red Cell Distribution Width 17.3 % (11.5-14.5); WBC 15.5 K/mcL (4.50-11.00)
[2020-01-22 08:19] LABS: ALT/SGPT 17 U/l (0-40); AST/SGOT 26 U/l (0-37); Albumin 2.8 gm/dL (3.2-5.2); Albumin/Globulin Ratio 1.2 (1.0-2.3); Alkaline Phosphatase 56 U/L (39-117); Bilirubin,Total 2.5 mg/dL (0.0-1.0); Blood Urea Nitrogen 32 mg/dl (8-23); Calcium 8.1 mg/dl (8.6-10.4); Carbon Dioxide 22 mmol/L (22-30); Chloride 102 mmol/L (96-108); Globulin 2.4 gm/dL (2.2-3.7); Glomerular Filtration Rate 38; Glucose 115 mg/dL (70-105)
[2020-01-22] MEDS ORDERED: LEVOFLOXACIN 500 MG/100 ML BAG IV ONE (08:30)
--- NOTE | 2020-01-22 08:34 | Cat Scan Report ---
CLINICAL INFORMATION: Trauma on blood thinners COMPARISON: Head CT 04/02/2014 and 01/14/2020 TECHNIQUE: 2.5 mm helical slices were obtained in the skull base to vertex. Following reconstruction, axial reformatted images were reviewed at bone and parenchymal windows. The exam was performed using radiation dose optimization techniques including, but not limited to, automated exposure control, adjustment of the mA and/or kV according to patient size and use of iterative reconstruction technique. FINDINGS: Enlargement of the ventricles, sulci, fissures, and cisterns, compatible with moderate age-related atrophy, is unchanged. Mild asymmetric ex vacuo enlargement of the frontal horn right lateral ventricle also demonstrates long-term stability. Patchy chronic ischemic changes in the deep cerebral white matter, expected for age, are stable. Moderate linear the entire left external capsule, smaller remote infarct of the right external capsule with a few remote lacunar infarcts throughout the remaining basal ganglia and deep white matter are again seen.. A 10 mm densely calcified meningioma, along the right tentorium, has been stable since 2013. There is no intracerebral hemorrhage, mass effect, edema or other posttraumatic change. Bone windows show no evidence of fracture. 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 10 mm densely calcified benign meningioma in the right tentorium - stable since 2013. No intracerebral hemorrhage or other acute posttraumatic change Interpreted and Authenticated by: Max Rg 01/22/20
[2020-01-22] MEDS: ACETAMINOPHEN 1,000 MG/100 ML BOTTLE IV PRN ×3 (09:42→23:56)
[2020-01-22] MEDS: HEPARIN 5,000 UNIT/ML VIAL SQ SCH ×2 (10:04→20:36)
[2020-01-22] MEDS: MULTIVIT,THER IRON,CA,FA & MIN 1 TABLET PO SCH ×2 (10:16→10:20)
[2020-01-22] MEDS: DOCUSATE SODIUM 100 MG CAPSULE PO SCH ×2 (10:16→20:36)
[2020-01-22] MEDS: 0.9 % SODIUM CHLORIDE 10 ML SYRINGE IV SCH ×2 (13:57→20:36)
[2020-01-22] MEDS: cefTRIAXone 2 GM in DEXTROSE 5% IN WATER 50 ML IV SCH (16:46)
[2020-01-22] MEDS: SENNOSIDES/DOCUSATE SODIUM 1 TAB TABLET PO SCH (20:36)
[2020-01-23] MEDS: 0.9 % SODIUM CHLORIDE 10 ML SYRINGE IV SCH ×3 (04:56→23:27)
[2020-01-23] MEDS: ACETAMINOPHEN 1,000 MG/100 ML BOTTLE IV PRN ×3 (05:36→23:45)
[2020-01-23 05:48] LABS: Hematocrit 24.5 % (34.1-44.9); Hemoglobin 7.8 g/dL (11.2-15.7); Mean Cell Volume 95.3 fL (80.0-100.0); Mean Corpuscular HGB Conc 31.8 g/dL (31.0-36.0); Mean Platelet Volume 9.1 fL (7.4-10.4); Platelet Count 293 K/mcL (140-440); RBC 2.57 M/mcL (3.59-5.38); WBC 12.5 K/mcL (4.50-11.00)
[2020-01-23] MEDS: 0.9 % SODIUM CHLORIDE 1,000 ML IV SCH (05:53)
[2020-01-23 06:17] LABS: ALT/SGPT 22 U/l (0-40); AST/SGOT 31 U/l (0-37); Albumin 2.7 gm/dL (3.2-5.2); Alkaline Phosphatase 59 U/L (39-117); Bilirubin,Direct 3.7 mg/dL (0.0-0.3); Bilirubin,Total 4.6 mg/dL (0.0-1.0); Blood Urea Nitrogen 33 mg/dl (8-23); Calcium 8.4 mg/dl (8.6-10.4); Carbon Dioxide 21 mmol/L (22-30); Chloride 100 mmol/L (96-108); Globulin 2.6 gm/dL (2.2-3.7); Glomerular Filtration Rate 38; Glucose 88 mg/dL (70-105); Lactate Dehydrogenase 339 U/L (94-250); Phosphorous 3.2 mg/dL (2.7-4.5); Triglycerides 122 mg/dl (<150); Uric Acid 6.1 mg/dL (2.5-8.0)
[2020-01-23 06:43] LABS: Anisocytosis 2+ (NONE SEEN); Band Neutrophils % 2 % (0-10); Eosinophils % (Manual) 1 % (0-7); Lymphocytes % 4 % (15-49); Monocytes % (Manual) 10 % (1-12); Platelet Estimate NORMAL (NORMAL); Polychromasia OCC (NONE SEEN); RBC Morphology ABNORM (NORMAL); Segmented Neutrophils % 83 % (38-78)
[2020-01-23] MEDS: cefTRIAXone 2 GM in DEXTROSE 5% IN WATER 50 ML IV SCH (07:51)
[2020-01-23] MEDS ORDERED: FUROSEMIDE 20 MG/2 ML VIAL IV ONE (09:12)
--- NOTE | 2020-01-23 09:12 | Internal Med Progress Note ---
Medical - PN: Subj Patient information: Note initiated : 01/23/20 at 9:10 am Service Date, if different from initiated Date: [] Patient: Izzy Everett 80 y/o F admitted on 01/22/20 for Altered LOC. Chief Complaint: [] Interval history: Ms. Everett is a 79 year old F fairly independently living alone until recently with past medical history including HTN/CHF and CAD. She was admitted to [facility] sustaining multiple injuries after being trampled by her horse. She underwent operative intervention for right hip fracture followed by prolonged hospitalization for blood loss anemia/UTI/sepsis and was eventually discharged on 01/18 to [facility]. Patient patient within 48 hours of discharge sustained a fall at the SNF and was noted to be increasing lethargic fatigue and confused. She was subsequently sent to [facility] ER for further evaluation. Initial work-up revealed white count of over 19,000/pyuria. Patient was fairly confused and lethargic. Hemoglobin 6.6. Subsequently hospitalist service was consulted for admission for management of UTI/mental status change and anemia. At the time evaluation patient is minimally responsive and very lethargic. I discussed with her son Raj on phone. He expresses concerns about her deteriorating status and would want to keep her comfortable. 01/22-hemoglobin 7.5. Bilirubin elevated due to hematoma disintegration. Significant swelling right lower extremity with bruising. No abdominal tenderness. Intermittently confused. Nonlabored breathing. White count down to 12.5. Bilious urine, creatinine 1.3 urine cultures pending. No overnight fever chills nausea vomiting or concerns per staff other than progressive confusion - Constitutional Vitals: Vital Signs Temp Pulse Resp BP Pulse Ox 97.1 F 88 20 135/65 99 01/23/20 07:15 01/23/20 04:07 01/23/20 07:15 01/23/20 07:15 01/23/20 07:15 Period Temp Pulse Resp BP Sys/Flood Pulse Ox Last 24 Hr 97.1 F-98.7 F 83-107 16-20 123-156/63-76 96-100 Intake and Output 01/22/20 01/23/20 01/23/20 21:59 05:59 13:59 Intake Total 1590 520 100 Output Total 125 425 Balance 1465 95 100 Weight 158 lb 3.2 oz Intake & Output: Intake & Output 04/09/20 04/10/20 04/10/20 21:59 05:59 13:59 Intake Total 1590 520 100 Output Total 125 425 Balance 1465 95 100 Weight 158 lb 3.2 oz Intake: IV 1150 100 100 Sodium Chloride 0.9% 1,000 ml @ 1000 75 mls/hr IV .[id number] [facility] Rx#: [id number] Rocephin 2 gm In Dextrose 5% in 50 Water 50 ml @ 100 mls/hr IV Q24H [facility] Rx#:[id number] Oral 440 420 Output: Urine Catheter Amount 125 425 Other: Meal Dinner Percent of Meal Consumed Refused Urine Appearance Clear Urine Color [place] ([place]) Dark Alyssa General appearance: no acute distress Exam: Alert but confused Nonlabored breathing Bruising lower extremity right more than left No bruising noted surgery site Medical - PN: Obj Da - Labs CBC & Chem 7: 01/23/20 05:10 01/23/20 05:10 Labs: Abnormal Lab Results 01/23/20 01/23/20 01/22/20 05:10 05:10 06:58 WBC 12.5 H RBC 2.57 L Hgb 7.8 L Hct 24.5 L RDW 17.0 H Gran % Lymph % (Auto) [place] % (Auto) Gran # Lymph # (Auto) [place] # (Auto) Seg Neutrophils % 83 H Lymphocytes % 4 L RBC Morphology Abnorm A Polychromasia Occ A Anisocytosis 2+ A Carbon Dioxide 21 L BUN 33 H 32 H Creatinine 1.3 H 1.3 H Glucose 115 H Calcium 8.4 L 8.1 L Total Bilirubin 4.6 H 2.5 H Direct Bilirubin 3.7 H Lactate Dehydrogenase 339 H Total Protein 5.3 L 5.2 L Albumin 2.7 L 2.8 L Urine Protein Urine Occult Blood Ur Leukocyte Esterase Urine RBC Urine WBC Hyaline Casts 01/22/20 01/22/20 01/22/20 06:58 00:13 00:13 WBC 15.5 H 19.6 H RBC 2.14 L 2.14 L Hgb 6.5 L* 6.6 L* Hct 20.5 L* 20.6 L* RDW 17.3 H 17.9 H Gran % 80.5 H 83.0 H Lymph % (Auto) 6.3 L 4.6 L [place] % (Auto) 12.6 H Gran # 12.48 H 16.24 H Lymph # (Auto) 0.98 L 0.89 L [place] # (Auto) 1.96 H 2.33 H Seg Neutrophils % Lymphocytes % RBC Morphology Polychromasia Anisocytosis Carbon Dioxide BUN 31 H Creatinine 1.4 H Glucose 130 H Calcium Total Bilirubin 3.0 H Direct Bilirubin Lactate Dehydrogenase Total Protein 5.8 L Albumin Urine Protein Urine Occult Blood Ur Leukocyte Esterase Urine RBC Urine WBC Hyaline Casts 01/22/20 00:09 WBC RBC Hgb Hct RDW Gran % Lymph % (Auto) [place] % (Auto) Gran # Lymph # (Auto) [place] # (Auto) Seg Neutrophils % Lymphocytes % RBC Morphology Polychromasia Anisocytosis Carbon Dioxide BUN Creatinine Glucose Calcium Total Bilirubin Direct Bilirubin Lactate Dehydrogenase Total Protein Albumin Urine Protein 30 A Urine Occult Blood 0.2 A Ur Leukocyte Esterase 250 A Urine RBC 3 H Urine WBC 26 H Hyaline Casts 6 H Meds: Medications Acetaminophen (Tylenol) 650 mg PO Q4-6HP PRN; Protocol PRN Reason: Per Pain Protocol/Fever > 101 Bisacodyl (Dulcolax) 10 mg ID Q2-3DAYS PRN PRN Reason: Constipation Docusate Sodium (Colace) 100 mg PO BID [facility] Last Admin: 01/22/20 20:36 Dose: 100 mg Documented by: Heparin Sodium (Porcine) (Heparin) 5,000 unit SQ Q12 [facility] Last Admin: 01/22/20 20:36 Dose: 5,000 unit Documented by: Sodium Chloride (Sodium Chloride 0.9%) 1,000 mls @ 75 mls/hr IV .[id number] [facility] Last Admin: 01/23/20 05:53 Dose: Not Given Documented by: Magnesium Sulfate (Magnesium Sulfate) 2 gm in 50 mls @ 50 mls/hr IV UD PRN PRN Reason: MG = or < 1.7 Levofloxacin (Levaquin) 750 mg in 150 mls @ 100 mls/hr IV Q48H [facility]; Protocol Ceftriaxone Sodium 2 gm/ (Dextrose) 50 mls @ 100 mls/hr IV Q24H [facility]; Protocol Last Admin: 01/23/20 07:51 Dose: 100 mls/hr Documented by: Acetaminophen (Ofirmev) 1,000 mg in 100 mls @ 200 mls/hr IV Q4-6HP PRN; Protocol PRN Reason: Pain Last Infusion: 01/23/20 06:06 Dose: Infused Documented by: Iron Carb/Multivit/Levi Maker/Folic Acid (Multivitamin W/Minerals) 1 tab PO DAILY [facility] Last Admin: 01/22/20 10:20 Dose: Not Given Documented by: Melatonin (Melatonin 3mg Tablet) 3 mg PO HSP PRN PRN Reason: Insomnia Morphine Sulfate (Morphine) 2 mg IV Q2HP PRN; Protocol PRN Reason: Per Pain Protocol Last Admin: 01/22/20 07:01 Dose: 2 mg Documented by: Naloxone HCl (Narcan) 0.1 mg IV Q2MIN PRN PRN Reason: Opiate Reversal Ondansetron HCl (Zofran Odt) 4 mg SL Q4-6HP PRN; Protocol PRN Reason: Nausea And Vomiting Ondansetron HCl (Zofran) 4 mg IV Q4-6HP PRN; Protocol PRN Reason: Nausea And Vomiting Polyethylene Glycol (Miralax) 17 gm PO DAILYP PRN PRN Reason: Constipation Potassium Chloride (Klor-Con) 40 meq PO DAILYP PRN PRN Reason: K+ < 3.5 Senna/Docusate Sodium (Senna Plus Tablet) 1 tab PO HS [facility] Last Admin: 01/22/20 20:36 Dose: 1 tab Documented by: Sodium Chloride (Saline Flush) 10 ml IV Q8 [facility] Last Admin: 01/23/20 04:56 Dose: Not Given Documented by: Medical - PN: A/P - Time Spent With Patient Total time spent is greater than 50% in coordination of care (as documented) at patient's floor/unit and/or counseling patient: 25 - 35 minutes (1) Complicated UTI (urinary tract infection) Status: Acute Assessment and plan: Status: Acute * Acute blood loss anemia secondary to thigh extravasation. Status post additional 2 units blood transfusion. Anticoagulation on hold. * Complicated UTI continue antibiotic coverage. Await cultures. * Acute mental status change -likely secondary to complicated UTI. Underlying dementia/use of narcotics. Continue monitoring. * Sepsis with endorgan dysfunction secondary to above. White count down to 12,000 from 19 * Acute blood loss anemia status post-2 units blood transfusion. Hemoglobin 7.8 * Recent right femoral neck fracture status post surgery. Continue aggressive PT OT * Mild RACHEL -renal function at baseline * Elevated bilirubin secondary to hematoma disintegration. * History of CAD continue aspirin blood ginny * History of hypertension hold antihypertensives until systolics improve * Prophylaxis hold rivaroxaban in light of bleed Plan * Transfer to inpatient status * Continue holding anticoagulation * Continue broad antibiotic by coverage * Sepsis management per guidelines * PT OT nutrition support Current Visit: Yes Medical - PN: Qual - VTE Deep Vein Thrombosis/Pulmonary Embolism Present on Admission: No
[2020-01-23] MEDS: MULTIVIT,THER IRON,CA,FA & MIN 1 TABLET PO SCH (09:27)
[2020-01-23] MEDS: DOCUSATE SODIUM 100 MG CAPSULE PO SCH ×2 (09:27→23:27)
[2020-01-23] MEDS: HEPARIN 5,000 UNIT/ML VIAL SQ SCH ×2 (09:42→23:26)
[2020-01-23] MEDS ORDERED: oxyCODONE HCL 5 MG TABLET PO PRN (13:45)
[2020-01-23] MEDS ORDERED: METOPROLOL TARTRATE 5 MG/5 ML VIAL IV PRN (13:47)
[2020-01-23] MEDS ORDERED: 0.9 % SODIUM CHLORIDE 1,000 ML IV SCH (13:51)
[2020-01-23] MEDS: CARVEDILOL 12.5 MG TABLET PO SCH ×2 (14:13→15:31)
[2020-01-23] MEDS: LOSARTAN 50 MG TABLET PO SCH (14:13)
[2020-01-23] MEDS: ASPIRIN 81 MG TAB.CHEW PO SCH (14:14)
[2020-01-23] MEDS: SENNOSIDES/DOCUSATE SODIUM 1 TAB TABLET PO SCH (23:27)
[2020-01-24] MEDS ORDERED: FUROSEMIDE 20 MG/2 ML VIAL IV ONE ×4 (00:14→14:00)
[2020-01-24] MEDS: FUROSEMIDE 20 MG/2 ML VIAL IV ONE ×2 (00:16→02:15)
[2020-01-24] MEDS: 0.9 % SODIUM CHLORIDE 10 ML SYRINGE IV SCH ×3 (05:31→21:32)
[2020-01-24 06:49] LABS: Hematocrit 22.1 % (34.1-44.9); Hemoglobin 7.3 g/dL (11.2-15.7); Mean Cell Volume 94.8 fL (80.0-100.0); Mean Platelet Volume 9.5 fL (7.4-10.4); Platelet Count 309 K/mcL (140-440); RBC 2.33 M/mcL (3.59-5.38); Red Cell Distribution Width 16.8 % (11.5-14.5)
[2020-01-24 07:18] LABS: ALT/SGPT 22 U/l (0-40); AST/SGOT 27 U/l (0-37); Albumin 2.5 gm/dL (3.2-5.2); Alkaline Phosphatase 66 U/L (39-117); Bilirubin,Total 2.4 mg/dL (0.0-1.0); Calcium 7.5 mg/dl (8.6-10.4); Carbon Dioxide 17 mmol/L (22-30); Chloride 102 mmol/L (96-108); Globulin 2.5 gm/dL (2.2-3.7); Glucose 88 mg/dL (70-105); Lactate Dehydrogenase 328 U/L (94-250); Phosphorous 2.6 mg/dL (2.7-4.5); Triglycerides 96 mg/dl (<150); Uric Acid 4.6 mg/dL (2.5-8.0)
[2020-01-24 07:19] LABS: Bilirubin,Direct 1.3 mg/dL (0.0-0.3); Blood Urea Nitrogen 26 mg/dl (8-23); Glomerular Filtration Rate 60
[2020-01-24] MEDS ORDERED: NEUTRA PHOS 1 PACKET PO PRN (07:31)
--- NOTE | 2020-01-24 07:43 | XRay Report ---
CLINICAL INFORMATION: Shortness of Breath COMPARISON: 2019 FINDINGS: The heart is moderately enlarged, but unchanged. Mediastinum is unremarkable. Pulmonary vessels are mildly distended there is mild interstitial edema. Small patchy infiltrate has developed in the right base. On the previous exam, there infiltrates in both mid lungs, but these have cleared. Small right pleural effusion noted IMPRESSION: Mild CHF New small patchy infiltrate right base. Interpreted and Authenticated by: Max Rg 01/24/20
[2020-01-24] MEDS: FUROSEMIDE 40 MG TABLET PO SCH (07:53)
--- NOTE | 2020-01-24 08:12 | Orthopedic Progress Note ---
Subjective Patient information: Note initiated : 01/24/20 at 8:08 am Service Date, if different from initiated Date: [] Patient: Izzy vEerett 80 y/o F admitted on 01/22/20 for Altered LOC. Chief Complaint: [] Objective Vital signs: Vital Signs Temp Pulse Resp BP Pulse Ox 01/24/20 06:47 22 01/24/20 04:00 97.5 F 88 22 145/69 97 01/23/20 23:25 98 F 86 20 134/62 98 01/23/20 20:00 97.5 F 88 20 137/92 99 01/23/20 15:44 98.3 F 20 131/61 98 01/23/20 11:59 97.5 F 24 H 155/85 93 Intake and Output 01/23/20 01/24/20 01/24/20 21:59 05:59 13:59 Intake Total 1120 940 Output Total 900 1500 Balance 220 -560 Intake: IV 1000 100 Sodium Chloride 0.9% 1,000 ml @ 1000 75 mls/hr IV .[id number] [facility] Rx#: [id number] Oral 120 840 Output: Urine Catheter Amount 900 1500 Other: Meal Dinner Percent of Meal Consumed 5% Feeding Ability Assist with Tray Set Up Urine Appearance Clear Clear Urine Color Dark Alyssa Dark Yellow Dark Yellow Stool Size Smear Stool Color Brown Stool Consistency Formed # of times incontinent of 1 Bowels Weight 163 lb Intake & Output: Intake & Output 01/23/20 01/24/20 01/24/20 21:59 05:59 13:59 Intake Total 1120 940 Output Total 900 1500 Balance 220 -560 Weight 163 lb Intake: IV 1000 100 Sodium Chloride 0.9% 1,000 ml @ 1000 75 mls/hr IV .[id number] [facility] Rx#: [id number] Oral 120 840 Output: Urine Catheter Amount 900 1500 Other: Meal Dinner Percent of Meal Consumed 5% Feeding Ability Assist with Tray Set Up Urine Appearance Clear Clear Urine Color Dark Alyssa Dark Yellow Dark Yellow Stool Size Smear Stool Color Brown Stool Consistency Formed # of times incontinent of 1 Bowels - Labs CBC & BMP: 01/24/20 05:12 01/24/20 05:12 Labs: 01/24/20 01/23/20 01/22/20 05:12 05:10 06:58 Hgb 7.3 L 7.8 L 6.5 L* Hct 22.1 L 24.5 L 20.5 L* 01/22/20 00:13 Hgb 6.6 L* Hct 20.6 L* Assessment and Plan - Narrative A/P Narrative: 13 days s/p right hip alesha arthroplasty ---serous drainage continues with significant edema throughout bilateral lower extremity. There is no surrounding erythema or concern for infection or cellulitis about the incision. -- changed dressing and applied hip spica cookie. Should keep in place and only remove to bath. -------incision should not get wet. -------continue prabha until wound drainage stops -- if medically able- would hold dvt prophy for several days to limit drainage.
[2020-01-24] MEDS: MULTIVIT,THER IRON,CA,FA & MIN 1 TABLET PO SCH (08:18)
[2020-01-24] MEDS: LOSARTAN 50 MG TABLET PO SCH (08:18)
[2020-01-24] MEDS: EZETIMIBE 10 MG TABLET PO SCH (08:18)
[2020-01-24] MEDS: CARVEDILOL 12.5 MG TABLET PO SCH ×2 (08:19→17:27)
[2020-01-24] MEDS: DOCUSATE SODIUM 100 MG CAPSULE PO SCH ×2 (08:19→21:31)
[2020-01-24] MEDS: HEPARIN 5,000 UNIT/ML VIAL SQ SCH (08:19)
[2020-01-24] MEDS: ASPIRIN 81 MG TAB.CHEW PO SCH (08:19)
[2020-01-24 08:24] LABS: Anisocytosis 1+ (NONE SEEN); Eosinophils % (Manual) 1 % (0-7); Lymphocytes % 5 % (15-49); Monocytes % (Manual) 7 % (1-12); Platelet Estimate NORMAL (NORMAL); RBC Morphology ABNORM (NORMAL); Segmented Neutrophils % 87 % (38-78)
[2020-01-24] MEDS: cefTRIAXone 2 GM in DEXTROSE 5% IN WATER 50 ML IV SCH (08:28)
[2020-01-24] MEDS ORDERED: ASPIRIN 81 MG TAB.CHEW PO SCH (09:00)
[2020-01-24] MEDS ORDERED: LOSARTAN 50 MG TABLET PO SCH (09:00)
[2020-01-24] MEDS ORDERED: LEVOFLOXACIN 750 MG/150 ML BAG IV SCH (09:00)
--- NOTE | 2020-01-24 09:40 | Internal Med Progress Note ---
Medical - PN: Subj Patient information: Note initiated : 01/24/20 at 9:36 am Service Date, if different from initiated Date: [] Patient: Izzy Everett a 80 y/o F admitted on 01/23/20 for Altered LOC. Chief Complaint: [] Interval history: Ms. Everett is a 79 year old F fairly independently living alone until recently with past medical history including HTN/CHF and CAD. She was admitted to [facility] sustaining multiple injuries after being trampled by her horse. She underwent operative intervention for right hip fracture followed by prolonged hospitalization for blood loss anemia/UTI/sepsis and was eventually discharged on 01/18 to [facility]. Patient patient within 48 hours of discharge sustained a fall at the SNF and was noted to be increasing lethargic fatigue and confused. She was subsequently sent to [facility] ER for further evaluation. Initial work-up revealed white count of over 19,000/pyuria. Patient was fairly confused and lethargic. Hemoglobin 6.6. Subsequently hospitalist service was consulted for admission for management of UTI/mental status change and anemia. At the time evaluation patient is minimally responsive and very lethargic. I discussed with her son Raj on phone. He expresses concerns about her deteriorating status and would want to keep her comfortable. 01/22-hemoglobin 7.5. Bilirubin elevated due to hematoma disintegration. Significant swelling right lower extremity with bruising. No abdominal tenderness. Intermittently confused. Nonlabored breathing. White count down to 12.5. Bilious urine, creatinine 1.3 urine cultures pending. No overnight fever chills nausea vomiting or concerns per staff other than progressive confusion 01/23-patient clinically improved. Currently on for his oxygen. Much improved mentation. Lymphedema improving. Serosanguineous drainage at surgery site right hip. Followed by orthopedics. Continue low-dose diuretics. Hold DVT prophylaxis due to continued oozing. Hemoglobin stable at 7.3 status post venous transfusion. Renal function improved creatinine down to 2.9, bilirubin down to 2.4. Continue mobilization/therapy/nutrition support - Constitutional Vitals: Vital Signs Temp Pulse Resp BP Pulse Ox 97.5 F 88 22 145/69 97 01/24/20 04:00 01/24/20 04:00 01/24/20 06:47 01/24/20 04:00 01/24/20 04:00 Period Temp Pulse Resp BP Sys/Flood Pulse Ox Last 24 Hr 97.5 F-98.3 F 86-88 20-24 131-155/61-92 93-99 Intake and Output 01/23/20 01/24/20 01/24/20 21:59 05:59 13:59 Intake Total 1120 940 240 Output Total 900 1500 Balance 220 -560 240 Weight 163 lb Intake & Output: Intake & Output 01/23/20 01/24/20 01/24/20 21:59 05:59 13:59 Intake Total 1120 940 240 Output Total 900 1500 Balance 220 -560 240 Weight 163 lb Intake: IV 1000 100 Sodium Chloride 0.9% 1,000 ml @ 1000 75 mls/hr IV .[id number] [facility] Rx#: [id number] Oral 120 840 240 Output: Urine Catheter Amount 900 1500 Other: Meal Dinner Breakfast Percent of Meal Consumed 5% 50% Feeding Ability Assist with Tray Set Up Assist with Tray Set Up Urine Appearance Clear Clear Urine Color Dark Alyssa Dark Yellow Dark Yellow Stool Size Smear Stool Color Brown Stool Consistency Formed # of times incontinent of 1 Bowels General appearance: no acute distress Exam: Alert but intermittently confused Nonlabored breathing Anxious Lymphedema improving Right hip serosanguineous drainage at surgery site Medical - PN: Obj Da - Labs CBC & Chem 7: 01/24/20 05:12 01/24/20 05:12 Labs: Abnormal Lab Results 01/24/20 01/24/20 01/23/20 05:12 05:12 05:10 WBC RBC 2.33 L Hgb 7.3 L Hct 22.1 L RDW 16.8 H Gran % Lymph % (Auto) [place] % (Auto) Gran # Lymph # (Auto) [place] # (Auto) Seg Neutrophils % 87 H Lymphocytes % 5 L RBC Morphology Abnorm A Polychromasia Anisocytosis 1+ A Sodium 132 L Carbon Dioxide 17 L 21 L BUN 26 H 33 H Creatinine 1.3 H Glucose Calcium 7.5 L 8.4 L Phosphorus 2.6 L Total Bilirubin 2.4 H 4.6 H Direct Bilirubin 1.3 H 3.7 H Lactate Dehydrogenase 328 H 339 H Total Protein 5.0 L 5.3 L Albumin 2.5 L 2.7 L Urine Protein Urine Occult Blood Ur Leukocyte Esterase Urine RBC Urine WBC Hyaline Casts 0401/22/20 01/22/20 05:10 06:58 06:58 WBC 12.5 H 15.5 H RBC 2.57 L 2.14 L Hgb 7.8 L 6.5 L* Hct 24.5 L 20.5 L* RDW 17.0 H 17.3 H Gran % 80.5 H Lymph % (Auto) 6.3 L [place] % (Auto) 12.6 H Gran # 12.48 H Lymph # (Auto) 0.98 L [place] # (Auto) 1.96 H Seg Neutrophils % 83 H Lymphocytes % 4 L RBC Morphology Abnorm A Polychromasia Occ A Anisocytosis 2+ A Sodium Carbon Dioxide BUN 32 H Creatinine 1.3 H Glucose 115 H Calcium 8.1 L Phosphorus Total Bilirubin 2.5 H Direct Bilirubin Lactate Dehydrogenase Total Protein 5.2 L Albumin 2.8 L Urine Protein Urine Occult Blood Ur Leukocyte Esterase Urine RBC Urine WBC Hyaline Casts 01/22/20 01/22/20 01/22/20 00:13 00:13 00:09 WBC 19.6 H RBC 2.14 L Hgb 6.6 L* Hct 20.6 L* RDW 17.9 H Gran % 83.0 H Lymph % (Auto) 4.6 L [place] % (Auto) Gran # 16.24 H Lymph # (Auto) 0.89 L [place] # (Auto) 2.33 H Seg Neutrophils % Lymphocytes % RBC Morphology Polychromasia Anisocytosis Sodium Carbon Dioxide BUN 31 H Creatinine 1.4 H Glucose 130 H Calcium Phosphorus Total Bilirubin 3.0 H Direct Bilirubin Lactate Dehydrogenase Total Protein 5.8 L Albumin Urine Protein 30 A Urine Occult Blood 0.2 A Ur Leukocyte Esterase 250 A Urine RBC 3 H Urine WBC 26 H Hyaline Casts 6 H Meds: Medications Acetaminophen (Tylenol) 650 mg PO Q4-6HP PRN; Protocol PRN Reason: Per Pain Protocol/Fever > 101 Aspirin (Aspirin) 81 mg PO DAILY [facility] Last Admin: 01/24/20 08:19 Dose: 81 mg Documented by: Bisacodyl (Dulcolax) 10 mg NV Q2-3DAYS PRN PRN Reason: Constipation [facility] Admin: 01/24/20 08:19 Dose: 12.5 mg Documented by: Docusate Sodium (Colace) 100 mg PO BID [facility] Last Admin: 01/24/20 08:19 Dose: Not Given Documented by: Ezetimibe (Zetia) 10 mg PO QDAY [facility] Last Admin: 01/24/20 08:18 Dose: 10 mg Documented by: Furosemide (Lasix) 40 mg PO QDAY [facility] Last Admin: 01/24/20 07:53 Dose: Not Given Documented by: Furosemide (Lasix) 20 mg IV ONCE ONE Stop: 01/24/20 14:01 Magnesium Sulfate (Magnesium Sulfate) 2 gm in 50 mls @ 50 mls/hr IV UD PRN PRN Reason: MG = or < 1.7 Levofloxacin (Levaquin) 750 mg in 150 mls @ 100 mls/hr IV Q48H [facility]; Protocol Ceftriaxone Sodium 2 gm/ (Dextrose) 50 mls @ 100 mls/hr IV Q24H [facility]; Protocol Last Admin: 01/24/20 08:28 Dose: 100 mls/hr Documented by: Acetaminophen (Ofirmev) 1,000 mg in 100 mls @ 200 mls/hr IV Q4-6HP PRN; Protocol PRN Reason: Pain Last Infusion: 01/24/20 00:20 Dose: Infused Documented by: Sodium Chloride (Sodium Chloride 0.9%) 1,000 mls @ 0 mls/hr IV .Q0M [facility] Last Admin: 01/23/20 14:13 Dose: 20 mls/hr Documented by: Iron Carb/Multivit/[place]/Folic Acid (Multivitamin W/Minerals) 1 tab PO DAILY [facility] Last Admin: 01/24/20 08:18 Dose: 1 tab Documented by: Losartan Potassium (Cozaar) 100 mg PO DAILY [facility] Last Admin: 01/24/20 08:18 Dose: 100 mg Documented by: Melatonin (Melatonin 3mg Tablet) 3 mg PO HSP PRN PRN Reason: Insomnia Morphine Sulfate (Morphine) 2 mg IV Q2HP PRN; Protocol PRN Reason: Per Pain Protocol Last Admin: 01/22/20 07:01 Dose: 2 mg Documented by: Naloxone HCl (Narcan) 0.1 mg IV Q2MIN PRN PRN Reason: Opiate Reversal Ondansetron HCl (Zofran Odt) 4 mg SL Q4-6HP PRN; Protocol PRN Reason: Nausea And Vomiting Ondansetron HCl (Zofran) 4 mg IV Q4-6HP PRN; Protocol PRN Reason: Nausea And Vomiting Oxycodone HCl (Roxicodone) 5 - 10 mg PO Q4HP PRN; Protocol PRN Reason: pain Polyethylene Glycol (Miralax) 17 gm PO DAILYP PRN PRN Reason: Constipation Potassium Chloride (Klor-Con) 40 meq PO DAILYP PRN PRN Reason: K+ < 3.5 Potassium/Phosphorus/Sodium (Neutra Phos) 2 packet PO BID PRN PRN Reason: Phosphorus less than 2.6 Senna/Docusate Sodium (Senna Plus Tablet) 1 tab PO HS [facility] Last Admin: 01/23/20 23:27 Dose: 1 tab Documented by: Sodium Chloride (Saline Flush) 10 ml IV Q8 [facility] Last Admin: 01/24/20 05:31 Dose: 10 ml Documented by: Medical - PN: A/P - Time Spent With Patient Total time spent is greater than 50% in coordination of care (as documented) at patient's floor/unit and/or counseling patient: 25 - 35 minutes (1) Complicated UTI (urinary tract infection) Status: Acute Assessment and plan: Status: Acute * Acute blood loss anemia secondary to thigh extravasation. Status post 2 units PRBC/hemoglobin 7.3. Hold DVT prophylaxis due to continuous oozing * Complicated UTI -clinically improved. DC antibiotics in 24 hours * Acute mental status change -likely secondary to complicated UTI. Underlying dementia/use of narcotics. Now improving close to baseline * Sepsis with endorgan dysfunction secondary to above. White count normalized * Recent right femoral neck fracture status post surgery. Continue aggressive PT OT. Dressing changed by orthopedics today. Orthopedic recommends discontinuing DVT prophylaxis * Mild RACHEL -renal function at baseline. Creatinine 0.9 * Elevated bilirubin secondary to hematoma disintegration. Improving * History of CAD continue aspirin blood ginny * History of hypertension-restart antihypertensives * Prophylaxis held rivaroxaban in light of bleed Plan * Transfuse if hemoglobin less than 7 * DC DVT prophylaxis as per orthopedic conditions * DC antibiotics in 24 hours * Mobilization/therapy/nutrition support * Discharge planning Current Visit: Yes Medical - PN: Qual - VTE Deep Vein Thrombosis/Pulmonary Embolism Present on Admission: No
[2020-01-24] MEDS: ACETAMINOPHEN 325 MG TABLET PO PRN (12:14)
[2020-01-24] MEDS: SENNOSIDES/DOCUSATE SODIUM 1 TAB TABLET PO SCH (21:31)
[2020-01-25] MEDS: 0.9 % SODIUM CHLORIDE 10 ML SYRINGE IV SCH ×3 (05:44→19:08)
[2020-01-25 06:30] LABS: Hematocrit 24.7 % (34.1-44.9); Hemoglobin 7.9 g/dL (11.2-15.7); Mean Platelet Volume 9.4 fL (7.4-10.4); Platelet Count 353 K/mcL (140-440); Red Cell Distribution Width 16.9 % (11.5-14.5); WBC 11.8 K/mcL (4.50-11.00)
[2020-01-25 06:58] LABS: ALT/SGPT 30 U/l (0-40); AST/SGOT 35 U/l (0-37); Albumin 3.2 gm/dL (3.2-5.2); Albumin/Globulin Ratio 1.2 (1.0-2.3); Alkaline Phosphatase 89 U/L (39-117); Bilirubin,Total 2.2 mg/dL (0.0-1.0); Blood Urea Nitrogen 30 mg/dl (8-23); Calcium 8.6 mg/dl (8.6-10.4); Carbon Dioxide 22 mmol/L (22-30); Chloride 95 mmol/L (96-108); Globulin 2.7 gm/dL (2.2-3.7); Glomerular Filtration Rate 52; Glucose 110 mg/dL (70-105); Lactate Dehydrogenase 423 U/L (94-250); Phosphorous 2.9 mg/dL (2.7-4.5); Triglycerides 111 mg/dl (<150); Uric Acid 5.2 mg/dL (2.5-8.0)
[2020-01-25 08:24] LABS: Anisocytosis 1+ (NONE SEEN); Band Neutrophils % 1 % (0-10); Eosinophils % (Manual) 2 % (0-7); Lymphocytes % 5 % (15-49); Monocytes % (Manual) 8 % (1-12); Platelet Estimate NORMAL (NORMAL); RBC Morphology ABNORM (NORMAL); Segmented Neutrophils % 84 % (38-78)
[2020-01-25] MEDS: cefTRIAXone 2 GM in DEXTROSE 5% IN WATER 50 ML IV SCH (09:08)
[2020-01-25] MEDS: LOSARTAN 50 MG TABLET PO SCH (09:09)
[2020-01-25] MEDS: FUROSEMIDE 40 MG TABLET PO SCH (09:10)
[2020-01-25] MEDS: CARVEDILOL 12.5 MG TABLET PO SCH ×2 (09:11→18:04)
[2020-01-25] MEDS: ASPIRIN 81 MG TAB.CHEW PO SCH (09:12)
--- NOTE | 2020-01-25 09:18 | Internal Med Progress Note ---
Medical - PN: Subj Patient information: Note initiated : 01/25/20 at 9:14 am Service Date, if different from initiated Date: [] Patient: Izzy Everett a 80 y/o F admitted on 01/23/20 for Altered LOC. Chief Complaint: [] Interval history: Ms. Everett is a 79 year old F fairly independently living alone until recently with past medical history including HTN/CHF and CAD. She was admitted to [facility] sustaining multiple injuries after being trampled by her horse. She underwent operative intervention for right hip fracture followed by prolonged hospitalization for blood loss anemia/UTI/sepsis and was eventually discharged on 01/18 to SNF. Patient patient within 48 hours of discharge sustained a fall at the SNF and was noted to be increasing lethargic fatigue and confused. She was subsequently sent to [facility] ER for further evaluation. Initial work-up revealed white count of over 19,000/pyuria. Patient was fairly confused and lethargic. Hemoglobin 6.6. Subsequently hospitalist service was consulted for admission for management of UTI/mental status change and anemia. At the time evaluation patient is minimally responsive and very lethargic. I discussed with her son Raj on phone. He expresses concerns about her deteriorating status and would want to keep her comfortable. 01/22-hemoglobin 7.5. Bilirubin elevated due to hematoma disintegration. Significant swelling right lower extremity with bruising. No abdominal tenderness. Intermittently confused. Nonlabored breathing. White count down to 12.5. Bilious urine, creatinine 1.3 urine cultures pending. No overnight fever chills nausea vomiting or concerns per staff other than progressive confusion 01/23-patient clinically improved. Currently on for his oxygen. Much improved mentation. Lymphedema improving. Serosanguineous drainage at surgery site right hip. Followed by orthopedics. Continue low-dose diuretics. Hold DVT prophylaxis due to continued oozing. Hemoglobin stable at 7.3 status post venous transfusion. Renal function improved creatinine down to 2.9, bilirubin down to 2.4. Continue mobilization/therapy/nutrition support 01/24-patient remains intermittently confused. Hallucinating. However appears getting stronger and very fidgety. Remains high risk fall. Hemoglobin 7.9, bilirubin downtrending, sodium 130, white count 11.8. No overnight fever chills. No additional concerns per staff. Anticipate discharge in 24 hours to SNF. - Constitutional Vitals: Vital Signs Temp Pulse Resp BP Pulse Ox 98.3 F 86 22 150/71 97 01/25/20 03:25 01/25/20 03:25 01/25/20 03:25 01/25/20 03:25 01/25/20 03:25 Period Temp Pulse Resp BP Sys/Flood Pulse Ox Last 24 Hr 96.8 F-98.3 F 80-86 20-24 132-155/65-85 94-98 Intake and Output 01/24/20 01/25/20 01/25/20 21:59 05:59 13:59 Intake Total 800 110 Output Total 400 375 Balance 400 -265 Weight 162 lb Intake & Output: Intake & Output 01/24/20 01/25/20 01/25/20 21:59 05:59 13:59 Intake Total 800 110 Output Total 400 375 Balance 400 -265 Weight 162 lb Intake: Nourishment/Supplement quantity 60 (ml) Oral 800 50 Output: Urine Catheter Amount 400 375 Other: Meal Dinner Percent of Meal Consumed 25% Nourishment/Supplement name Ensure Enlive Urine Color Uretheral (Jerome) Dark Yellow Stool Size Small Moderate Stool Color Brown Brown Stool Consistency Formed Soft Formed # Bowel Movements 1 General appearance: no acute distress Exam: Anxious Intimately confused Nonlabored breathing No pallor Right lower extremity swelling much improved Medical - PN: Obj Da - Labs CBC & Chem 7: 01/25/20 05:00 01/25/20 05:00 Labs: Abnormal Lab Results 01/25/20 01/25/20 01/24/20 05:00 05:00 05:12 WBC 11.8 H RBC 2.60 L Hgb 7.9 L Hct 24.7 L RDW 16.9 H Seg Neutrophils % 84 H Lymphocytes % 5 L RBC Morphology Abnorm A Polychromasia Anisocytosis 1+ A Sodium 130 L 132 L Chloride 95 L Carbon Dioxide 17 L BUN 30 H 26 H Creatinine Glucose 110 H Calcium 7.5 L Phosphorus 2.6 L Total Bilirubin 2.2 H 2.4 H Direct Bilirubin 1.0 H 1.3 H GGT 45 H Lactate Dehydrogenase 423 H 328 H Total Protein 5.0 L Albumin 2.5 L 01/24/20 01/23/20 01/23/20 05:12 05:10 05:10 WBC 12.5 H RBC 2.33 L 2.57 L Hgb 7.3 L 7.8 L Hct 22.1 L 24.5 L RDW 16.8 H 17.0 H Seg Neutrophils % 87 H 83 H Lymphocytes % 5 L 4 L RBC Morphology Abnorm A Abnorm A Polychromasia Occ A Anisocytosis 1+ A 2+ A Sodium Chloride Carbon Dioxide 21 L BUN 33 H Creatinine 1.3 H Glucose Calcium 8.4 L Phosphorus Total Bilirubin 4.6 H Direct Bilirubin 3.7 H GGT Lactate Dehydrogenase 339 H Total Protein 5.3 L Albumin 2.7 L Meds: Medications Acetaminophen (Tylenol) 650 mg PO Q4-6HP PRN; Protocol PRN Reason: Per Pain Protocol/Fever > 101 Last Admin: 01/24/20 12:14 Dose: 650 mg Documented by: Aspirin (Aspirin) 81 mg PO DAILY [facility] Last Admin: 01/25/20 09:12 Dose: 81 mg Documented by: Bisacodyl (Dulcolax) 10 mg [place] Q2-3DAYS PRN PRN Reason: Constipation [facility] Last Admin: 01/25/20 09:11 Dose: 12.5 mg Documented by: Docusate Sodium (Colace) 100 mg PO BID [facility] Last Admin: 01/24/20 21:31 Dose: 100 mg Documented by: Ezetimibe (Zetia) 10 mg PO QDAY [facility] Last Admin: 01/24/20 08:18 Dose: 10 mg Documented by: Furosemide (Lasix) 40 mg PO QDAY [facility] Last Admin: 01/25/20 09:10 Dose: 40 mg Documented by: Magnesium Sulfate (Magnesium Sulfate) 2 gm in 50 mls @ 50 mls/hr IV UD PRN PRN Reason: MG = or < 1.7 Last Admin: 01/24/20 11:32 Dose: 50 mls/hr Documented by: Levofloxacin (Levaquin) 750 mg in 150 mls @ 100 mls/hr IV Q48H [facility]; Protocol Last Admin: 01/24/20 09:54 Dose: 100 mls/hr Documented by: Ceftriaxone Sodium 2 gm/ (Dextrose) 50 mls @ 100 mls/hr IV Q24H [facility]; Protocol Last Admin: 01/25/20 09:08 Dose: 100 mls/hr Documented by: Acetaminophen (Ofirmev) 1,000 mg in 100 mls @ 200 mls/hr IV Q4-6HP PRN; Protocol PRN Reason: Pain Last Infusion: 01/24/20 00:20 Dose: Infused Documented by: Sodium Chloride (Sodium Chloride 0.9%) 1,000 mls @ 0 mls/hr IV .Q0M [facility] Last Admin: 01/23/20 14:13 Dose: 20 mls/hr Documented by: Iron Carb/Multivit/[place]/Folic Acid (Multivitamin W/Minerals) 1 tab PO DAILY [facility] Last Admin: 01/24/20 08:18 Dose: 1 tab Documented by: Losartan Potassium (Cozaar) 100 mg PO DAILY [facility] Last Admin: 01/25/20 09:09 Dose: 100 mg Documented by: Melatonin (Melatonin 3mg Tablet) 3 mg PO HSP PRN PRN Reason: Insomnia Morphine Sulfate (Morphine) 2 mg IV Q2HP PRN; Protocol PRN Reason: Per Pain Protocol Last Admin: 01/22/20 07:01 Dose: 2 mg Documented by: Naloxone HCl (Narcan) 0.1 mg IV Q2MIN PRN PRN Reason: Opiate Reversal Ondansetron HCl (Zofran Odt) 4 mg SL Q4-6HP PRN; Protocol PRN Reason: Nausea And Vomiting Ondansetron HCl (Zofran) 4 mg IV Q4-6HP PRN; Protocol PRN Reason: Nausea And Vomiting Oxycodone HCl (Roxicodone) 5 - 10 mg PO Q4HP PRN; Protocol PRN Reason: pain Polyethylene Glycol (Miralax) 17 gm PO DAILYP PRN PRN Reason: Constipation Potassium Chloride (Klor-Con) 40 meq PO DAILYP PRN PRN Reason: K+ < 3.5 Last Admin: 01/24/20 11:23 Dose: 40 meq Documented by: Potassium/Phosphorus/Sodium (Neutra Phos) 2 packet PO BID PRN PRN Reason: Phosphorus less than 2.6 Last Admin: 01/24/20 11:23 Dose: 2 packet Documented by: Senna/Docusate Sodium (Senna Plus Tablet) 1 tab PO HS [facility] Last Admin: 01/24/20 21:31 Dose: 1 tab Documented by: Sodium Chloride (Saline Flush) 10 ml IV Q8 [facility] Last Admin: 01/25/20 05:44 Dose: Not Given Documented by: Medical - PN: A/P - Time Spent With Patient Total time spent is greater than 50% in coordination of care (as documented) at patient's floor/unit and/or counseling patient: 25 - 35 minutes (1) Complicated UTI (urinary tract infection) Status: Acute Assessment and plan: Status: Acute * Acute blood loss anemia secondary to extravasation at the fracture site. Status post 2 units PRBC/hemoglobin 7.9. Clinically improving. DVT prophylaxis held per orthopedics. Continue mobilization. * Complicated UTI -clinically resolved. DC antibiotics. * Acute mental status change -likely secondary to complicated UTI. Underlying dementia/use of narcotics. Now improving close to baseline * Sepsis with endorgan dysfunction secondary to above. White count normalized * Recent right femoral neck fracture status post surgery. Continue aggressive PT OT. Dressing changed by orthopedics today. Orthopedic recommends discontinuing DVT prophylaxis * Mild RAHCEL -resolved. Creatinine at baseline * Elevated bilirubin secondary to hematoma disintegration. Improving * History of CAD continue aspirin blood ginny * History of hypertension-restart antihypertensives * Prophylaxis held rivaroxaban in light of bleed Plan * Continue PT OT * DC antibiotics * Hold DVT prophylaxis as per orthopedic conditions * Mobilization/nutrition support/maintain fall watch * Discharge planning likely SNF in 24 to 48 hours Current Visit: Yes Medical - PN: Qual - VTE Deep Vein Thrombosis/Pulmonary Embolism Present on Admission: No
[2020-01-25] MEDS ORDERED: OLANZapine 5 MG TABLET PO ONE (11:31)
[2020-01-25] MEDS: MULTIVIT,THER IRON,CA,FA & MIN 1 TABLET PO SCH (11:36)
[2020-01-25] MEDS: DOCUSATE SODIUM 100 MG CAPSULE PO SCH ×2 (11:36→22:10)
[2020-01-25] MEDS: EZETIMIBE 10 MG TABLET PO SCH (11:37)
[2020-01-25] MEDS: ACETAMINOPHEN 325 MG TABLET PO PRN ×2 (18:04→19:00)
--- NOTE | 2020-01-25 18:39 | XRay Report ---
CLINICAL INFORMATION: SOB follow-up CHF COMPARISON: 01/23/2020 portable chest FINDINGS: Moderate cardiomegaly with slight decrease. Mediastinum is unremarkable. Pulmonary vessels have decreased in caliber and interstitial edema has partially resolved. Small right basilar infiltrate has improved. No definite effusion IMPRESSION: Improved CHF pattern. Moderate improvement in small right basilar infiltrate Interpreted and Authenticated by: Max Rg 01/25/20
[2020-01-25] MEDS ORDERED: OLANZapine 10 MG VIAL IM ONE ×2 (21:38→21:41)
[2020-01-25] MEDS: OLANZapine 5 MG TABLET PO SCH (21:53)
[2020-01-25] MEDS: SENNOSIDES/DOCUSATE SODIUM 1 TAB TABLET PO SCH (22:11)
[2020-01-26] MEDS: OLANZapine 5 MG TABLET PO SCH ×3 (05:57→20:14)
[2020-01-26] MEDS: 0.9 % SODIUM CHLORIDE 10 ML SYRINGE IV SCH ×3 (05:58→20:15)
[2020-01-26 06:33] LABS: Hemoglobin 7.7 g/dL (11.2-15.7); Mean Corpuscular HGB Conc 32.1 g/dL (31.0-36.0); Mean Platelet Volume 9.4 fL (7.4-10.4); Platelet Count 316 K/mcL (140-440); Red Cell Distribution Width 16.6 % (11.5-14.5); WBC 7.5 K/mcL (4.50-11.00)
[2020-01-26 06:57] LABS: ALT/SGPT 37 U/l (0-40); AST/SGOT 43 U/l (0-37); Albumin 2.7 gm/dL (3.2-5.2); Alkaline Phosphatase 84 U/L (39-117); Bilirubin,Total 1.6 mg/dL (0.0-1.0); Blood Urea Nitrogen 30 mg/dl (8-23); Calcium 8.5 mg/dl (8.6-10.4); Carbon Dioxide 25 mmol/L (22-30); Chloride 99 mmol/L (96-108); Globulin 2.6 gm/dL (2.2-3.7); Glomerular Filtration Rate 60; Glucose 81 mg/dL (70-105); Lactate Dehydrogenase 396 U/L (94-250); Phosphorous 3.1 mg/dL (2.7-4.5); Triglycerides 104 mg/dl (<150); Uric Acid 5.2 mg/dL (2.5-8.0)
[2020-01-26 06:58] LABS: Bilirubin,Direct 0.7 mg/dL (0.0-0.3)
[2020-01-26 07:26] LABS: Anisocytosis 1+ (NONE SEEN); Eosinophils % (Manual) 4 % (0-7); Lymphocytes % 11 % (15-49); Monocytes % (Manual) 9 % (1-12); Platelet Estimate NORMAL (NORMAL); Promyelocytes % 1 % (0-0); RBC Morphology ABNORM (NORMAL); Segmented Neutrophils % 76 % (38-78)
--- NOTE | 2020-01-26 12:03 | Internal Med Progress Note ---
Medical - PN: Subj Patient information: Note initiated : 01/26/20 at 12:01 pm Service Date, if different from initiated Date: [] Patient: Izzy Everett a 80 y/o F admitted on 01/23/20 for Altered LOC. Chief Complaint: [] Interval history: Ms. Everett is a 79 year old F fairly independently living alone until recently with past medical history including HTN/CHF and CAD. She was admitted to [facility] sustaining multiple injuries after being trampled by her horse. She underwent operative intervention for right hip fracture followed by prolonged hospitalization for blood loss anemia/UTI/sepsis and was eventually discharged on 01/18 to SNF. Patient patient within 48 hours of discharge sustained a fall at the SNF and was noted to be increasing lethargic fatigue and confused. She was subsequently sent to [facility] ER for further evaluation. Initial work-up revealed white count of over 19,000/pyuria. Patient was fairly confused and lethargic. Hemoglobin 6.6. Subsequently hospitalist service was consulted for admission for management of UTI/mental status change and anemia. At the time evaluation patient is minimally responsive and very lethargic. I discussed with her son Raj on phone. He expresses concerns about her deteriorating status and would want to keep her comfortable. 01/22-hemoglobin 7.5. Bilirubin elevated due to hematoma disintegration. Significant swelling right lower extremity with bruising. No abdominal tenderness. Intermittently confused. Nonlabored breathing. White count down to 12.5. Bilious urine, creatinine 1.3 urine cultures pending. No overnight fever chills nausea vomiting or concerns per staff other than progressive confusion 01/23-patient clinically improved. Currently on for his oxygen. Much improved mentation. Lymphedema improving. Serosanguineous drainage at surgery site right hip. Followed by orthopedics. Continue low-dose diuretics. Hold DVT prophylaxis due to continued oozing. Hemoglobin stable at 7.3 status post venous transfusion. Renal function improved creatinine down to 2.9, bilirubin down to 2.4. Continue mobilization/therapy/nutrition support 01/24-patient remains intermittently confused. Hallucinating. However appears getting stronger and very fidgety. Remains high risk fall. Hemoglobin 7.9, bilirubin downtrending, sodium 130, white count 11.8. No overnight fever chills. No additional concerns per staff. Anticipate discharge in 24 hours to SNF. 01/25-patient significantly delirious requiring antipsychotics. Continue frequent reorientation/bright lights. White count down to 7.5. Hemoglobin 7.7. Clinically improving. Sodium 133 potassium 4.4, creatinine 0.9, total bilirubin 1.6. Urine culture yeast less than 10,000 colony. Continue PT OT/rehab support. X-ray chest improved CHF with continued diuresis. - Constitutional Vitals: Vital Signs Temp Pulse Resp BP Pulse Ox 98.5 F 90 20 164/73 99 01/26/20 08:00 01/26/20 08:00 01/26/20 08:00 01/26/20 08:00 01/26/20 08:00 Period Temp Pulse Resp BP Sys/Flood Pulse Ox Last 24 Hr 97.3 F-98.5 F 71-90 20-22 134-188/64-78 97-100 Intake and Output 01/25/20 01/26/20 01/26/20 21:59 05:59 13:59 Intake Total 700 240 Output Total 550 1450 Balance 150 -1210 Weight 166 lb 1.6 oz Intake & Output: Intake & Output 01/25/20 01/26/20 01/26/20 21:59 05:59 13:59 Intake Total 700 240 Output Total 550 1450 Balance 150 -1210 Weight 166 lb 1.6 oz Intake: IV 700 Sodium Chloride 0.9% 1,000 ml @ 700 TKO IV .Q0M [facility] Rx#:[id number] Oral 240 Output: Urine Catheter Amount 550 1450 Other: Urine Appearance Clear Urine Color Bright Yellow Light Alyssa Uretheral (Jerome) Dark Yellow Urine Odor Normal Stool Size Small Stool Color Brown Stool Consistency Soft Formed General appearance: no acute distress Exam: Confused Occasionally agitated nonlabored breathing Lymphedema improved Nontender abdomen Medical - PN: Obj Da - Labs CBC & Chem 7: 01/26/20 05:10 01/26/20 05:10 Labs: Abnormal Lab Results 01/26/20 01/26/20 01/25/20 05:10 05:10 05:00 WBC RBC 2.50 L Hgb 7.7 L Hct 24.0 L RDW 16.6 H Seg Neutrophils % Lymphocytes % 11 L Promyelocytes % 1 H RBC Morphology Abnorm A Anisocytosis 1+ A Sodium 130 L Chloride 95 L Carbon Dioxide BUN 30 H 30 H Glucose 110 H Calcium 8.5 L Phosphorus Total Bilirubin 1.6 H 2.2 H Direct Bilirubin 0.7 H 1.0 H GGT 47 H 45 H AST 43 H Lactate Dehydrogenase 396 H 423 H Total Protein 5.3 L Albumin 2.7 L 01/25/20 01/24/20 01/24/20 05:00 05:12 05:12 WBC 11.8 H RBC 2.60 L 2.33 L Hgb 7.9 L 7.3 L Hct 24.7 L 22.1 L RDW 16.9 H 16.8 H Seg Neutrophils % 84 H 87 H Lymphocytes % 5 L 5 L Promyelocytes % RBC Morphology Abnorm A Abnorm A Anisocytosis 1+ A 1+ A Sodium 132 L Chloride Carbon Dioxide 17 L BUN 26 H Glucose Calcium 7.5 L Phosphorus 2.6 L Total Bilirubin 2.4 H Direct Bilirubin 1.3 H GGT AST Lactate Dehydrogenase 328 H Total Protein 5.0 L Albumin 2.5 L Meds: Medications Acetaminophen (Tylenol) 650 mg PO Q4-6HP PRN; Protocol PRN Reason: Per Pain Protocol/Fever > 101 Last Admin: 01/25/20 19:00 Dose: 650 mg Documented by: Aspirin (Aspirin) 81 mg PO DAILY [facility] Last Admin: 01/25/20 09:12 Dose: 81 mg Documented by: Bisacodyl (Dulcolax) 10 mg [place] Q2-3DAYS PRN PRN Reason: Constipation [facility] ([facility]) [facility] Last Admin: 01/25/20 18:04 Dose: 12.5 mg Documented by: Docusate Sodium (Colace) 100 mg PO BID [facility] Last Admin: 01/25/20 22:10 Dose: Not Given Documented by: Ezetimibe (Zetia) 10 mg PO QDAY [facility] Last Admin: 01/25/20 11:37 Dose: Not Given Documented by: Furosemide (Lasix) 40 mg PO QDAY [facility] Last Admin: 01/25/20 09:10 Dose: 40 mg Documented by: Magnesium Sulfate (Magnesium Sulfate) 2 gm in 50 mls @ 50 mls/hr IV UD PRN PRN Reason: MG = or < 1.7 Last Infusion: 01/25/20 12:32 Dose: Infused Documented by: Acetaminophen (Ofirmev) 1,000 mg in 100 mls @ 200 mls/hr IV Q4-6HP PRN; Protocol PRN Reason: Pain Last Infusion: 01/24/20 00:20 Dose: Infused Documented by: Sodium Chloride (Sodium Chloride 0.9%) 1,000 mls @ 0 mls/hr IV .Q0M [facility] Last Infusion: 01/25/20 14:10 Dose: Infused Documented by: Iron Carb/Multivit/[place]/Folic Acid (Multivitamin W/Minerals) 1 tab PO DAILY [facility] Last Admin: 01/25/20 11:36 Dose: Not Given Documented by: Losartan Potassium (Cozaar) 100 mg PO DAILY [facility] Last Admin: 01/25/20 09:09 Dose: 100 mg Documented by: Melatonin (Melatonin 3mg Tablet) 3 mg PO HSP PRN PRN Reason: Insomnia Morphine Sulfate (Morphine) 2 mg IV Q2HP PRN; Protocol PRN Reason: Per Pain Protocol Last Admin: 01/22/20 07:01 Dose: 2 mg Documented by: Naloxone HCl (Narcan) 0.1 mg IV Q2MIN PRN PRN Reason: Opiate Reversal Olanzapine (Zyprexa) 5 mg PO Q8H [facility] Last Admin: 01/26/20 05:57 Dose: 5 mg Documented by: Ondansetron HCl (Zofran Odt) 4 mg SL Q4-6HP PRN; Protocol PRN Reason: Nausea And Vomiting Ondansetron HCl (Zofran) 4 mg IV Q4-6HP PRN; Protocol PRN Reason: Nausea And Vomiting Oxycodone HCl (Roxicodone) 5 - 10 mg PO Q4HP PRN; Protocol PRN Reason: pain Polyethylene Glycol (Miralax) 17 gm PO DAILYP PRN PRN Reason: Constipation Potassium Chloride (Klor-Con) 40 meq PO DAILYP PRN PRN Reason: K+ < 3.5 Last Admin: 01/24/20 11:23 Dose: 40 meq Documented by: Potassium/Phosphorus/Sodium (Neutra Phos) 2 packet PO BID PRN PRN Reason: Phosphorus less than 2.6 Last Admin: 01/24/20 11:23 Dose: 2 packet Documented by: Senna/Docusate Sodium (Senna Plus Tablet) 1 tab PO HS [facility] Last Admin: 01/25/20 22:11 Dose: Not Given Documented by: Sodium Chloride (Saline Flush) 10 ml IV Q8 [facility] Last Admin: 01/26/20 05:58 Dose: 10 ml Documented by: Medical - PN: A/P - Time Spent With Patient Total time spent is greater than 50% in coordination of care (as documented) at patient's floor/unit and/or counseling patient: 25 - 35 minutes (1) Complicated UTI (urinary tract infection) Status: Acute Assessment and plan: Status: Acute * Acute decompensated heart failure- Improving on interval imaging with diuretics * Hospital associated delirium. Clinically improving. Continue frequent reorientation/bright lights/as needed Zyprexa * Acute blood loss anemia secondary to extravasation at the fracture site. Status post 2 units PRBC/hemoglobin 7.7. Clinically improving. * DVT prophylaxis held per orthopedics. Continue mobilization as tolerated. Restart deferoxamine on discharge * Complicated UTI -clinically resolved. Off antibiotics * Sepsis with endorgan dysfunction - Clinically resolved. * Recent right femoral neck fracture status post surgery. Continue aggressive PT OT. Dressing changed by orthopedics . Orthopedic recommends discontinuing DVT prophylaxis in light of surgery site oozing * Mild RACHEL -resolved. Creatinine at baseline * Elevated bilirubin secondary to hematoma disintegration. Improving * History of CAD continue aspirin blood ginny * History of hypertension-restart antihypertensives Plan * Continue PT OT * Continue diuretics * Hold rivaroxaban for DVT prophylaxis as per orthopedic recommendations * Delirium watch * Mobilization/nutrition support/maintain fall watch * Discharge planning likely SNF Current Visit: Yes Medical - PN: Qual - VTE Deep Vein Thrombosis/Pulmonary Embolism Present on Admission: No
[2020-01-26] MEDS ORDERED: FUROSEMIDE 20 MG/2 ML VIAL IV ONE (14:02)
[2020-01-26] MEDS: CARVEDILOL 12.5 MG TABLET PO SCH ×2 (14:58→16:58)
[2020-01-26] MEDS: EZETIMIBE 10 MG TABLET PO SCH (15:32)
[2020-01-26] MEDS: MULTIVIT,THER IRON,CA,FA & MIN 1 TABLET PO SCH (15:32)
[2020-01-26] MEDS: DOCUSATE SODIUM 100 MG CAPSULE PO SCH ×2 (15:46→20:14)
[2020-01-26] MEDS: LOSARTAN 50 MG TABLET PO SCH (15:46)
[2020-01-26] MEDS: ASPIRIN 81 MG TAB.CHEW PO SCH (15:46)
[2020-01-26] MEDS: FUROSEMIDE 40 MG TABLET PO SCH (15:47)
[2020-01-26] MEDS: CEPHALEXIN 500 MG CAPSULE PO SCH ×2 (16:56→20:14)
[2020-01-26] MEDS: SENNOSIDES/DOCUSATE SODIUM 1 TAB TABLET PO SCH (20:14)
[2020-01-27] MEDS: 0.9 % SODIUM CHLORIDE 10 ML SYRINGE IV SCH (04:33)
[2020-01-27] MEDS: OLANZapine 5 MG TABLET PO SCH ×2 (04:33→12:51)
[2020-01-27 06:42] LABS: Hematocrit 28.4 % (34.1-44.9); Mean Cell Volume 98.6 fL (80.0-100.0); Mean Corpuscular HGB Conc 31.7 g/dL (31.0-36.0); Mean Platelet Volume 9.1 fL (7.4-10.4); Platelet Count 404 K/mcL (140-440); RBC 2.88 M/mcL (3.59-5.38); Red Cell Distribution Width 17.4 % (11.5-14.5)
[2020-01-27 06:54] LABS: ALT/SGPT 46 U/l (0-40); AST/SGOT 45 U/l (0-37); Albumin 3.4 gm/dL (3.2-5.2); Albumin/Globulin Ratio 1.2 (1.0-2.3); Alkaline Phosphatase 115 U/L (39-117); Bilirubin,Direct 0.8 mg/dL (0.0-0.3); Bilirubin,Total 1.9 mg/dL (0.0-1.0); Blood Urea Nitrogen 30 mg/dl (8-23); Calcium 8.9 mg/dl (8.6-10.4); Carbon Dioxide 25 mmol/L (22-30); Chloride 99 mmol/L (96-108); Globulin 2.8 gm/dL (2.2-3.7); Glucose 110 mg/dL (70-105); Lactate Dehydrogenase 481 U/L (94-250); Triglycerides 103 mg/dl (<150); Uric Acid 6.5 mg/dL (2.5-8.0)
[2020-01-27 06:57] LABS: Glomerular Filtration Rate 42
[2020-01-27 08:08] LABS: Anisocytosis 1+ (NONE SEEN); Band Neutrophils % 1 % (0-10); Eosinophils % (Manual) 2 % (0-7); Lymphocytes % 8 % (15-49); Monocytes % (Manual) 10 % (1-12); Platelet Estimate NORMAL (NORMAL); RBC Morphology ABNORM (NORMAL); Segmented Neutrophils % 79 % (38-78)
--- NOTE | 2020-01-27 09:31 | Discharge Summary ---
Medical - DS: Prov Patient information: Note initiated : 01/27/20 at 9:28 am Service Date, if different from initiated Date: [] Patient: Izzy Everett 80 y/o F admitted on 01/23/20 for Altered LOC. Chief Complaint: [] Date of admission: 01/23/20 09:15 Discharge date: 01/27/20 Primary care physician: Max Johnson Consults: 01/22/20 Consult to Physician [CONS] Stat Comment: Consulting Provider: Tian Bravo Reason For Exam: Physician to Consult Medical - DS: Meds - Discharge Medications Prescriptions: Cephalexin [Keflex] 500 mg PO QID #20 cap Prescription Printed oxyCODONE HCL [Roxicodone] 5 - 10 mg PO Q4HP PRN #14 tab PRN Reason: pain Prescription Printed Active and Home Medications: Home Medications Aspirin [Adult Low Dose Aspirin EC] 81 mg PO DAILY 03/12/17 [History Confirmed 01/22/20 Last Taken 03/23/19] valsartan 160 mg tablet 160 mg PO QDAY #90 tab 08/04/19 [Rx Confirmed 01/22/20 Last Taken 01/20/20 12:00] carvedilol 12.5 mg tablet 12.5 mg PO BID #180 tab 08/05/19 [Rx Confirmed 01/22/20 Last Taken 01/20/20 18:15] rivaroxaban 20 mg tablet 20 mg PO DAILY #90 tab 08/11/19 [Rx Confirmed 01/22/20 Last Taken 01/20/20 12:00] ezetimibe 10 mg tablet 10 mg PO QDAY #90 tab 08/27/19 [Rx Confirmed 01/22/20 Last Taken 01/20/20 12:00] furosemide 40 mg tablet 40 mg PO QDAY #90 tab 09/17/19 [Rx Confirmed 01/22/20 Last Taken 01/20/20 12:00] Cephalexin [Keflex] 500 mg PO QID #20 cap 01/27/20 [Rx Last Taken Unknown] Docusate Sodium [Colace] 100 mg PO BID #0 cap 01/27/20 [Rx Last Taken Unknown] oxyCODONE HCL [Roxicodone] 5 - 10 mg PO Q4HP PRN #14 tab 01/27/20 [Rx Last Taken Unknown] Medical - DS: Hosp Hospital Course: Discharge diagnosis * Acute decompensated heart failure-clinically resolved with diuresis. Continue beta-ginny/Lasix/ARB * Hospital associated delirium. Clinically resolved and now at baseline. Continue frequent reorientation/bright lights * Acute blood loss anemia secondary to extravasation at the fracture site. Status post 2 units PRBC/hemoglobin 9. Restart anticoagulation for DVT prophylaxis on 01/29 * Complicated UTI -clinically resolved. Clinically resolved * Sepsis with endorgan dysfunction - Clinically resolved. * Recent right femoral neck fracture status post surgery. Continue aggressive PT OT. Dressing changed by orthopedics . Orthopedic recommends Keflex for additional 5 days. * Mild RACHEL -resolved. Creatinine at baseline * Elevated bilirubin secondary to hematoma disintegration. Improving * History of CAD continue aspirin blood ginny * History of hypertension-restart antihypertensives Brief hospital course Ms. Everett is a 79 year old F fairly independently living alone until recently with past medical history including HTN/CHF and CAD. She was admitted to [facility] sustaining multiple injuries after being trampled by her horse. She underwent operative intervention for right hip fracture followed by prolonged hospitalization for blood loss anemia/UTI/sepsis and was eventually discharged on 01/18 to SNF. Patient patient within 48 hours of discharge sustained a fall at the SNF and was noted to be increasing lethargic fatigue and confused. She was subsequently sent to [facility] ER for further evaluation. Initial work-up revealed white count of over 19,000/pyuria. Patient was fairly confused and lethargic. Hemoglobin 6.6. Subsequently hospitalist service was consulted for admission for management of UTI/mental status change and anemia. At the time evaluation patient is minimally responsive and very lethargic. I discussed with her son Raj on phone. He expresses concerns about her deteriorating status and would want to keep her comfortable. 01/22-hemoglobin 7.5. Bilirubin elevated due to hematoma disintegration. Significant swelling right lower extremity with bruising. No abdominal tenderness. Intermittently confused. Nonlabored breathing. White count down to 12.5. Bilious urine, creatinine 1.3 urine cultures pending. No overnight fever chills nausea vomiting or concerns per staff other than progressive confusion 01/23-patient clinically improved. Currently on for his oxygen. Much improved mentation. Lymphedema improving. Serosanguineous drainage at surgery site right hip. Followed by orthopedics. Continue low-dose diuretics. Hold DVT prophylaxis due to continued oozing. Hemoglobin stable at 7.3 status post venous transfusion. Renal function improved creatinine down to 2.9, bilirubin down to 2.4. Continue mobilization/therapy/nutrition support 01/24-patient remains intermittently confused. Hallucinating. However appears getting stronger and very fidgety. Remains high risk fall. Hemoglobin 7.9, bilirubin downtrending, sodium 130, white count 11.8. No overnight fever chills. No additional concerns per staff. Anticipate discharge in 24 hours to SNF. 01/25-patient significantly delirious requiring antipsychotics. Continue frequent reorientation/bright lights. White count down to 7.5. Hemoglobin 7.7. Clinically improving. Sodium 133 potassium 4.4, creatinine 0.9, total bilirubin 1.6. Urine culture yeast less than 10,000 colony. Continue PT OT/rehab support. X-ray chest improved CHF with continued diuresis. 01/26-patient doing remarkably better. No further evidence of bleed. Hemodynamic stable. Hemoglobin at 9. CHF resolved. Creatinine near baseline. Restart anticoagulation on 01/29 if no further evidence of bleeding or drop in hemoglobin. Sodium normalized to 136. Transferring to SNF for continued posthospitalization rehab. Maintain fall precautions. Continue Keflex for additional 5 days as per orthopedics Discharge diagnosis: . - Time Spent with Patient Total time spent providing and/or coordinating discharge services: Greater than 30 minutes Medical - DS: Exam - Constitutional Vitals: Vital Signs Temp Pulse Resp BP Pulse Ox 01/27/20 08:00 98.1 F 90 20 201/112 95 01/27/20 03:01 98.8 F 82 24 H 156/79 96 01/26/20 23:17 98.6 F 84 24 H 150/80 98 01/26/20 19:49 98.9 F 86 22 156/84 96 01/26/20 16:00 98.0 F 79 18 118/55 94 01/26/20 12:00 98.2 F 88 18 178/85 94 Intake and Output 01/26/20 01/27/20 01/27/20 21:59 05:59 13:59 Intake Total 140 190 Output Total 1575 350 Balance -1435 -160 Intake: Oral 140 190 Output: Urine Catheter Amount 1575 350 Other: Meal Dinner Percent of Meal Consumed 75% Feeding Ability Independent Urine Appearance Clear Clear Uretheral (Jerome) Clear Urine Color Straw Dark Yellow Uretheral (Jerome) Straw Urine Odor Strong Strong Stool Size Moderate Moderate Small Stool Color Brown Brown Brown Stool Consistency Soft Soft Soft # Bowel Movements 1 1 # of times incontinent of 1 Bowels Weight 162 lb 4.8 oz Medical - DS: Data Labs on day of discharge: Labs from last 24 hours 01/27/20 01/27/20 05:30 05:30 WBC 12.0 H RBC 2.88 L Hgb 9.0 L Hct 28.4 L MCV 98.6 MCH 31.3 MCHC 31.7 RDW 17.4 H Plt Count 404 MPV 9.1 Total Counted 100 Seg Neutrophils % 79 H Band Neutrophils % 1 Lymphocytes % 8 L Monocytes % (Manual) 10 Eosinophils % (Manual) 2 Platelet Estimate Normal RBC Morphology Abnorm A Anisocytosis 1+ A Sodium 136 Potassium 3.8 Chloride 99 Carbon Dioxide 25 Anion Gap 12.0 BUN 30 H Creatinine 1.2 H GFR Calculation 42 Glucose 110 H Uric Acid 6.5 Calcium 8.9 Phosphorus 3.0 Magnesium 2.1 Total Bilirubin 1.9 H Direct Bilirubin 0.8 H GGT 59 H AST 45 H ALT 46 H Alkaline Phosphatase 115 Lactate Dehydrogenase 481 H Total Protein 6.2 Albumin 3.4 Globulin 2.8 Albumin/Globulin Ratio 1.2 Triglycerides 103 Preliminary micro results at discharge 01/22/20 00:27 Urine Culture - Preliminary Urine - Catheterized Yeast Medical - DS: A/P - Patient/Caregiver Discharge Instructions Activity: as per physical therapy, increase activity as tolerated Diet: Low Sodium (2gm) Additional Instructions: Follow-up PCP in 5 days F/u orthopedics as scheduled by orthopedics along with post op care. Post op DVT prophylaxis on rivaroxaban to start in 48 hours-01/30/2020 if no evidence of bleed I recommend [facility] physician to check CBC BMP UA as a posthospital follow-up in 1 week. Antibiotics for additional 5 days oral Keflex per orthopedics Continue aggressive bowel regimen to prevent constipation Continue fall precautions/delirium watch Daily weights measurements and take additional 40 mg Lasix for 3 days if weight gain over 4 pounds over baseline or worsening SOB and call primary care physician if inadequate response to Lasix Continue aggressive PT OT evaluation and treatment at [facility]. ST eval and treatment if indicated High protein calorie supplements All meals on chair sitting upright at 90 degrees to prevent aspiration Return to ER if worsening fever chills shortness of breath, diarrhea, bleeding Review risk and side effect profile of medications including antibiotics. Side effect may include mild to severe reaction including rash, diarrhea, cdiff and even which can be prevented by close follow-up with PCP and monitoring for side effects Continue diet and activity as advised Discussed importance of medication adherence Please review medication list with patient prior to discharge Please schedule follow-up with PCP/Providers prior to discharge and provide printouts Prescriptions: Cephalexin [Keflex] 500 mg PO QID #20 cap Prescription Printed oxyCODONE HCL [Roxicodone] 5 - 10 mg PO Q4HP PRN #14 tab PRN Reason: pain Prescription Printed Other Amb Orders: Wound Care Instructions Location: None Selected - Problem Maintenance (1) Complicated UTI (urinary tract infection) Status: Acute - Follow up Plan Follow up with: Max Johnson DO [Primary Care Provider] - Disposition: Xfer SNF Prognosis: Fair Rehab Potential: Fair I certify that the patient requires SNF services: Yes Overall status at discharge: patient is progressing back to baseline Medical - DS: Qual - VTE Deep Vein Thrombosis/Pulmonary Embolism Present on Admission: No
[2020-01-27] MEDS: LOSARTAN 50 MG TABLET PO SCH (09:51)
[2020-01-27] MEDS: FUROSEMIDE 40 MG TABLET PO SCH (09:51)
[2020-01-27] MEDS: CEPHALEXIN 500 MG CAPSULE PO SCH ×2 (09:51→12:48)
[2020-01-27] MEDS: CARVEDILOL 12.5 MG TABLET PO SCH (09:51)
[2020-01-27] MEDS: ACETAMINOPHEN 325 MG TABLET PO PRN (10:26)
[2020-01-27] MEDS: EZETIMIBE 10 MG TABLET PO SCH (10:27)
[2020-01-27] MEDS: ASPIRIN 81 MG TAB.CHEW PO SCH (10:28)
[2020-01-27] MEDS: MULTIVIT,THER IRON,CA,FA & MIN 1 TABLET PO SCH ×2 (10:28→10:30)
[2020-01-27] MEDS: DOCUSATE SODIUM 100 MG CAPSULE PO SCH (12:49)
== END 2020-01-27 13:00 | DRG 871 ==
LOC: MEDSUR 23:17 → ED 23:17 → MEDSUR 01-22 02:43
PROVIDERS: ADMIT Internal Medicine; ATTEND Internal Medicine

== ENCOUNTER 2020-02-18 12:48 | Inpatient (IN) ==
--- NOTE | 2020-02-18 13:28 | Emergency Department Note ---
SOB HPI - General Chief Complaint: Shortness of Breath/Dyspnea Stated Complaint: SOB, coughing up blood increased weakness Time Seen by Provider: 02/18/20 12:58 Source: patient, EMS Mode of arrival: EMS Limitations: no limitations - History of Present Illness 80-year-old female patient presents emergency department via ambulance with chief complaint of worsening shortness of breath, hemoptysis, and lower extremity edema. Patient was recently discharged from SNF. Patient was admitted to the facility after suffering a pelvic fracture, sepsis, and decompensated heart failure. Her home caregiver evaluated her today and noticed that she had worsening work of breathing. She then referred to the patient to the emergency department. Upon arrival patient does admit to shortness of breath. She is currently on oxygen via nasal cannula. When questioned, she denied having to use chronic oxygen at home. However, a review of her most recent note on 02/16 does note that she has been on oxygen for some time. Patient has known history of atrial fibrillation and is currently anticoagulated on Xarelto. She denies any accompanying fever, sweats, chills. She denies any cough, cyanosis, runny nose. She denies retrosternal chest pain or palpitations. She denies abdominal pain, nausea, vomiting, or diarrhea. She denies focal weakness. A review of her active problems shows the following: Unstable angina, UTI, atrial fibrillation, cervical sprain, bilateral knee sprains, rhabdomyolysis, altered mental status, hypoxia, sepsis, fracture of the right femoral neck, anemia, congestive heart failure, coronary artery disease, rheumatic fever, hypertension, hyperlipidemia, and heart murmur. - Related Data Home Medications Medication Instructions Recorded Confirmed Aspirin [Adult Low Dose Aspirin EC] 81 mg PO DAILY 03/12/17 02/18/20 Ipratropium/Albuterol [Duoneb] 3 ml NEB Q6 02/18/20 02/18/20 Spironolactone [Aldactone] 25 mg PO DAILY 02/18/20 02/18/20 amLODIPine [Norvasc] 5 mg PO DAILY 02/18/20 02/18/20 Previous Rx's Medication Instructions Recorded valsartan 160 mg tablet 160 mg PO QDAY #90 tab 08/04/19 carvedilol 12.5 mg tablet 12.5 mg PO BID #180 tab 08/05/19 rivaroxaban 20 mg tablet 20 mg PO DAILY #90 tab 08/11/19 ezetimibe 10 mg tablet 10 mg PO QDAY #90 tab 08/27/19 furosemide 40 mg tablet 40 mg PO QDAY #90 tab 09/17/19 Docusate Sodium [Colace] 100 mg PO BID #0 cap 01/27/20 oxyCODONE HCL [Roxicodone] 5 - 10 mg PO Q4HP PRN #14 tab 01/27/20 tamsulosin 0.4 mg capsule 0.4 mg PO QDAY #30 cap 02/10/20 Allergies Allergy/AdvReac Type Severity Reaction Status Date / Time bacitracin AdvReac Mild Rash Verified 02/17/20 08:37 [From Neosporin ([id number])] codeine AdvReac Mild Vomiting Verified 02/17/20 08:37 Neomycin AdvReac Mild Rash Verified 02/17/20 08:37 [From Neosporin ([id number])] polymyxin B AdvReac Mild Rash Verified 02/17/20 08:37 [From Neosporin ([id number])] Review of Systems All systems ED: reviewed and negative except as stated. Past Medical History - Past Medical History Medical history: Reports: atrial fibrillation, CAD (coronary artery disease), CHF, hypertension. Denies: CVA, DVT, myocardial infarction, pulmonary embolus, renal disease DISTRIBUTION ASSOCIATE history: Reports: non-contributory Surgical history ED: Reports: hysterectomy, orthopedic, other (right hip hemiarthroplasty), tonsillectomy, other (Eye surgery) - Social History smoking status: Never smoker Alcohol use: Reports: None Drug use: Reports: none. Denies: marijuana Physical Exam Limitations: no limitations General appearance: alert, in no apparent distress, other (Well-developed, well- nourished, 80-year-old female patient sitting upright on the emergency room [facility] [place] in no acute respiratory distress. She is speaking in complete sentences.) Head: atraumatic, normocephalic Eye: Present: normal appearance, PERRL, EOMI. Absent: scleral icterus, conjunctival injection ENT: Present: normal oropharynx, mucous membranes moist Neck: Present: trachea midline. Absent: lymphadenopathy, thyromegaly Chest: Present: symmetric chest wall rise Respiratory: Present: rales/crackles (Crackles heard to the bases and mid chest bilateral.), decreased breath sounds. Absent: normal lung sounds bilaterally, respiratory distress, wheezes, stridor, accessory muscle use, prolonged expiratory phase Cardiovascular: Present: regular rate, irregular rhythm. Absent: systolic murmur, diastolic murmur Abdominal: Present: soft. Absent: distention, tenderness, guarding, rebound, rigidity, organomegaly, mass Extremities: Present: normal inspection, full ROM, normal capillary refill, pedal edema (Considerable +2+3 pitting edema extending all the way up to the mi d calf bilateral.). Absent: calf tenderness Neurological: Present: alert, oriented X3 Psychiatric: Present: normal affect, depressed Skin: Present: warm, dry, pallor Course Course Narrative: Patient was brought into the emergency department and a history of physical exam was performed. Saline lock was established and laboratory studies were drawn. Portable chest x-ray was ordered and reviewed showing congestive heart failure with worsening pulmonary edema. Radiologist mentions superimposed pneumonia cannot be excluded. Patient was given 80 of Lasix IVP. Over the next 2.5 hours she has had approximately 1150 mL diuresed. However she was incontinent twice. Afterward, I reached out to our hospitalist (Dr. Richey) and discussed the case with him. He mentioned that as long as the patient is stable she could likely be discharged. However, if she were unstable that he would be happy to admit her to the hospital for CHF exacerbation. He mention checking a troponin. How ever, patient has not experienced any retrosternal chest pain since being in the emergency department. She has a known CHF history with an elevated proBNP today. I discussed the case briefly with my collaborating physician (Dr. ramon) at this time he recommended treating her for the suspected pneumonia. Patient was provided levofloxacin 500 mg IV. Upon reevaluation the patient's lung sounds she continues to have crackles at the bases. She is now diuresed just over 1300 mL's. She admits to be feeling a bit better. However due to her ongoing exam findings I did order the troponin as recommended by the hospitalist. Patient's troponin is less than 0.01. Reevaluation continues shows crackles at the bases. She continues to be somewhat tachypneic with a respiratory rate of 2224. She remains afebrile. Her blood pressure is stable. Due to her CHF and possible underlying pneumonia I reached back out to the hospitalist (Dr. Richey) I discussed the case again with him. At this time she would benefit from a inpatient admission for ongoing diuresis and antibiotic management. The hospitalist concurred with this. Patient is going to be admitted under the care of the hospitalist that time. All further treatment decisions, modalities, and ultimate patient disposition will be carried out by the hospitalist. Vital Signs Temperature 97.5 F 02/18/20 12:54 Pulse Rate 73 02/18/20 12:54 Respiratory Rate 24 H 02/18/20 12:54 Blood Pressure 145/83 02/18/20 12:54 Pulse Oximetry (%) 99 02/18/20 12:54 Temperature 97.5 F 02/18/20 19:03 Pulse Rate 78 02/18/20 20:20 Respiratory Rate 27 H 02/18/20 20:20 Blood Pressure 194/73 02/18/20 20:01 Pulse Oximetry (%) 100 02/18/20 20:20 Shortness of Breath/Dyspnea - Lab Data Lab results reviewed: Yes I reviewed the patient's lab results. Result diagrams: 02/18/20 13:35 02/18/20 13:35 Lab Results 02/18/20 02/18/20 02/18/20 Range/Units 13:35 13:35 16:01 WBC 8.6 (4.50-11.00) K/mcL RBC 3.09 L (3.59-5.38) M/mcL Hgb 9.1 L (11.2-15.7) g/dL Hct 28.3 L (34.1-44.9) % POC Hct 29.0 L (36.0-48.0) % MCV 91.6 (80.0-100.0) fL MCH 29.4 (26.0-34.0) pg MCHC 32.2 (31.0-36.0) g/dL RDW 14.6 H (11.5-14.5) % Plt Count 330 (140-440) K/mcL MPV 9.2 (7.4-10.4) fL Gran % 77.3 (38.0-78.0) % Lymph % (Auto) 7.6 L (15.5-49.0) % Swift % (Auto) 12.4 H (1.0-12.0) % Eos % (Auto) 2.1 (0.0-7.0) % Baso % (Auto) 0.6 (0.0-2.0) % Gran # 6.67 (1.80-8.00) K/mcL Lymph # (Auto) 0.66 L (1.50-4.80) K/mcL Swift # (Auto) 1.07 H (0.10-0.90) K/mcL Eos # (Auto) 0.18 (0.00-0.70) K/mcL Baso # (Auto) 0.05 (0.00-0.30) K/mcL POC Sodium 134 (133-145) mmol/L Sodium 135 (133-145) mmol/L POC Potassium 3.9 (3.3-5.1) mmol/L Potassium 4.1 (3.3-5.1) mmol/L POC Chloride 96 (96-108) mmol/L Chloride 96 (96-108) mmol/L Carbon Dioxide 27 (22-30) mmol/L POC Total CO2 27 (22-30) mmol/L Anion Gap 12.0 (8-16) POC BUN 18 (8-23) mg/dl BUN 19 (8-23) mg/dl Creatinine 0.9 (0.6-1.1) mg/dl POC Creatinine 0.9 (0.6-1.1) mg/dl GFR Calculation 60 Glucose 110 H (70-105) mg/dL POC Glucose 110 H (70-105) mg/dL Calcium 9.0 (8.6-10.4) mg/dl POC WB Ioniz Calcium 1.17 (1.16-1.32) mmol/L Total Bilirubin 1.2 H (0.0-1.0) mg/dL AST 14 (0-37) U/l ALT 10 (0-40) U/l Alkaline Phosphatase 95 (39-117) U/L Troponin T (0-0.03) ng/ml NT-Pro-B Natriuret Pep 8818.0 H (0-450) pg/ml Total Protein 6.5 (5.9-8.4) gm/dL Albumin 3.5 (3.2-5.2) gm/dL Globulin 3.0 (2.2-3.7) gm/dL Albumin/Globulin Ratio 1.2 (1.0-2.3) Urine Color Straw Urine Appearance Clear Urine pH 7.0 (5.0-9.0) Ur Specific [place] 1.005 (1.000-1.035) Urine Protein Neg (NEG) mg/dL Urine Glucose (UA) Negative (NEG) mg/dL Urine Ketones Neg (NEG) mg/dL Urine Occult Blood 0.03 A (<0.03) mg/dL Urine Nitrate Neg (NEG) Urine Bilirubin Neg (NEG) mg/dL Urine Urobilinogen Neg (NEG) mg/dL Ur Leukocyte Esterase 75 A (NEG) /uL Urine RBC 1 (0-1) /hpf Urine WBC 11 H (0-4) /hpf Ur Squamous Epith Cells 1 (0-4) /hpf Ur Transition Epith Cell < 1 (0-2) /hpf Urine Bacteria 0 (0) /hpf Urine Yeast (Budding) Few A (0) /hpf Ur Culture Indicated? Yes 02/18/20 Range/Units 18:37 WBC (4.50-11.00) K/mcL RBC (3.59-5.38) M/mcL Hgb (11.2-15.7) g/dL Hct (34.1-44.9) % POC Hct (36.0-48.0) % MCV (80.0-100.0) fL MCH (26.0-34.0) pg MCHC (31.0-36.0) g/dL RDW (11.5-14.5) % Plt Count (140-440) K/mcL MPV (7.4-10.4) fL Gran % (38.0-78.0) % Lymph % (Auto) (15.5-49.0) % Swift % (Auto) (1.0-12.0) % Eos % (Auto) (0.0-7.0) % Baso % (Auto) (0.0-2.0) % Gran # (1.80-8.00) K/mcL Lymph # (Auto) (1.50-4.80) K/mcL Swift # (Auto) (0.10-0.90) K/mcL Eos # (Auto) (0.00-0.70) K/mcL Baso # (Auto) (0.00-0.30) K/mcL POC Sodium (133-145) mmol/L Sodium (133-145) mmol/L POC Potassium (3.3-5.1) mmol/L Potassium (3.3-5.1) mmol/L POC Chloride (96-108) mmol/L Chloride (96-108) mmol/L Carbon Dioxide (22-30) mmol/L POC Total CO2 (22-30) mmol/L Anion Gap (8-16) POC BUN (8-23) mg/dl BUN (8-23) mg/dl Creatinine (0.6-1.1) mg/dl POC Creatinine (0.6-1.1) mg/dl GFR Calculation Glucose (70-105) mg/dL POC Glucose (70-105) mg/dL Calcium (8.6-10.4) mg/dl POC WB Ioniz Calcium (1.16-1.32) mmol/L Total Bilirubin (0.0-1.0) mg/dL AST (0-37) U/l ALT (0-40) U/l Alkaline Phosphatase (39-117) U/L Troponin T < 0.01 (0-0.03) ng/ml NT-Pro-B Natriuret Pep (0-450) pg/ml Total Protein (5.9-8.4) gm/dL Albumin (3.2-5.2) gm/dL Globulin (2.2-3.7) gm/dL Albumin/Globulin Ratio (1.0-2.3) Urine Color Urine Appearance Urine pH (5.0-9.0) Ur Specific [place] (1.000-1.035) Urine Protein (NEG) mg/dL Urine Glucose (UA) (NEG) mg/dL Urine Ketones (NEG) mg/dL Urine Occult Blood (<0.03) mg/dL Urine Nitrate (NEG) Urine Bilirubin (NEG) mg/dL Urine Urobilinogen (NEG) mg/dL Ur Leukocyte Esterase (NEG) /uL Urine RBC (0-1) /hpf Urine WBC (0-4) /hpf Ur Squamous Epith Cells (0-4) /hpf Ur Transition Epith Cell (0-2) /hpf Urine Bacteria (0) /hpf Urine Yeast (Budding) (0) /hpf Ur Culture Indicated? - Radiology Data Radiology results reviewed: Yes I reviewed the patient's radiology results. Ordering Physician: Dank Arzate PA-C Date of Service: 02/18/20 Procedure(s): XR chest 1V portable Accession Number(s): [id number] HISTORY: Worsening shortness of breath and hemoptysis, hypoxia and congestive heart failure FINDINGS: There are moderately severe diffuse alveolar infiltrates throughout both lungs. There are small bilateral pleural effusions. Heart is moderately enlarged. 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 Comparison with the prior exam from 02/05/20 shows the cardiomegaly has remained stable. The infiltrates have become worse. IMPRESSION: Congestive heart failure with worsening pulmonary edema. Superimposed pneumonia cannot be excluded. Interpreted and Authenticated by: Nacho Bassett 02/18/20 - EKG Data EKG attestation: Yes I reviewed and interpreted this EKG., Yes There are no EKG findings of acute coronary syndrome EKG results narrative: Twelve-lead EKG showing atrial fibrillation at a rate of 76bpm. There is non specific T wave abnormalities in the lateral leads. No ectopy. Rhythm: Reports: A.Fib Disposition Pt seen by PARACHUTIST/COMBATANT DIVER QUALIFIED/PA only: Yes Clinical Impression: CHF (congestive heart failure) Qualifiers: Heart failure type: unspecified Heart failure chronicity: acute on chronic Qualified Code(s): I50.9 - Heart failure, unspecified Pneumonia Qualifiers: Pneumonia type: due to unspecified organism Laterality: bilateral Lung location: unspecified part of lung Qualified Code(s): J18.9 - Pneumonia, unspecified organism Disposition: Xfer As Outpt/Obs ([facility]) Condition: Fair Referrals: Max Johnson DO [Primary Care Provider] - Time of Disposition: 20:27
[2020-02-18 13:45] LABS: POC Blood Urea Nitrogen 18 mg/dl (8-23); POC CO2 27 mmol/L (22-30); POC Calcium, Ionized 1.17 mmol/L (1.16-1.32); POC Chloride 96 mmol/L (96-108); POC Creatinine 0.9 mg/dl (0.6-1.1); POC Glucose, Random 110 mg/dL (70-105); POC Potassium 3.9 mmol/L (3.3-5.1); POC Sodium 134 mmol/L (133-145)
--- NOTE | 2020-02-18 13:54 | XRay Report ---
HISTORY: Worsening shortness of breath and hemoptysis, hypoxia and congestive heart failure FINDINGS: There are moderately severe diffuse alveolar infiltrates throughout both lungs. There are small bilateral pleural effusions. Heart is moderately enlarged. 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 Comparison with the prior exam from 02/05/20 shows the cardiomegaly has remained stable. The infiltrates have become worse. IMPRESSION: Congestive heart failure with worsening pulmonary edema. Superimposed pneumonia cannot be excluded. Interpreted and Authenticated by: Nacho Bassett 02/18/20
[2020-02-18] MEDS ORDERED: FUROSEMIDE 40 MG/4 ML VIAL IV ONE (13:57)
[2020-02-18 14:17] LABS: Basophils # (Auto) 0.05 K/mcL (0.00-0.30); Basophils % (Auto) 0.6 % (0.0-2.0); Eosinophils # (Auto) 0.18 K/mcL (0.00-0.70); Eosinophils % (Auto) 2.1 % (0.0-7.0); Granulocytes % (Auto) 77.3 % (38.0-78.0); Hematocrit 28.3 % (34.1-44.9); Hemoglobin 9.1 g/dL (11.2-15.7); Lymphocytes # (Auto) 0.66 K/mcL (1.50-4.80); Lymphocytes % (Auto) 7.6 % (15.5-49.0); Mean Cell Volume 91.6 fL (80.0-100.0); Mean Corpuscular HGB Conc 32.2 g/dL (31.0-36.0); Mean Platelet Volume 9.2 fL (7.4-10.4); Monocytes # (Auto) 1.07 K/mcL (0.10-0.90); Monocytes % (Auto) 12.4 % (1.0-12.0); Platelet Count 330 K/mcL (140-440); RBC 3.09 M/mcL (3.59-5.38); Red Cell Distribution Width 14.6 % (11.5-14.5); WBC 8.6 K/mcL (4.50-11.00)
[2020-02-18 15:03] LABS: ALT/SGPT 10 U/l (0-40); AST/SGOT 14 U/l (0-37); Albumin 3.5 gm/dL (3.2-5.2); Albumin/Globulin Ratio 1.2 (1.0-2.3); Alkaline Phosphatase 95 U/L (39-117); Bilirubin,Total 1.2 mg/dL (0.0-1.0); Blood Urea Nitrogen 19 mg/dl (8-23); Carbon Dioxide 27 mmol/L (22-30); Chloride 96 mmol/L (96-108); Glomerular Filtration Rate 60; Glucose 110 mg/dL (70-105)
[2020-02-18 16:36] LABS: Appearance,Urine CLEAR; Bacteria,Urine 0 /hpf (0); Bilirubin,Urine NEG (NEG); Color,Urine STRAW; Culture Indicated,Urine YES; Glucose,Urine (UA) NEGATIVE (NEG); Ketones,Urine NEG (NEG); Leukocyte Esterase,Urine 75 /uL (NEG); Nitrate,Urine NEG (NEG); Protein,Urine NEG (NEG); Specific Gravity,Urine 1.005 (1.000-1.035); Urine Blood 0.03 mg/dL (<0.03); Urine Budding Yeast FEW /hpf (0); Urine RBC 1 /hpf (0-1); Urine Squamous Epithelial Cell 1 /hpf (0-4); Urine Transitional Epi Cells < 1 /hpf (0-2); Urine WBC 11 /hpf (0-4); Urobilinogen,Urine NEG (NEG)
[2020-02-18] MEDS ORDERED: LEVOFLOXACIN 500 MG/100 ML BAG IV ONE (19:30)
[2020-02-18] MEDS ORDERED: PROCHLORPERAZINE 10 MG/2 ML VIAL IV PRN ×2 (20:59→22:20)
[2020-02-18] MEDS ORDERED: DOCUSATE SODIUM 100 MG CAPSULE PO SCH (21:00)
[2020-02-18] MEDS ORDERED: HEPARIN 5,000 UNIT/ML VIAL SQ SCH (21:00)
--- NOTE | 2020-02-18 21:20 | Internal Med History&Physical ---
Medical - H&P: [facility] Patient information: Note initiated : 02/18/20 at 9:14 pm Service Date, if different from initiated Date: [] Patient: Izzy Everett a 80 y/o F admitted on for SOB, Coughing Up Blood Increased Weakness. Chief Complaint: [Worsening shortness of breath for days] History of present illness: Ms. Everett is a 80 year old F with a history of blood pressure, CHF and anemia who was brought into the ER due to worsening shortness of breath, hemoptysis, and lower extremity edema for days. Otherwise the patient denies cough, fever, chills, chest pain, abdominal pain, sore throat, or dysuria. Patient was admitted on 01/23/20 because of UTI and fracture. In the ER, BNP 8818. Oxygen saturation was fine. Chest x-ray showed CHF and possible pneumonia. Lasix 80 mg was given. She had 1300 cc urine. 1 dose of Levaquin was given. When I saw this patient in the ER, she felt better. Denied headache, dizziness, abdominal pain, or palpitation. No recent travel or sick contact. Review of systems: Positive for shortness of breath, hemoptysis and leg swelling. All other systems were reviewed and are negative. Medical - H&P: PMH Family history: reviewed and not pertinent Have you smoked in the last 12 months: No Drug use: none Alcohol use: none Medical - H&P: Meds Home Medications Medication Instructions Recorded Confirmed Type Aspirin [Adult Low Dose Aspirin EC] 81 mg PO DAILY 03/12/17 02/18/20 History valsartan 160 mg tablet 160 mg PO QDAY #90 tab 08/04/19 02/18/20 Rx carvedilol 12.5 mg tablet 12.5 mg PO BID #180 tab 08/05/19 02/18/20 Rx rivaroxaban 20 mg tablet 20 mg PO DAILY #90 tab 08/11/19 02/18/20 Rx ezetimibe 10 mg tablet 10 mg PO QDAY #90 tab 08/27/19 02/18/20 Rx furosemide 40 mg tablet 40 mg PO QDAY #90 tab 09/17/19 02/18/20 Rx Docusate Sodium [Colace] 100 mg PO BID #0 cap 01/27/20 02/18/20 Rx oxyCODONE HCL [Roxicodone] 5 - 10 mg PO Q4HP PRN #14 tab 01/27/20 02/18/20 Rx tamsulosin 0.4 mg capsule 0.4 mg PO QDAY #30 cap 02/10/20 02/18/20 Rx Ipratropium/Albuterol [Duoneb] 3 ml NEB Q6 02/18/20 02/18/20 History Spironolactone [Aldactone] 25 mg PO DAILY 02/18/20 02/18/20 History amLODIPine [Norvasc] 5 mg PO DAILY 02/18/20 02/18/20 History Allergies Allergy/AdvReac Type Severity Reaction Status Date / Time bacitracin AdvReac Mild Rash Verified 02/17/20 08:37 [From Neosporin ([id number])] codeine AdvReac Mild Vomiting Verified 02/17/20 08:37 Neomycin AdvReac Mild Rash Verified 02/17/20 08:37 [From Neosporin ([id number])] polymyxin B AdvReac Mild Rash Verified 02/17/20 08:37 [From Neosporin ([id number])] Medical - H&P: Exam - Constitutional Vitals: Temp Pulse Resp BP Pulse Ox 97.5 F 70 22 194/73 100 02/18/20 19:03 02/18/20 20:58 02/18/20 20:58 02/18/20 20:01 02/18/20 20:58 - Other Additional findings: General - No acute distress Eyes - PERRLA, EOM intact ENT no rhinorrhea, no noticeable or palpable swelling, no redness or rash around throat or on face Neck supple, no JVD, no thyromegaly Respiratory: Bibasilar crackles. Cardiovascular - RRR no m/r/g, GI - Normal bowel sounds, no distended, soft. Extremeties - Pitting edema++- +++, cyanosis or clubbing Hemo/lymphatic/immune no lymphadenopathy Neurological Alert and oriented x 3, no focal neurological deficits. Psychiatry flat affect Medical - H&P: Reslt - Labs CBC & Chem 7: 02/18/20 13:35 02/18/20 13:35 Labs: Short CBC 02/18/20 Range/Units 13:35 WBC 8.6 (4.50-11.00) K/mcL Hgb 9.1 L (11.2-15.7) g/dL Hct 28.3 L (34.1-44.9) % Plt Count 330 (140-440) K/mcL BMP 02/18/20 13:35 Sodium 135 Potassium 4.1 Chloride 96 Carbon Dioxide 27 BUN 19 Creatinine 0.9 Glucose 110 H Calcium 9.0 Cardiac Enzymes 02/18/20 Range/Units 18:37 Troponin T < 0.01 (0-0.03) ng/ml Liver Function 02/18/20 Range/Units 13:35 Total Bilirubin 1.2 H (0.0-1.0) mg/dL AST 14 (0-37) U/l ALT 10 (0-40) U/l Alkaline Phosphatase 95 (39-117) U/L Albumin 3.5 (3.2-5.2) gm/dL Urine 02/18/20 Range/Units 16:01 Urine Color Straw Urine Appearance Clear Urine pH 7.0 (5.0-9.0) Ur Specific [place] 1.005 (1.000-1.035) Urine Protein Neg (NEG) mg/dL Urine Glucose (UA) Negative (NEG) mg/dL Medical - H&P: A/P - Narrative A/P Narrative: Assessment: 1. CHF exacerbation I50.9 2. Possible pnuemnonia J18.9 3. Hemoptysis R04.2 4. Atrial fibrillation I48.91 5. Chronic anemia D64.9 6. HTN Plan: 1. In the ER, BNP 8818. CXR compatible with CHF Lasix 80 mg IV once was given in the ER. Intake and output Daily weight Echocardiogram Troponin negative Lasix 40 mg IV twice daily (will start tomorrow) check mag and k valsartan by 160 mg daily Spironolactone is on hold. Repeat renal function daily 2. X-ray showed possible pneumonia Procalcitonin Levaquin was started in the ER Continue Levaquin 750 mg IV daily Blood culture Sputum culture 3. Patient complains of hemoptysis She was found to have blood on paper tissue during last hospitalization. General surgeon Dr. Marrero was contacted who would do scope for her if she had more episode. But she did not have more episodes. Chest CT Pantoprazole 40 mg daily Aspirin is on hold 4. She had atrial fibrillation, but home medication does not include anticoagulant. Considering anemia and the hemoptysis, I would not start her on anticoagulation at this moment. Heart rate is controlled Continue carvedilol 12.5 mg twice daily 5. Repeat a CBC in the morning 6. Continue amlodipine 5 mg daily, carvedilol 12.5 mg twice daily, valsartan by 160 mg daily 7. DVT prophylaxis: Heparin 8. CODE STATUS: Has not made a decision yet.
--- NOTE | 2020-02-18 21:44 | Event Note ---
Advanced Care Planning Documents: Parties in Attendance: Patient Decisional Capacity: Yes POLST form completed: not I explained the process regarding CPR, defibrillation, shock, and intubation and medication treatment to the patient. Pt could not made a decison on CRP/resuscition and intubation at this moment. She would like to think about them.
[2020-02-18] MEDS ORDERED: IPRATROPIUM/ALBUTEROL 3 ML AMPUL.NEB NEB ONE (22:45)
[2020-02-18] MEDS ORDERED: IPRATROPIUM/ALBUTEROL 3 ML AMPUL.NEB NEB SCH (23:00)
[2020-02-18] MEDS: IPRATROPIUM/ALBUTEROL 3 ML AMPUL.NEB NEB SCH (23:08)
[2020-02-18] MEDS: 0.9 % SODIUM CHLORIDE 10 ML SYRINGE IV SCH (23:27)
[2020-02-19] MEDS ORDERED: IPRATROPIUM/ALBUTEROL 3 ML AMPUL.NEB NEB ONE (03:01)
[2020-02-19] MEDS: IPRATROPIUM/ALBUTEROL 3 ML AMPUL.NEB NEB SCH ×2 (03:04→07:13)
[2020-02-19] MEDS: 0.9 % SODIUM CHLORIDE 10 ML SYRINGE IV SCH ×3 (05:16→21:42)
[2020-02-19 06:34] LABS: Basophils # (Auto) 0.05 K/mcL (0.00-0.30); Basophils % (Auto) 0.6 % (0.0-2.0); Eosinophils # (Auto) 0.17 K/mcL (0.00-0.70); Granulocytes % (Auto) 78.4 % (38.0-78.0); Hematocrit 27.6 % (34.1-44.9); Hemoglobin 8.7 g/dL (11.2-15.7); Lymphocytes # (Auto) 0.56 K/mcL (1.50-4.80); Lymphocytes % (Auto) 6.6 % (15.5-49.0); Mean Cell Volume 92.3 fL (80.0-100.0); Mean Corpuscular HGB Conc 31.5 g/dL (31.0-36.0); Mean Platelet Volume 9.5 fL (7.4-10.4); Monocytes # (Auto) 1.06 K/mcL (0.10-0.90); Monocytes % (Auto) 12.4 % (1.0-12.0); Platelet Count 324 K/mcL (140-440); RBC 2.99 M/mcL (3.59-5.38); Red Cell Distribution Width 14.6 % (11.5-14.5); WBC 8.5 K/mcL (4.50-11.00)
[2020-02-19 07:07] LABS: ALT/SGPT 10 U/l (0-40); AST/SGOT 14 U/l (0-37); Albumin 3.2 gm/dL (3.2-5.2); Albumin/Globulin Ratio 1.1 (1.0-2.3); Alkaline Phosphatase 85 U/L (39-117); Bilirubin,Total 1.2 mg/dL (0.0-1.0); Blood Urea Nitrogen 15 mg/dl (8-23); Calcium 8.7 mg/dl (8.6-10.4); Carbon Dioxide 26 mmol/L (22-30); Chloride 97 mmol/L (96-108); Globulin 2.9 gm/dL (2.2-3.7); Glomerular Filtration Rate 69; Glucose 81 mg/dL (70-105)
[2020-02-19] MEDS ORDERED: PANTOPRAZOLE 40 MG TABLET PO SCH ×2 (07:30)
[2020-02-19] MEDS ORDERED: CARVEDILOL 12.5 MG TABLET PO SCH (08:00)
[2020-02-19] MEDS ORDERED: EZETIMIBE 10 MG TABLET PO SCH ×2 (09:00)
[2020-02-19] MEDS ORDERED: HEPARIN 5,000 UNIT/ML VIAL SQ SCH (09:00)
[2020-02-19] MEDS ORDERED: RIVAROXABAN 20 MG TABLET PO SCH ×2 (09:00)
[2020-02-19] MEDS ORDERED: TAMSULOSIN 0.4 MG CAPSULE PO SCH ×2 (09:00)
[2020-02-19] MEDS ORDERED: amLODIPine 5 MG TABLET PO SCH ×2 (09:00)
[2020-02-19] MEDS ORDERED: LEVOFLOXACIN 750 MG/150 ML BAG IV SCH ×2 (09:00)
[2020-02-19] MEDS ORDERED: DOCUSATE SODIUM 100 MG CAPSULE PO SCH (09:00)
[2020-02-19] MEDS ORDERED: VALSARTAN 160 MG PO SCH ×2 (09:00)
[2020-02-19] MEDS ORDERED: LOSARTAN 50 MG TABLET PO SCH (09:00)
--- NOTE | 2020-02-19 09:52 | Cat Scan Report ---
History: Hemoptysis, short of breath, increased weakness, congestive heart failure TECHNIQUE: The chest was imaged without contrast from the thoracic inlet to the diaphragms. Sagittal, coronal and axial MIPS images were created. The radiation exposure was limited using dose reduction technology. FINDINGS: There is a random distribution of patchy, irregularly-shaped interspersed between peripheral infiltrates in both lungs. Interspersed between these zones of more densely consolidated lung there are several ill-defined areas of groundglass alveolar opacification. Much more dense consolidation is present in the posterior basal segment of the right lower lobe with air bronchograms is significant volume loss. Central airways appear normal. Small bilateral layering pleural effusions are present, right larger than left. The heart is moderately enlarged. There are densely calcified plaques in the coronary arteries. Aorta is normal in caliber and also has atherosclerosis. There are several nonspecific lymph nodes in the mediastinum which measure up to 1.5 cm in diameter. 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 IMPRESSION: Consolidation in both lungs. This has a mixed pattern. The nodular infiltrates in the upper lobes may be seen with organizing pneumonia or collagen vascular disease. Infection is possible but less likely. Patient also has cardiomegaly and groundglass alveolar opacities with bilateral pleural effusions suggesting congestive heart failure. Atelectasis in right lower lobe Nonspecific mediastinal adenopathy Interpreted and Authenticated by: Nacho Bassett 02/19/20
[2020-02-19] MEDS: CARVEDILOL 12.5 MG TABLET PO SCH ×2 (10:17→17:56)
[2020-02-19] MEDS: FUROSEMIDE 40 MG/4 ML VIAL IV SCH ×2 (10:18→17:55)
--- NOTE | 2020-02-19 13:15 | Internal Med Progress Note ---
Medical - PN: Subj Patient information: Note initiated : 02/19/20 at 12:38 pm Service Date, if different from initiated Date: [] Patient: Izzy Everett a 80 y/o F admitted on 02/18/20 for SOB, Coughing Up Blood Increased Weakness. Chief Complaint: [] Ms. Everett is a 80 year old F with a history of blood pressure, CHF and anemia who was brought into the ER due to worsening shortness of breath, hemoptysis, and lower extremity edema for days. Otherwise the patient denies cough, fever, chills, chest pain, abdominal pain, sore throat, or dysuria. Patient was admitted on 01/23/20 because of UTI and fracture. In the ER, BNP 8818. Oxygen saturation was fine. Chest x-ray showed CHF and possible pneumonia. Lasix 80 mg was given. She had 1300 cc urine. 1 dose of Levaquin was given. When I saw this patient in the ER, she felt better. Denied headache, dizziness, abdominal pain, or palpitation. No recent travel or sick contact. 5/6 Pt does not have any new complaints. She may feel better. Denies fever, chills, or hemoptysis. Pressure is not controlled. She is on 2- 3 L oxygen Troponin negative x2 Review of systems: Positive for shortness of breath, hemoptysis and leg swelling. All other syste ms were reviewed and are negative. - Constitutional Vitals: Vital Signs Temp Pulse Resp BP Pulse Ox 97.8 F 83 22 159/68 92 02/19/20 08:00 02/19/20 08:00 02/19/20 08:00 02/19/20 08:00 02/19/20 08:00 Period Temp Pulse Resp BP Sys/Flood Pulse Ox Last 24 Hr 97.5 F-98.5 F 68-88 16-34 119-194/56-83 91-100 Intake and Output 02/18/20 02/19/20 02/19/20 21:59 05:59 13:59 Intake Total 100 240 250 Output Total 1281 237 186 Balance -1552 -185 -606 Weight 58.967 kg 67.132 kg Intake & Output: Intake & Output 02/18/20 02/19/20 02/19/20 21:59 05:59 13:59 Intake Total 100 240 250 Output Total 7407 556 536 Balance -1552 -185 -606 Weight 58.967 kg 67.132 kg Intake: IV 100 150 Oral 240 100 Output: Void Amount 1650 425 850 # of times incontinent of urine 2 6 Other: Meal Lunch Percent of Meal Consumed 25% Urine Appearance Clear Clear Clear Urine Color Pale Bright Yellow Pale Urine Odor Normal Normal Medical - PN: Obj Da - Labs CBC & Chem 7: 02/19/20 05:08 02/19/20 05:08 Labs: Abnormal Lab Results 02/19/20 02/19/20 02/18/20 05:08 05:08 16:01 RBC 2.99 L Hgb 8.7 L Hct 27.6 L POC Hct RDW 14.6 H Gran % 78.4 H Lymph % (Auto) 6.6 L [place] % (Auto) 12.4 H Lymph # (Auto) 0.56 L [place] # (Auto) 1.06 H Glucose POC Glucose Total Bilirubin 1.2 H NT-Pro-B Natriuret Pep Urine Occult Blood 0.03 A Ur Leukocyte Esterase 75 A Urine WBC 11 H Urine Yeast (Budding) Few A 02/18/20 02/18/20 13:35 13:35 RBC 3.09 L Hgb 9.1 L Hct 28.3 L POC Hct 29.0 L RDW 14.6 H Gran % Lymph % (Auto) 7.6 L [place] % (Auto) 12.4 H Lymph # (Auto) 0.66 L [place] # (Auto) 1.07 H Glucose 110 H POC Glucose 110 H Total Bilirubin 1.2 H NT-Pro-B Natriuret Pep 8818.0 H Urine Occult Blood Ur Leukocyte Esterase Urine WBC Urine Yeast (Budding) Meds: Medications Amlodipine Besylate (Norvasc) 5 mg PO DAILY [facility] Last Admin: 02/19/20 10:17 Dose: 5 mg Documented by: [facility] Admin: 02/19/20 10:17 Dose: 12.5 mg Documented by: Docusate Sodium (Colace) 100 mg PO BID [facility] Last Admin: 02/19/20 10:17 Dose: 100 mg Documented by: Ezetimibe (Zetia) 10 mg PO QDAY [facility] Last Admin: 02/19/20 10:17 Dose: 10 mg Documented by: Furosemide (Lasix) 40 mg IV BIDD [facility] Last Admin: 02/19/20 10:18 Dose: 40 mg Documented by: Heparin Sodium (Porcine) (Heparin) 5,000 unit SQ Q12 [facility] Last Admin: 02/19/20 10:18 Dose: 5,000 unit Documented by: Levofloxacin (Levaquin) 750 mg in 150 mls @ 100 mls/hr IV Q24H [facility]; Protocol Last Infusion: 02/19/20 12:08 Dose: Infused Documented by: Losartan Potassium (Cozaar) 100 mg PO DAILY [facility] Last Admin: 02/19/20 10:17 Dose: 100 mg Documented by: Pantoprazole Sodium (Protonix) 40 mg PO QAMAC [facility] Last Admin: 02/19/20 10:16 Dose: 40 mg Documented by: Prochlorperazine (Compazine) 5 mg IV Q6HP PRN PRN Reason: Nausea And Vomiting Sodium Chloride (Saline Flush) 10 ml IV Q8 [facility] Last Admin: 02/19/20 12:28 Dose: 10 ml Documented by: Tamsulosin HCl (Flomax) 0.4 mg PO QDAY [facility] Last Admin: 02/19/20 10:36 Dose: 0.4 mg Documented by: Medical - PN: A/P - Time Spent With Patient Total time spent is greater than 50% in coordination of care (as documented) at patient's floor/unit and/or counseling patient: Medical - PN: Qual - Stroke Symptom Onset Unknown: No - VTE Deep Vein Thrombosis/Pulmonary Embolism Present on Admission: No
--- NOTE | 2020-02-19 18:27 | Internal Med Progress Note ---
Medical - PN: Subj Patient information: Note initiated : 02/19/20 at 6:15 pm Service Date, if different from initiated Date: [] Patient: Izzy Everett a 80 y/o F admitted on 02/18/20 for SOB, Coughing Up Blood Increased Weakness. Chief Complaint: [] Interval History: Ms. Everett is a 80 year old F with a history of blood pressure, CHF and anemia who was brought into the ER due to worsening shortness of breath, hemoptysis, and lower extremity edema for days. Otherwise the patient denies cough, fever, chills, chest pain, abdominal pain, sore throat, or dysuria. Patient was admitted on 01/23/20 because of UTI and fracture. In the ER, BNP 8818. Oxygen saturation was fine. Chest x-ray showed CHF and possible pneumonia. Lasix 80 mg was given. She had 1300 cc urine. 1 dose of Levaquin was given. When I saw this patient in the ER, she felt better. Denied headache, dizziness, abdominal pain, or palpitation. No recent travel or sick contact. 02/18 Pt does not have new complaints. She still has hemoptysis (small amount of red blood on paper tissue). CT chest showed Consolidation in both lungs. This has a mixed pattern. The nodular infiltrates in the upper lobes may be seen with organizing pneumonia or collagen vascular disease. Infection is possible but less likely. based on his symptoms and the CT chest result, I would initially like to transfer her to [facility] for further workup and treatment because I feel she needs a nurse research. RAJI Donald and I explained pt's condition and treatment options with daughter Nori (POA) and son by phone. Both would not like to pursue aggressive treatment. Instead they would like to pursue comfort care only and stop meds which are not related to the comfort care. They fully understood pain meds and ativan can suppress her respiration. They would like to start comfort care now and will bring her home tomorrow. Review of systems: Positive for shortness of breath, hemoptysis and leg swelling. All other systems were reviewed and are negative. - Constitutional Vitals: Vital Signs Temp Pulse Resp BP Pulse Ox 97.8 F 79 22 140/83 93 02/19/20 16:00 02/19/20 16:00 02/19/20 16:02/19/20 16:00 02/19/20 16:00 Period Temp Pulse Resp BP Sys/Flood Pulse Ox Last 24 Hr 97.5 F-98.5 F 69-88 16-34 119-194/64-83 91-100 Intake and Output 02/19/20 02/19/20 02/19/20 05:59 13:59 21:59 Intake Total 240 250 200 Output Total 425 856 2 Balance -185 -606 198 Weight 67.132 kg Intake & Output: Intake & Output 02/19/20 02/19/20 02/19/20 05:59 13:59 21:59 Intake Total 240 250 200 Output Total 425 856 2 Balance -185 -606 198 Weight 67.132 kg Intake: IV 150 Oral 240 100 200 Output: Void Amount 425 850 # of times incontinent of urine 6 2 Other: Meal Lunch Percent of Meal Consumed 25% Urine Appearance Clear Clear Urine Color Bright Yellow Pale Urine Odor Normal Normal - Additional findings Additional findings: General - No acute distress Eyes - PERRLA, EOM intact ENT no rhinorrhea, no noticeable or palpable swelling, no redness or rash around throat or on face Neck supple, no JVD, no thyromegaly Respiratory: Bibasilar crackles. Cardiovascular - RRR no m/r/g, GI - Normal bowel sounds, no distended, soft. Extremeties - Pitting edema++- +++, cyanosis or clubbing Hemo/lymphatic/immune no lymphadenopathy Neurological Alert and oriented x 3, no focal neurological deficits. Psychiatry flat affect Medical - PN: Obj Da - Labs CBC & Chem 7: 02/19/20 05:08 02/19/20 05:08 Labs: Abnormal Lab Results 02/19/20 02/19/20 02/18/20 05:08 05:08 16:01 RBC 2.99 L Hgb 8.7 L Hct 27.6 L POC Hct RDW 14.6 H Gran % 78.4 H Lymph % (Auto) 6.6 L [place] % (Auto) 12.4 H Lymph # (Auto) 0.56 L [place] # (Auto) 1.06 H Glucose POC Glucose Total Bilirubin 1.2 H NT-Pro-B Natriuret Pep Urine Occult Blood 0.03 A Ur Leukocyte Esterase 75 A Urine WBC 11 H Urine Yeast (Budding) Few A 02/18/20 02/18/20 13:35 13:35 RBC 3.09 L Hgb 9.1 L Hct 28.3 L POC Hct 29.0 L RDW 14.6 H Gran % Lymph % (Auto) 7.6 L [place] % (Auto) 12.4 H Lymph # (Auto) 0.66 L [place] # (Auto) 1.07 H Glucose 110 H POC Glucose 110 H Total Bilirubin 1.2 H NT-Pro-B Natriuret Pep 8818.0 H Urine Occult Blood Ur Leukocyte Esterase Urine WBC Urine Yeast (Budding) Meds: Medications Amlodipine Besylate (Norvasc) 5 mg PO DAILY [facility] Last Admin: 02/19/20 10:17 Dose: 5 mg Documented by: [facility] Last Admin: 02/19/20 17:56 Dose: Not Given Documented by: Docusate Sodium (Colace) 100 mg PO BID [facility] Last Admin: 02/19/20 10:17 Dose: 100 mg Documented by: Ezetimibe (Zetia) 10 mg PO QDAY [facility] Last Admin: 02/19/20 10:17 Dose: 10 mg Documented by: Furosemide (Lasix) 40 mg IV BIDD [facility] Last Admin: 02/19/20 17:55 Dose: Not Given Documented by: Heparin Sodium (Porcine) (Heparin) 5,000 unit SQ Q12 [facility] Last Admin: 02/19/20 10:18 Dose: 5,000 unit Documented by: Levofloxacin (Levaquin) 750 mg in 150 mls @ 100 mls/hr IV Q24H [facility]; Protocol Last Infusion: 02/19/20 12:08 Dose: Infused Documented by: Losartan Potassium (Cozaar) 100 mg PO DAILY [facility] Last Admin: 02/19/20 10:17 Dose: 100 mg Documented by: Pantoprazole Sodium (Protonix) 40 mg PO QAMAC [facility] Last Admin: 02/19/20 10:16 Dose: 40 mg Documented by: Prochlorperazine (Compazine) 5 mg IV Q6HP PRN PRN Reason: Nausea And Vomiting Sodium Chloride (Saline Flush) 10 ml IV Q8 [facility] Last Admin: 02/19/20 12:28 Dose: 10 ml Documented by: Tamsulosin HCl (Flomax) 0.4 mg PO QDAY [facility] Last Admin: 02/19/20 10:36 Dose: 0.4 mg Documented by: Medical - PN: A/P - Time Spent With Patient Total time spent is greater than 50% in coordination of care (as documented) at patient's floor/unit and/or counseling patient: - Narrative A/P Narrative: 1. CHF exacerbation I50.9 2. Possible pnuemnonia J18.9 3. Hemoptysis R04.2 4. Atrial fibrillation I48.91 5. Chronic anemia D64.9 6. HTN 7. Organizing pneumonia or collagen vascular disease? Plan: Family would like to pursue comfort care only. RN Shabana and I explained pt's condition and treatment options with daughter Nori (POA) and son by phone this afternoon. Both would like to pursue comfort care only and start now. Medical - PN: Qual - Stroke Symptom Onset Unknown: No - VTE Deep Vein Thrombosis/Pulmonary Embolism Present on Admission: No
[2020-02-19] MEDS ORDERED: LORazepam 2 MG/ML VIAL IV PRN ×2 (18:34→18:48)
[2020-02-19] MEDS ORDERED: SCOPOLAMINE 1 PATCH PATCH TOPICAL SCH ×2 (18:45→19:00)
--- NOTE | 2020-02-20 10:00 | Discharge Summary ---
Medical - DS: Prov Patient information: Note initiated : 02/20/20 at 9:49 am Service Date, if different from initiated Date: [] Patient: Izzy Everett the name KH she 80 y/o F admitted on 02/18/20 for SOB, Coughing Up Blood Increased Weakness. Chief Complaint: [] Referred to H&P by Claire Richey MD on low 02/18/20 Ms. Everett is a 80 year old F with a history of blood pressure, CHF and anemia who was brought into the ER due to worsening shortness of breath, hemoptysis, and lower extremity edema for days. Otherwise the patient denies cough, fever, chills, chest pain, abdominal pain, sore throat, or dysuria. Patient was admitted on 01/23/20 because of UTI and fracture. In the ER, BNP 8818. Oxygen saturation was fine. Chest x-ray showed CHF and possible pneumonia. Lasix 80 mg was given. She had 1300 cc urine. 1 dose of Levaquin was given. When I saw this patient in the ER, she felt better. Denied headache, dizziness, abdominal pain, or palpitation. No recent travel or sick contact. Date of admission: 02/18/20 22:06 Discharge date: 02/20/20 Primary care physician: Max Johnson Consults: 02/18/20 Consult to Physician [CONS] Stat Comment: Consulting Provider: Claire Richey Reason For Exam: Physician to Consult 02/19/20 11:08 Consult to Physician [CONS] Routine Comment: Consulting Provider: [facility] Reason For Exam: Physician to Consult Medical - DS: Meds - Discharge Medications Active and Home Medications: Home Medications Aspirin [Adult Low Dose Aspirin EC] 81 mg PO DAILY 03/12/17 [History Confirmed 02/19/20 Last Taken 03/23/19] valsartan 160 mg tablet 160 mg PO QDAY #90 tab 08/04/19 [Rx Confirmed 02/19/20 Last Taken 01/20/20 12:00] carvedilol 12.5 mg tablet 12.5 mg PO BID #180 tab 08/05/19 [Rx Confirmed 02/19/20 Last Taken 01/20/20 18:15] rivaroxaban 20 mg tablet 20 mg PO DAILY #90 tab 08/11/19 [Rx Confirmed 02/19/20 Last Taken 01/20/20 12:00] ezetimibe 10 mg tablet 10 mg PO QDAY #90 tab 08/27/19 [Rx Confirmed 02/19/20 Last Taken 01/20/20 12:00] furosemide 40 mg tablet 40 mg PO QDAY #90 tab 09/17/19 [Rx Confirmed 02/19/20 Last Taken 01/20/20 12:00] Docusate Sodium [Colace] 100 mg PO BID #0 cap 01/27/20 [Rx Confirmed 02/19/20 Last Taken Unknown] oxyCODONE HCL [Roxicodone] 5 - 10 mg PO Q4HP PRN #14 tab 01/27/20 [Rx Confirmed 02/19/20 Last Taken Unknown] tamsulosin 0.4 mg capsule 0.4 mg PO QDAY #30 cap 02/10/20 [Rx Confirmed 02/19/20 Last Taken Unknown] Ipratropium/Albuterol [Duoneb] 3 ml NEB Q6 02/18/20 [History Confirmed 02/19/20 Last Taken 02/18/20 1] Spironolactone [Aldactone] 25 mg PO DAILY 02/18/20 [History Confirmed 02/19/20 Last Taken Unknown] amLODIPine [Norvasc] 5 mg PO DAILY 02/18/20 [History Confirmed 02/19/20 Last Taken Unknown] Medical - DS: Hosp Hospital Course: Ms. Everett is a 80 year old F with a history of blood pressure, CHF and anemia who was brought into the ER due to worsening shortness of breath, hemoptysis, and lower extremity edema for days. Otherwise the patient denies cough, fever, chills, chest pain, abdominal pain, sore throat, or dysuria. Patient was admitted on 01/23/20 because of UTI and fracture. In the ER, BNP 8818. Oxygen saturation was fine. Chest x-ray showed CHF and possible pneumonia. Lasix 80 mg was given. She had 1300 cc urine. 1 dose of Levaquin was given. When I saw this patient in the ER, she felt better. Denied headache, dizziness, abdominal pain, or palpitation. No recent travel or sick contact. A/P Narrative: 1. CHF exacerbation I50.9 2. Possible pnuemnonia J18.9 3. Hemoptysis R04.2 4. Atrial fibrillation I48.91 5. Chronic anemia D64.9 6. HTN 7. Organizing pneumonia or collagen vascular disease? 02/18 Pt does not have new complaints. She still has hemoptysis (small amount of red blood on paper tissue). CT chest showed Consolidation in both lungs. This has a mixed pattern. The nodular infiltrates in the upper lobes may be seen with organizing pneumonia or collagen vascular disease. Infection is possible but less likely. based on his symptoms and the CT chest result, I would initially like to transfer her to [facility] for further workup and treatment because I feel she needs a all around presser. RN Shabana and I explained pt's condition and treatment options with daughter Nori (POA) and son by phone. Both would not like to pursue aggressive treatment. Instead they would like to pursue comfort care only and stop meds which are not related to the comfort care. They fully understood pain meds and ativan can suppress her respiration. They would like to start comfort care now and will bring her home tomorrow. 02/19 Today pt does not have new complaints. Discussed with CM who will establish home hospice care and family would like to grape picker pt home this morning. Pt's vital signs are now stable. Call PCP for medical issues. Discharge diagnosis: CHF exacerbation - Time Spent with Patient Total time spent providing and/or coordinating discharge services: Greater than 30 minutes Medical - DS: Exam - Constitutional Vitals: Vital Signs Temp Pulse Resp BP Pulse Ox 02/20/20 08:00 98.2 F 73 22 120/61 92 02/19/20 23:00 93 02/19/20 20:00 98.2 F 78 22 140/81 93 02/19/20 16:00 97.8 F 79 22 140/83 93 02/19/20 12:00 97.9 F 80 22 130/79 Intake and Output 02/19/20 02/20/20 02/20/20 21:59 05:59 13:59 Intake Total 200 400 340 Output Total 2 200 Balance 198 200 340 Intake: Oral 200 400 340 Output: Void Amount 200 # of times incontinent of urine 2 Other: Meal Nourishment/Supplement Breakfast Percent of Meal Consumed 100% 100% Feeding Ability Independent Assist with Tray Set Up Urine Appearance Clear Clear Urine Color Bright Yellow Bright Yellow Urine Odor Normal Normal Stool Size Moderate Stool Color Brown Stool Consistency Formed Weight 67.54 kg - Other Additional findings: General - No acute distress Eyes - PERRLA, EOM intact ENT no rhinorrhea, no noticeable or palpable swelling, no redness or rash around throat or on face Neck supple, no JVD, no thyromegaly Respiratory: Bibasilar crackles. Cardiovascular - RRR no m/r/g, GI - Normal bowel sounds, no distended, soft. Extremeties - Pitting edema++- +++, cyanosis or clubbing Hemo/lymphatic/immune no lymphadenopathy Neurological Alert and oriented x 3, no focal neurological deficits. Psychiatry flat affect Medical - DS: Data Labs on day of discharge: Preliminary micro results at discharge 02/18/20 21:23 Blood Culture - Preliminary Blood 02/18/20 21:28 Blood Culture - Preliminary Blood 02/18/20 16:01 Urine Culture - Preliminary Urine - Clean Void [facility] - DS: A/P - Patient/Caregiver Discharge Instructions Diet: Low Sodium (2gm) Prescriptions: LORazepam [Ativan] 0.5 mg PO Q2HP PRN #10 tablet PRN Reason: Anxiety morphine SULFATE [Morphine Sulfate] 20 mg PO Q2H PRN #10 ml PRN Reason: Pain Level > 6 Scopolamine [Transderm-Scop] 1 patch TOPICAL Q72H #2 patch Transmission Status: Pending to [facility] #[id number] - Follow up Plan Follow up with: Max Johnson DO [Primary Care Provider] - (within 3 days) Disposition: Hospice - Home Prognosis: Serious Rehab Potential: Undetermined Medical - DS: Qual - VTE Deep Vein Thrombosis/Pulmonary Embolism Present on Admission: No
== END 2020-02-20 11:25 | disposition hospice, home (50) | DRG 291 ==
LOC: ED 12:48 → MEDSUR 22:06
PROVIDERS: ADMIT Internal Medicine; ATTEND Internal Medicine